=== PATIENT | male | born 1950 | race Caucasian/White ===

== ENCOUNTER 2016-09-21 01:51 | Inpatient (IN) | payer MEDICARE, OTHER ==
[~2016-09-21] VITALS: Ht 172.7 cm; Wt 81.6 kg
[2016-09-21 02:31] LABS: BASO % 0 % (0-3); EOS % 7 % (0-3); HEMATOCRIT 40.2 % (39.0-53.0); HEMOGLOBIN 13.2 g/dL (13.0-17.5); LYMPH # 2.2 x10^3/uL (1.0-4.8); LYMPH % 25 % (24-48); MEAN CORPUSCULAR HEMOGLOBIN 31 pg (25-35); MEAN CORPUSCULAR HGB CONC 33 g/dL (31-37); MEAN CORPUSCULAR VOLUME 93 fL (79-100); MONO % 6 % (0-9); NEUT % 62 % (31-73); PLATELET COUNT 144 x10^3/uL (140-400); RED BLOOD COUNT 4.31 x10^6/uL (4.30-5.70); RED CELL DISTRIBUTION WIDTH 17.1 % (11.5-14.5); WHITE BLOOD COUNT 8.9 x10^3/uL (4.0-11.0)
[2016-09-21 02:42] LABS: CALCIUM 9.6 mg/dL (8.5-10.1); CREATININE 0.7 mg/dL (0.7-1.3); GFR 112.1; POTASSIUM 4.3 mmol/L (3.5-5.1)
[2016-09-21 02:48] LABS: ALBUMIN 3.6 g/dL (3.4-5.0); ALBUMIN/GLOBULIN RATIO 1.1 (1.0-1.7); TOTAL BILIRUBIN 0.6 mg/dL (0.2-1.0); TOTAL PROTEIN 6.9 g/dL (6.4-8.2)
[2016-09-21 02:56] LABS: CKMB MASS 0.9 ng/mL (0.0-3.6)
[2016-09-21] MEDS ORDERED: IV NORMAL SALINE 1000ML BAG 1,000 ML IV SCH (03:00)
[2016-09-21] MEDS ORDERED: PIP/TAZO PER PHARMACY MC PRN (03:30)
[2016-09-21] MEDS ORDERED: levOFLOXacin PER PHARMACY. MC PRN (03:30)
[2016-09-21] MEDS ORDERED: ACETAMINOPHEN 325 MG TABLET. PO PRN (03:45)
[2016-09-21] MEDS ORDERED: ONDANSETRON PF 4 MG/2 ML VIAL. IV PRN (03:45)
--- NOTE | 2016-09-21 03:54 | PHYS DOC ---
Past Medical History Past Medical History: A-Fib, Dementia, GERD, Hypertension Alcohol Use: None Drug Use: None Adult General Chief Complaint Chief Complaint: DYSPNEA/RESPIRATOY DISTRESS HPI HPI Patient is a 66 year old male who presents to the emergency department by EMS for evaluation of increased work of breathing. Patient was brought to the emergency department by [facility] after patient was noted to have increasing tracheostomy secretions and increased work of breathing. Patient has history of A. fib, severe dementia, GERD, and hypertension. Patient has bedbound and has a tracheostomy in place. Patient provides no history. There are no reports of associated fever. Patient has had increased output of yellowish frothy secretions from the tracheostomy site. Review of Systems Review of Systems Unable to obtain from patient Current Medications Current Medications Current Medications Medications (Trade) Dose Ordered Sig/Eleanor Start Time Stop Time Status Last Admin Dose Admin Levofloxacin/ Dextrose 150 ml @ 100 mls/hr 1X ONCE 09/21/16 04:00 09/21/16 05:29 Levofloxacin/ Dextrose (Levaquin Per Pharmacy) 1 each PRN DAILY PRN 09/21/16 03:30 Piperacillin Sod/ Tazobactam Sod (Zosyn Per Pharmacy) 1 each PRN DAILY PRN 09/21/16 03:30 Piperacillin Sod/ Tazobactam Sod 3.375 gm/Sodium Chloride 50 ml @ 100 mls/hr Q6HRS 09/21/16 06:00 Sodium Chloride 1,000 ml @ 100 mls/hr Q10H 09/21/16 03:00 09/21/16 12:59 09/21/16 03:00 100 MLS/HR Vancomycin HCl (Vanco Per Pharmacy) 1 each PRN DAILY PRN 09/21/16 03:30 Vancomycin HCl 2 gm/Sodium Chloride 500 ml @ 250 mls/hr 1X ONCE 09/21/16 05:00 09/21/16 06:59 Allergies Allergies Allergies Coded Allergies Type Severity Reaction Last Updated Verified fentanyl Allergy Intermediate 09/21/16 Yes morphine Allergy Intermediate 09/21/16 Yes Physical Exam Physical Exam Constitutional: Afebrile, obtunded, withdraws from pain. [] HENT: Normocephalic, atraumatic, bilateral external ears normal, oropharynx dry , no oral exudates, nose normal. [] Eyes: PERRLA, EOMI, conjunctiva normal, no discharge. [] Neck: Tracheostomy midline with copious yellowish frothy secretions, supple, no stridor. [] Cardiovascular: Tachycardia, irregular rhythm, no murmur [] Lungs & Thorax: Mildly restricted air movement bilaterally, rales bilaterally, no wheezes [] Abdomen: Bowel sounds normal, soft, no tenderness, no masses, no pulsatile masses. [] Skin: Warm, dry, no erythema, no rash. [] Back: No tenderness, no CVA tenderness. [] Extremities: No tenderness, no cyanosis, no clubbing, ROM intact, no edema. [] Neurologic: Obtunded, contracted extremities, withdraws to pain, attempts to open eyes to voice. . [] Current Patient Data Vital Signs Vital Signs Date Time Temp Pulse Resp B/P (MAP) Pulse Ox O2 Delivery O2 Flow Rate FiO2 09/21/16 01:55 100 25 143/93 (110) 97 Tracheal Collar 4.0 Lab Values Laboratory Tests Test 09/21/16 02:15 White Blood Count 8.9 x10^3/uL (4.0-11.0) Red Blood Count 4.31 x10^6/uL (4.30-5.70) Hemoglobin 13.2 g/dL (13.0-17.5) Hematocrit 40.2 % (39.0-53.0) Mean Corpuscular Volume 93 fL (79-100) Mean Corpuscular Hemoglobin 31 pg (25-35) Mean Corpuscular Hemoglobin Concent 33 g/dL (31-37) Red Cell Distribution Width 17.1 % (11.5-14.5) H Platelet Count 144 x10^3/uL (140-400) Neutrophils (%) (Auto) 62 % (31-73) Lymphocytes (%) (Auto) 25 % (24-48) Monocytes (%) (Auto) 6 % (0-9) Eosinophils (%) (Auto) 7 % (0-3) H Basophils (%) (Auto) 0 % (0-3) Neutrophils # (Auto) 5.5 x10^3uL (1.8-7.7) Lymphocytes # (Auto) 2.2 x10^3/uL (1.0-4.8) Monocytes # (Auto) 0.5 x10^3/uL (0.0-1.1) Eosinophils # (Auto) 0.6 x10^3/uL (0.0-0.7) Basophils # (Auto) 0.0 x10^3/uL (0.0-0.2) Sodium Level 148 mmol/L (136-145) H Potassium Level 4.3 mmol/L (3.5-5.1) Chloride Level 104 mmol/L (98-107) Carbon Dioxide Level 38 mmol/L (21-32) H Anion Gap 6 (6-14) Blood Urea Nitrogen 16 mg/dL (8-26) Creatinine 0.7 mg/dL (0.7-1.3) Estimated GFR (Cockcroft-Gault) 112.1 BUN/Creatinine Ratio 23 (6-20) H Glucose Level 99 mg/dL (70-99) Lactic Acid Level 3.5 mmol/L (0.4-2.0) H Calcium Level 9.6 mg/dL (8.5-10.1) Total Bilirubin 0.6 mg/dL (0.2-1.0) Aspartate Amino Transferase (AST) 15 U/L (15-37) Alanine Aminotransferase (ALT) 13 U/L (16-63) L Alkaline Phosphatase 84 U/L (46-116) Creatine Kinase 67 U/L (39-308) Creatine Kinase MB (Mass) 0.9 ng/mL (0.0-3.6) Creatine Kinase MB Relative Index 1.3 % (0-4) Total Protein 6.9 g/dL (6.4-8.2) Albumin 3.6 g/dL (3.4-5.0) Albumin/Globulin Ratio 1.1 (1.0-1.7) Laboratory Tests 09/21/16 02:15 Laboratory Tests 09/21/16 02:15 EKG EKG Interpreted by me: Heart rate 102, atrial fibrillation, normal axis, no acute ST /T-wave abnormalities present [] Radiology/Procedures Radiology/Procedures One view AP chest x-ray interpreted by me: Right lower lobe infiltrate, no effusions, normal cardiac silhouette [] Course & Med Decision Making Course & Med Decision Making Pertinent Labs and Imaging studies reviewed. (See chart for details) Patient was suctioned by respiratory therapy in the emergency department. A tracheal aspirate was sent for culture. Patient has infiltrate on chest x-ray. Patient started on vancomycin, Zosyn, and Levaquin for treatment of healthcare associated pneumonia. Patient admitted to Dr. Miranda. Didi Disclaimer [employer] Disclaimer This electronic medical record was generated, in whole or in part, using a voice recognition dictation system. Departure Departure Impression: Primary Impression: Healthcare-associated pneumonia Additional Impressions: Respiratory distress Dementia Disposition: ADMITTED INPATIENT Admitting Physician: Rea Miranda Condition: GUARDED Referrals: UNKNOWN PCP NAME (PCP) Problem Qualifiers Additional Impressions: Dementia Dementia type: unspecified type Dementia behavioral disturbance: without behavioral disturbance Qualified Codes: F03.90 - Unspecified dementia without behavioral disturbance XAVIER EPSTEIN MD September 21, 2016 03:54
--- NOTE | 2016-09-21 04:23 | ACF ---
Admit Criteria Forms Admit Criteria Forms Admit Criteria Forms PNEUMONIA, HOSPITAL-ACQUIRED AND ATELECTASIS Clinical Indications for Inpatient Care (Place 'X' for any and all applicable criteria): Ongoing inpatient care may be indicated for hospital-acquired atelectasis or pneumonia[N] with ANY ONE of the following(2)(5)(47)(48)(49): [ ]I. Mechanical ventilation [N] [ ]II. Temperature less than 35 degrees C (95 degrees F) or greater than 39.5 degrees C (103.1 degrees F) [ ]III. Tachypnea (eg, respiratory rate greater than 30 breaths per minute) [ ]IV. Hemodynamic instability [X]V. Respiratory distress [ ]. Significant hypoxemia as indicated by ANY ONE of the following: [ ]a) Previously normal respiratory status with ANY ONE of the following: [ ]i) SaO2 less than 90% or PO2 less than 60 mm Hg (8.0 kPa )) on room air [ ]ii) Oxygen required to keep SaO2 greater than 90% [ ]b) Chronic baseline hypoxemia with significant deterioration (eg, O2 saturation decrease more than 5%) [ ]c) Required supplemental oxygen performable only in acute inpatient setting [ ]VII. Significant hypoventilation as indicated by ANY ONE of the following: [ ]a) Previously normal with PCO2 greater than 42 mm Hg (5.6 kPa) and pH less than 7.35 [ ]b) Documented PCO2 increase greater than 5 mm Hg (0.7 kPa) from disease baseline [ ]VIII.Severe secretion production requiring frequent suctioning Extended stay beyond goal length of stay for primary condition may be needed until ALL of the following are present(28)(29): [ ]a) Microbiologic cause of infection identified and appropriate antibiotic treatment in place, or satisfactory clinical response to empiric antibiotic therapy [ ]b) Hemodynamic stability [ ]c) No requirement for supplemental oxygen performable only in acute inpatient setting [ ]d) Chest tube absent or chest catheter management regimen established for next level of care [ ]e) Suctioning, pulmonary toilet, or other therapy performable at a lower level of care [ ]f) Fever absent, improved, or manageable at lower level of care [ ]g) Medical comorbidities manageable at a lower level of care The original [facility] content created by [employer] has been revised. The portions of the content which have been revised are identified through the use of italic text or in bold, and [facility] has neither reviewed nor approved the modified material. All other unmodified content is copyright [facility] Please see references footnoted in the original [facility] edition 2016 WILIAN BHATT September 21, 2016 04:23
[2016-09-21 04:50] VITALS: BP 129/80
[2016-09-21] MEDS ORDERED: VANCOMYCIN 2 GM in IV NORMAL SALINE 500ML BAG 500 ML IV ONE (05:00)
[2016-09-21] MEDS ORDERED: DIVA500T4 PEG (05:21)
[2016-09-21] MEDS ORDERED: POLY15DR20 OP (05:21)
[2016-09-21] MEDS ORDERED: IPRA3AMP NEB (05:21)
[2016-09-21] MEDS ORDERED: APIX5TAB PEG (05:21)
[2016-09-21] MEDS ORDERED: BENZ1TAB5 PEG (05:21)
[2016-09-21] MEDS ORDERED: CYAN10002 IM (05:21)
[2016-09-21] MEDS ORDERED: CITA20TA9 PEG (05:21)
[2016-09-21] MEDS ORDERED: ACET500T68 PEG (05:21)
[2016-09-21] MEDS ORDERED: BUDE0.5A NEB (05:21)
[2016-09-21] MEDS: PIPERACILLIN/TAZOBACTAM 4.5 GM in IV NORMAL SALINE 100ML 100 ML IV SCH ×3 (05:42→17:44)
[2016-09-21] MEDS: IV NORMAL SALINE 1000ML BAG 1,000 ML IV SCH ×3 (05:43→19:41)
[2016-09-21] MEDS ORDERED: PIPERACILLIN/TAZOBACTAM 3.375 GM in IV NORMAL SALINE 50ML 50 ML IV SCH (06:00)
[2016-09-21] MEDS: VANCOMYCIN PER PHARMACY MC PRN (06:09)
[2016-09-21 07:00] VITALS: BP 112/77
--- NOTE | 2016-09-21 07:35 | EKG ---
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
--- NOTE | 2016-09-21 07:58 | RAD ---
Portable AP chest. History: Respiratory distress AP view was taken of the chest. The patient has a tracheostomy tube which appears in good position. Patient's taken a poor inspiration. There is elevation of the right diaphragm. Heart is mildly enlarged. There is arthritis in both shoulders. There is mild hazy retrocardiac atelectasis or infiltrate on the left. Impression: 1. Poor inspiration. 2. Cardiomegaly. 3. Elevated right diaphragm. 4. Hazy basilar atelectasis or infiltrate.
[2016-09-21] MEDS ORDERED: POLYVINYL ALCOHOL 1.4% OPHTH SOLUTION 15ML BOTTLE. OU SCH (08:30)
[2016-09-21] MEDS ORDERED: DIVALPROEX EXTENDED RELEASE 500 MG TAB.ER.24H. PO SCH (09:00)
[2016-09-21] MEDS: APIXABAN 5 MG TABLET. PO SCH ×2 (10:20→21:00)
[2016-09-21] MEDS: CITALOPRAM 20 MG TABLET. PEG SCH (10:20)
--- NOTE | 2016-09-21 11:21 | PDOC ---
PULMONARY PROGRESS NOTES Vitals Vital Signs Date Time Temp Pulse Resp B/P (MAP) Pulse Ox O2 Delivery O2 Flow Rate FiO2 09/21/16 07:00 98.5 102 18 112/77 (89) 97 Tracheal Collar 98.5 09/21/16 05:53 4.0 Labs Laboratory Tests Test 09/21/16 02:15 White Blood Count 8.9 x10^3/uL (4.0-11.0) Red Blood Count 4.31 x10^6/uL (4.30-5.70) Hemoglobin 13.2 g/dL (13.0-17.5) Hematocrit 40.2 % (39.0-53.0) Mean Corpuscular Volume 93 fL (79-100) Mean Corpuscular Hemoglobin 31 pg (25-35) Mean Corpuscular Hemoglobin Concent 33 g/dL (31-37) Red Cell Distribution Width 17.1 % (11.5-14.5) Platelet Count 144 x10^3/uL (140-400) Neutrophils (%) (Auto) 62 % (31-73) Lymphocytes (%) (Auto) 25 % (24-48) Monocytes (%) (Auto) 6 % (0-9) Eosinophils (%) (Auto) 7 % (0-3) Basophils (%) (Auto) 0 % (0-3) Neutrophils # (Auto) 5.5 x10^3uL (1.8-7.7) Lymphocytes # (Auto) 2.2 x10^3/uL (1.0-4.8) Monocytes # (Auto) 0.5 x10^3/uL (0.0-1.1) Eosinophils # (Auto) 0.6 x10^3/uL (0.0-0.7) Basophils # (Auto) 0.0 x10^3/uL (0.0-0.2) Sodium Level 148 mmol/L (136-145) Potassium Level 4.3 mmol/L (3.5-5.1) Chloride Level 104 mmol/L (98-107) Carbon Dioxide Level 38 mmol/L (21-32) Anion Gap 6 (6-14) Blood Urea Nitrogen 16 mg/dL (8-26) Creatinine 0.7 mg/dL (0.7-1.3) Estimated GFR (Cockcroft-Gault) 112.1 BUN/Creatinine Ratio 23 (6-20) Glucose Level 99 mg/dL (70-99) Lactic Acid Level 3.5 mmol/L (0.4-2.0) Calcium Level 9.6 mg/dL (8.5-10.1) Total Bilirubin 0.6 mg/dL (0.2-1.0) Aspartate Amino Transf (AST/SGOT) 15 U/L (15-37) Alanine Aminotransferase (ALT/SGPT) 13 U/L (16-63) Alkaline Phosphatase 84 U/L (46-116) Creatine Kinase 67 U/L (39-308) Creatine Kinase MB (Mass) 0.9 ng/mL (0.0-3.6) Creatine Kinase MB Relative Index 1.3 % (0-4) Total Protein 6.9 g/dL (6.4-8.2) Albumin 3.6 g/dL (3.4-5.0) Albumin/Globulin Ratio 1.1 (1.0-1.7) Laboratory Tests Test 09/21/16 02:15 White Blood Count 8.9 x10^3/uL (4.0-11.0) Red Blood Count 4.31 x10^6/uL (4.30-5.70) Hemoglobin 13.2 g/dL (13.0-17.5) Hematocrit 40.2 % (39.0-53.0) Mean Corpuscular Volume 93 fL (79-100) Mean Corpuscular Hemoglobin 31 pg (25-35) Mean Corpuscular Hemoglobin Concent 33 g/dL (31-37) Red Cell Distribution Width 17.1 % (11.5-14.5) Platelet Count 144 x10^3/uL (140-400) Neutrophils (%) (Auto) 62 % (31-73) Lymphocytes (%) (Auto) 25 % (24-48) Monocytes (%) (Auto) 6 % (0-9) Eosinophils (%) (Auto) 7 % (0-3) Basophils (%) (Auto) 0 % (0-3) Neutrophils # (Auto) 5.5 x10^3uL (1.8-7.7) Lymphocytes # (Auto) 2.2 x10^3/uL (1.0-4.8) Monocytes # (Auto) 0.5 x10^3/uL (0.0-1.1) Eosinophils # (Auto) 0.6 x10^3/uL (0.0-0.7) Basophils # (Auto) 0.0 x10^3/uL (0.0-0.2) Sodium Level 148 mmol/L (136-145) Potassium Level 4.3 mmol/L (3.5-5.1) Chloride Level 104 mmol/L (98-107) Carbon Dioxide Level 38 mmol/L (21-32) Anion Gap 6 (6-14) Blood Urea Nitrogen 16 mg/dL (8-26) Creatinine 0.7 mg/dL (0.7-1.3) Estimated GFR (Cockcroft-Gault) 112.1 BUN/Creatinine Ratio 23 (6-20) Glucose Level 99 mg/dL (70-99) Lactic Acid Level 3.5 mmol/L (0.4-2.0) Calcium Level 9.6 mg/dL (8.5-10.1) Total Bilirubin 0.6 mg/dL (0.2-1.0) Aspartate Amino Transf (AST/SGOT) 15 U/L (15-37) Alanine Aminotransferase (ALT/SGPT) 13 U/L (16-63) Alkaline Phosphatase 84 U/L (46-116) Creatine Kinase 67 U/L (39-308) Creatine Kinase MB (Mass) 0.9 ng/mL (0.0-3.6) Creatine Kinase MB Relative Index 1.3 % (0-4) Total Protein 6.9 g/dL (6.4-8.2) Albumin 3.6 g/dL (3.4-5.0) Albumin/Globulin Ratio 1.1 (1.0-1.7) Medications Active Scripts Medications Dose Route/Sig Max Daily Dose Days Date Category Dose Instructions Duoneb 0.5-3(2.5) Mg/3 Ml (Albuterol/Ipratropium) 3 Ml Ampul.neb 3 Ml NEB QID 09/21/16 Reported Depakote Er (Divalproex Sodium) 500 Mg Tab.er.24h 1 Tab PEG BID 09/21/16 Reported Cyanocobalamin Injection (Cyanocobalamin (Vitamin B-12)) 1,000 Mcg/1 Ml Vial 1 Ml IM QMONTH 09/21/16 Reported Celexa (Citalopram Hydrobromide) 20 Mg Tablet 1 Tab PEG QODAY 09/21/16 Reported Budesonide 0.5 Mg/2 Ml Ampul.neb 1 Vial NEB BID 09/21/16 Reported Benztropine Mesylate 1 Mg Tablet 1 Mg PEG HS 09/21/16 Reported Polyvinyl Alcohol 15 Ml Drops 15 Ml OP PRN Q8HRS 09/21/16 Reported Instill 1 drop in both eyes every 8 hours as needed for dryness Eliquis (Apixaban) 5 Mg Tablet 5 Mg PEG BID 09/21/16 Reported Acetaminophen 500 Mg Tablet 650 Mg PEG PRN Q6HRS 09/21/16 Reported Impression . full note dictated see orders INÉS LANZA MD September 21, 2016 11:21
[2016-09-21] MEDS: BUDESONIDE 0.5 MG/2 ML NEBU. NEB SCH ×2 (11:22→19:55)
[2016-09-21] MEDS: IPRATRPIUM/ALBUTEROL 0.5/2.5MG 3 ML NEBU. NEB SCH ×3 (11:22→19:55)
[2016-09-21] MEDS ORDERED: predniSONE 20 MG TABLET PEG SCH (12:00)
--- NOTE | 2016-09-21 12:18 | PDOC1 ---
History and Physical Date of Admission Date of Admission DATE: 09/21/16 TIME: 12:16 Identification/Chief Complaint Chief Complaint lots of secretions, desatns? Problems: Source Source: Caregiver, Chart review History of Present Illness History of Present Illness 66 y.o male, resident of , admitted bec of lots of secretions at SNU and possibly some desatns? Pt is non verbal, trached and pEGd and mostly bed bound. There were no reports of fever but pete some yellowish frothy secretions from trach, CXR shows atelectasis and possibly hazy infiltrate, started on HAP coverage, NO family at bedside, full code per chart, On continuous TF at SNU per RN WBC normal, NA 148. crea 0.7, rest of labs ok. NO wound chart or pics documented Past Medical History CENTRAL NERVOUS SYSTEM: Seizure Psych: Other (encephalopathy) Past Surgical History Past Surgical History: Other (trach, peg) Family History Family History: Family History Unknown Social History Smoke: No ALCOHOL: none Drugs: None Current Problem List Problem List Problems Medical Problems: (1) Dementia Status: Acute (2) Healthcare-associated pneumonia Status: Acute (3) Respiratory distress Status: Acute Problems: Current Medications Current Medications Current Medications Sodium Chloride 1,000 ml @ 100 mls/hr Q10H IV Last administered on 09/21/16 03:00; Start 09/21/16 at 03:00; Stop 09/21/16 at 12:59 Vancomycin HCl (Vanco Per Pharmacy) 1 each PRN DAILY PRN MC SEE COMMENTS Last administered on 09/21/16 06:09; Start 09/21/16 at 03:30 Piperacillin Sod/ Tazobactam Sod (Zosyn Per Pharmacy) 1 each PRN DAILY PRN MC SEE COMMENTS; Start 09/21/16 at 03:30 Levofloxacin/ Dextrose (Levaquin Per Pharmacy) 1 each PRN DAILY PRN MC SEE COMMENTS; Start 09/21/16 at 03:30 Vancomycin HCl 2 gm/Sodium Chloride 500 ml @ 250 mls/hr 1X ONCE IV Last administered on 09/21/16 05:43; Start 09/21/16 at 05:00; Stop 09/21/16 at 06:59 ; Status DC Levofloxacin/ Dextrose 150 ml @ 100 mls/hr 1X ONCE IV Last administered on 03:51; Start 09/21/16 at 04:00; Stop 09/21/16 at 05:29; Status DC Piperacillin Sod/ Tazobactam Sod 3.375 gm/Sodium Chloride 50 ml @ 100 mls/hr Q6HRS IV ; Start 09/21/16 at 06:00; Status Cancel Ondansetron HCl (Zofran) 4 mg PRN Q8HRS PRN IV NAUSEA/VOMITING; Start 09/21/16 at 03:45; Stop 09/22/16 at 03:44 Sodium Chloride 1,000 ml @ 125 mls/hr Q8H IV Last administered on 09/21/16 05 :43; Start 09/21/16 at 03:41; Stop 09/22/16 at 03:40 Acetaminophen (Tylenol) 650 mg PRN Q4HRS PRN PO FEVER; Start 09/21/16 at 03:45 ; Stop 09/21/16 at 08:25; Status DC Levofloxacin/ Dextrose 150 ml @ 100 mls/hr Q24H IV ; Start 09/22/16 at 05:00 Piperacillin Sod/ Tazobactam Sod 4.5 gm/Sodium Chloride 100 ml @ 200 mls/hr Q6HRS IV Last administered on 09/21/16 05:42; Start 09/21/16 at 06:00 Vancomycin HCl 1.25 gm/Sodium Chloride 250 ml @ 167 mls/hr Q12H IV ; Start at 18:00 Vancomycin HCl 1 each 1X ONCE MC ; Start 09/22/16 at 17:30; Stop 09/22/16 at 17 :31 Acetaminophen (Tylenol) 650 mg PRN Q6HRS PRN PO temp; Start 09/21/16 at 08:30 Apixaban (Eliquis) 5 mg BID PO Last administered on 09/21/16 10:20; Start at 09:00 Benztropine Mesylate (Cogentin) 1 mg HS PEG ; Start 09/21/16 at 21:00 Budesonide (Pulmicort) 0.5 mg BID NEB Last administered on 09/21/16 11:22; Start 09/21/16 at 09:00 Citalopram Hydrobromide (CeleXA) 20 mg QODAY PEG Last administered on 5/29/ 17at 10:20; Start 09/21/16 at 09:00 Cyanocobalamin (Vitamin B-12) 1,000 mcg QMONTH IM ; Start 09/21/16 at 15:00 Divalproex Sodium (Depakote Er) 500 mg BID PO ; Start 09/21/16 at 09:00 Albuterol/ Ipratropium (Duoneb) 3 ml QID NEB Last administered on 09/21/16t 11: 22; Start 09/21/16 at 09:00 Artificial Tears (Artificial Tears) 1 drop PRN Q8HRS OU ; Start 09/21/16 at 08: 30 Info (Anti-Coagulation Monitoring By Pharmacy) 1 each PRN DAILY PRN MC SEE COMMENTS; Start 09/21/16 at 08:45 Enoxaparin Sodium (Lovenox 40mg Syringe) 40 mg DAILY SQ ; Start 09/22/16 at 09: 00; Stop 09/22/16 at 09:00; Status DC Prednisone (Prednisone) 20 mg DAILY PEG ; Start 09/21/16 at 12:00 Active Scripts Active Reported Duoneb 0.5-3(2.5) Mg/3 Ml (Albuterol/Ipratropium) 3 Ml Ampul.neb 3 Ml NEB QID Depakote Er (Divalproex Sodium) 500 Mg Tab.er.24h 1 Tab PEG BID Cyanocobalamin Injection (Cyanocobalamin (Vitamin B-12)) 1,000 Mcg/1 Ml Vial 1 Ml IM QMONTH Celexa (Citalopram Hydrobromide) 20 Mg Tablet 1 Tab PEG QODAY Budesonide 0.5 Mg/2 Ml Ampul.neb 1 Vial NEB BID Benztropine Mesylate 1 Mg Tablet 1 Mg PEG HS Polyvinyl Alcohol 15 Ml Drops 15 Ml OP PRN Q8HRS Instill 1 drop in both eyes every 8 hours as needed for dryness Eliquis (Apixaban) 5 Mg Tablet 5 Mg PEG BID Acetaminophen 500 Mg Tablet 650 Mg PEG PRN Q6HRS Allergies Allergies: Coded Allergies: fentanyl (Verified Allergy, Intermediate, 09/21/16) morphine (Verified Allergy, Intermediate, 09/21/16) ROS Review of System non verbal Physical Exam General: mild distress, Other (lots of audible secretions) Lungs: Normal air movement, Other (dec BS, coarse, no wheezing) Cardiovascular: S1, S2 Abdomen: Normal bowel sounds, Soft, No tenderness, No hepatosplenomegaly, No masses, Other (peg in place) Rectal Exam: not examined PELVIC: Nml ext genitalia Extremities: Other (clubbing appreciable) Skin: No rashes, No breakdown, No significant lesion Neuro: Other (cant assess) Psych/Mental Status: Other (cant assess) Vitals Vitals Vital Signs Date Time Temp Pulse Resp B/P (MAP) Pulse Ox O2 Delivery O2 Flow Rate FiO2 09/21/16 11:26 95 Tracheal Collar 10.0 09/21/16 11:00 99.0 116 20 99.0 09/21/16 07:00 112/77 (89) Labs Labs Laboratory Tests Test 09/21/16 02:15 White Blood Count 8.9 x10^3/uL (4.0-11.0) Red Blood Count 4.31 x10^6/uL (4.30-5.70) Hemoglobin 13.2 g/dL (13.0-17.5) Hematocrit 40.2 % (39.0-53.0) Mean Corpuscular Volume 93 fL (79-100) Mean Corpuscular Hemoglobin 31 pg (25-35) Mean Corpuscular Hemoglobin Concent 33 g/dL (31-37) Red Cell Distribution Width 17.1 % (11.5-14.5) Platelet Count 144 x10^3/uL (140-400) Neutrophils (%) (Auto) 62 % (31-73) Lymphocytes (%) (Auto) 25 % (24-48) Monocytes (%) (Auto) 6 % (0-9) Eosinophils (%) (Auto) 7 % (0-3) Basophils (%) (Auto) 0 % (0-3) Neutrophils # (Auto) 5.5 x10^3uL (1.8-7.7) Lymphocytes # (Auto) 2.2 x10^3/uL (1.0-4.8) Monocytes # (Auto) 0.5 x10^3/uL (0.0-1.1) Eosinophils # (Auto) 0.6 x10^3/uL (0.0-0.7) Basophils # (Auto) 0.0 x10^3/uL (0.0-0.2) Sodium Level 148 mmol/L (136-145) Potassium Level 4.3 mmol/L (3.5-5.1) Chloride Level 104 mmol/L (98-107) Carbon Dioxide Level 38 mmol/L (21-32) Anion Gap 6 (6-14) Blood Urea Nitrogen 16 mg/dL (8-26) Creatinine 0.7 mg/dL (0.7-1.3) Estimated GFR (Cockcroft-Gault) 112.1 BUN/Creatinine Ratio 23 (6-20) Glucose Level 99 mg/dL (70-99) Lactic Acid Level 3.5 mmol/L (0.4-2.0) Calcium Level 9.6 mg/dL (8.5-10.1) Total Bilirubin 0.6 mg/dL (0.2-1.0) Aspartate Amino Transf (AST/SGOT) 15 U/L (15-37) Alanine Aminotransferase (ALT/SGPT) 13 U/L (16-63) Alkaline Phosphatase 84 U/L (46-116) Creatine Kinase 67 U/L (39-308) Creatine Kinase MB (Mass) 0.9 ng/mL (0.0-3.6) Creatine Kinase MB Relative Index 1.3 % (0-4) Total Protein 6.9 g/dL (6.4-8.2) Albumin 3.6 g/dL (3.4-5.0) Albumin/Globulin Ratio 1.1 (1.0-1.7) Laboratory Tests Test 09/21/16 02:15 White Blood Count 8.9 x10^3/uL (4.0-11.0) Red Blood Count 4.31 x10^6/uL (4.30-5.70) Hemoglobin 13.2 g/dL (13.0-17.5) Hematocrit 40.2 % (39.0-53.0) Mean Corpuscular Volume 93 fL (79-100) Mean Corpuscular Hemoglobin 31 pg (25-35) Mean Corpuscular Hemoglobin Concent 33 g/dL (31-37) Red Cell Distribution Width 17.1 % (11.5-14.5) Platelet Count 144 x10^3/uL (140-400) Neutrophils (%) (Auto) 62 % (31-73) Lymphocytes (%) (Auto) 25 % (24-48) Monocytes (%) (Auto) 6 % (0-9) Eosinophils (%) (Auto) 7 % (0-3) Basophils (%) (Auto) 0 % (0-3) Neutrophils # (Auto) 5.5 x10^3uL (1.8-7.7) Lymphocytes # (Auto) 2.2 x10^3/uL (1.0-4.8) Monocytes # (Auto) 0.5 x10^3/uL (0.0-1.1) Eosinophils # (Auto) 0.6 x10^3/uL (0.0-0.7) Basophils # (Auto) 0.0 x10^3/uL (0.0-0.2) Sodium Level 148 mmol/L (136-145) Potassium Level 4.3 mmol/L (3.5-5.1) Chloride Level 104 mmol/L (98-107) Carbon Dioxide Level 38 mmol/L (21-32) Anion Gap 6 (6-14) Blood Urea Nitrogen 16 mg/dL (8-26) Creatinine 0.7 mg/dL (0.7-1.3) Estimated GFR (Cockcroft-Gault) 112.1 BUN/Creatinine Ratio 23 (6-20) Glucose Level 99 mg/dL (70-99) Lactic Acid Level 3.5 mmol/L (0.4-2.0) Calcium Level 9.6 mg/dL (8.5-10.1) Total Bilirubin 0.6 mg/dL (0.2-1.0) Aspartate Amino Transf (AST/SGOT) 15 U/L (15-37) Alanine Aminotransferase (ALT/SGPT) 13 U/L (16-63) Alkaline Phosphatase 84 U/L (46-116) Creatine Kinase 67 U/L (39-308) Creatine Kinase MB (Mass) 0.9 ng/mL (0.0-3.6) Creatine Kinase MB Relative Index 1.3 % (0-4) Total Protein 6.9 g/dL (6.4-8.2) Albumin 3.6 g/dL (3.4-5.0) Albumin/Globulin Ratio 1.1 (1.0-1.7) VTE Prophylaxis Ordered VTE Prophylaxis Devices: Yes VTE Pharmacological Prophylaxi: Yes Assessment/Plan Assessment/Plan 1. HAP, acute respi failure r/o aspiration pneumonia, pneumonitis, include gram pos and gram neg coverage 2. Encephalopathy, persistent - trached and PEgd 3. ANemia 4. On ELliquis (unsure reason) 5. 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 SIRS POA with elevated lactate (3.5), no sepsis yet PLAN: Admit HAP coverage pUlmo consulted Recheck lactate roel TF via peg with nutrition consult DO depakote sprinkles instead since pEG Trial of scopolamine patch to help secretions Suction secretions aggressively SCDs, cont elliquis for now Involve palliative - address code status Overall prog poor KIRK Riley RN, MD September 21, 2016 12:18
[2016-09-21] MEDS: SCOPOLAMINE 1.5MG PATCH. TD SCH (12:36)
--- NOTE | 2016-09-21 14:14 | CONS ---
DATE OF CONSULTATION: 09/21/2016 ATTENDING PHYSICIAN: Dr. Miranda. DICTATING PHYSICIAN: Dr. Lanza. REASON FOR CONSULTATION: The patient is seen in pulmonary consultation at the request of Dr. Miranda for acute on chronic respiratory failure. HISTORY OF PRESENT ILLNESS: The patient is a 66-year-old that presented to the Emergency Room for evaluation of increased work of breathing. The patient was brought to the Emergency Department by EMS after noted increasing secretions to his tracheostomy tube. The patient has a history of AFib, severe dementia, gastroesophageal reflux, hypertension, status post PEG and trache. No current history is obtained from the patient himself. There is no report of fever or chills. There are no family members. PAST MEDICAL HISTORY: Chronic respiratory failure status post trache, severe dementia, gastroesophageal reflux, hypertension, AFib. PAST SURGICAL HISTORY: Status post PEG and trache. ALLERGIES: LISTED TO MORPHINE AND FENTANYL. CURRENT MEDICATIONS: List was reviewed. Please see the MRAD. All medications list was likewise reviewed. REVIEW OF SYSTEMS: Unobtainable secondary to the patient's condition. SOCIAL HISTORY: Unknown. PHYSICAL EXAMINATION: GENERAL: The patient was awake, but follows no commands. VITAL SIGNS: Stable. O2 saturation was greater than 92%. Since admission, he has been afebrile. He has trache ____ in place. HEENT: Eyes, the sclerae were nonicteric. NECK: Jugular venous distention was not elevated. No lymphadenopathy. CHEST: Full expansion. LUNGS: Bilateral rhonchi. No wheezes. CARDIOVASCULAR: Regular rate and rhythm with S1, S2, no S3. ABDOMEN: Soft, nontender, nondistended. PEG in place. EXTREMITIES: No clubbing, cyanosis. Contractures present. LABORATORY DATA: Reviewed. White count was normal. Hemoglobin and hematocrit were noted. Electrolytes were noted. Chest x-ray was reviewed. Tracheostomy tube was in place. There was poor inspiration, elevated hemidiaphragm, some infiltrates throughout both lung quinones. IMPRESSION: 1. Acute on chronic respiratory failure. 2. Suspect gram-negative, possibly gram-positive pneumonia. 3. Status post tracheostomy. 4. Status post percutaneous endoscopic gastrostomy. 5. Severe dementia. PLAN: 1. Continue coverage for both gram-negative and gram-positive organisms. 2. Continue frequent suctioning. 3. Nebulized treatments. 4. Pulmicort nebulized. 5. IV fluids. 6. Tube feeding. 7. DVT and GI prophylaxis. I do appreciate the privilege in sharing in the patient's care. INÉS LANZA MD DR: ANTON/cindy JOB#: [id number] / [id number]
[2016-09-21] MEDS: ACETAMINOPHEN 500 MG TABLET PO PRN (14:59)
[2016-09-21 15:00] VITALS: BP 109/71
[2016-09-21] MEDS ORDERED: CYANOCOBALAMIN (VITAMIN B-12) 1,000 MCG/ML VIAL IM SCH (15:00)
[2016-09-21] MEDS: VANCOMYCIN 1.25 GM in IV NORMAL SALINE 250ML 250 ML IV SCH (17:44)
[2016-09-21] MEDS: DIVALPROEX SPRINKLES 125 MG CAPSULE. PO SCH (17:45)
[2016-09-21 19:29] VITALS: BP 110/62
[2016-09-21] MEDS: BENZTROPINE MESYLATE 1 MG TABLET. PEG SCH (21:00)
[2016-09-21 23:29] VITALS: BP 108/74
[2016-09-22 03:18] VITALS: BP 110/65
[2016-09-22 04:59] LABS: BASO % 0 % (0-3); EOS % 0 % (0-3); HEMATOCRIT 38.2 % (39.0-53.0); HEMOGLOBIN 12.5 g/dL (13.0-17.5); LYMPH # 0.6 x10^3/uL (1.0-4.8); LYMPH % 15 % (24-48); MEAN CORPUSCULAR HEMOGLOBIN 31 pg (25-35); MEAN CORPUSCULAR HGB CONC 33 g/dL (31-37); MEAN CORPUSCULAR VOLUME 94 fL (79-100); MONO % 7 % (0-9); NEUT % 77 % (31-73); PLATELET COUNT 117 x10^3/uL (140-400); RED BLOOD COUNT 4.08 x10^6/uL (4.30-5.70); RED CELL DISTRIBUTION WIDTH 17.4 % (11.5-14.5); WHITE BLOOD COUNT 3.8 x10^3/uL (4.0-11.0)
[2016-09-22 05:17] LABS: CALCIUM 8.7 mg/dL (8.5-10.1); CREATININE 0.7 mg/dL (0.7-1.3); GFR 112.1
[2016-09-22] MEDS: PIPERACILLIN/TAZOBACTAM 4.5 GM in IV NORMAL SALINE 100ML 100 ML IV SCH ×6 (05:54→23:52)
[2016-09-22] MEDS: DIVALPROEX SPRINKLES 125 MG CAPSULE. PO SCH ×5 (05:55→23:55)
[2016-09-22] MEDS: VANCOMYCIN 1.25 GM in IV NORMAL SALINE 250ML 250 ML IV SCH ×2 (06:17→17:47)
[2016-09-22 07:00] VITALS: BP 109/67
[2016-09-22] MEDS: BUDESONIDE 0.5 MG/2 ML NEBU. NEB SCH ×2 (07:00→19:35)
[2016-09-22] MEDS: IPRATRPIUM/ALBUTEROL 0.5/2.5MG 3 ML NEBU. NEB SCH ×5 (07:00→23:49)
[2016-09-22] MEDS: APIXABAN 5 MG TABLET. PO SCH ×2 (08:30→21:18)
--- NOTE | 2016-09-22 08:32 | PDOC ---
PULMONARY PROGRESS NOTES Subjective audible wheezing/ trach secretions Vitals Vital Signs Date Time Temp Pulse Resp B/P (MAP) Pulse Ox O2 Delivery O2 Flow Rate FiO2 09/22/16 07:02 95 Tracheal Collar 10.0 09/22/16 07:00 99.4 112 34 109/67 (81) 99.4 General: Alert, No acute distress Lungs: Wheezing (bilateral) Cardiovascular: S1, S2 Abdomen: Soft Neuro Exam: Alert Extremities: Other (trace) Labs Laboratory Tests Test 09/21/16 02:15 09/21/16 05:00 09/22/16 04:30 White Blood Count 8.9 x10^3/uL (4.0-11.0) 3.8 x10^3/uL (4.0-11.0) Red Blood Count 4.31 x10^6/uL (4.30-5.70) 4.08 x10^6/uL (4.30-5.70) Hemoglobin 13.2 g/dL (13.0-17.5) 12.5 g/dL (13.0-17.5) Hematocrit 40.2 % (39.0-53.0) 38.2 % (39.0-53.0) Mean Corpuscular Volume 93 fL (79-100) 94 fL (79-100) Mean Corpuscular Hemoglobin 31 pg (25-35) 31 pg (25-35) Mean Corpuscular Hemoglobin Concent 33 g/dL (31-37) 33 g/dL (31-37) Red Cell Distribution Width 17.1 % (11.5-14.5) 17.4 % (11.5-14.5) Platelet Count 144 x10^3/uL (140-400) 117 x10^3/uL (140-400) Neutrophils (%) (Auto) 62 % (31-73) 77 % (31-73) Lymphocytes (%) (Auto) 25 % (24-48) 15 % (24-48) Monocytes (%) (Auto) 6 % (0-9) 7 % (0-9) Eosinophils (%) (Auto) 7 % (0-3) 0 % (0-3) Basophils (%) (Auto) 0 % (0-3) 0 % (0-3) Neutrophils # (Auto) 5.5 x10^3uL (1.8-7.7) 2.9 x10^3uL (1.8-7.7) Lymphocytes # (Auto) 2.2 x10^3/uL (1.0-4.8) 0.6 x10^3/uL (1.0-4.8) Monocytes # (Auto) 0.5 x10^3/uL (0.0-1.1) 0.3 x10^3/uL (0.0-1.1) Eosinophils # (Auto) 0.6 x10^3/uL (0.0-0.7) 0.0 x10^3/uL (0.0-0.7) Basophils # (Auto) 0.0 x10^3/uL (0.0-0.2) 0.0 x10^3/uL (0.0-0.2) Sodium Level 148 mmol/L (136-145) 145 mmol/L (136-145) Potassium Level 4.3 mmol/L (3.5-5.1) 4.0 mmol/L (3.5-5.1) Chloride Level 104 mmol/L (98-107) 108 mmol/L (98-107) Carbon Dioxide Level 38 mmol/L (21-32) 31 mmol/L (21-32) Anion Gap 6 (6-14) 6 (6-14) Blood Urea Nitrogen 16 mg/dL (8-26) 15 mg/dL (8-26) Creatinine 0.7 mg/dL (0.7-1.3) 0.7 mg/dL (0.7-1.3) Estimated GFR (Cockcroft-Gault) 112.1 112.1 BUN/Creatinine Ratio 23 (6-20) Glucose Level 99 mg/dL (70-99) 112 mg/dL (70-99) Lactic Acid Level 3.5 mmol/L (0.4-2.0) 1.6 mmol/L (0.4-2.0) Calcium Level 9.6 mg/dL (8.5-10.1) 8.7 mg/dL (8.5-10.1) Total Bilirubin 0.6 mg/dL (0.2-1.0) Aspartate Amino Transf (AST/SGOT) 15 U/L (15-37) Alanine Aminotransferase (ALT/SGPT) 13 U/L (16-63) Alkaline Phosphatase 84 U/L (46-116) Creatine Kinase 67 U/L (39-308) Creatine Kinase MB (Mass) 0.9 ng/mL (0.0-3.6) Creatine Kinase MB Relative Index 1.3 % (0-4) Total Protein 6.9 g/dL (6.4-8.2) Albumin 3.6 g/dL (3.4-5.0) Albumin/Globulin Ratio 1.1 (1.0-1.7) Nasal Screen MRSA (PCR) Negative (Negative) Laboratory Tests Test 09/22/16 04:30 White Blood Count 3.8 x10^3/uL (4.0-11.0) Red Blood Count 4.08 x10^6/uL (4.30-5.70) Hemoglobin 12.5 g/dL (13.0-17.5) Hematocrit 38.2 % (39.0-53.0) Mean Corpuscular Volume 94 fL (79-100) Mean Corpuscular Hemoglobin 31 pg (25-35) Mean Corpuscular Hemoglobin Concent 33 g/dL (31-37) Red Cell Distribution Width 17.4 % (11.5-14.5) Platelet Count 117 x10^3/uL (140-400) Neutrophils (%) (Auto) 77 % (31-73) Lymphocytes (%) (Auto) 15 % (24-48) Monocytes (%) (Auto) 7 % (0-9) Eosinophils (%) (Auto) 0 % (0-3) Basophils (%) (Auto) 0 % (0-3) Neutrophils # (Auto) 2.9 x10^3uL (1.8-7.7) Lymphocytes # (Auto) 0.6 x10^3/uL (1.0-4.8) Monocytes # (Auto) 0.3 x10^3/uL (0.0-1.1) Eosinophils # (Auto) 0.0 x10^3/uL (0.0-0.7) Basophils # (Auto) 0.0 x10^3/uL (0.0-0.2) Sodium Level 145 mmol/L (136-145) Potassium Level 4.0 mmol/L (3.5-5.1) Chloride Level 108 mmol/L (98-107) Carbon Dioxide Level 31 mmol/L (21-32) Anion Gap 6 (6-14) Blood Urea Nitrogen 15 mg/dL (8-26) Creatinine 0.7 mg/dL (0.7-1.3) Estimated GFR (Cockcroft-Gault) 112.1 Glucose Level 112 mg/dL (70-99) Lactic Acid Level 1.6 mmol/L (0.4-2.0) Calcium Level 8.7 mg/dL (8.5-10.1) Medications Active Scripts Medications Dose Route/Sig Max Daily Dose Days Date Category Dose Instructions Duoneb 0.5-3(2.5) Mg/3 Ml (Albuterol/Ipratropium) 3 Ml Ampul.neb 3 Ml NEB QID 09/21/16 Reported Depakote Er (Divalproex Sodium) 500 Mg Tab.er.24h 1 Tab PEG BID 09/21/16 Reported Cyanocobalamin Injection (Cyanocobalamin (Vitamin B-12)) 1,000 Mcg/1 Ml Vial 1 Ml IM QMONTH 09/21/16 Reported Celexa (Citalopram Hydrobromide) 20 Mg Tablet 1 Tab PEG QODAY 09/21/16 Reported Budesonide 0.5 Mg/2 Ml Ampul.neb 1 Vial NEB BID 09/21/16 Reported Benztropine Mesylate 1 Mg Tablet 1 Mg PEG HS 09/21/16 Reported Polyvinyl Alcohol 15 Ml Drops 15 Ml OP PRN Q8HRS 09/21/16 Reported Instill 1 drop in both eyes every 8 hours as needed for dryness Eliquis (Apixaban) 5 Mg Tablet 5 Mg PEG BID 09/21/16 Reported Acetaminophen 500 Mg Tablet 650 Mg PEG PRN Q6HRS 09/21/16 Reported Impression . 1. Acute on chronic respiratory failure./ audible wheezing. related to ? CHF vs secretions/ AECOPD 2. Suspect gram-negative, possibly gram-positive pneumonia. 3. Status post tracheostomy. 4. Status post percutaneous endoscopic gastrostomy. 5. Severe dementia. Plan . 1. Continue coverage for both gram-negative and gram-positive organisms. 2. Continue frequent suctioning. 3. Nebulized treatments. increase to q 4 hr 4. Pulmicort nebulized. 5. d/c IV fluids. 6. Tube feeding. 7. DVT and GI prophylaxis. 8. CXR 9. echo 10. IV steroids d/w VICKIE SINGER MD September 22, 2016 08:32
[2016-09-22] MEDS: methylPREDNISolone SOD SUCC PF 125 MG/2 ML VIAL. IV SCH ×3 (08:58→21:43)
[2016-09-22] MEDS ORDERED: FUROSEMIDE 40 MG/4 ML VIAL. IVP ONE (09:00)
[2016-09-22] MEDS ORDERED: ENOXAPARIN 40 MG/0.4 ML SYRINGE. SQ SCH (09:00)
[2016-09-22] MEDS: ALBUTEROL SULFATE 2.5 MG/3 ML NEBU. NEB PRN (09:01)
--- NOTE | 2016-09-22 09:10 | RAD ---
Indication difficulty breathing. A single view of the chest was obtained and is compared to an exam one day earlier. The inspiratory effort is suboptimal but similar to the previous exam. There is unchanged elevation of the right hemidiaphragm and cardiomegaly. Gross congestive heart failure is not seen. There is new volume loss in the left lower lobe relative to yesterday's study probably reflecting atelectasis. Underlying pneumonia is not entirely excluded. Significant pleural fluid in either lung is not seen and there is no pneumothorax. Tracheostomy tube is noted. IMPRESSION: New volume loss in the left lower lobe compatible with atelectasis or pneumonia. No gross congestive heart failure seen
--- NOTE | 2016-09-22 09:48 | PDOC ---
PROGRESS NOTES Chief Complaint Chief Complaint 1. HAP, acute respi failure r/o aspiration pneumonia, pneumonitis, include gram pos and gram neg coverage 2. Encephalopathy, persistent - trached and PEgd 3. ANemia 4. On ELliquis (unsure reason) 5. 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 SIRS POA with elevated lactate (3.5), no sepsis yet History of Present Illness History of Present Illness Crackles/secretions better today - now I hear wheezing Scopolamine patch on Just had nebs x 2 prior to me seeing him NOn verbal BUt did actually look at me when i mentioned his name Full code per chart - dw PAt CXR: IMPRESSION: New volume loss in the left lower lobe compatible with atelectasis or pneumonia. No gross congestive heart failure seen PLAn: CPM Address code status Follow BC MOnitor for fevers COnt TF DVT prophy Vitals Vitals Vital Signs Date Time Temp Pulse Resp B/P (MAP) Pulse Ox O2 Delivery O2 Flow Rate FiO2 09/22/16 08:48 Tracheal Collar 10.0 09/22/16 07:02 95 09/22/16 07:00 99.4 112 34 109/67 (81) 99.4 Physical Exam General: mild distress, Other (lots of audible secretions) Lungs: Wheezing (bilateral) Abdomen: Normal bowel sounds, Soft, No tenderness, No hepatosplenomegaly, No masses, Other (peg in place) Extremities: Other (clubbing appreciable) Skin: No rashes, No breakdown, No significant lesion Labs LABS Laboratory Tests Test 09/22/16 04:30 White Blood Count 3.8 x10^3/uL (4.0-11.0) Red Blood Count 4.08 x10^6/uL (4.30-5.70) Hemoglobin 12.5 g/dL (13.0-17.5) Hematocrit 38.2 % (39.0-53.0) Mean Corpuscular Volume 94 fL (79-100) Mean Corpuscular Hemoglobin 31 pg (25-35) Mean Corpuscular Hemoglobin Concent 33 g/dL (31-37) Red Cell Distribution Width 17.4 % (11.5-14.5) Platelet Count 117 x10^3/uL (140-400) Neutrophils (%) (Auto) 77 % (31-73) Lymphocytes (%) (Auto) 15 % (24-48) Monocytes (%) (Auto) 7 % (0-9) Eosinophils (%) (Auto) 0 % (0-3) Basophils (%) (Auto) 0 % (0-3) Neutrophils # (Auto) 2.9 x10^3uL (1.8-7.7) Lymphocytes # (Auto) 0.6 x10^3/uL (1.0-4.8) Monocytes # (Auto) 0.3 x10^3/uL (0.0-1.1) Eosinophils # (Auto) 0.0 x10^3/uL (0.0-0.7) Basophils # (Auto) 0.0 x10^3/uL (0.0-0.2) Sodium Level 145 mmol/L (136-145) Potassium Level 4.0 mmol/L (3.5-5.1) Chloride Level 108 mmol/L (98-107) Carbon Dioxide Level 31 mmol/L (21-32) Anion Gap 6 (6-14) Blood Urea Nitrogen 15 mg/dL (8-26) Creatinine 0.7 mg/dL (0.7-1.3) Estimated GFR (Cockcroft-Gault) 112.1 Glucose Level 112 mg/dL (70-99) Lactic Acid Level 1.6 mmol/L (0.4-2.0) Calcium Level 8.7 mg/dL (8.5-10.1) Review of Systems Review of Systems non verbal Assessment and Plan Assessmemt and Plan Problems Medical Problems: (1) Dementia Status: Acute (2) Healthcare-associated pneumonia Status: Acute (3) Respiratory distress Status: Acute Problems: Comment Review of Relevant I have reviewed the following items maulik (where applicable) has been applied. Labs Laboratory Tests Test 09/21/16 02:15 09/21/16 05:00 09/22/16 04:30 White Blood Count 8.9 x10^3/uL (4.0-11.0) 3.8 x10^3/uL (4.0-11.0) Red Blood Count 4.31 x10^6/uL (4.30-5.70) 4.08 x10^6/uL (4.30-5.70) Hemoglobin 13.2 g/dL (13.0-17.5) 12.5 g/dL (13.0-17.5) Hematocrit 40.2 % (39.0-53.0) 38.2 % (39.0-53.0) Mean Corpuscular Volume 93 fL (79-100) 94 fL (79-100) Mean Corpuscular Hemoglobin 31 pg (25-35) 31 pg (25-35) Mean Corpuscular Hemoglobin Concent 33 g/dL (31-37) 33 g/dL (31-37) Red Cell Distribution Width 17.1 % (11.5-14.5) 17.4 % (11.5-14.5) Platelet Count 144 x10^3/uL (140-400) 117 x10^3/uL (140-400) Neutrophils (%) (Auto) 62 % (31-73) 77 % (31-73) Lymphocytes (%) (Auto) 25 % (24-48) 15 % (24-48) Monocytes (%) (Auto) 6 % (0-9) 7 % (0-9) Eosinophils (%) (Auto) 7 % (0-3) 0 % (0-3) Basophils (%) (Auto) 0 % (0-3) 0 % (0-3) Neutrophils # (Auto) 5.5 x10^3uL (1.8-7.7) 2.9 x10^3uL (1.8-7.7) Lymphocytes # (Auto) 2.2 x10^3/uL (1.0-4.8) 0.6 x10^3/uL (1.0-4.8) Monocytes # (Auto) 0.5 x10^3/uL (0.0-1.1) 0.3 x10^3/uL (0.0-1.1) Eosinophils # (Auto) 0.6 x10^3/uL (0.0-0.7) 0.0 x10^3/uL (0.0-0.7) Basophils # (Auto) 0.0 x10^3/uL (0.0-0.2) 0.0 x10^3/uL (0.0-0.2) Sodium Level 148 mmol/L (136-145) 145 mmol/L (136-145) Potassium Level 4.3 mmol/L (3.5-5.1) 4.0 mmol/L (3.5-5.1) Chloride Level 104 mmol/L (98-107) 108 mmol/L (98-107) Carbon Dioxide Level 38 mmol/L (21-32) 31 mmol/L (21-32) Anion Gap 6 (6-14) 6 (6-14) Blood Urea Nitrogen 16 mg/dL (8-26) 15 mg/dL (8-26) Creatinine 0.7 mg/dL (0.7-1.3) 0.7 mg/dL (0.7-1.3) Estimated GFR (Cockcroft-Gault) 112.1 112.1 BUN/Creatinine Ratio 23 (6-20) Glucose Level 99 mg/dL (70-99) 112 mg/dL (70-99) Lactic Acid Level 3.5 mmol/L (0.4-2.0) 1.6 mmol/L (0.4-2.0) Calcium Level 9.6 mg/dL (8.5-10.1) 8.7 mg/dL (8.5-10.1) Total Bilirubin 0.6 mg/dL (0.2-1.0) Aspartate Amino Transf (AST/SGOT) 15 U/L (15-37) Alanine Aminotransferase (ALT/SGPT) 13 U/L (16-63) Alkaline Phosphatase 84 U/L (46-116) Creatine Kinase 67 U/L (39-308) Creatine Kinase MB (Mass) 0.9 ng/mL (0.0-3.6) Creatine Kinase MB Relative Index 1.3 % (0-4) Total Protein 6.9 g/dL (6.4-8.2) Albumin 3.6 g/dL (3.4-5.0) Albumin/Globulin Ratio 1.1 (1.0-1.7) Nasal Screen MRSA (PCR) Negative (Negative) Laboratory Tests Test 09/22/16 04:30 White Blood Count 3.8 x10^3/uL (4.0-11.0) Red Blood Count 4.08 x10^6/uL (4.30-5.70) Hemoglobin 12.5 g/dL (13.0-17.5) Hematocrit 38.2 % (39.0-53.0) Mean Corpuscular Volume 94 fL (79-100) Mean Corpuscular Hemoglobin 31 pg (25-35) Mean Corpuscular Hemoglobin Concent 33 g/dL (31-37) Red Cell Distribution Width 17.4 % (11.5-14.5) Platelet Count 117 x10^3/uL (140-400) Neutrophils (%) (Auto) 77 % (31-73) Lymphocytes (%) (Auto) 15 % (24-48) Monocytes (%) (Auto) 7 % (0-9) Eosinophils (%) (Auto) 0 % (0-3) Basophils (%) (Auto) 0 % (0-3) Neutrophils # (Auto) 2.9 x10^3uL (1.8-7.7) Lymphocytes # (Auto) 0.6 x10^3/uL (1.0-4.8) Monocytes # (Auto) 0.3 x10^3/uL (0.0-1.1) Eosinophils # (Auto) 0.0 x10^3/uL (0.0-0.7) Basophils # (Auto) 0.0 x10^3/uL (0.0-0.2) Sodium Level 145 mmol/L (136-145) Potassium Level 4.0 mmol/L (3.5-5.1) Chloride Level 108 mmol/L (98-107) Carbon Dioxide Level 31 mmol/L (21-32) Anion Gap 6 (6-14) Blood Urea Nitrogen 15 mg/dL (8-26) Creatinine 0.7 mg/dL (0.7-1.3) Estimated GFR (Cockcroft-Gault) 112.1 Glucose Level 112 mg/dL (70-99) Lactic Acid Level 1.6 mmol/L (0.4-2.0) Calcium Level 8.7 mg/dL (8.5-10.1) Microbiology 09/21/16 Blood Culture - Preliminary, Resulted NO GROWTH AFTER 1 DAY 09/21/16 Gram Stain - Final, Complete Medications Current Medications Sodium Chloride 1,000 ml @ 100 mls/hr Q10H IV Last administered on 09/21/16 03:00; Start 09/21/16 at 03:00; Stop 09/21/16 at 12:59; Status DC Vancomycin HCl (Vanco Per Pharmacy) 1 each PRN DAILY PRN MC SEE COMMENTS Last administered on 09/21/16 06:09; Start 09/21/16 at 03:30 Piperacillin Sod/ Tazobactam Sod (Zosyn Per Pharmacy) 1 each PRN DAILY PRN MC SEE COMMENTS; Start 09/21/16 at 03:30 Levofloxacin/ Dextrose (Levaquin Per Pharmacy) 1 each PRN DAILY PRN MC SEE COMMENTS; Start 09/21/16 at 03:30 Vancomycin HCl 2 gm/Sodium Chloride 500 ml @ 250 mls/hr 1X ONCE IV Last administered on 09/21/16 05:43; Start 09/21/16 at 05:00; Stop 09/21/16 at 06:59 ; Status DC Levofloxacin/ Dextrose 150 ml @ 100 mls/hr 1X ONCE IV Last administered on 03:51; Start 09/21/16 at 04:00; Stop 09/21/16 at 05:29; Status DC Piperacillin Sod/ Tazobactam Sod 3.375 gm/Sodium Chloride 50 ml @ 100 mls/hr Q6HRS IV ; Start 09/21/16 at 06:00; Status Cancel Ondansetron HCl (Zofran) 4 mg PRN Q8HRS PRN IV NAUSEA/VOMITING; Start 09/21/16 at 03:45; Stop 09/22/16 at 03:44; Status DC Sodium Chloride 1,000 ml @ 125 mls/hr Q8H IV Last administered on 09/21/16 19 :41; Start 09/21/16 at 03:41; Stop 09/22/16 at 03:40; Status DC Acetaminophen (Tylenol) 650 mg PRN Q4HRS PRN PO FEVER; Start 09/21/16 at 03:45 ; Stop 09/21/16 at 08:25; Status DC Levofloxacin/ Dextrose 150 ml @ 100 mls/hr Q24H IV Last administered on 04:36; Start 09/22/16 at 05:00 Piperacillin Sod/ Tazobactam Sod 4.5 gm/Sodium Chloride 100 ml @ 200 mls/hr Q6HRS IV Last administered on 09/22/16 06:06; Start 09/21/16 at 06:00 Vancomycin HCl 1.25 gm/Sodium Chloride 250 ml @ 167 mls/hr Q12H IV Last administered on 09/22/16 06:17; Start 09/21/16 at 18:00 Vancomycin HCl 1 each 1X ONCE MC ; Start 09/22/16 at 17:30; Stop 09/22/16 at 17 :31 Acetaminophen (Tylenol) 650 mg PRN Q6HRS PRN PO temp Last administered on 14:59; Start 09/21/16 at 08:30 Apixaban (Eliquis) 5 mg BID PO Last administered on 09/22/16 08:30; Start at 09:00 Benztropine Mesylate (Cogentin) 1 mg HS PEG Last administered on 09/21/16 21: 00; Start 09/21/16 at 21:00 Budesonide (Pulmicort) 0.5 mg BID NEB Last administered on 09/22/16 07:00; Start 09/21/16 at 09:00 Citalopram Hydrobromide (CeleXA) 20 mg QODAY PEG Last administered on 10:20; Start 09/21/16 at 09:00 Cyanocobalamin (Vitamin B-12) 1,000 mcg QMONTH IM Last administered on 14:59; Start 09/21/16 at 15:00 Divalproex Sodium (Depakote Er) 500 mg BID PO ; Start 09/21/16 at 09:00; Stop at 12:22; Status DC Albuterol/ Ipratropium (Duoneb) 3 ml QID NEB Last administered on 09/22/16 07: 00; Start 09/21/16 at 09:00; Stop 09/22/16 at 08:36; Status DC Artificial Tears (Artificial Tears) 1 drop PRN Q8HRS OU ; Start 09/21/16 at 08: 30 Info (Anti-Coagulation Monitoring By Pharmacy) 1 each PRN DAILY PRN MC SEE COMMENTS; Start 09/21/16 at 08:45 Enoxaparin Sodium (Lovenox 40mg Syringe) 40 mg DAILY SQ ; Start 09/22/16 at 09: 00; Stop 09/22/16 at 09:00; Status DC Prednisone (Prednisone) 20 mg DAILY PEG Last administered on 09/21/16 12:36; Start 09/21/16 at 12:00; Stop 09/22/16 at 08:36; Status DC Scopolamine (Transderm-Scop) 1 patch Q3DAYS TD Last administered on 09/21/16 12:36; Start 09/21/16 at 12:30 Divalproex Sodium (Depakote Sprinkles) 250 mg [id number] PO Last administered on 09/22/16 05:55; Start 09/21/16 at 18:00 Methylprednisolone Sodium Succinate (SOLU-Medrol 125MG VIAL) 60 mg Q8HRS IV Last administered on 09/22/16 08:58; Start 09/22/16 at 09:00 Furosemide (Lasix) 40 mg 1X ONCE IVP Last administered on 09/22/16 08:58; Start 09/22/16 at 09:00; Stop 09/22/16 at 09:01; Status DC Albuterol/ Ipratropium (Duoneb) 3 ml Q4HRS NEB ; Start 09/22/16 at 12:00 Albuterol Sulfate (Ventolin Neb Soln) 2.5 mg PRN Q4HRS PRN NEB SHORTNESS OF BREATH Last administered on 09/22/16 09:01; Start 09/22/16 at 09:00 Active Scripts Active Reported Duoneb 0.5-3(2.5) Mg/3 Ml (Albuterol/Ipratropium) 3 Ml Ampul.neb 3 Ml NEB QID Depakote Er (Divalproex Sodium) 500 Mg Tab.er.24h 1 Tab PEG BID Cyanocobalamin Injection (Cyanocobalamin (Vitamin B-12)) 1,000 Mcg/1 Ml Vial 1 Ml IM QMONTH Celexa (Citalopram Hydrobromide) 20 Mg Tablet 1 Tab PEG QODAY Budesonide 0.5 Mg/2 Ml Ampul.neb 1 Vial NEB BID Benztropine Mesylate 1 Mg Tablet 1 Mg PEG HS Polyvinyl Alcohol 15 Ml Drops 15 Ml OP PRN Q8HRS Instill 1 drop in both eyes every 8 hours as needed for dryness Eliquis (Apixaban) 5 Mg Tablet 5 Mg PEG BID Acetaminophen 500 Mg Tablet 650 Mg PEG PRN Q6HRS Vitals/I & O Vital Sign - Last 24 Hours 09/21/16 09/21/16 09/21/16 09/21/16 11:00 11:26 15:00 15:57 Temp 99.0 99.7 99.0 99.7 Pulse 116 115 Resp 20 18 B/P (MAP) 109/71 (84) Pulse Ox 98 95 96 95 O2 Delivery Tracheal Collar Tracheal Collar Tracheal Collar Tracheal Collar O2 Flow Rate 10.0 10.0 09/21/16 09/21/16 09/21/16 09/21/16 19:29 19:59 20:30 23:29 Temp 99.5 98.8 99.5 98.8 Pulse 111 98 Resp 18 18 B/P (MAP) 110/62 (78) 108/74 (85) Pulse Ox 94 96 92 O2 Delivery Tracheal Collar Tracheal Collar Trach Collar Tracheal Collar O2 Flow Rate 10.0 10.0 09/22/16 09/22/16 09/22/16 09/22/16 03:18 07:00 07:02 08:48 Temp 98.9 99.4 98.9 99.4 Pulse 99 112 Resp 20 34 B/P (MAP) 110/65 (80) 109/67 (81) Pulse Ox 94 94 95 O2 Delivery Tracheal Collar Room Air Tracheal Collar Tracheal Collar O2 Flow Rate 10.0 10.0 Intake and Output 09/21/16 09/21/16 09/22/16 15:00 23:00 07:00 Intake Total 700 ml 3007 ml Balance 700 ml 3007 ml Nutrition Consultation Dietary Evaluation: Comments: REC Fibersource HN 1.2 (equiv to Jevity) @ 60 ml/hr with at least 100 cc q 4 hr flush to meet 1 cc/kcal fluid needs. Expected Outcomes/Goals: tolerate TF Malnutrition Findings: Body Fat Depletion (Non Severe: Mild Depletion Weight Status: Overweight KIRK KHOURY MD September 22, 2016 09:48
[2016-09-22] MEDS: VANCOMYCIN PER PHARMACY MC PRN ×2 (10:19→18:04)
[2016-09-22] MEDS: ANTI-COAG MONITOR BY PHARMACY. MC PRN (10:32)
[2016-09-22 11:00] VITALS: BP 135/73
--- NOTE | 2016-09-22 13:32 | PDOC2 ---
PALLIATIVE CARE Palliative Care Note Palliative Care Consult requested by Dr. Ornelas to address goals of care. Patient [facility] with [facility] distress from [facility]. [facility] in [facility] since August 24, 2016. Diagnosis; Dementia; pneumonia; Patient has tracheostomy and PEG tube. Patient with copious tracheal secretions and audible wheezing. Hx. seizures. Echo pending. Spoke with [facility] staff. States according to their records patient has Lewy Body Dementia. Has no family that visits. Spoke with daughter--Rosa Isela. [phone]. Patient has one son Lucio who lives in [place]. Rosa Isela talks to him once or twice a year. Not sure if his phone is working at this time [phone]. Reviewed medical condition as above. Rosa Isela shared patient had been at [facility] to [facility]. Rosa Isela understand her father does not have long to live. He has always told her that he wanted everything done to keep him alive and wants to follow his wishes. Discussed Risks and benefits of resuscitation. States he is afraid to ---- Rosa Isela wants to continue with his wishes of aggressive care. Patient had worked in law enforcement. [place] has not been a part of his life. Rosa Isela would like to get her father closer to home. Has been working with [facility] in [facility]. She also has worked with transport EMT Warren Vásquez [phone] about transporting him. They have been working with Medicaid Plan: Full Code Continue current aggressive care. Above reviewed with Nerissa RIVERA who will assist with discharge plan. MARY FRANCES September 22, 2016 13:32
[2016-09-22 15:00] VITALS: BP 122/83
[2016-09-22 19:07] VITALS: BP 144/82
[2016-09-22] MEDS: BENZTROPINE MESYLATE 1 MG TABLET. PEG SCH (21:18)
[2016-09-22 23:10] VITALS: BP 109/90
[2016-09-23 03:10] VITALS: BP 107/77
[2016-09-23] MEDS: IPRATRPIUM/ALBUTEROL 0.5/2.5MG 3 ML NEBU. NEB SCH ×6 (04:00→23:20)
[2016-09-23] MEDS: DIVALPROEX SPRINKLES 125 MG CAPSULE. PO SCH ×3 (05:33→18:00)
[2016-09-23] MEDS: methylPREDNISolone SOD SUCC PF 125 MG/2 ML VIAL. IV SCH ×3 (05:33→20:53)
[2016-09-23] MEDS: PIPERACILLIN/TAZOBACTAM 4.5 GM in IV NORMAL SALINE 100ML 100 ML IV SCH ×4 (06:00→23:31)
[2016-09-23] MEDS: VANCOMYCIN 1.25 GM in IV NORMAL SALINE 250ML 250 ML IV SCH ×2 (06:25→17:54)
[2016-09-23 07:15] VITALS: BP 146/65
[2016-09-23] MEDS: BUDESONIDE 0.5 MG/2 ML NEBU. NEB SCH ×2 (07:56→19:55)
--- NOTE | 2016-09-23 08:57 | PDOC ---
PULMONARY PROGRESS NOTES Subjective less wheezing/ trach secretions moderate/persistent Vitals Vital Signs Date Time Temp Pulse Resp B/P (MAP) Pulse Ox O2 Delivery O2 Flow Rate FiO2 09/23/16 07:20 93 Tracheal Collar 10.0 09/23/16 07:15 97.7 95 20 146/65 (92) 97.7 General: Alert, No acute distress Lungs: Wheezing (bilateral) Cardiovascular: S1, S2 Abdomen: Soft Neuro Exam: Alert Extremities: Other (trace) Labs Laboratory Tests Test 09/22/16 04:30 09/22/16 17:20 White Blood Count 3.8 x10^3/uL (4.0-11.0) Red Blood Count 4.08 x10^6/uL (4.30-5.70) Hemoglobin 12.5 g/dL (13.0-17.5) Hematocrit 38.2 % (39.0-53.0) Mean Corpuscular Volume 94 fL (79-100) Mean Corpuscular Hemoglobin 31 pg (25-35) Mean Corpuscular Hemoglobin Concent 33 g/dL (31-37) Red Cell Distribution Width 17.4 % (11.5-14.5) Platelet Count 117 x10^3/uL (140-400) Neutrophils (%) (Auto) 77 % (31-73) Lymphocytes (%) (Auto) 15 % (24-48) Monocytes (%) (Auto) 7 % (0-9) Eosinophils (%) (Auto) 0 % (0-3) Basophils (%) (Auto) 0 % (0-3) Neutrophils # (Auto) 2.9 x10^3uL (1.8-7.7) Lymphocytes # (Auto) 0.6 x10^3/uL (1.0-4.8) Monocytes # (Auto) 0.3 x10^3/uL (0.0-1.1) Eosinophils # (Auto) 0.0 x10^3/uL (0.0-0.7) Basophils # (Auto) 0.0 x10^3/uL (0.0-0.2) Sodium Level 145 mmol/L (136-145) Potassium Level 4.0 mmol/L (3.5-5.1) Chloride Level 108 mmol/L (98-107) Carbon Dioxide Level 31 mmol/L (21-32) Anion Gap 6 (6-14) Blood Urea Nitrogen 15 mg/dL (8-26) Creatinine 0.7 mg/dL (0.7-1.3) Estimated GFR (Cockcroft-Gault) 112.1 Glucose Level 112 mg/dL (70-99) Lactic Acid Level 1.6 mmol/L (0.4-2.0) Calcium Level 8.7 mg/dL (8.5-10.1) Vancomycin Level Trough 15.1 mcg/mL (10.0-20.0) Vancomycin Last Dose Date Vancomycin Last Dose Time Laboratory Tests Test 09/22/16 17:20 Vancomycin Level Trough 15.1 mcg/mL (10.0-20.0) Vancomycin Last Dose Date Vancomycin Last Dose Time Medications Active Scripts Medications Dose Route/Sig Max Daily Dose Days Date Category Dose Instructions Duoneb 0.5-3(2.5) Mg/3 Ml (Albuterol/Ipratropium) 3 Ml Ampul.neb 3 Ml NEB QID 09/21/16 Reported Depakote Er (Divalproex Sodium) 500 Mg Tab.er.24h 1 Tab PEG BID 09/21/16 Reported Cyanocobalamin Injection (Cyanocobalamin (Vitamin B-12)) 1,000 Mcg/1 Ml Vial 1 Ml IM QMONTH 09/21/16 Reported Celexa (Citalopram Hydrobromide) 20 Mg Tablet 1 Tab PEG QODAY 09/21/16 Reported Budesonide 0.5 Mg/2 Ml Ampul.neb 1 Vial NEB BID 09/21/16 Reported Benztropine Mesylate 1 Mg Tablet 1 Mg PEG HS 09/21/16 Reported Polyvinyl Alcohol 15 Ml Drops 15 Ml OP PRN Q8HRS 09/21/16 Reported Instill 1 drop in both eyes every 8 hours as needed for dryness Eliquis (Apixaban) 5 Mg Tablet 5 Mg PEG BID 09/21/16 Reported Acetaminophen 500 Mg Tablet 650 Mg PEG PRN Q6HRS 09/21/16 Reported Impression . 1. Acute on chronic respiratory failure./ audible wheezing. related to moderate persistent secretions/ AECOPD 2. Suspect gram-negative, possibly gram-positive pneumonia. 3. Status post tracheostomy. 4. Status post percutaneous endoscopic gastrostomy. 5. Severe dementia. 6. echo with normal EF Plan . 1. Continue coverage for both gram-negative and gram-positive organisms. 2. Continue frequent suctioning. would benefit from therapeutic Bronch. awaiting consent from family 3. Nebulized treatments. q 4 hr 4. Pulmicort nebulized. 5. off IV fluids. 6. Tube feeding. 7. DVT and GI prophylaxis. 8. CXR with increase atelectasis LLL 9. echo reviewed 10. IV steroids d/w RN/ Bronch today VICKIE CASTRO MD September 23, 2016 08:57
[2016-09-23] MEDS: CITALOPRAM 20 MG TABLET. PEG SCH (09:00)
[2016-09-23] MEDS: APIXABAN 5 MG TABLET. PO SCH ×2 (09:00→20:53)
[2016-09-23] MEDS ORDERED: MIDAZOLAM HCL/PF 5 MG/5 ML VIAL. ONE (09:37)
[2016-09-23] MEDS ORDERED: fentaNYL PF VIAL 100 MCG/2 ML VIAL ONE (09:38)
[2016-09-23] MEDS: IV RINGERS,LACTATED 1000ML 1,000 ML IV SCH ×2 (10:18→18:15)
[2016-09-23] MEDS: VANCOMYCIN PER PHARMACY MC PRN (10:32)
[2016-09-23] MEDS: ALBUTEROL SULFATE 2.5 MG/3 ML NEBU. NEB PRN (10:34)
[2016-09-23] MEDS ORDERED: MIDAZOLAM HCL/PF 5 MG/5 ML VIAL. IV ONE ×3 (10:34→10:55)
[2016-09-23] MEDS: ANTI-COAG MONITOR BY PHARMACY. MC PRN (10:36)
[2016-09-23] MEDS ORDERED: MEPERIDINE PF 25 MG/ML VIAL. ONE (10:43)
--- NOTE | 2016-09-23 11:29 | PDOC ---
PROGRESS NOTES Chief Complaint Chief Complaint 1. HAP, acute respi failure r/o aspiration pneumonia, pneumonitis, include gram pos and gram neg coverage 2. Encephalopathy, persistent - trached and PEgd 3. ANemia 4. On ELliquis (unsure reason) 5. 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 SIRS POA with elevated lactate (3.5), no sepsis yet History of Present Illness History of Present Illness OUt having bronch Same status per wait staff Dtr apparently wants full aggressive care and wants/plans to transfer to [place] ( LTAC vs hospital) for aggressive care LAbs reviewed: WBC 3, no fevers EARLIER ENTRY: Crackles/secretions better today - now I hear wheezing Scopolamine patch on Just had nebs x 2 prior to me seeing him NOn verbal BUt did actually look at me when i mentioned his name Full code per chart - dw PAt CXR: IMPRESSION: New volume loss in the left lower lobe compatible with atelectasis or pneumonia. No gross congestive heart failure seen PLAn: CPM FUll code for now Follow bronch results Follow BC MOnitor for fevers COnt TF DVT prophy Dw RN Odalis Vitals Vitals Vital Signs Date Time Temp Pulse Resp B/P (MAP) Pulse Ox O2 Delivery O2 Flow Rate FiO2 09/23/16 11:12 111 38 133/74 93 Venturi Mask 10.0 Tracheal Collar 09/23/16 10:12 99.4 99.4 Physical Exam General: mild distress, Other (lots of audible secretions) Lungs: Wheezing (bilateral) Abdomen: Normal bowel sounds, Soft, No tenderness, No hepatosplenomegaly, No masses, Other (peg in place) Extremities: Other (clubbing appreciable) Skin: No rashes, No breakdown, No significant lesion Labs LABS Laboratory Tests Test 09/22/16 17:20 Vancomycin Level Trough 15.1 mcg/mL (10.0-20.0) Vancomycin Last Dose Date Vancomycin Last Dose Time Review of Systems Review of Systems non verbal, out of room Assessment and Plan Assessmemt and Plan Problems Medical Problems: (1) Dementia Status: Acute (2) Healthcare-associated pneumonia Status: Acute (3) Respiratory distress Status: Acute Problems: Comment Review of Relevant I have reviewed the following items maulik (where applicable) has been applied. Labs Laboratory Tests Test 09/22/16 04:30 09/22/16 17:20 White Blood Count 3.8 x10^3/uL (4.0-11.0) Red Blood Count 4.08 x10^6/uL (4.30-5.70) Hemoglobin 12.5 g/dL (13.0-17.5) Hematocrit 38.2 % (39.0-53.0) Mean Corpuscular Volume 94 fL (79-100) Mean Corpuscular Hemoglobin 31 pg (25-35) Mean Corpuscular Hemoglobin Concent 33 g/dL (31-37) Red Cell Distribution Width 17.4 % (11.5-14.5) Platelet Count 117 x10^3/uL (140-400) Neutrophils (%) (Auto) 77 % (31-73) Lymphocytes (%) (Auto) 15 % (24-48) Monocytes (%) (Auto) 7 % (0-9) Eosinophils (%) (Auto) 0 % (0-3) Basophils (%) (Auto) 0 % (0-3) Neutrophils # (Auto) 2.9 x10^3uL (1.8-7.7) Lymphocytes # (Auto) 0.6 x10^3/uL (1.0-4.8) Monocytes # (Auto) 0.3 x10^3/uL (0.0-1.1) Eosinophils # (Auto) 0.0 x10^3/uL (0.0-0.7) Basophils # (Auto) 0.0 x10^3/uL (0.0-0.2) Sodium Level 145 mmol/L (136-145) Potassium Level 4.0 mmol/L (3.5-5.1) Chloride Level 108 mmol/L (98-107) Carbon Dioxide Level 31 mmol/L (21-32) Anion Gap 6 (6-14) Blood Urea Nitrogen 15 mg/dL (8-26) Creatinine 0.7 mg/dL (0.7-1.3) Estimated GFR (Cockcroft-Gault) 112.1 Glucose Level 112 mg/dL (70-99) Lactic Acid Level 1.6 mmol/L (0.4-2.0) Calcium Level 8.7 mg/dL (8.5-10.1) Vancomycin Level Trough 15.1 mcg/mL (10.0-20.0) Vancomycin Last Dose Date Vancomycin Last Dose Time Laboratory Tests Test 09/22/16 17:20 Vancomycin Level Trough 15.1 mcg/mL (10.0-20.0) Vancomycin Last Dose Date Vancomycin Last Dose Time Microbiology 09/21/16 Blood Culture - Preliminary, Resulted NO GROWTH AFTER 2 DAYS 09/21/16 Sputum Culture - Final, Complete 09/21/16 Sputum Result 1 - Final, Complete 09/21/16 Antimicrobic Susceptibility - Final, Complete Medications Current Medications Sodium Chloride 1,000 ml @ 100 mls/hr Q10H IV Last administered on 09/21/16 03:00; Start 09/21/16 at 03:00; Stop 09/21/16 at 12:59; Status DC Vancomycin HCl (Vanco Per Pharmacy) 1 each PRN DAILY PRN MC SEE COMMENTS Last administered on 09/23/16 10:32; Start 09/21/16 at 03:30 Piperacillin Sod/ Tazobactam Sod (Zosyn Per Pharmacy) 1 each PRN DAILY PRN MC SEE COMMENTS; Start 09/21/16 at 03:30 Levofloxacin/ Dextrose (Levaquin Per Pharmacy) 1 each PRN DAILY PRN MC SEE COMMENTS; Start 09/21/16 at 03:30 Vancomycin HCl 2 gm/Sodium Chloride 500 ml @ 250 mls/hr 1X ONCE IV Last administered on 09/21/16 05:43; Start 09/21/16 at 05:00; Stop 09/21/16 at 06:59 ; Status DC Levofloxacin/ Dextrose 150 ml @ 100 mls/hr 1X ONCE IV Last administered on 03:51; Start 09/21/16 at 04:00; Stop 09/21/16 at 05:29; Status DC Piperacillin Sod/ Tazobactam Sod 3.375 gm/Sodium Chloride 50 ml @ 100 mls/hr Q6HRS IV ; Start 09/21/16 at 06:00; Status Cancel Ondansetron HCl (Zofran) 4 mg PRN Q8HRS PRN IV NAUSEA/VOMITING; Start 09/21/16 at 03:45; Stop 09/22/16 at 03:44; Status DC Sodium Chloride 1,000 ml @ 125 mls/hr Q8H IV Last administered on 09/21/16 19 :41; Start 09/21/16 at 03:41; Stop 09/22/16 at 03:40; Status DC Acetaminophen (Tylenol) 650 mg PRN Q4HRS PRN PO FEVER; Start 09/21/16 at 03:45 ; Stop 09/21/16 at 08:25; Status DC Levofloxacin/ Dextrose 150 ml @ 100 mls/hr Q24H IV Last administered on 04:33; Start 09/22/16 at 05:00 Piperacillin Sod/ Tazobactam Sod 4.5 gm/Sodium Chloride 100 ml @ 200 mls/hr Q6HRS IV Last administered on 09/23/16 06:00; Start 09/21/16 at 06:00 Vancomycin HCl 1.25 gm/Sodium Chloride 250 ml @ 167 mls/hr Q12H IV Last administered on 09/23/16 06:25; Start 09/21/16 at 18:00 Vancomycin HCl 1 each 1X ONCE MC Last administered on 09/22/16 17:30; Start 09/22/16 at 17:30; Stop 09/22/16 at 17:31; Status DC Acetaminophen (Tylenol) 650 mg PRN Q6HRS PRN PO temp Last administered on 14:59; Start 09/21/16 at 08:30 Apixaban (Eliquis) 5 mg BID PO Last administered on 09/22/16 21:18; Start at 09:00 Benztropine Mesylate (Cogentin) 1 mg HS PEG Last administered on 09/22/16 21: 18; Start 09/21/16 at 21:00 Budesonide (Pulmicort) 0.5 mg BID NEB Last administered on 09/23/16 07:56; Start 09/21/16 at 09:00 Citalopram Hydrobromide (CeleXA) 20 mg QODAY PEG Last administered on 10:20; Start 09/21/16 at 09:00 Cyanocobalamin (Vitamin B-12) 1,000 mcg QMONTH IM Last administered on 14:59; Start 09/21/16 at 15:00 Divalproex Sodium (Depakote Er) 500 mg BID PO ; Start 09/21/16 at 09:00; Stop at 12:22; Status DC Albuterol/ Ipratropium (Duoneb) 3 ml QID NEB Last administered on 09/22/16 07: 00; Start 09/21/16 at 09:00; Stop 09/22/16 at 08:36; Status DC Artificial Tears (Artificial Tears) 1 drop PRN Q8HRS OU ; Start 09/21/16 at 08: 30 Info (Anti-Coagulation Monitoring By Pharmacy) 1 each PRN DAILY PRN MC SEE COMMENTS Last administered on 09/23/16 10:36; Start 09/21/16 at 08:45 Enoxaparin Sodium (Lovenox 40mg Syringe) 40 mg DAILY SQ ; Start 09/22/16 at 09: 00; Stop 09/22/16 at 09:00; Status DC Prednisone (Prednisone) 20 mg DAILY PEG Last administered on 09/21/16 12:36; Start 09/21/16 at 12:00; Stop 09/22/16 at 08:36; Status DC Scopolamine (Transderm-Scop) 1 patch Q3DAYS TD Last administered on 09/21/16 12:36; Start 09/21/16 at 12:30 Divalproex Sodium (Depakote Sprinkles) 250 mg [id number] PO Last administered on 09/23/16 05:33; Start 09/21/16 at 18:00 Methylprednisolone Sodium Succinate (SOLU-Medrol 125MG VIAL) 60 mg Q8HRS IV Last administered on 09/23/16 05:33; Start 09/22/16 at 09:00 Furosemide (Lasix) 40 mg 1X ONCE IVP Last administered on 09/22/16 08:58; Start 09/22/16 at 09:00; Stop 09/22/16 at 09:01; Status DC Albuterol/ Ipratropium (Duoneb) 3 ml Q4HRS NEB Last administered on 09/23/16 07:56; Start 09/22/16 at 12:00 Albuterol Sulfate (Ventolin Neb Soln) 2.5 mg PRN Q4HRS PRN NEB SHORTNESS OF BREATH Last administered on 09/23/16 10:34; Start 09/22/16 at 09:00 Midazolam HCl (Versed) 5 mg STK-MED ONCE .ROUTE ; Start 09/23/16 at 09:37; Stop 09/23/16 at 09:38; Status DC Fentanyl Citrate (Fentanyl 2ml Vial) 100 mcg STK-MED ONCE .ROUTE ; Start at 09:38; Stop 09/23/16 at 09:39; Status DC Ringer's Solution 1,000 ml @ 125 mls/hr Q8H IV Last administered on 09/23/16 10:18; Start 09/23/16 at 10:15; Stop 09/23/16 at 22:14 Midazolam HCl (Versed) 5 mg STK-MED ONCE IV ; Start 09/23/16 at 10:34; Stop at 10:35; Status Cancel Meperidine HCl (Demerol) 25 mg STK-MED ONCE .ROUTE ; Start 09/23/16 at 10:43; Stop 09/23/16 at 10:44; Status DC Midazolam HCl (Versed) 5 mg STK-MED ONCE IV Last administered on 09/23/16 10: 52; Start 09/23/16 at 10:52; Stop 09/23/16 at 10:59; Status DC Midazolam HCl (Versed) 5 mg STK-MED ONCE IV Last administered on 09/23/16 10: 55; Start 09/23/16 at 10:55; Stop 09/23/16 at 10:59; Status DC Active Scripts Active Reported Duoneb 0.5-3(2.5) Mg/3 Ml (Albuterol/Ipratropium) 3 Ml Ampul.neb 3 Ml NEB QID Depakote Er (Divalproex Sodium) 500 Mg Tab.er.24h 1 Tab PEG BID Cyanocobalamin Injection (Cyanocobalamin (Vitamin B-12)) 1,000 Mcg/1 Ml Vial 1 Ml IM QMONTH Celexa (Citalopram Hydrobromide) 20 Mg Tablet 1 Tab PEG QODAY Budesonide 0.5 Mg/2 Ml Ampul.neb 1 Vial NEB BID Benztropine Mesylate 1 Mg Tablet 1 Mg PEG HS Polyvinyl Alcohol 15 Ml Drops 15 Ml OP PRN Q8HRS Instill 1 drop in both eyes every 8 hours as needed for dryness Eliquis (Apixaban) 5 Mg Tablet 5 Mg PEG BID Acetaminophen 500 Mg Tablet 650 Mg PEG PRN Q6HRS Vitals/I & O Vital Sign - Last 24 Hours 09/22/16 09/22/16 09/22/16 09/22/16 15:00 15:04 19:07 19:35 Temp 97.4 98.7 97.4 98.7 Pulse 116 112 Resp 22 16 B/P (MAP) 122/83 (96) 144/82 (102) Pulse Ox 93 94 92 O2 Delivery Tracheal Collar Tracheal Collar Ventilator Tracheal Collar O2 Flow Rate 10.0 10.0 09/22/16 09/22/16 09/22/16 09/23/16 20:00 23:10 23:50 03:10 Temp 98.3 98.8 98.3 98.8 Pulse 104 101 Resp 18 18 B/P (MAP) 109/90 (96) 107/77 (87) Pulse Ox 93 97 O2 Delivery Trach Collar Ventilator Tracheal Collar Tracheal Collar O2 Flow Rate 10.0 10.0 09/23/16 09/23/16 09/23/16 09/23/16 03:15 07:15 07:20 08:15 Temp 97.7 97.7 Pulse 95 Resp 20 B/P (MAP) 146/65 (92) Pulse Ox 94 93 O2 Delivery Tracheal Collar Tracheal Collar Tracheal Collar Trach Collar O2 Flow Rate 10.0 10.0 10.0 09/23/16 09/23/16 09/23/16 09/23/16 10:08 10:12 10:51 10:55 Temp 99.4 99.4 Pulse 115 Resp 24 18 18 Pulse Ox 96 97 89 O2 Delivery Trach Collar Tracheal Collar Venturi Mask Tracheal Collar O2 Flow Rate 10.0 09/23/16 09/23/16 10:57 11:12 Pulse 111 111 Resp 18 38 B/P (MAP) 133/74 133/74 Pulse Ox 93 93 O2 Delivery Venturi Mask Venturi Mask Tracheal Collar Tracheal Collar O2 Flow Rate 10.0 Intake and Output 09/22/16 09/22/16 09/23/16 15:00 23:00 07:00 Intake Total 1420 ml 20 ml 1863 ml Output Total 0 ml Balance 1420 ml 20 ml 1863 ml Nutrition Consultation Dietary Evaluation: Comments: REC Fibersource HN 1.2 (equiv to Jevity) @ 60 ml/hr with at least 100 cc q 4 hr flush to meet 1 cc/kcal fluid needs. Expected Outcomes/Goals: tolerate TF Malnutrition Findings: Body Fat Depletion (Non Severe: Mild Depletion Weight Status: Overweight KIRK KHOURY MD September 23, 2016 11:29
[2016-09-23 11:45] VITALS: BP 138/71
--- NOTE | 2016-09-23 13:24 | OP ---
DATE OF SURGERY: ATTENDING PHYSICIAN: Dr. Armida Miranda. PROCEDURE: Bronchoscopy. REASON FOR PROCEDURE: Persistent airway secretions and worsening chest x-ray. DESCRIPTION OF PROCEDURE: Informed consent was obtained from the patient's daughter who agreed to proceed with the procedure. 1.5 mg of Versed was used for conscious sedation. Bronchoscope was introduced through the tracheostomy tube. The distal trachea was visualized. It was very erythematous and there was dynamic collapse of the trachea consistent with tracheomalacia. Further inspection of the left lung revealed severely erythematous airway with some mild secretions. No endobronchial lesions seen. Again, there was evidence of bronchomalacia. Bronchoalveolar lavage performed from the left lower lobe. Bronchoscope was then introduced into the right lung. No endobronchial lesions seen. Minimal secretion was seen in the right lower and right middle lobe. The mucosa was very inflamed. Bronchoalveolar lavage performed from the right middle lobe. IMPRESSION: 1. Severe mucosal erythema in the distal trachea and both the lungs consistent with tracheobronchitis/pneumonia. 2. Severe tracheobronchomalacia. 3. No endobronchial lesion seen. 4. Bronchoalveolar lavage performed from left lower lobe and from the right middle lobe and sent for appropriate cultures. VICKIE CASTRO MD DR: AYANA/cindy JOB#: [id number] / [id number] DWAYNE
[2016-09-23] MEDS: ACETAMINOPHEN 500 MG TABLET PO PRN ×2 (13:41→20:52)
[2016-09-23 15:01] VITALS: BP 127/77
--- NOTE | 2016-09-23 17:26 | CARD ---
APPROVED REPORT EXAM: Two-dimensional and M-mode echocardiogram with Doppler and color Doppler. Other Information Quality : GoodHR: 60bpm Rhythm : Atrial Fibrillation INDICATION Atrial Fibrillation Congestive Heart Failure 2D DIMENSIONS RVDd2.4 (2.9-3.5cm)Left Atrium(2D)2.9 (1.6-4.0cm) IVSd1.1 (0.7-1.1cm)Aortic Root(2D)4.6 (2.0-3.7cm) LVDd5.6 (3.9-5.9cm)LVOT Diameter2.6 (1.8-2.4cm) PWd1.1 (0.7-1.1cm)LVDs3.6 (2.5-4.0cm) FS (%) 35.8 %SV99.7 ml LVEF(%)64.7 (>50%) Aortic Valve AoV Peak Roel.129.2cm/sAoV VTI24.9cm AO Peak GR.6.7mmHgLVOT Peak Roel.128.2cm/s AO Mean GR.4mmHgAVA (VMAX)5.15cm2 AI P 1/2 [id number] Mitral Valve MV E Peak Gr.7mmHgMV E Mean Gr.3mmHg Pulmonary Valve PV Peak Fouocjtu88.8cm/s Tricuspid Valve TR P. [id number] Peak Gr.44mmHg LEFT VENTRICLE The left ventricle is normal size. There is borderline concentric left ventricular hypertrophy. The l eft ventricular systolic function is normal and the ejection fraction is within normal range. The Eje ction Fraction is 55-60%. There is normal LV segmental wall motion. Tissue Doppler assessment suggest s moderate left ventricular diastolic dysfunction. RIGHT VENTRICLE The right ventricle is normal size. There is normal right ventricular wall thickness. The right ventr icular systolic function is normal. ATRIA The left atrium is moderately dilated. The right atrium is mildly dilated. AORTIC VALVE The aortic valve is mildly sclerotic. The aortic valve is trileaflet. Doppler and Color Flow revealed mild aortic regurgitation. There is no significant aortic valvular stenosis. MITRAL VALVE There is no evidence of mitral valve prolapse. There is no mitral valve stenosis. Doppler and Color F low revealed mild mitral valve regurgitation. TRICUSPID VALVE Doppler and Color Flow revealed mild tricuspid regurgitation. The pulmonary artery systolic pressure is estimated at 44 mmHg. There is moderate pulmonary hypertension. PULMONIC VALVE Doppler and Color Flow revealed no pulmonic valvular regurgitation. There is no pulmonic valvular eduarda nosis. GREAT VESSELS The aortic root is mildly enlarged. The ascending aorta is normal in size. The pulmonary artery is no rmal. The IVC was obscured, unable to assess. PERICARDIAL EFFUSION There is no evidence of significant pericardial effusion. Critical Notification Critical Value: No <Conclusion> The left ventricle is normal size. The left ventricular systolic function is normal and the ejection fraction is within normal range. The Ejection Fraction is 55-60%. There is borderline concentric left ventricular hypertrophy. There is no significant aortic valvular stenosis. Doppler and Color Flow revealed mild aortic regurgitation. Doppler and Color Flow revealed mild mitral valve regurgitation. Doppler and Color Flow revealed mild tricuspid regurgitation. The pulmonary artery systolic pressure is estimated at 44 mmHg. There is moderate pulmonary hypertension.
[2016-09-23 19:15] VITALS: BP 122/83
[2016-09-23] MEDS: BENZTROPINE MESYLATE 1 MG TABLET. PEG SCH (20:53)
--- NOTE | 2016-09-23 22:19 | PDOC4 ---
PROCEDURE Procedure Bronch dictated VICKIE CASTRO MD September 23, 2016 22:19
[2016-09-23 23:06] VITALS: BP 156/95
[2016-09-24] MEDS: DIVALPROEX SPRINKLES 125 MG CAPSULE. PO SCH ×5 (01:00→23:43)
[2016-09-24] MEDS: IPRATRPIUM/ALBUTEROL 0.5/2.5MG 3 ML NEBU. NEB SCH ×6 (02:57→23:53)
[2016-09-24 03:15] VITALS: BP 137/86
[2016-09-24] MEDS ORDERED: IV NORMAL SALINE 500ML BAG 500 ML IV ONE (03:30)
[2016-09-24] MEDS: PIPERACILLIN/TAZOBACTAM 4.5 GM in IV NORMAL SALINE 100ML 100 ML IV SCH ×2 (06:36→10:42)
[2016-09-24 06:38] LABS: BASO % 0 % (0-3); EOS % 0 % (0-3); HEMATOCRIT 39.5 % (39.0-53.0); HEMOGLOBIN 12.8 g/dL (13.0-17.5); LYMPH # 0.5 x10^3/uL (1.0-4.8); LYMPH % 5 % (24-48); MEAN CORPUSCULAR HEMOGLOBIN 30 pg (25-35); MEAN CORPUSCULAR HGB CONC 32 g/dL (31-37); MEAN CORPUSCULAR VOLUME 93 fL (79-100); MONO % 5 % (0-9); NEUT % 90 % (31-73); PLATELET COUNT 148 x10^3/uL (140-400); RED BLOOD COUNT 4.23 x10^6/uL (4.30-5.70); RED CELL DISTRIBUTION WIDTH 16.7 % (11.5-14.5); WHITE BLOOD COUNT 10.7 x10^3/uL (4.0-11.0)
[2016-09-24] MEDS: methylPREDNISolone SOD SUCC PF 125 MG/2 ML VIAL. IV SCH ×3 (06:38→21:59)
[2016-09-24 06:54] LABS: CREATININE 0.9 mg/dL (0.7-1.3); GFR 83.9
[2016-09-24 07:15] VITALS: BP 142/88
[2016-09-24] MEDS: BUDESONIDE 0.5 MG/2 ML NEBU. NEB SCH ×2 (07:30→19:39)
[2016-09-24 07:47] LABS: PLT ESTIMATE ADEQUATE (ADEQUATE)
[2016-09-24 07:48] LABS: ANISOCYTOSIS SLIGHT; POLYCHROMASIA SLIGHT
[2016-09-24] MEDS: VANCOMYCIN 1.25 GM in IV NORMAL SALINE 250ML 250 ML IV SCH (08:07)
[2016-09-24] MEDS: APIXABAN 5 MG TABLET. PO SCH (08:08)
[2016-09-24] MEDS: ACETAMINOPHEN 500 MG TABLET PO PRN (08:08)
[2016-09-24] MEDS: SCOPOLAMINE 1.5MG PATCH. TD SCH (08:09)
--- NOTE | 2016-09-24 09:40 | PDOC ---
PULMONARY PROGRESS NOTES Subjective less wheezing/hemoptysis last night with suction. Vitals Vital Signs Date Time Temp Pulse Resp B/P (MAP) Pulse Ox O2 Delivery O2 Flow Rate FiO2 09/24/16 07:32 93 Tracheal Collar 10.0 09/24/16 07:15 99.1 79 20 142/88 (106) 99.1 General: Alert, No acute distress Lungs: Wheezing (bilateral) Cardiovascular: S1, S2 Abdomen: Soft Neuro Exam: Alert Extremities: Other (trace) Labs Laboratory Tests Test 09/22/16 17:20 09/24/16 06:00 Vancomycin Level Trough 15.1 mcg/mL (10.0-20.0) Vancomycin Last Dose Date Vancomycin Last Dose Time White Blood Count 10.7 x10^3/uL (4.0-11.0) Red Blood Count 4.23 x10^6/uL (4.30-5.70) Hemoglobin 12.8 g/dL (13.0-17.5) Hematocrit 39.5 % (39.0-53.0) Mean Corpuscular Volume 93 fL (79-100) Mean Corpuscular Hemoglobin 30 pg (25-35) Mean Corpuscular Hemoglobin Concent 32 g/dL (31-37) Red Cell Distribution Width 16.7 % (11.5-14.5) Platelet Count 148 x10^3/uL (140-400) Neutrophils (%) (Auto) 90 % (31-73) Lymphocytes (%) (Auto) 5 % (24-48) Monocytes (%) (Auto) 5 % (0-9) Eosinophils (%) (Auto) 0 % (0-3) Basophils (%) (Auto) 0 % (0-3) Neutrophils # (Auto) 9.6 x10^3uL (1.8-7.7) Lymphocytes # (Auto) 0.5 x10^3/uL (1.0-4.8) Monocytes # (Auto) 0.6 x10^3/uL (0.0-1.1) Eosinophils # (Auto) 0.0 x10^3/uL (0.0-0.7) Basophils # (Auto) 0.0 x10^3/uL (0.0-0.2) Segmented Neutrophils % 89 % (35-66) Band Neutrophils % 2 % (0-9) Lymphocytes % 6 % (24-48) Monocytes % 3 % (0-10) Platelet Estimate Adequate (ADEQUATE) Polychromasia Slight Anisocytosis Slight Creatinine 0.9 mg/dL (0.7-1.3) Estimated GFR (Cockcroft-Gault) 83.9 Laboratory Tests Test 09/24/16 06:00 White Blood Count 10.7 x10^3/uL (4.0-11.0) Red Blood Count 4.23 x10^6/uL (4.30-5.70) Hemoglobin 12.8 g/dL (13.0-17.5) Hematocrit 39.5 % (39.0-53.0) Mean Corpuscular Volume 93 fL (79-100) Mean Corpuscular Hemoglobin 30 pg (25-35) Mean Corpuscular Hemoglobin Concent 32 g/dL (31-37) Red Cell Distribution Width 16.7 % (11.5-14.5) Platelet Count 148 x10^3/uL (140-400) Neutrophils (%) (Auto) 90 % (31-73) Lymphocytes (%) (Auto) 5 % (24-48) Monocytes (%) (Auto) 5 % (0-9) Eosinophils (%) (Auto) 0 % (0-3) Basophils (%) (Auto) 0 % (0-3) Neutrophils # (Auto) 9.6 x10^3uL (1.8-7.7) Lymphocytes # (Auto) 0.5 x10^3/uL (1.0-4.8) Monocytes # (Auto) 0.6 x10^3/uL (0.0-1.1) Eosinophils # (Auto) 0.0 x10^3/uL (0.0-0.7) Basophils # (Auto) 0.0 x10^3/uL (0.0-0.2) Segmented Neutrophils % 89 % (35-66) Band Neutrophils % 2 % (0-9) Lymphocytes % 6 % (24-48) Monocytes % 3 % (0-10) Platelet Estimate Adequate (ADEQUATE) Polychromasia Slight Anisocytosis Slight Creatinine 0.9 mg/dL (0.7-1.3) Estimated GFR (Cockcroft-Gault) 83.9 Medications Active Scripts Medications Dose Route/Sig Max Daily Dose Days Date Category Dose Instructions Duoneb 0.5-3(2.5) Mg/3 Ml (Albuterol/Ipratropium) 3 Ml Ampul.neb 3 Ml NEB QID 09/21/16 Reported Depakote Er (Divalproex Sodium) 500 Mg Tab.er.24h 1 Tab PEG BID 09/21/16 Reported Cyanocobalamin Injection (Cyanocobalamin (Vitamin B-12)) 1,000 Mcg/1 Ml Vial 1 Ml IM QMONTH 09/21/16 Reported Celexa (Citalopram Hydrobromide) 20 Mg Tablet 1 Tab PEG QODAY 09/21/16 Reported Budesonide 0.5 Mg/2 Ml Ampul.neb 1 Vial NEB BID 09/21/16 Reported Benztropine Mesylate 1 Mg Tablet 1 Mg PEG HS 09/21/16 Reported Polyvinyl Alcohol 15 Ml Drops 15 Ml OP PRN Q8HRS 09/21/16 Reported Instill 1 drop in both eyes every 8 hours as needed for dryness Eliquis (Apixaban) 5 Mg Tablet 5 Mg PEG BID 09/21/16 Reported Acetaminophen 500 Mg Tablet 650 Mg PEG PRN Q6HRS 09/21/16 Reported Impression . 1. Acute on chronic respiratory failure due to AECOPD/ pneumonia 2. Proteus pneumonia. R to quinolones 3. Status post tracheostomy. 4. Status post percutaneous endoscopic gastrostomy. 5. Severe dementia. 6. echo with normal EF 7. s/p Bronch with severe mucosal inflammation/ tracheobronchomalacia Plan . 1. d/c levaquin. Follow complete Bronch cultures. 2. Avoid frequent suctioning. Consider d/c elliquis? etiology for AC 3. Nebulized treatments. 4. Pulmicort nebulized. 6. Tube feeding. 7. DVT and GI prophylaxis. 8. CXR f/u as needed 9. echo reviewed 10. IV steroids d/w VICKIE SINGER MD Sep 24, 2016 09:40
[2016-09-24 11:01] VITALS: BP 143/80
--- NOTE | 2016-09-24 11:26 | PDOC ---
PROGRESS NOTES Chief Complaint Chief Complaint 1. HAP, acute respi failure r/o aspiration pneumonia, pneumonitis, include gram pos and gram neg coverage s.p bronch (09/23/16) 2. Encephalopathy, persistent - trached and PEgd 3. ANemia 4. On ELliquis (unsure reason) 5. 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 SIRS POA with elevated lactate (3.5), no sepsis yet History of Present Illness History of Present Illness Awake! Best I have seen him SOme wheezing, coarse BS I am unsure why he is on eliquis, no old admits here HAving hemoptysis LAbs and VS ok though LActate down to normal from mild elevation Trying to reach out to dtr who is involved in his care - actually wants to tansfer to [facility] and in [facility] current [facility] working on it - hunter Kathleen PLAN: See what dtr says re eliquis Meantime hold eliquis given hemoptysis SCDs LAbs in AM Suction prn Supportive care Steroids? wheezy etc per pulmo Vitals Vitals Vital Signs Date Time Temp Pulse Resp B/P (MAP) Pulse Ox O2 Delivery O2 Flow Rate FiO2 09/24/16 11:01 98.5 110 18 143/80 (101) 97 Tracheal Collar 98.5 09/24/16 10:59 10.0 Physical Exam General: Alert, Cooperative, mild distress, Other (lots of audible secretions) Heart: Regular rate, Normal S1, Normal S2 Lungs: Wheezing (bilateral) Abdomen: Normal bowel sounds, Soft, No tenderness, No hepatosplenomegaly, No masses, Other (peg in place) Extremities: Other (clubbing appreciable) Skin: No rashes, No breakdown, No significant lesion Labs LABS Laboratory Tests Test 09/24/16 06:00 White Blood Count 10.7 x10^3/uL (4.0-11.0) Red Blood Count 4.23 x10^6/uL (4.30-5.70) Hemoglobin 12.8 g/dL (13.0-17.5) Hematocrit 39.5 % (39.0-53.0) Mean Corpuscular Volume 93 fL (79-100) Mean Corpuscular Hemoglobin 30 pg (25-35) Mean Corpuscular Hemoglobin Concent 32 g/dL (31-37) Red Cell Distribution Width 16.7 % (11.5-14.5) Platelet Count 148 x10^3/uL (140-400) Neutrophils (%) (Auto) 90 % (31-73) Lymphocytes (%) (Auto) 5 % (24-48) Monocytes (%) (Auto) 5 % (0-9) Eosinophils (%) (Auto) 0 % (0-3) Basophils (%) (Auto) 0 % (0-3) Neutrophils # (Auto) 9.6 x10^3uL (1.8-7.7) Lymphocytes # (Auto) 0.5 x10^3/uL (1.0-4.8) Monocytes # (Auto) 0.6 x10^3/uL (0.0-1.1) Eosinophils # (Auto) 0.0 x10^3/uL (0.0-0.7) Basophils # (Auto) 0.0 x10^3/uL (0.0-0.2) Segmented Neutrophils % 89 % (35-66) Band Neutrophils % 2 % (0-9) Lymphocytes % 6 % (24-48) Monocytes % 3 % (0-10) Platelet Estimate Adequate (ADEQUATE) Polychromasia Slight Anisocytosis Slight Creatinine 0.9 mg/dL (0.7-1.3) Estimated GFR (Cockcroft-Gault) 83.9 Review of Systems Review of Systems unable/limited, trached Assessment and Plan Assessmemt and Plan Problems Medical Problems: (1) Dementia Status: Acute (2) Healthcare-associated pneumonia Status: Acute (3) Respiratory distress Status: Acute Problems: Comment Review of Relevant I have reviewed the following items maulik (where applicable) has been applied. Labs Laboratory Tests Test 09/22/16 17:20 09/24/16 06:00 Vancomycin Level Trough 15.1 mcg/mL (10.0-20.0) Vancomycin Last Dose Date Vancomycin Last Dose Time White Blood Count 10.7 x10^3/uL (4.0-11.0) Red Blood Count 4.23 x10^6/uL (4.30-5.70) Hemoglobin 12.8 g/dL (13.0-17.5) Hematocrit 39.5 % (39.0-53.0) Mean Corpuscular Volume 93 fL (79-100) Mean Corpuscular Hemoglobin 30 pg (25-35) Mean Corpuscular Hemoglobin Concent 32 g/dL (31-37) Red Cell Distribution Width 16.7 % (11.5-14.5) Platelet Count 148 x10^3/uL (140-400) Neutrophils (%) (Auto) 90 % (31-73) Lymphocytes (%) (Auto) 5 % (24-48) Monocytes (%) (Auto) 5 % (0-9) Eosinophils (%) (Auto) 0 % (0-3) Basophils (%) (Auto) 0 % (0-3) Neutrophils # (Auto) 9.6 x10^3uL (1.8-7.7) Lymphocytes # (Auto) 0.5 x10^3/uL (1.0-4.8) Monocytes # (Auto) 0.6 x10^3/uL (0.0-1.1) Eosinophils # (Auto) 0.0 x10^3/uL (0.0-0.7) Basophils # (Auto) 0.0 x10^3/uL (0.0-0.2) Segmented Neutrophils % 89 % (35-66) Band Neutrophils % 2 % (0-9) Lymphocytes % 6 % (24-48) Monocytes % 3 % (0-10) Platelet Estimate Adequate (ADEQUATE) Polychromasia Slight Anisocytosis Slight Creatinine 0.9 mg/dL (0.7-1.3) Estimated GFR (Cockcroft-Gault) 83.9 Laboratory Tests Test 09/24/16 06:00 White Blood Count 10.7 x10^3/uL (4.0-11.0) Red Blood Count 4.23 x10^6/uL (4.30-5.70) Hemoglobin 12.8 g/dL (13.0-17.5) Hematocrit 39.5 % (39.0-53.0) Mean Corpuscular Volume 93 fL (79-100) Mean Corpuscular Hemoglobin 30 pg (25-35) Mean Corpuscular Hemoglobin Concent 32 g/dL (31-37) Red Cell Distribution Width 16.7 % (11.5-14.5) Platelet Count 148 x10^3/uL (140-400) Neutrophils (%) (Auto) 90 % (31-73) Lymphocytes (%) (Auto) 5 % (24-48) Monocytes (%) (Auto) 5 % (0-9) Eosinophils (%) (Auto) 0 % (0-3) Basophils (%) (Auto) 0 % (0-3) Neutrophils # (Auto) 9.6 x10^3uL (1.8-7.7) Lymphocytes # (Auto) 0.5 x10^3/uL (1.0-4.8) Monocytes # (Auto) 0.6 x10^3/uL (0.0-1.1) Eosinophils # (Auto) 0.0 x10^3/uL (0.0-0.7) Basophils # (Auto) 0.0 x10^3/uL (0.0-0.2) Segmented Neutrophils % 89 % (35-66) Band Neutrophils % 2 % (0-9) Lymphocytes % 6 % (24-48) Monocytes % 3 % (0-10) Platelet Estimate Adequate (ADEQUATE) Polychromasia Slight Anisocytosis Slight Creatinine 0.9 mg/dL (0.7-1.3) Estimated GFR (Cockcroft-Gault) 83.9 Microbiology 09/21/16 Blood Culture - Preliminary, Resulted NO GROWTH AFTER 3 DAYS 09/23/16 Gram Stain - Final, Complete Medications Current Medications Sodium Chloride 1,000 ml @ 100 mls/hr Q10H IV Last administered on 09/21/16 03:00; Start 09/21/16 at 03:00; Stop 09/21/16 at 12:59; Status DC Vancomycin HCl (Vanco Per Pharmacy) 1 each PRN DAILY PRN MC SEE COMMENTS Last administered on 09/23/16 10:32; Start 09/21/16 at 03:30 Piperacillin Sod/ Tazobactam Sod (Zosyn Per Pharmacy) 1 each PRN DAILY PRN MC SEE COMMENTS; Start 09/21/16 at 03:30 Levofloxacin/ Dextrose (Levaquin Per Pharmacy) 1 each PRN DAILY PRN MC SEE COMMENTS; Start 09/21/16 at 03:30 Vancomycin HCl 2 gm/Sodium Chloride 500 ml @ 250 mls/hr 1X ONCE IV Last administered on 09/21/16 05:43; Start 09/21/16 at 05:00; Stop 09/21/16 at 06:59 ; Status DC Levofloxacin/ Dextrose 150 ml @ 100 mls/hr 1X ONCE IV Last administered on 03:51; Start 09/21/16 at 04:00; Stop 09/21/16 at 05:29; Status DC Piperacillin Sod/ Tazobactam Sod 3.375 gm/Sodium Chloride 50 ml @ 100 mls/hr Q6HRS IV ; Start 09/21/16 at 06:00; Status Cancel Ondansetron HCl (Zofran) 4 mg PRN Q8HRS PRN IV NAUSEA/VOMITING; Start 09/21/16 at 03:45; Stop 09/22/16 at 03:44; Status DC Sodium Chloride 1,000 ml @ 125 mls/hr Q8H IV Last administered on 09/21/16 19 :41; Start 09/21/16 at 03:41; Stop 09/22/16 at 03:40; Status DC Acetaminophen (Tylenol) 650 mg PRN Q4HRS PRN PO FEVER; Start 09/21/16 at 03:45 ; Stop 09/21/16 at 08:25; Status DC Levofloxacin/ Dextrose 150 ml @ 100 mls/hr Q24H IV Last administered on 04:44; Start 09/22/16 at 05:00; Stop 09/24/16 at 09:30; Status DC Piperacillin Sod/ Tazobactam Sod 4.5 gm/Sodium Chloride 100 ml @ 200 mls/hr Q6HRS IV Last administered on 09/24/16 10:42; Start 09/21/16 at 06:00 Vancomycin HCl 1.25 gm/Sodium Chloride 250 ml @ 167 mls/hr Q12H IV Last administered on 09/24/16 08:07; Start 09/21/16 at 18:00 Vancomycin HCl 1 each 1X ONCE MC Last administered on 09/22/16 17:30; Start 09/22/16 at 17:30; Stop 09/22/16 at 17:31; Status DC Acetaminophen (Tylenol) 650 mg PRN Q6HRS PRN PO temp Last administered on 08:08; Start 09/21/16 at 08:30 Apixaban (Eliquis) 5 mg BID PO Last administered on 09/24/16 08:08; Start 09/21 at 09:00; Stop 09/24/16 at 11:10; Status DC Benztropine Mesylate (Cogentin) 1 mg HS PEG Last administered on 09/23/16 20: 53; Start 09/21/16 at 21:00 Budesonide (Pulmicort) 0.5 mg BID NEB Last administered on 09/24/16 07:30; Start 09/21/16 at 09:00 Citalopram Hydrobromide (CeleXA) 20 mg QODAY PEG Last administered on 10:20; Start 09/21/16 at 09:00 Cyanocobalamin (Vitamin B-12) 1,000 mcg QMONTH IM Last administered on 14:59; Start 09/21/16 at 15:00 Divalproex Sodium (Depakote Er) 500 mg BID PO ; Start 09/21/16 at 09:00; Stop at 12:22; Status DC Albuterol/ Ipratropium (Duoneb) 3 ml QID NEB Last administered on 09/22/16 07: 00; Start 09/21/16 at 09:00; Stop 09/22/16 at 08:36; Status DC Artificial Tears (Artificial Tears) 1 drop PRN Q8HRS OU ; Start 09/21/16 at 08: 30 Info (Anti-Coagulation Monitoring By Pharmacy) 1 each PRN DAILY PRN MC SEE COMMENTS Last administered on 09/23/16 10:36; Start 09/21/16 at 08:45 Enoxaparin Sodium (Lovenox 40mg Syringe) 40 mg DAILY SQ ; Start 09/22/16 at 09: 00; Stop 09/22/16 at 09:00; Status DC Prednisone (Prednisone) 20 mg DAILY PEG Last administered on 09/21/16 12:36; Start 09/21/16 at 12:00; Stop 09/22/16 at 08:36; Status DC Scopolamine (Transderm-Scop) 1 patch Q3DAYS TD Last administered on 09/24/16 08 :09; Start 09/21/16 at 12:30 Divalproex Sodium (Depakote Sprinkles) 250 mg [id number] PO Last administered on 09/24/16 06:38; Start 09/21/16 at 18:00 Methylprednisolone Sodium Succinate (SOLU-Medrol 125MG VIAL) 60 mg Q8HRS IV Last administered on 09/24/16 06:38; Start 09/22/16 at 09:00 Furosemide (Lasix) 40 mg 1X ONCE IVP Last administered on 09/22/16 08:58; Start 09/22/16 at 09:00; Stop 09/22/16 at 09:01; Status DC Albuterol/ Ipratropium (Duoneb) 3 ml Q4HRS NEB Last administered on 09/24/16 10 :57; Start 09/22/16 at 12:00 Albuterol Sulfate (Ventolin Neb Soln) 2.5 mg PRN Q4HRS PRN NEB SHORTNESS OF BREATH Last administered on 09/23/16 10:34; Start 09/22/16 at 09:00 Midazolam HCl (Versed) 5 mg STK-MED ONCE .ROUTE ; Start 09/23/16 at 09:37; Stop 09/23/16 at 09:38; Status DC Fentanyl Citrate (Fentanyl 2ml Vial) 100 mcg STK-MED ONCE .ROUTE ; Start at 09:38; Stop 09/23/16 at 09:39; Status DC Ringer's Solution 1,000 ml @ 125 mls/hr Q8H IV Last administered on 09/23/16 10:18; Start 09/23/16 at 10:15; Stop 09/23/16 at 19:17; Status DC Midazolam HCl (Versed) 5 mg STK-MED ONCE IV ; Start 09/23/16 at 10:34; Stop at 10:35; Status Cancel Meperidine HCl (Demerol) 25 mg STK-MED ONCE .ROUTE ; Start 09/23/16 at 10:43; Stop 09/23/16 at 10:44; Status DC Midazolam HCl (Versed) 5 mg STK-MED ONCE IV Last administered on 09/23/16 10: 52; Start 09/23/16 at 10:52; Stop 09/23/16 at 10:59; Status DC Midazolam HCl (Versed) 5 mg STK-MED ONCE IV Last administered on 09/23/16 10: 55; Start 09/23/16 at 10:55; Stop 09/23/16 at 10:59; Status DC Sodium Chloride 500 ml @ 500 mls/hr 1X ONCE IV Last administered on 09/24/16t 03:32; Start 09/24/16 at 03:30; Stop 09/24/16 at 04:30; Status DC Active Scripts Active Reported Duoneb 0.5-3(2.5) Mg/3 Ml (Albuterol/Ipratropium) 3 Ml Ampul.neb 3 Ml NEB QID Depakote Er (Divalproex Sodium) 500 Mg Tab.er.24h 1 Tab PEG BID Cyanocobalamin Injection (Cyanocobalamin (Vitamin B-12)) 1,000 Mcg/1 Ml Vial 1 Ml IM QMONTH Celexa (Citalopram Hydrobromide) 20 Mg Tablet 1 Tab PEG QODAY Budesonide 0.5 Mg/2 Ml Ampul.neb 1 Vial NEB BID Benztropine Mesylate 1 Mg Tablet 1 Mg PEG HS Polyvinyl Alcohol 15 Ml Drops 15 Ml OP PRN Q8HRS Instill 1 drop in both eyes every 8 hours as needed for dryness Eliquis (Apixaban) 5 Mg Tablet 5 Mg PEG BID Acetaminophen 500 Mg Tablet 650 Mg PEG PRN Q6HRS Vitals/I & O Vital Sign - Last 24 Hours 09/23/16 09/23/16 09/23/16 09/23/16 11:45 11:58 15:01 15:28 Temp 98.0 97.6 98.0 97.6 Pulse 97 96 Resp 18 18 B/P (MAP) 138/71 (93) 127/77 (94) Pulse Ox 95 96 O2 Delivery Tracheal Collar Tracheal Collar Tracheal Collar Tracheal Collar O2 Flow Rate 10.0 10.0 09/23/16 09/23/16 09/23/16 09/23/16 19:15 19:55 20:00 23:06 Temp 98.0 98.5 98.0 98.5 Pulse 77 71 Resp 20 18 B/P (MAP) 122/83 (96) 156/95 (115) Pulse Ox 93 97 94 O2 Delivery Tracheal Collar Tracheal Collar Trach Collar Tracheal Collar O2 Flow Rate 10.0 10.0 09/23/16 09/24/16 09/24/16 09/24/16 23:20 02:58 03:15 07:15 Temp 98.9 99.1 98.9 99.1 Pulse 85 79 Resp 18 20 B/P (MAP) 137/86 (103) 142/88 (106) Pulse Ox 93 93 94 96 O2 Delivery Tracheal Collar Tracheal Collar Tracheal Collar Tracheal Collar O2 Flow Rate 10.0 10.0 09/24/16 09/24/16 09/24/16 07:32 10:59 11:01 Temp 98.5 98.5 Pulse 110 Resp 18 B/P (MAP) 143/80 (101) Pulse Ox 93 97 O2 Delivery Tracheal Collar Tracheal Collar Tracheal Collar O2 Flow Rate 10.0 10.0 Intake and Output 09/23/16 09/23/16 09/24/16 14:59 22:59 06:59 Intake Total 720 ml 989 ml 1451 ml Balance 720 ml 989 ml 1451 ml Nutrition Consultation Dietary Evaluation: Comments: continue Fibersource HN 1.2 (equiv to Jevity) @ 60 ml/hr with at least 100 cc q 4 hr flush to meet 1 cc/kcal fluid needs. Expected Outcomes/Goals: tolerate TF at goal - met, goal ongoing Malnutrition Findings: Body Fat Depletion (Non Severe: Mild Depletion Weight Status: Overweight KIRK KHOURY MD Sep 24, 2016 11:26
[2016-09-24] MEDS: ANTI-COAG MONITOR BY PHARMACY. MC PRN (12:01)
[2016-09-24 12:06] LABS: INR 1.6 (0.8-1.1); PROTHROMBIN TIME PATIENT 18.3 SEC (11.7-14.0)
[2016-09-24 15:04] VITALS: BP 150/92
--- NOTE | 2016-09-24 15:34 | PATHOLOGY ---
CYTOPATHOLOGY REPORT CLINICAL HISTORY: Infiltrates SPECIMEN(S) RECEIVED: A.Bronchoalveolar lavage, RML B.Bronchoalveolar lavage, LLL FINAL DIAGNOSIS: A. Right middle lobe, bronchoalveolar lavage,ThinPrep: - No malignant cells identified. - Focally reactive bronchial epithelial cells, squamous epithelial cells, and pulmonary macrophages identified within a background of acute and chronic inflammatory cells. B. Left lower lobe bronchoalveolar lavage, ThinPrep: No malignant cells identified. Focally reactive bronchial epithelial cells, few squamous epithelial cells, and pulmonary macrophages identified within a background of acute and chronic inflammatory cells. (JPM:csd; d/t: 09/24/2016) PATHOLOGIST: Sahil Mendez M.D. REPORT ELECTRONICALLY SIGNED BY: Sahil Mendez M.D. DATE/TIME: 09/24/2016 15:33 GROSS PATHOLOGY: A. Bronchoalveolar lavage, RML: The specimen is submitted unfixed, labeled "Malick Jorgensen". Received by the Cytology Department is four mL of cloudy colorless fluid. One ThinPrep slide was prepared. (mm 09.23.2016) B. Bronchoalveolar lavage, LLL: The specimen is submitted unfixed, labeled "Malick Jorgensen". Received by the Cytology Department is five mL of cloudy colorless fluid. One ThinPrep slide was prepared. (mm 09.23.2016) EMERGENCY MEDICAL TECHNICIAN(S): ANGELIQUE Ortez(ASCP)IAC INITIAL CPT CODE(S): A; 66714 B; 76264 Professional services performed by [email or web address] [address] Technical services performed by [facility] at [address] [place] [address], [address], [place] [address]. PATIENT: MALICK JORGENSEN /AGE: 11 1950 (Age: 66) SEX: M PATIENT #: [id number] ALT CASE #: SPECIMEN COLLECTION DATE: 09/23/2016 SPECIMEN RECEIVED DATE: 09/23/[address] [facility], [address] [place] [address] PHONE: [phone] DIRECTOR: Justice Guillaume M.D. * * * END OF REPORT * * *
[2016-09-24 19:30] VITALS: BP 154/80
[2016-09-24] MEDS: AMOXICILLIN/CLAV 400MG/57MG 5 ML ORAL.SUSP. PEG SCH (22:00)
[2016-09-24] MEDS: ACETAMINOPHEN 325 MG TABLET. PO PRN (22:00)
[2016-09-24] MEDS: BENZTROPINE MESYLATE 1 MG TABLET. PEG SCH (22:00)
[2016-09-24 23:10] VITALS: BP 148/84
[2016-09-25] VITALS (7 sets, daily range): BP systolic 132–152; BP diastolic 90–107
[2016-09-25] MEDS: IPRATRPIUM/ALBUTEROL 0.5/2.5MG 3 ML NEBU. NEB SCH ×5 (03:47→20:01)
[2016-09-25 04:43] LABS: BASO % 0 % (0-3); EOS % 0 % (0-3); HEMATOCRIT 39.1 % (39.0-53.0); LYMPH % 14 % (24-48); MEAN CORPUSCULAR HEMOGLOBIN 31 pg (25-35); MEAN CORPUSCULAR HGB CONC 33 g/dL (31-37); MEAN CORPUSCULAR VOLUME 92 fL (79-100); MONO % 3 % (0-9); NEUT % 83 % (31-73); PLATELET COUNT 128 x10^3/uL (140-400); RED BLOOD COUNT 4.24 x10^6/uL (4.30-5.70); RED CELL DISTRIBUTION WIDTH 16.8 % (11.5-14.5); WHITE BLOOD COUNT 7.5 x10^3/uL (4.0-11.0)
[2016-09-25 04:56] LABS: CALCIUM 8.6 mg/dL (8.5-10.1); CREATININE 0.8 mg/dL (0.7-1.3); GFR 96.1; POTASSIUM 3.6 mmol/L (3.5-5.1)
[2016-09-25] MEDS: methylPREDNISolone SOD SUCC PF 125 MG/2 ML VIAL. IV SCH ×3 (06:28→21:35)
[2016-09-25] MEDS: DIVALPROEX SPRINKLES 125 MG CAPSULE. PO SCH ×3 (06:29→17:13)
[2016-09-25] MEDS: BUDESONIDE 0.5 MG/2 ML NEBU. NEB SCH ×2 (07:08→20:01)
[2016-09-25] MEDS: AMOXICILLIN/CLAV 400MG/57MG 5 ML ORAL.SUSP. PEG SCH (08:54)
[2016-09-25] MEDS: CITALOPRAM 20 MG TABLET. PEG SCH (08:54)
[2016-09-25] MEDS: ACETAMINOPHEN 325 MG TABLET. PO PRN (08:57)
--- NOTE | 2016-09-25 11:26 | PDOC ---
PULMONARY PROGRESS NOTES Subjective moderate secretions Vitals Vital Signs Date Time Temp Pulse Resp B/P (MAP) Pulse Ox O2 Delivery O2 Flow Rate FiO2 09/25/16 10:47 94 Tracheal Collar 10.0 09/25/16 07:00 97.9 83 22 138/98 (111) 97.9 General: No acute distress Lungs: Wheezing (coarse bs) Cardiovascular: S1, S2 Abdomen: Soft Neuro Exam: Alert Extremities: Other (trace) Labs Laboratory Tests Test 09/24/16 06:00 09/24/16 11:30 09/25/16 04:22 White Blood Count 10.7 x10^3/uL (4.0-11.0) 7.5 x10^3/uL (4.0-11.0) Red Blood Count 4.23 x10^6/uL (4.30-5.70) 4.24 x10^6/uL (4.30-5.70) Hemoglobin 12.8 g/dL (13.0-17.5) 13.0 g/dL (13.0-17.5) Hematocrit 39.5 % (39.0-53.0) 39.1 % (39.0-53.0) Mean Corpuscular Volume 93 fL (79-100) 92 fL (79-100) Mean Corpuscular Hemoglobin 30 pg (25-35) 31 pg (25-35) Mean Corpuscular Hemoglobin Concent 32 g/dL (31-37) 33 g/dL (31-37) Red Cell Distribution Width 16.7 % (11.5-14.5) 16.8 % (11.5-14.5) Platelet Count 148 x10^3/uL (140-400) 128 x10^3/uL (140-400) Neutrophils (%) (Auto) 90 % (31-73) 83 % (31-73) Lymphocytes (%) (Auto) 5 % (24-48) 14 % (24-48) Monocytes (%) (Auto) 5 % (0-9) 3 % (0-9) Eosinophils (%) (Auto) 0 % (0-3) 0 % (0-3) Basophils (%) (Auto) 0 % (0-3) 0 % (0-3) Neutrophils # (Auto) 9.6 x10^3uL (1.8-7.7) 6.2 x10^3uL (1.8-7.7) Lymphocytes # (Auto) 0.5 x10^3/uL (1.0-4.8) 1.0 x10^3/uL (1.0-4.8) Monocytes # (Auto) 0.6 x10^3/uL (0.0-1.1) 0.2 x10^3/uL (0.0-1.1) Eosinophils # (Auto) 0.0 x10^3/uL (0.0-0.7) 0.0 x10^3/uL (0.0-0.7) Basophils # (Auto) 0.0 x10^3/uL (0.0-0.2) 0.0 x10^3/uL (0.0-0.2) Segmented Neutrophils % 89 % (35-66) Band Neutrophils % 2 % (0-9) Lymphocytes % 6 % (24-48) Monocytes % 3 % (0-10) Platelet Estimate Adequate (ADEQUATE) Polychromasia Slight Anisocytosis Slight Creatinine 0.9 mg/dL (0.7-1.3) 0.8 mg/dL (0.7-1.3) Estimated GFR (Cockcroft-Gault) 83.9 96.1 Prothrombin Time 18.3 SEC (11.7-14.0) Prothromb Time International Ratio 1.6 (0.8-1.1) Sodium Level 146 mmol/L (136-145) Potassium Level 3.6 mmol/L (3.5-5.1) Chloride Level 107 mmol/L (98-107) Carbon Dioxide Level 33 mmol/L (21-32) Anion Gap 6 (6-14) Blood Urea Nitrogen 25 mg/dL (8-26) Glucose Level 174 mg/dL (70-99) Calcium Level 8.6 mg/dL (8.5-10.1) Laboratory Tests Test 09/24/16 11:30 09/25/16 04:22 Prothrombin Time 18.3 SEC (11.7-14.0) Prothromb Time International Ratio 1.6 (0.8-1.1) White Blood Count 7.5 x10^3/uL (4.0-11.0) Red Blood Count 4.24 x10^6/uL (4.30-5.70) Hemoglobin 13.0 g/dL (13.0-17.5) Hematocrit 39.1 % (39.0-53.0) Mean Corpuscular Volume 92 fL (79-100) Mean Corpuscular Hemoglobin 31 pg (25-35) Mean Corpuscular Hemoglobin Concent 33 g/dL (31-37) Red Cell Distribution Width 16.8 % (11.5-14.5) Platelet Count 128 x10^3/uL (140-400) Neutrophils (%) (Auto) 83 % (31-73) Lymphocytes (%) (Auto) 14 % (24-48) Monocytes (%) (Auto) 3 % (0-9) Eosinophils (%) (Auto) 0 % (0-3) Basophils (%) (Auto) 0 % (0-3) Neutrophils # (Auto) 6.2 x10^3uL (1.8-7.7) Lymphocytes # (Auto) 1.0 x10^3/uL (1.0-4.8) Monocytes # (Auto) 0.2 x10^3/uL (0.0-1.1) Eosinophils # (Auto) 0.0 x10^3/uL (0.0-0.7) Basophils # (Auto) 0.0 x10^3/uL (0.0-0.2) Sodium Level 146 mmol/L (136-145) Potassium Level 3.6 mmol/L (3.5-5.1) Chloride Level 107 mmol/L (98-107) Carbon Dioxide Level 33 mmol/L (21-32) Anion Gap 6 (6-14) Blood Urea Nitrogen 25 mg/dL (8-26) Creatinine 0.8 mg/dL (0.7-1.3) Estimated GFR (Cockcroft-Gault) 96.1 Glucose Level 174 mg/dL (70-99) Calcium Level 8.6 mg/dL (8.5-10.1) Medications Active Scripts Medications Dose Route/Sig Max Daily Dose Days Date Category Dose Instructions Duoneb 0.5-3(2.5) Mg/3 Ml (Albuterol/Ipratropium) 3 Ml Ampul.neb 3 Ml NEB QID 09/21/16 Reported Depakote Er (Divalproex Sodium) 500 Mg Tab.er.24h 1 Tab PEG BID 09/21/16 Reported Cyanocobalamin Injection (Cyanocobalamin (Vitamin B-12)) 1,000 Mcg/1 Ml Vial 1 Ml IM QMONTH 09/21/16 Reported Celexa (Citalopram Hydrobromide) 20 Mg Tablet 1 Tab PEG QODAY 09/21/16 Reported Budesonide 0.5 Mg/2 Ml Ampul.neb 1 Vial NEB BID 09/21/16 Reported Benztropine Mesylate 1 Mg Tablet 1 Mg PEG HS 09/21/16 Reported Polyvinyl Alcohol 15 Ml Drops 15 Ml OP PRN Q8HRS 09/21/16 Reported Instill 1 drop in both eyes every 8 hours as needed for dryness Eliquis (Apixaban) 5 Mg Tablet 5 Mg PEG BID 09/21/16 Reported Acetaminophen 500 Mg Tablet 650 Mg PEG PRN Q6HRS 09/21/16 Reported Impression . 1. Acute on chronic respiratory failure due to AECOPD/ pneumonia 2. Proteus pneumonia. R to quinolones 3. Status post tracheostomy. 4. Status post percutaneous endoscopic gastrostomy. 5. Severe dementia. 6. echo with normal EF 7. s/p Bronch with severe mucosal inflammation/ tracheobronchomalacia Plan . 1. off levaquin. Follow complete Bronch cultures. 2. prn suctioning. off d/c elliquis, ? etiology for AC, d/w Dr Tong 3. Nebulized treatments. 4. Pulmicort nebulized. 6. Tube feeding. 7. DVT and GI prophylaxis. 8. CXR f/u as needed 9. echo reviewed 10. IV steroids d/w VICKIE SINGER MD Sep 25, 2016 11:26
[2016-09-25] MEDS: ANTI-COAG MONITOR BY PHARMACY. MC PRN (14:36)
[2016-09-25] MEDS: AMINO AC 3%/ELECTROLYTE/GLYCER 1,000 ML IV SCH (17:37)
--- NOTE | 2016-09-25 17:48 | PDOC ---
PROGRESS NOTES Chief Complaint Chief Complaint 1. HAP, acute respi failure r/o aspiration pneumonia, pneumonitis, include gram pos and gram neg coverage s.p bronch (09/23/16) 2. Encephalopathy, persistent - trached and PEgd 3. ANemia 4. On ELliquis (unsure reason) 5. 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 SIRS POA with elevated lactate (3.5), no sepsis yet History of Present Illness History of Present Illness Pt seen and examined Resting with NAD DW RW, His PEG is cracked DW case mgmt Vitals Vitals Vital Signs Date Time Temp Pulse Resp B/P (MAP) Pulse Ox O2 Delivery O2 Flow Rate FiO2 09/25/16 15:09 95 Tracheal Collar 10.0 09/25/16 15:00 97.9 106 22 132/90 (104) 97.9 Physical Exam General: Alert, Cooperative, mild distress, Other (lots of audible secretions) Heart: Regular rate, Normal S1, Normal S2 Lungs: Wheezing (coarse bs) Abdomen: Normal bowel sounds, Soft, No tenderness, No hepatosplenomegaly, No masses, Other (peg in place) Extremities: Other (clubbing appreciable) Skin: No rashes, No breakdown, No significant lesion Labs LABS Laboratory Tests Test 09/25/16 04:22 White Blood Count 7.5 x10^3/uL (4.0-11.0) Red Blood Count 4.24 x10^6/uL (4.30-5.70) Hemoglobin 13.0 g/dL (13.0-17.5) Hematocrit 39.1 % (39.0-53.0) Mean Corpuscular Volume 92 fL (79-100) Mean Corpuscular Hemoglobin 31 pg (25-35) Mean Corpuscular Hemoglobin Concent 33 g/dL (31-37) Red Cell Distribution Width 16.8 % (11.5-14.5) Platelet Count 128 x10^3/uL (140-400) Neutrophils (%) (Auto) 83 % (31-73) Lymphocytes (%) (Auto) 14 % (24-48) Monocytes (%) (Auto) 3 % (0-9) Eosinophils (%) (Auto) 0 % (0-3) Basophils (%) (Auto) 0 % (0-3) Neutrophils # (Auto) 6.2 x10^3uL (1.8-7.7) Lymphocytes # (Auto) 1.0 x10^3/uL (1.0-4.8) Monocytes # (Auto) 0.2 x10^3/uL (0.0-1.1) Eosinophils # (Auto) 0.0 x10^3/uL (0.0-0.7) Basophils # (Auto) 0.0 x10^3/uL (0.0-0.2) Sodium Level 146 mmol/L (136-145) Potassium Level 3.6 mmol/L (3.5-5.1) Chloride Level 107 mmol/L (98-107) Carbon Dioxide Level 33 mmol/L (21-32) Anion Gap 6 (6-14) Blood Urea Nitrogen 25 mg/dL (8-26) Creatinine 0.8 mg/dL (0.7-1.3) Estimated GFR (Cockcroft-Gault) 96.1 Glucose Level 174 mg/dL (70-99) Calcium Level 8.6 mg/dL (8.5-10.1) Review of Systems Review of Systems nonverbal Assessment and Plan Assessmemt and Plan Problems Medical Problems: (1) Dementia Status: Acute (2) Healthcare-associated pneumonia Status: Acute (3) Respiratory distress Status: Acute 1. HAP, acute respi failure r/o aspiration pneumonia, pneumonitis, include gram pos and gram neg coverage s.p bronch (09/23/16) 2. Encephalopathy, persistent - trached and PEgd 3. ANemia 4. On ELliquis (unsure reason) 5. 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 SIRS POA with elevated lactate (3.5), no sepsis yet Plan Consult GI for a new PEG Change to PPN for now Recheck labs Trach half-way meds if possible Prog guarded Problems: Comment Review of Relevant I have reviewed the following items maulik (where applicable) has been applied. Labs Laboratory Tests Test 09/24/16 06:00 09/24/16 11:30 09/25/16 04:22 White Blood Count 10.7 x10^3/uL (4.0-11.0) 7.5 x10^3/uL (4.0-11.0) Red Blood Count 4.23 x10^6/uL (4.30-5.70) 4.24 x10^6/uL (4.30-5.70) Hemoglobin 12.8 g/dL (13.0-17.5) 13.0 g/dL (13.0-17.5) Hematocrit 39.5 % (39.0-53.0) 39.1 % (39.0-53.0) Mean Corpuscular Volume 93 fL (79-100) 92 fL (79-100) Mean Corpuscular Hemoglobin 30 pg (25-35) 31 pg (25-35) Mean Corpuscular Hemoglobin Concent 32 g/dL (31-37) 33 g/dL (31-37) Red Cell Distribution Width 16.7 % (11.5-14.5) 16.8 % (11.5-14.5) Platelet Count 148 x10^3/uL (140-400) 128 x10^3/uL (140-400) Neutrophils (%) (Auto) 90 % (31-73) 83 % (31-73) Lymphocytes (%) (Auto) 5 % (24-48) 14 % (24-48) Monocytes (%) (Auto) 5 % (0-9) 3 % (0-9) Eosinophils (%) (Auto) 0 % (0-3) 0 % (0-3) Basophils (%) (Auto) 0 % (0-3) 0 % (0-3) Neutrophils # (Auto) 9.6 x10^3uL (1.8-7.7) 6.2 x10^3uL (1.8-7.7) Lymphocytes # (Auto) 0.5 x10^3/uL (1.0-4.8) 1.0 x10^3/uL (1.0-4.8) Monocytes # (Auto) 0.6 x10^3/uL (0.0-1.1) 0.2 x10^3/uL (0.0-1.1) Eosinophils # (Auto) 0.0 x10^3/uL (0.0-0.7) 0.0 x10^3/uL (0.0-0.7) Basophils # (Auto) 0.0 x10^3/uL (0.0-0.2) 0.0 x10^3/uL (0.0-0.2) Segmented Neutrophils % 89 % (35-66) Band Neutrophils % 2 % (0-9) Lymphocytes % 6 % (24-48) Monocytes % 3 % (0-10) Platelet Estimate Adequate (ADEQUATE) Polychromasia Slight Anisocytosis Slight Creatinine 0.9 mg/dL (0.7-1.3) 0.8 mg/dL (0.7-1.3) Estimated GFR (Cockcroft-Gault) 83.9 96.1 Prothrombin Time 18.3 SEC (11.7-14.0) Prothromb Time International Ratio 1.6 (0.8-1.1) Sodium Level 146 mmol/L (136-145) Potassium Level 3.6 mmol/L (3.5-5.1) Chloride Level 107 mmol/L (98-107) Carbon Dioxide Level 33 mmol/L (21-32) Anion Gap 6 (6-14) Blood Urea Nitrogen 25 mg/dL (8-26) Glucose Level 174 mg/dL (70-99) Calcium Level 8.6 mg/dL (8.5-10.1) Laboratory Tests Test 09/25/16 04:22 White Blood Count 7.5 x10^3/uL (4.0-11.0) Red Blood Count 4.24 x10^6/uL (4.30-5.70) Hemoglobin 13.0 g/dL (13.0-17.5) Hematocrit 39.1 % (39.0-53.0) Mean Corpuscular Volume 92 fL (79-100) Mean Corpuscular Hemoglobin 31 pg (25-35) Mean Corpuscular Hemoglobin Concent 33 g/dL (31-37) Red Cell Distribution Width 16.8 % (11.5-14.5) Platelet Count 128 x10^3/uL (140-400) Neutrophils (%) (Auto) 83 % (31-73) Lymphocytes (%) (Auto) 14 % (24-48) Monocytes (%) (Auto) 3 % (0-9) Eosinophils (%) (Auto) 0 % (0-3) Basophils (%) (Auto) 0 % (0-3) Neutrophils # (Auto) 6.2 x10^3uL (1.8-7.7) Lymphocytes # (Auto) 1.0 x10^3/uL (1.0-4.8) Monocytes # (Auto) 0.2 x10^3/uL (0.0-1.1) Eosinophils # (Auto) 0.0 x10^3/uL (0.0-0.7) Basophils # (Auto) 0.0 x10^3/uL (0.0-0.2) Sodium Level 146 mmol/L (136-145) Potassium Level 3.6 mmol/L (3.5-5.1) Chloride Level 107 mmol/L (98-107) Carbon Dioxide Level 33 mmol/L (21-32) Anion Gap 6 (6-14) Blood Urea Nitrogen 25 mg/dL (8-26) Creatinine 0.8 mg/dL (0.7-1.3) Estimated GFR (Cockcroft-Gault) 96.1 Glucose Level 174 mg/dL (70-99) Calcium Level 8.6 mg/dL (8.5-10.1) Microbiology 09/21/16 Blood Culture - Preliminary, Resulted NO GROWTH AFTER 4 DAYS 09/23/16 AFB Specimen Processing Tissue - Final, Resulted 09/23/16 Acid Fast Bacilli Culture, Resulted Pending 09/23/16 Gram Stain - Final, Resulted 09/23/16 Fungal Culture, Resulted Pending 09/23/16 Fungal Culture Result 1, Resulted Pending Medications Current Medications Sodium Chloride 1,000 ml @ 100 mls/hr Q10H IV Last administered on 09/21/16 03:00; Start 09/21/16 at 03:00; Stop 09/21/16 at 12:59; Status DC Vancomycin HCl (Vanco Per Pharmacy) 1 each PRN DAILY PRN MC SEE COMMENTS Last administered on 09/23/16 10:32; Start 09/21/16 at 03:30; Stop 09/24/16 at 11:58 ; Status DC Piperacillin Sod/ Tazobactam Sod (Zosyn Per Pharmacy) 1 each PRN DAILY PRN MC SEE COMMENTS; Start 09/21/16 at 03:30; Stop 09/24/16 at 11:59; Status DC Levofloxacin/ Dextrose (Levaquin Per Pharmacy) 1 each PRN DAILY PRN MC SEE COMMENTS; Start 09/21/16 at 03:30; Stop 09/24/16 at 11:57; Status DC Vancomycin HCl 2 gm/Sodium Chloride 500 ml @ 250 mls/hr 1X ONCE IV Last administered on 09/21/16 05:43; Start 09/21/16 at 05:00; Stop 09/21/16 at 06:59 ; Status DC Levofloxacin/ Dextrose 150 ml @ 100 mls/hr 1X ONCE IV Last administered on 03:51; Start 09/21/16 at 04:00; Stop 09/21/16 at 05:29; Status DC Piperacillin Sod/ Tazobactam Sod 3.375 gm/Sodium Chloride 50 ml @ 100 mls/hr Q6HRS IV ; Start 09/21/16 at 06:00; Status Cancel Ondansetron HCl (Zofran) 4 mg PRN Q8HRS PRN IV NAUSEA/VOMITING; Start 09/21/16 at 03:45; Stop 09/22/16 at 03:44; Status DC Sodium Chloride 1,000 ml @ 125 mls/hr Q8H IV Last administered on 09/21/16 19 :41; Start 09/21/16 at 03:41; Stop 09/22/16 at 03:40; Status DC Acetaminophen (Tylenol) 650 mg PRN Q4HRS PRN PO FEVER; Start 09/21/16 at 03:45 ; Stop 09/21/16 at 08:25; Status DC Levofloxacin/ Dextrose 150 ml @ 100 mls/hr Q24H IV Last administered on 04:44; Start 09/22/16 at 05:00; Stop 09/24/16 at 09:30; Status DC Piperacillin Sod/ Tazobactam Sod 4.5 gm/Sodium Chloride 100 ml @ 200 mls/hr Q6HRS IV Last administered on 09/24/16 10:42; Start 09/21/16 at 06:00; Stop 09/24/16 at 11:57; Status DC Vancomycin HCl 1.25 gm/Sodium Chloride 250 ml @ 167 mls/hr Q12H IV Last administered on 09/24/16 08:07; Start 09/21/16 at 18:00; Stop 09/24/16 at 11:57; Status DC Vancomycin HCl 1 each 1X ONCE MC Last administered on 09/22/16 17:30; Start 09/22/16 at 17:30; Stop 09/22/16 at 17:31; Status DC Acetaminophen (Tylenol) 650 mg PRN Q6HRS PRN PO temp Last administered on 08:08; Start 09/21/16 at 08:30; Stop 09/24/16 at 12:36; Status DC Apixaban (Eliquis) 5 mg BID PO Last administered on 09/24/16 08:08; Start 09/21 at 09:00; Stop 09/24/16 at 11:10; Status DC Benztropine Mesylate (Cogentin) 1 mg HS PEG Last administered on 09/24/16 22:00 ; Start 09/21/16 at 21:00 Budesonide (Pulmicort) 0.5 mg BID NEB Last administered on 09/25/16 07:08; Start 09/21/16 at 09:00 Citalopram Hydrobromide (CeleXA) 20 mg QODAY PEG Last administered on 09/25/16 08:54; Start 09/21/16 at 09:00 Cyanocobalamin (Vitamin B-12) 1,000 mcg QMONTH IM Last administered on 14:59; Start 09/21/16 at 15:00 Divalproex Sodium (Depakote Er) 500 mg BID PO ; Start 09/21/16 at 09:00; Stop at 12:22; Status DC Albuterol/ Ipratropium (Duoneb) 3 ml QID NEB Last administered on 09/22/16 07: 00; Start 09/21/16 at 09:00; Stop 09/22/16 at 08:36; Status DC Artificial Tears (Artificial Tears) 1 drop PRN Q8HRS OU ; Start 09/21/16 at 08: 30 Info (Anti-Coagulation Monitoring By Pharmacy) 1 each PRN DAILY PRN MC SEE COMMENTS Last administered on 09/25/16 14:36; Start 09/21/16 at 08:45 Enoxaparin Sodium (Lovenox 40mg Syringe) 40 mg DAILY SQ ; Start 09/22/16 at 09: 00; Stop 09/22/16 at 09:00; Status DC Prednisone (Prednisone) 20 mg DAILY PEG Last administered on 09/21/16 12:36; Start 09/21/16 at 12:00; Stop 09/22/16 at 08:36; Status DC Scopolamine (Transderm-Scop) 1 patch Q3DAYS TD Last administered on 09/24/16 08 :09; Start 09/21/16 at 12:30 Divalproex Sodium (Depakote Sprinkles) 250 mg [id number] PO Last administered on 09/25/16 13:57; Start 09/21/16 at 18:00 Methylprednisolone Sodium Succinate (SOLU-Medrol 125MG VIAL) 60 mg Q8HRS IV Last administered on 09/25/16 13:57; Start 09/22/16 at 09:00 Furosemide (Lasix) 40 mg 1X ONCE IVP Last administered on 09/22/16 08:58; Start 09/22/16 at 09:00; Stop 09/22/16 at 09:01; Status DC Albuterol/ Ipratropium (Duoneb) 3 ml Q4HRS NEB Last administered on 09/25/16 15 :08; Start 09/22/16 at 12:00 Albuterol Sulfate (Ventolin Neb Soln) 2.5 mg PRN Q4HRS PRN NEB SHORTNESS OF BREATH Last administered on 09/23/16 10:34; Start 09/22/16 at 09:00 Midazolam HCl (Versed) 5 mg STK-MED ONCE .ROUTE ; Start 09/23/16 at 09:37; Stop 09/23/16 at 09:38; Status DC Fentanyl Citrate (Fentanyl 2ml Vial) 100 mcg STK-MED ONCE .ROUTE ; Start at 09:38; Stop 09/23/16 at 09:39; Status DC Ringer's Solution 1,000 ml @ 125 mls/hr Q8H IV Last administered on 09/23/16 10:18; Start 09/23/16 at 10:15; Stop 09/23/16 at 19:17; Status DC Midazolam HCl (Versed) 5 mg STK-MED ONCE IV ; Start 09/23/16 at 10:34; Stop at 10:35; Status Cancel Meperidine HCl (Demerol) 25 mg STK-MED ONCE .ROUTE ; Start 09/23/16 at 10:43; Stop 09/23/16 at 10:44; Status DC Midazolam HCl (Versed) 5 mg STK-MED ONCE IV Last administered on 09/23/16 10: 52; Start 09/23/16 at 10:52; Stop 09/23/16 at 10:59; Status DC Midazolam HCl (Versed) 5 mg STK-MED ONCE IV Last administered on 09/23/16 10: 55; Start 09/23/16 at 10:55; Stop 09/23/16 at 10:59; Status DC Sodium Chloride 500 ml @ 500 mls/hr 1X ONCE IV Last administered on 09/24/16 03:32; Start 09/24/16 at 03:30; Stop 09/24/16 at 04:30; Status DC Amoxicillin/ Clavulanate Potassium (Augmentin 400-57mg/5ml Susp) 10 ml Q12HR PEG Last administered on 09/25/16 08:54; Start 09/24/16 at 21:00 Levofloxacin (Levaquin) 750 mg DAILY06 PO ; Start 09/25/16 at 06:00; Stop at 06:00; Status DC Acetaminophen (Tylenol) 650 mg PRN Q6HRS PRN PO FEVER Last administered on 08:57; Start 09/24/16 at 12:45 Amino Acids/ Glycerin/ Electrolytes 1,000 ml @ 80 mls/hr [id number] IV Last administered on 09/25/16 17:37; Start 09/25/16 at 17:00 Active Scripts Active Reported Duoneb 0.5-3(2.5) Mg/3 Ml (Albuterol/Ipratropium) 3 Ml Ampul.neb 3 Ml NEB QID Depakote Er (Divalproex Sodium) 500 Mg Tab.er.24h 1 Tab PEG BID Cyanocobalamin Injection (Cyanocobalamin (Vitamin B-12)) 1,000 Mcg/1 Ml Vial 1 Ml IM QMONTH Celexa (Citalopram Hydrobromide) 20 Mg Tablet 1 Tab PEG QODAY Budesonide 0.5 Mg/2 Ml Ampul.neb 1 Vial NEB BID Benztropine Mesylate 1 Mg Tablet 1 Mg PEG HS Polyvinyl Alcohol 15 Ml Drops 15 Ml OP PRN Q8HRS Instill 1 drop in both eyes every 8 hours as needed for dryness Eliquis (Apixaban) 5 Mg Tablet 5 Mg PEG BID Acetaminophen 500 Mg Tablet 650 Mg PEG PRN Q6HRS Vitals/I & O Vital Sign - Last 24 Hours 09/24/16 09/24/16 09/24/16 09/24/16 19:30 19:40 19:41 20:00 Temp 98.4 98.4 Pulse 119 Resp 22 B/P (MAP) 154/80 (104) Pulse Ox 94 93 93 O2 Delivery Tracheal Collar Tracheal Collar Tracheal Collar Trach Collar O2 Flow Rate 10.0 10.0 10.0 09/24/16 09/24/16 09/25/16 09/25/16 23:10 23:50 03:42 03:46 Temp 98.3 98.3 98.3 98.3 Pulse 116 114 Resp 22 22 B/P (MAP) 148/84 (105) 139/95 (110) Pulse Ox 95 95 96 O2 Delivery Room Air Tracheal Collar Tracheal Collar Tracheal Collar O2 Flow Rate 10.0 10.0 09/25/16 09/25/16 09/25/16 09/25/16 07:00 07:08 08:00 10:47 Temp 97.9 97.9 Pulse 83 Resp 22 B/P (MAP) 138/98 (111) Pulse Ox 95 94 O2 Delivery Tracheal Collar Tracheal Collar Trach Collar Tracheal Collar O2 Flow Rate 10.0 4.0 10.0 09/25/16 09/25/16 09/25/16 11:00 15:00 15:09 Temp 97.7 97.9 97.7 97.9 Pulse 129 106 Resp 22 B/P (MAP) 136/98 (111) 132/90 (104) Pulse Ox 93 94 95 O2 Delivery Tracheal Collar Tracheal Collar Tracheal Collar O2 Flow Rate 10.0 Intake and Output 09/24/16 09/24/16 09/25/16 15:00 23:00 07:00 Intake Total 100 ml 815 ml 950 ml Balance 100 ml 815 ml 950 ml Nutrition Consultation Dietary Evaluation: Comments: continue Fibersource HN 1.2 (equiv to Jevity) @ 60 ml/hr with at least 100 cc q 4 hr flush to meet 1 cc/kcal fluid needs. Expected Outcomes/Goals: tolerate TF at goal - met, goal ongoing Malnutrition Findings: Body Fat Depletion (Non Severe: Mild Depletion Weight Status: Overweight CASTLE,NIAL K III DO Sep 25, 2016 17:48
[2016-09-25] MEDS ORDERED: VANCOMYCIN PER PHARMACY MC PRN (20:15)
[2016-09-25] MEDS: BENZTROPINE MESYLATE 1 MG TABLET. PEG SCH (20:30)
[2016-09-25] MEDS: VANCOMYCIN 1.25 GM in IV NORMAL SALINE 250ML 250 ML IV SCH (20:45)
[2016-09-25] MEDS: PIPERACILLIN/TAZOBACTAM 3.375 GM in IV NORMAL SALINE 50ML 50 ML IV SCH (22:29)
[2016-09-26] MEDS: ALBUTEROL SULFATE 2.5 MG/3 ML NEBU. NEB PRN (00:10)
[2016-09-26 03:00] VITALS: BP 133/97
[2016-09-26] MEDS: IPRATRPIUM/ALBUTEROL 0.5/2.5MG 3 ML NEBU. NEB SCH ×7 (03:54→23:31)
[2016-09-26] MEDS: DIVALPROEX SPRINKLES 125 MG CAPSULE. PO SCH ×6 (05:34→23:44)
[2016-09-26] MEDS: PIPERACILLIN/TAZOBACTAM 3.375 GM in IV NORMAL SALINE 50ML 50 ML IV SCH ×4 (05:34→23:42)
[2016-09-26] MEDS: methylPREDNISolone SOD SUCC PF 125 MG/2 ML VIAL. IV SCH (05:35)
[2016-09-26] MEDS: AMINO AC 3%/ELECTROLYTE/GLYCER 1,000 ML IV SCH (05:46)
[2016-09-26 07:00] VITALS: BP 145/94
[2016-09-26] MEDS: BUDESONIDE 0.5 MG/2 ML NEBU. NEB SCH ×2 (07:22→21:00)
[2016-09-26] MEDS: VANCOMYCIN 1.25 GM in IV NORMAL SALINE 250ML 250 ML IV SCH (09:03)
--- NOTE | 2016-09-26 10:04 | PDOC ---
PULMONARY PROGRESS NOTES Subjective less secretions Vitals Vital Signs Date Time Temp Pulse Resp B/P (MAP) Pulse Ox O2 Delivery O2 Flow Rate FiO2 09/26/16 07:23 94 Tracheal Collar 10.0 09/26/16 07:00 97.9 97 22 145/94 (111) 97.9 General: No acute distress Lungs: Other (improved rhonchi) Cardiovascular: S1, S2 Abdomen: Soft Neuro Exam: Alert Extremities: Other (trace) Labs Laboratory Tests Test 09/24/16 11:30 09/25/16 04:22 Prothrombin Time 18.3 SEC (11.7-14.0) Prothromb Time International Ratio 1.6 (0.8-1.1) White Blood Count 7.5 x10^3/uL (4.0-11.0) Red Blood Count 4.24 x10^6/uL (4.30-5.70) Hemoglobin 13.0 g/dL (13.0-17.5) Hematocrit 39.1 % (39.0-53.0) Mean Corpuscular Volume 92 fL (79-100) Mean Corpuscular Hemoglobin 31 pg (25-35) Mean Corpuscular Hemoglobin Concent 33 g/dL (31-37) Red Cell Distribution Width 16.8 % (11.5-14.5) Platelet Count 128 x10^3/uL (140-400) Neutrophils (%) (Auto) 83 % (31-73) Lymphocytes (%) (Auto) 14 % (24-48) Monocytes (%) (Auto) 3 % (0-9) Eosinophils (%) (Auto) 0 % (0-3) Basophils (%) (Auto) 0 % (0-3) Neutrophils # (Auto) 6.2 x10^3uL (1.8-7.7) Lymphocytes # (Auto) 1.0 x10^3/uL (1.0-4.8) Monocytes # (Auto) 0.2 x10^3/uL (0.0-1.1) Eosinophils # (Auto) 0.0 x10^3/uL (0.0-0.7) Basophils # (Auto) 0.0 x10^3/uL (0.0-0.2) Sodium Level 146 mmol/L (136-145) Potassium Level 3.6 mmol/L (3.5-5.1) Chloride Level 107 mmol/L (98-107) Carbon Dioxide Level 33 mmol/L (21-32) Anion Gap 6 (6-14) Blood Urea Nitrogen 25 mg/dL (8-26) Creatinine 0.8 mg/dL (0.7-1.3) Estimated GFR (Cockcroft-Gault) 96.1 Glucose Level 174 mg/dL (70-99) Calcium Level 8.6 mg/dL (8.5-10.1) Medications Active Scripts Medications Dose Route/Sig Max Daily Dose Days Date Category Dose Instructions Duoneb 0.5-3(2.5) Mg/3 Ml (Albuterol/Ipratropium) 3 Ml Ampul.neb 3 Ml NEB QID 09/21/16 Reported Depakote Er (Divalproex Sodium) 500 Mg Tab.er.24h 1 Tab PEG BID 09/21/16 Reported Cyanocobalamin Injection (Cyanocobalamin (Vitamin B-12)) 1,000 Mcg/1 Ml Vial 1 Ml IM QMONTH 09/21/16 Reported Celexa (Citalopram Hydrobromide) 20 Mg Tablet 1 Tab PEG QODAY 09/21/16 Reported Budesonide 0.5 Mg/2 Ml Ampul.neb 1 Vial NEB BID 09/21/16 Reported Benztropine Mesylate 1 Mg Tablet 1 Mg PEG HS 09/21/16 Reported Polyvinyl Alcohol 15 Ml Drops 15 Ml OP PRN Q8HRS 09/21/16 Reported Instill 1 drop in both eyes every 8 hours as needed for dryness Eliquis (Apixaban) 5 Mg Tablet 5 Mg PEG BID 09/21/16 Reported Acetaminophen 500 Mg Tablet 650 Mg PEG PRN Q6HRS 09/21/16 Reported Impression . 1. Acute on chronic respiratory failure due to AECOPD/ pneumonia 2. Proteus pneumonia. R to quinolones, back on IV antibiotic as PEG is split open 3. Status post tracheostomy. 4. Status post percutaneous endoscopic gastrostomy. 5. Severe dementia. 6. echo with normal EF 7. s/p Bronch with severe mucosal inflammation/ tracheobronchomalacia Plan . 1. Zosyn 2. prn suctioning. off elliquis, ? etiology for AC, Hemoptysis resolved. 3. Nebulized treatments. 4. Pulmicort nebulized. 6. Tube feeding. 7. DVT and GI prophylaxis. 8. CXR f/u as needed 9. echo reviewed 10. IV steroids, taper d/w VICKIE SINGER MD Sep 26, 2016 10:04
[2016-09-26 11:00] VITALS: BP 144/97
--- NOTE | 2016-09-26 12:21 | PDOC2 ---
GI CONSULT Reason For Consult: Dysphagia PEG tube dysfunction- leak HPI: HPI: 66 yo WM with prior respiratory arrest- with trach and PEG ahd history of dementia- all feedings and meds are via PEG- became clogged and then the tube split during attempt to flush and we were asked to see PMH: PMH: Dementia Hx of resp arrest- with trach and PEG tube Social History: Smoke: No ALCOHOL: none Drugs: None ROS: Limited- uncommunicative Vitals: Vitals: Vital Signs Date Time Temp Pulse Resp B/P (MAP) Pulse Ox O2 Delivery O2 Flow Rate FiO2 09/26/16 11:14 95 Tracheal Collar 10.0 09/26/16 11:00 97.9 105 22 144/97 (113) 97.9 Allergies: Coded Allergies: fentanyl (Verified Allergy, Intermediate, 09/23/16) morphine (Verified Allergy, Intermediate, 09/23/16) Medications: Current Medications Medications (Trade) Dose Ordered Sig/Eleanor Route PRN Reason Start Time Stop Time Status Last Admin Dose Admin Amino Acids/ Glycerin/ Electrolytes 1,000 ml @ 80 mls/hr [id number] IV 09/25/16 17:00 09/26/16 05:46 Piperacillin Sod/ Tazobactam Sod 3.375 gm/Sodium Chloride 50 ml @ 100 mls/hr Q6HRS IV 09/25/16 21:00 09/26/16 05:34 Vancomycin HCl (Vanco Per Pharmacy) 1 each PRN DAILY PRN MC SEE COMMENTS 09/25/16 20:15 09/26/16 12:06 DC 09/25/16 20:16 Vancomycin HCl 1.25 gm/Sodium Chloride 250 ml @ 167 mls/hr Q12H IV 09/25/16 21:00 09/26/16 12:06 DC 09/26/16 09:03 PE: GEN: uncomunicative HEENT: Atraumatic, PERRLA- TRACH LUNGS: few rhonchi HEART: RRR, no murmurs ABD: NABS, S/ND/NT, no masses- PEG in midline- clogged and leaking EXTREMITY: No edema SKIN: No rashes, no jaundice NEURO/PSYCH: no communicative A/P: A/P: Dysphagia- on PEG feedings and trach with hx of resp failure PEG tube dysfunction- clogged and broken at bedside tried to repair and flush existing tube- not successful Removed tube with traction Then replaced with 20 f replacement G tube- 6 cc internal balloon inflated. Some bleeding at site from traction removal trauma but stopped- Flushed new tube- tolerated well DIANNA BELTRÁN MD Sep 26, 2016 12:21
--- NOTE | 2016-09-26 14:01 | PDOC ---
PROGRESS NOTES Chief Complaint Chief Complaint 1. HAP, acute respi failure r/o aspiration pneumonia, pneumonitis, include gram pos and gram neg coverage s.p bronch (09/23/16) 2. Encephalopathy, persistent - trached and PEgd 3. ANemia 4. On ELliquis (unsure reason) 5. 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 SIRS POA with elevated lactate (3.5), no sepsis yet 7, MAlfunction PEG tube s/p fixing (09/25/16) History of Present Illness History of Present Illness PEG tube got clogged yesterday, attempted to flush by RN and got split open, GI consulted, replaced it and now TF back on Needed to restart iV antibiotics bec lost the pEG PLAN: IF no more peg issues dc roel on PEG tory Thompson RN and pulmo Vitals Vitals Vital Signs Date Time Temp Pulse Resp B/P (MAP) Pulse Ox O2 Delivery O2 Flow Rate FiO2 09/26/16 11:14 95 Tracheal Collar 10.0 09/26/16 11:00 97.9 105 22 144/97 (113) 97.9 Physical Exam General: Alert, Cooperative, mild distress, Other (lots of audible secretions) Heart: Regular rate, Normal S1, Normal S2 Lungs: Other (improved rhonchi) Abdomen: Normal bowel sounds, Soft, No tenderness, No hepatosplenomegaly, No masses, Other (peg in place) Extremities: Other (clubbing appreciable) Skin: No rashes, No breakdown, No significant lesion Review of Systems Review of Systems non verbal Assessment and Plan Assessmemt and Plan Problems Medical Problems: (1) Dementia Status: Acute (2) Healthcare-associated pneumonia Status: Acute (3) Respiratory distress Status: Acute Problems: Comment Review of Relevant I have reviewed the following items maulik (where applicable) has been applied. Labs Laboratory Tests Test 09/25/16 04:22 White Blood Count 7.5 x10^3/uL (4.0-11.0) Red Blood Count 4.24 x10^6/uL (4.30-5.70) Hemoglobin 13.0 g/dL (13.0-17.5) Hematocrit 39.1 % (39.0-53.0) Mean Corpuscular Volume 92 fL (79-100) Mean Corpuscular Hemoglobin 31 pg (25-35) Mean Corpuscular Hemoglobin Concent 33 g/dL (31-37) Red Cell Distribution Width 16.8 % (11.5-14.5) Platelet Count 128 x10^3/uL (140-400) Neutrophils (%) (Auto) 83 % (31-73) Lymphocytes (%) (Auto) 14 % (24-48) Monocytes (%) (Auto) 3 % (0-9) Eosinophils (%) (Auto) 0 % (0-3) Basophils (%) (Auto) 0 % (0-3) Neutrophils # (Auto) 6.2 x10^3uL (1.8-7.7) Lymphocytes # (Auto) 1.0 x10^3/uL (1.0-4.8) Monocytes # (Auto) 0.2 x10^3/uL (0.0-1.1) Eosinophils # (Auto) 0.0 x10^3/uL (0.0-0.7) Basophils # (Auto) 0.0 x10^3/uL (0.0-0.2) Sodium Level 146 mmol/L (136-145) Potassium Level 3.6 mmol/L (3.5-5.1) Chloride Level 107 mmol/L (98-107) Carbon Dioxide Level 33 mmol/L (21-32) Anion Gap 6 (6-14) Blood Urea Nitrogen 25 mg/dL (8-26) Creatinine 0.8 mg/dL (0.7-1.3) Estimated GFR (Cockcroft-Gault) 96.1 Glucose Level 174 mg/dL (70-99) Calcium Level 8.6 mg/dL (8.5-10.1) Microbiology 09/21/16 Blood Culture - Final, Complete NO GROWTH AFTER 5 DAYS 09/23/16 AFB Specimen Processing Tissue - Final, Resulted 09/23/16 Acid Fast Bacilli Culture, Resulted Pending 09/23/16 Gram Stain - Final, Resulted 09/23/16 Fungal Culture, Resulted Pending 09/23/16 Fungal Culture Result 1, Resulted Pending Medications Current Medications Sodium Chloride 1,000 ml @ 100 mls/hr Q10H IV Last administered on 09/21/16t 03:00; Start 09/21/16 at 03:00; Stop 09/21/16 at 12:59; Status DC Vancomycin HCl (Vanco Per Pharmacy) 1 each PRN DAILY PRN MC SEE COMMENTS Last administered on 09/23/16 10:32; Start 09/21/16 at 03:30; Stop 09/24/16 at 11:58 ; Status DC Piperacillin Sod/ Tazobactam Sod (Zosyn Per Pharmacy) 1 each PRN DAILY PRN MC SEE COMMENTS; Start 09/21/16 at 03:30; Stop 09/24/16 at 11:59; Status DC Levofloxacin/ Dextrose (Levaquin Per Pharmacy) 1 each PRN DAILY PRN MC SEE COMMENTS; Start 09/21/16 at 03:30; Stop 09/24/16 at 11:57; Status DC Vancomycin HCl 2 gm/Sodium Chloride 500 ml @ 250 mls/hr 1X ONCE IV Last administered on 09/21/16 05:43; Start 09/21/16 at 05:00; Stop 09/21/16 at 06:59 ; Status DC Levofloxacin/ Dextrose 150 ml @ 100 mls/hr 1X ONCE IV Last administered on 03:51; Start 09/21/16 at 04:00; Stop 09/21/16 at 05:29; Status DC Piperacillin Sod/ Tazobactam Sod 3.375 gm/Sodium Chloride 50 ml @ 100 mls/hr Q6HRS IV ; Start 09/21/16 at 06:00; Status Cancel Ondansetron HCl (Zofran) 4 mg PRN Q8HRS PRN IV NAUSEA/VOMITING; Start 09/21/16 at 03:45; Stop 09/22/16 at 03:44; Status DC Sodium Chloride 1,000 ml @ 125 mls/hr Q8H IV Last administered on 09/21/16 19 :41; Start 09/21/16 at 03:41; Stop 09/22/16 at 03:40; Status DC Acetaminophen (Tylenol) 650 mg PRN Q4HRS PRN PO FEVER; Start 09/21/16 at 03:45 ; Stop 09/21/16 at 08:25; Status DC Levofloxacin/ Dextrose 150 ml @ 100 mls/hr Q24H IV Last administered on 04:44; Start 09/22/16 at 05:00; Stop 09/24/16 at 09:30; Status DC Piperacillin Sod/ Tazobactam Sod 4.5 gm/Sodium Chloride 100 ml @ 200 mls/hr Q6HRS IV Last administered on 09/24/16 10:42; Start 09/21/16 at 06:00; Stop 09/24/16 at 11:57; Status DC Vancomycin HCl 1.25 gm/Sodium Chloride 250 ml @ 167 mls/hr Q12H IV Last administered on 09/24/16 08:07; Start 09/21/16 at 18:00; Stop 09/24/16 at 11:57; Status DC Vancomycin HCl 1 each 1X ONCE MC Last administered on 09/22/16 17:30; Start 09/22/16 at 17:30; Stop 09/22/16 at 17:31; Status DC Acetaminophen (Tylenol) 650 mg PRN Q6HRS PRN PO temp Last administered on 08:08; Start 09/21/16 at 08:30; Stop 09/24/16 at 12:36; Status DC Apixaban (Eliquis) 5 mg BID PO Last administered on 09/24/16 08:08; Start 09/21 at 09:00; Stop 09/24/16 at 11:10; Status DC Benztropine Mesylate (Cogentin) 1 mg HS PEG Last administered on 09/24/16 22:00 ; Start 09/21/16 at 21:00 Budesonide (Pulmicort) 0.5 mg BID NEB Last administered on 09/26/16 07:22; Start 09/21/16 at 09:00 Citalopram Hydrobromide (CeleXA) 20 mg QODAY PEG Last administered on 09/25/16 08:54; Start 09/21/16 at 09:00 Cyanocobalamin (Vitamin B-12) 1,000 mcg QMONTH IM Last administered on 14:59; Start 09/21/16 at 15:00 Divalproex Sodium (Depakote Er) 500 mg BID PO ; Start 09/21/16 at 09:00; Stop at 12:22; Status DC Albuterol/ Ipratropium (Duoneb) 3 ml QID NEB Last administered on 09/22/16 07: 00; Start 09/21/16 at 09:00; Stop 09/22/16 at 08:36; Status DC Artificial Tears (Artificial Tears) 1 drop PRN Q8HRS OU ; Start 09/21/16 at 08: 30 Info (Anti-Coagulation Monitoring By Pharmacy) 1 each PRN DAILY PRN MC SEE COMMENTS Last administered on 09/25/16 14:36; Start 09/21/16 at 08:45 Enoxaparin Sodium (Lovenox 40mg Syringe) 40 mg DAILY SQ ; Start 09/22/16 at 09: 00; Stop 09/22/16 at 09:00; Status DC Prednisone (Prednisone) 20 mg DAILY PEG Last administered on 09/21/16 12:36; Start 09/21/16 at 12:00; Stop 09/22/16 at 08:36; Status DC Scopolamine (Transderm-Scop) 1 patch Q3DAYS TD Last administered on 09/24/16 08 :09; Start 09/21/16 at 12:30 Divalproex Sodium (Depakote Sprinkles) 250 mg [id number] PO Last administered on 09/26/16 12:21; Start 09/21/16 at 18:00 Methylprednisolone Sodium Succinate (SOLU-Medrol 125MG VIAL) 60 mg Q8HRS IV Last administered on 09/26/16 05:35; Start 09/22/16 at 09:00; Stop 09/26/16 at 10 :05; Status DC Furosemide (Lasix) 40 mg 1X ONCE IVP Last administered on 09/22/16 08:58; Start 09/22/16 at 09:00; Stop 09/22/16 at 09:01; Status DC Albuterol/ Ipratropium (Duoneb) 3 ml Q4HRS NEB Last administered on 09/26/16 11 :12; Start 09/22/16 at 12:00 Albuterol Sulfate (Ventolin Neb Soln) 2.5 mg PRN Q4HRS PRN NEB SHORTNESS OF BREATH Last administered on 09/26/16 00:10; Start 09/22/16 at 09:00 Midazolam HCl (Versed) 5 mg STK-MED ONCE .ROUTE ; Start 09/23/16 at 09:37; Stop 09/23/16 at 09:38; Status DC Fentanyl Citrate (Fentanyl 2ml Vial) 100 mcg STK-MED ONCE .ROUTE ; Start at 09:38; Stop 09/23/16 at 09:39; Status DC Ringer's Solution 1,000 ml @ 125 mls/hr Q8H IV Last administered on 09/23/16 10:18; Start 09/23/16 at 10:15; Stop 09/23/16 at 19:17; Status DC Midazolam HCl (Versed) 5 mg STK-MED ONCE IV ; Start 09/23/16 at 10:34; Stop at 10:35; Status Cancel Meperidine HCl (Demerol) 25 mg STK-MED ONCE .ROUTE ; Start 09/23/16 at 10:43; Stop 09/23/16 at 10:44; Status DC Midazolam HCl (Versed) 5 mg STK-MED ONCE IV Last administered on 09/23/16 10: 52; Start 09/23/16 at 10:52; Stop 09/23/16 at 10:59; Status DC Midazolam HCl (Versed) 5 mg STK-MED ONCE IV Last administered on 09/23/16 10: 55; Start 09/23/16 at 10:55; Stop 09/23/16 at 10:59; Status DC Sodium Chloride 500 ml @ 500 mls/hr 1X ONCE IV Last administered on 09/24/16 03:32; Start 09/24/16 at 03:30; Stop 09/24/16 at 04:30; Status DC Amoxicillin/ Clavulanate Potassium (Augmentin 400-57mg/5ml Susp) 10 ml Q12HR PEG Last administered on 09/25/16 08:54; Start 09/24/16 at 21:00; Stop 09/25/16 at 20:07; Status DC Levofloxacin (Levaquin) 750 mg DAILY06 PO ; Start 09/25/16 at 06:00; Stop at 06:00; Status DC Acetaminophen (Tylenol) 650 mg PRN Q6HRS PRN PO FEVER Last administered on 08:57; Start 09/24/16 at 12:45 Amino Acids/ Glycerin/ Electrolytes 1,000 ml @ 80 mls/hr [id number] IV Last administered on 09/26/16 05:46; Start 09/25/16 at 17:00 Piperacillin Sod/ Tazobactam Sod 3.375 gm/Sodium Chloride 50 ml @ 100 mls/hr Q6HRS IV Last administered on 09/26/16 12:22; Start 09/25/16 at 21:00 Vancomycin HCl (Vanco Per Pharmacy) 1 each PRN DAILY PRN MC SEE COMMENTS Last administered on 09/25/16 20:16; Start 09/25/16 at 20:15; Stop 09/26/16 at 12:06; Status DC Vancomycin HCl 1.25 gm/Sodium Chloride 250 ml @ 167 mls/hr Q12H IV Last administered on 09/26/16 09:03; Start 09/25/16 at 21:00; Stop 09/26/16 at 12:06; Status DC Methylprednisolone Sodium Succinate (SOLU-Medrol 40MG VIAL) 30 mg Q8HRS IV ; Start 09/26/16 at 14:00 Active Scripts Active Reported Duoneb 0.5-3(2.5) Mg/3 Ml (Albuterol/Ipratropium) 3 Ml Ampul.neb 3 Ml NEB QID Depakote Er (Divalproex Sodium) 500 Mg Tab.er.24h 1 Tab PEG BID Cyanocobalamin Injection (Cyanocobalamin (Vitamin B-12)) 1,000 Mcg/1 Ml Vial 1 Ml IM QMONTH Celexa (Citalopram Hydrobromide) 20 Mg Tablet 1 Tab PEG QODAY Budesonide 0.5 Mg/2 Ml Ampul.neb 1 Vial NEB BID Benztropine Mesylate 1 Mg Tablet 1 Mg PEG HS Polyvinyl Alcohol 15 Ml Drops 15 Ml OP PRN Q8HRS Instill 1 drop in both eyes every 8 hours as needed for dryness Eliquis (Apixaban) 5 Mg Tablet 5 Mg PEG BID Acetaminophen 500 Mg Tablet 650 Mg PEG PRN Q6HRS Vitals/I & O Vital Sign - Last 24 Hours 09/25/16 09/25/16 09/25/16 09/25/16 15:00 15:09 19:00 19:58 Temp 97.9 98.1 97.9 98.1 Pulse 106 115 Resp 22 20 B/P (MAP) 132/90 (104) 151/107 (122) Pulse Ox 94 95 87 O2 Delivery Tracheal Collar Tracheal Collar Tracheal Collar Trach Collar O2 Flow Rate 10.0 10.0 09/25/16 09/25/16 09/25/16 09/26/16 20:02 20:30 23:00 00:09 Temp 97.7 97.7 Pulse 111 108 Resp 20 22 B/P (MAP) 148/90 (109) 152/96 (114) Pulse Ox 96 98 93 O2 Delivery Tracheal Collar Tracheal Collar Tracheal Collar Tracheal Collar O2 Flow Rate 10.0 10.0 10.0 09/26/16 09/26/16 09/26/16 09/26/16 03:00 03:40 07:00 07:23 Temp 97.5 97.9 97.5 97.9 Pulse 107 97 Resp 18 22 B/P (MAP) 133/97 (109) 145/94 (111) Pulse Ox 94 94 92 94 O2 Delivery Tracheal Collar Tracheal Collar Tracheal Collar Tracheal Collar O2 Flow Rate 10.0 10.0 09/26/16 09/26/16 09/26/16 07:35 11:00 11:14 Temp 97.9 97.9 Pulse 105 Resp 22 B/P (MAP) 144/97 (113) Pulse Ox 95 95 O2 Delivery Trach Collar Tracheal Collar Tracheal Collar O2 Flow Rate 10.0 10.0 Intake and Output 09/25/16 09/25/16 09/26/16 15:00 23:00 07:00 Intake Total 100 ml Balance 100 ml Nutrition Consultation Dietary Evaluation: Comments: continue Fibersource HN 1.2 (equiv to Jevity) @ 60 ml/hr with at least 100 cc q 4 hr flush to meet 1 cc/kcal fluid needs. Expected Outcomes/Goals: tolerate TF at goal - met, goal ongoing Malnutrition Findings: Body Fat Depletion (Non Severe: Mild Depletion Weight Status: Overweight KIRK KHOURY MD Sep 26, 2016 14:01
[2016-09-26] MEDS: methylPREDNISolone SOD SUCC PF 40 MG/ML VIAL. IV SCH ×2 (14:33→21:06)
[2016-09-26 15:00] VITALS: BP 133/93
[2016-09-26 19:30] VITALS: BP 131/76
[2016-09-26] MEDS: BENZTROPINE MESYLATE 1 MG TABLET. PEG SCH (21:06)
[2016-09-26 23:28] VITALS: BP 119/76
[2016-09-27 03:15] VITALS: BP 128/85
[2016-09-27] MEDS: IPRATRPIUM/ALBUTEROL 0.5/2.5MG 3 ML NEBU. NEB SCH ×6 (04:19→23:23)
[2016-09-27] MEDS: PIPERACILLIN/TAZOBACTAM 3.375 GM in IV NORMAL SALINE 50ML 50 ML IV SCH ×3 (05:15→18:49)
[2016-09-27] MEDS: DIVALPROEX SPRINKLES 125 MG CAPSULE. PO SCH ×3 (05:16→18:00)
[2016-09-27] MEDS: methylPREDNISolone SOD SUCC PF 40 MG/ML VIAL. IV SCH ×3 (05:16→21:34)
[2016-09-27 07:00] VITALS: BP 131/81
[2016-09-27] MEDS: BUDESONIDE 0.5 MG/2 ML NEBU. NEB SCH ×2 (07:25→20:13)
[2016-09-27] MEDS: CITALOPRAM 20 MG TABLET. PEG SCH (08:32)
[2016-09-27] MEDS: SCOPOLAMINE 1.5MG PATCH. TD SCH (08:33)
--- NOTE | 2016-09-27 10:58 | PDOC ---
PULMONARY PROGRESS NOTES Subjective less secretions Vitals Vital Signs Date Time Temp Pulse Resp B/P (MAP) Pulse Ox O2 Delivery O2 Flow Rate FiO2 09/27/16 07:35 Trach Collar 10.0 09/27/16 07:25 98 09/27/16 07:00 97.3 92 22 131/81 (98) 97.3 General: No acute distress, Confused Lungs: Other (improved rhonchi) Cardiovascular: S1, S2 Abdomen: Soft Neuro Exam: Alert Extremities: Other (trace) Medications Active Scripts Medications Dose Route/Sig Max Daily Dose Days Date Category Dose Instructions Duoneb 0.5-3(2.5) Mg/3 Ml (Albuterol/Ipratropium) 3 Ml Ampul.neb 3 Ml NEB QID 09/21/16 Reported Depakote Er (Divalproex Sodium) 500 Mg Tab.er.24h 1 Tab PEG BID 09/21/16 Reported Cyanocobalamin Injection (Cyanocobalamin (Vitamin B-12)) 1,000 Mcg/1 Ml Vial 1 Ml IM QMONTH 09/21/16 Reported Celexa (Citalopram Hydrobromide) 20 Mg Tablet 1 Tab PEG QODAY 09/21/16 Reported Budesonide 0.5 Mg/2 Ml Ampul.neb 1 Vial NEB BID 09/21/16 Reported Benztropine Mesylate 1 Mg Tablet 1 Mg PEG HS 09/21/16 Reported Polyvinyl Alcohol 15 Ml Drops 15 Ml OP PRN Q8HRS 09/21/16 Reported Instill 1 drop in both eyes every 8 hours as needed for dryness Eliquis (Apixaban) 5 Mg Tablet 5 Mg PEG BID 09/21/16 Reported Acetaminophen 500 Mg Tablet 650 Mg PEG PRN Q6HRS 09/21/16 Reported Impression . 1. Acute on chronic respiratory failure due to AECOPD/ pneumonia 2. Proteus/ Steno pneumonia. R to quinolones, back on IV Zosyn 3. Status post tracheostomy. 4. Status post percutaneous endoscopic gastrostomy. 5. Severe dementia. 6. echo with normal EF 7. s/p Bronch with severe mucosal inflammation/ tracheobronchomalacia Plan . 1. Zosyn, both Proteus and Steno sensitive to it. 2. prn suctioning. off elliquis. Hemoptysis resolved. 3. Nebulized treatments. 4. Pulmicort nebulized. 6. Tube feeding. 7. DVT and GI prophylaxis. 8. CXR f/u as needed 9. echo reviewed 10. IV steroids, taper d/w VICKIE SINGER MD Sep 27, 2016 10:58
[2016-09-27 11:00] VITALS: BP 133/74
--- NOTE | 2016-09-27 11:16 | PDOC ---
PROGRESS NOTES Chief Complaint Chief Complaint 1. HAP, acute respi failure r/o aspiration pneumonia, pneumonitis, include gram pos and gram neg coverage s.p bronch (09/23/16) 2. Encephalopathy, persistent - trached and PEgd 3. ANemia 4. On ELliquis (unsure reason) 5. 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 SIRS POA with elevated lactate (3.5), no sepsis yet 7, MAlfunction PEG tube s/p fixing (09/25/16) History of Present Illness History of Present Illness PEG tube got clogged Wednesday attempted to flush by RN and got split open, GI consulted, replaced it on wednesday and now TF back on an dfunctioing fine Proteus on bronch resistant to levaquin PLAN: COnt iV zosyn Keep for now per pulmo Follow cultures, CBC roel, mnonitor for fevers dw RN ON dvt prophy COnt TF Vitals Vitals Vital Signs Date Time Temp Pulse Resp B/P (MAP) Pulse Ox O2 Delivery O2 Flow Rate FiO2 09/27/16 07:35 Trach Collar 10.0 09/27/16 07:25 98 09/27/16 07:00 97.3 92 22 131/81 (98) 97.3 Physical Exam General: Alert, Cooperative, mild distress, Other (lots of audible secretions) Heart: Regular rate, Normal S1, Normal S2 Lungs: Other (improved rhonchi) Abdomen: Normal bowel sounds, Soft, No tenderness, No hepatosplenomegaly, No masses, Other (peg in place) Extremities: Other (clubbing appreciable) Skin: No rashes, No breakdown, No significant lesion Review of Systems Review of Systems nonverbal Assessment and Plan Assessmemt and Plan Problems Medical Problems: (1) Dementia Status: Acute (2) Healthcare-associated pneumonia Status: Acute (3) Respiratory distress Status: Acute Problems: Comment Review of Relevant I have reviewed the following items maulik (where applicable) has been applied. Labs Microbiology 09/21/16 Blood Culture - Final, Complete NO GROWTH AFTER 5 DAYS 09/23/16 AFB Specimen Processing Tissue - Final, Resulted 09/23/16 Acid Fast Bacilli Culture, Resulted Pending 09/23/16 Gram Stain - Final, Resulted 09/23/16 Fungal Culture, Resulted Pending 09/23/16 Fungal Culture Result 1, Resulted Pending Medications Current Medications Sodium Chloride 1,000 ml @ 100 mls/hr Q10H IV Last administered on 09/21/16 03:00; Start 09/21/16 at 03:00; Stop 09/21/16 at 12:59; Status DC Vancomycin HCl (Vanco Per Pharmacy) 1 each PRN DAILY PRN MC SEE COMMENTS Last administered on 09/23/16 10:32; Start 09/21/16 at 03:30; Stop 09/24/16 at 11:58 ; Status DC Piperacillin Sod/ Tazobactam Sod (Zosyn Per Pharmacy) 1 each PRN DAILY PRN MC SEE COMMENTS; Start 09/21/16 at 03:30; Stop 09/24/16 at 11:59; Status DC Levofloxacin/ Dextrose (Levaquin Per Pharmacy) 1 each PRN DAILY PRN MC SEE COMMENTS; Start 09/21/16 at 03:30; Stop 09/24/16 at 11:57; Status DC Vancomycin HCl 2 gm/Sodium Chloride 500 ml @ 250 mls/hr 1X ONCE IV Last administered on 09/21/16 05:43; Start 09/21/16 at 05:00; Stop 09/21/16 at 06:59 ; Status DC Levofloxacin/ Dextrose 150 ml @ 100 mls/hr 1X ONCE IV Last administered on 03:51; Start 09/21/16 at 04:00; Stop 09/21/16 at 05:29; Status DC Piperacillin Sod/ Tazobactam Sod 3.375 gm/Sodium Chloride 50 ml @ 100 mls/hr Q6HRS IV ; Start 09/21/16 at 06:00; Status Cancel Ondansetron HCl (Zofran) 4 mg PRN Q8HRS PRN IV NAUSEA/VOMITING; Start 09/21/16 at 03:45; Stop 09/22/16 at 03:44; Status DC Sodium Chloride 1,000 ml @ 125 mls/hr Q8H IV Last administered on 09/21/16 19 :41; Start 09/21/16 at 03:41; Stop 09/22/16 at 03:40; Status DC Acetaminophen (Tylenol) 650 mg PRN Q4HRS PRN PO FEVER; Start 09/21/16 at 03:45 ; Stop 09/21/16 at 08:25; Status DC Levofloxacin/ Dextrose 150 ml @ 100 mls/hr Q24H IV Last administered on 04:44; Start 09/22/16 at 05:00; Stop 09/24/16 at 09:30; Status DC Piperacillin Sod/ Tazobactam Sod 4.5 gm/Sodium Chloride 100 ml @ 200 mls/hr Q6HRS IV Last administered on 09/24/16 10:42; Start 09/21/16 at 06:00; Stop 09/24/16 at 11:57; Status DC Vancomycin HCl 1.25 gm/Sodium Chloride 250 ml @ 167 mls/hr Q12H IV Last administered on 09/24/16 08:07; Start 09/21/16 at 18:00; Stop 09/24/16 at 11:57; Status DC Vancomycin HCl 1 each 1X ONCE MC Last administered on 09/22/16 17:30; Start 09/22/16 at 17:30; Stop 09/22/16 at 17:31; Status DC Acetaminophen (Tylenol) 650 mg PRN Q6HRS PRN PO temp Last administered on 08:08; Start 09/21/16 at 08:30; Stop 09/24/16 at 12:36; Status DC Apixaban (Eliquis) 5 mg BID PO Last administered on 09/24/16 08:08; Start 09/21 at 09:00; Stop 09/24/16 at 11:10; Status DC Benztropine Mesylate (Cogentin) 1 mg HS PEG Last administered on 09/26/16 21:06 ; Start 09/21/16 at 21:00 Budesonide (Pulmicort) 0.5 mg BID NEB Last administered on 09/27/16 07:25; Start 09/21/16 at 09:00 Citalopram Hydrobromide (CeleXA) 20 mg QODAY PEG Last administered on 09/27/16 08:32; Start 09/21/16 at 09:00 Cyanocobalamin (Vitamin B-12) 1,000 mcg QMONTH IM Last administered on 14:59; Start 09/21/16 at 15:00 Divalproex Sodium (Depakote Er) 500 mg BID PO ; Start 09/21/16 at 09:00; Stop at 12:22; Status DC Albuterol/ Ipratropium (Duoneb) 3 ml QID NEB Last administered on 09/22/16 07: 00; Start 09/21/16 at 09:00; Stop 09/22/16 at 08:36; Status DC Artificial Tears (Artificial Tears) 1 drop PRN Q8HRS OU ; Start 09/21/16 at 08: 30 Info (Anti-Coagulation Monitoring By Pharmacy) 1 each PRN DAILY PRN MC SEE COMMENTS Last administered on 09/25/16 14:36; Start 09/21/16 at 08:45 Enoxaparin Sodium (Lovenox 40mg Syringe) 40 mg DAILY SQ ; Start 09/22/16 at 09: 00; Stop 09/22/16 at 09:00; Status DC Prednisone (Prednisone) 20 mg DAILY PEG Last administered on 09/21/16 12:36; Start 09/21/16 at 12:00; Stop 09/22/16 at 08:36; Status DC Scopolamine (Transderm-Scop) 1 patch Q3DAYS TD Last administered on 09/27/16 08 :33; Start 09/21/16 at 12:30 Divalproex Sodium (Depakote Sprinkles) 250 mg [id number] PO Last administered on 09/27/16 05:16; Start 09/21/16 at 18:00 Methylprednisolone Sodium Succinate (SOLU-Medrol 125MG VIAL) 60 mg Q8HRS IV Last administered on 09/26/16 05:35; Start 09/22/16 at 09:00; Stop 09/26/16 at 10 :05; Status DC Furosemide (Lasix) 40 mg 1X ONCE IVP Last administered on 09/22/16 08:58; Start 09/22/16 at 09:00; Stop 09/22/16 at 09:01; Status DC Albuterol/ Ipratropium (Duoneb) 3 ml Q4HRS NEB Last administered on 09/27/16 07 :24; Start 09/22/16 at 12:00 Albuterol Sulfate (Ventolin Neb Soln) 2.5 mg PRN Q4HRS PRN NEB SHORTNESS OF BREATH Last administered on 09/26/16 00:10; Start 09/22/16 at 09:00 Midazolam HCl (Versed) 5 mg STK-MED ONCE .ROUTE ; Start 09/23/16 at 09:37; Stop 09/23/16 at 09:38; Status DC Fentanyl Citrate (Fentanyl 2ml Vial) 100 mcg STK-MED ONCE .ROUTE ; Start at 09:38; Stop 09/23/16 at 09:39; Status DC Ringer's Solution 1,000 ml @ 125 mls/hr Q8H IV Last administered on 09/23/16 10:18; Start 09/23/16 at 10:15; Stop 09/23/16 at 19:17; Status DC Midazolam HCl (Versed) 5 mg STK-MED ONCE IV ; Start 09/23/16 at 10:34; Stop at 10:35; Status Cancel Meperidine HCl (Demerol) 25 mg STK-MED ONCE .ROUTE ; Start 09/23/16 at 10:43; Stop 09/23/16 at 10:44; Status DC Midazolam HCl (Versed) 5 mg STK-MED ONCE IV Last administered on 09/23/16 10: 52; Start 09/23/16 at 10:52; Stop 09/23/16 at 10:59; Status DC Midazolam HCl (Versed) 5 mg STK-MED ONCE IV Last administered on 09/23/16 10: 55; Start 09/23/16 at 10:55; Stop 09/23/16 at 10:59; Status DC Sodium Chloride 500 ml @ 500 mls/hr 1X ONCE IV Last administered on 09/24/16 03:32; Start 09/24/16 at 03:30; Stop 09/24/16 at 04:30; Status DC Amoxicillin/ Clavulanate Potassium (Augmentin 400-57mg/5ml Susp) 10 ml Q12HR PEG Last administered on 09/25/16 08:54; Start 09/24/16 at 21:00; Stop 09/25/16 at 20:07; Status DC Levofloxacin (Levaquin) 750 mg DAILY06 PO ; Start 09/25/16 at 06:00; Stop at 06:00; Status DC Acetaminophen (Tylenol) 650 mg PRN Q6HRS PRN PO FEVER Last administered on 08:57; Start 09/24/16 at 12:45 Amino Acids/ Glycerin/ Electrolytes 1,000 ml @ 80 mls/hr [id number] IV Last administered on 09/26/16 05:46; Start 09/25/16 at 17:00; Stop 09/26/16 at 14:13; Status DC Piperacillin Sod/ Tazobactam Sod 3.375 gm/Sodium Chloride 50 ml @ 100 mls/hr Q6HRS IV Last administered on 09/27/16 05:15; Start 09/25/16 at 21:00 Vancomycin HCl (Vanco Per Pharmacy) 1 each PRN DAILY PRN MC SEE COMMENTS Last administered on 09/25/16 20:16; Start 09/25/16 at 20:15; Stop 09/26/16 at 12:06; Status DC Vancomycin HCl 1.25 gm/Sodium Chloride 250 ml @ 167 mls/hr Q12H IV Last administered on 09/26/16 09:03; Start 09/25/16 at 21:00; Stop 09/26/16 at 12:06; Status DC Methylprednisolone Sodium Succinate (SOLU-Medrol 40MG VIAL) 30 mg Q8HRS IV Last administered on 09/27/16 05:16; Start 09/26/16 at 14:00 Active Scripts Active Reported Duoneb 0.5-3(2.5) Mg/3 Ml (Albuterol/Ipratropium) 3 Ml Ampul.neb 3 Ml NEB QID Depakote Er (Divalproex Sodium) 500 Mg Tab.er.24h 1 Tab PEG BID Cyanocobalamin Injection (Cyanocobalamin (Vitamin B-12)) 1,000 Mcg/1 Ml Vial 1 Ml IM QMONTH Celexa (Citalopram Hydrobromide) 20 Mg Tablet 1 Tab PEG QODAY Budesonide 0.5 Mg/2 Ml Ampul.neb 1 Vial NEB BID Benztropine Mesylate 1 Mg Tablet 1 Mg PEG HS Polyvinyl Alcohol 15 Ml Drops 15 Ml OP PRN Q8HRS Instill 1 drop in both eyes every 8 hours as needed for dryness Eliquis (Apixaban) 5 Mg Tablet 5 Mg PEG BID Acetaminophen 500 Mg Tablet 650 Mg PEG PRN Q6HRS Vitals/I & O Vital Sign - Last 24 Hours 09/26/16 09/26/16 09/26/16 09/26/16 15:00 15:27 19:30 20:00 Temp 97.7 98.6 97.7 98.6 Pulse 101 90 Resp 22 20 B/P (MAP) 133/93 (106) 131/76 (94) Pulse Ox 95 95 93 O2 Delivery Tracheal Collar Tracheal Collar Tracheal Collar Trach Collar O2 Flow Rate 10.0 10.0 09/26/16 09/26/16 09/26/16 09/27/16 21:00 23:28 23:32 03:15 Temp 97.7 98.4 97.7 98.4 Pulse 102 92 Resp 18 18 B/P (MAP) 119/76 (90) 128/85 (99) Pulse Ox 96 94 96 92 O2 Delivery Tracheal Collar Tracheal Collar Tracheal Collar Tracheal Collar O2 Flow Rate 10.0 10.0 09/27/16 09/27/16 09/27/16 09/27/16 04:19 07:00 07:25 07:35 Temp 97.3 97.3 Pulse 92 Resp 22 B/P (MAP) 131/81 (98) Pulse Ox 98 96 98 O2 Delivery Tracheal Collar Tracheal Collar Tracheal Collar Trach Collar O2 Flow Rate 10.0 10.0 10.0 Intake and Output 09/26/16 09/26/16 09/27/16 15:00 23:00 07:00 Intake Total 1070 ml Balance 1070 ml Nutrition Consultation Dietary Evaluation: Comments: continue Fibersource HN 1.2 (equiv to Jevity) @ 60 ml/hr with at least 100 cc q 4 hr flush to meet 1 cc/kcal fluid needs. Expected Outcomes/Goals: tolerate TF at goal - met, goal ongoing Malnutrition Findings: Body Fat Depletion (Non Severe: Mild Depletion Weight Status: Overweight KIRK KHOURY MD Sep 27, 2016 11:16
[2016-09-27] MEDS: ENOXAPARIN 40 MG/0.4 ML SYRINGE. SQ SCH (13:21)
[2016-09-27 15:00] VITALS: BP 128/91
[2016-09-27 19:30] VITALS: BP 146/105
[2016-09-27] MEDS: BENZTROPINE MESYLATE 1 MG TABLET. PEG SCH (21:32)
[2016-09-27 23:30] VITALS: BP 145/94
[2016-09-28] MEDS: PIPERACILLIN/TAZOBACTAM 3.375 GM in IV NORMAL SALINE 50ML 50 ML IV SCH ×2 (00:24→05:44)
[2016-09-28] MEDS: DIVALPROEX SPRINKLES 125 MG CAPSULE. PO SCH ×3 (00:24→12:37)
[2016-09-28] MEDS: IPRATRPIUM/ALBUTEROL 0.5/2.5MG 3 ML NEBU. NEB SCH ×4 (02:55→15:12)
[2016-09-28 03:29] VITALS: BP 135/88
[2016-09-28 05:11] LABS: BASO % 0 % (0-3); EOS % 0 % (0-3); HEMOGLOBIN 12.8 g/dL (13.0-17.5); LYMPH # 0.7 x10^3/uL (1.0-4.8); LYMPH % 11 % (24-48); MEAN CORPUSCULAR HEMOGLOBIN 31 pg (25-35); MEAN CORPUSCULAR HGB CONC 33 g/dL (31-37); MEAN CORPUSCULAR VOLUME 93 fL (79-100); MONO % 6 % (0-9); NEUT % 83 % (31-73); PLATELET COUNT 128 x10^3/uL (140-400); RED BLOOD COUNT 4.19 x10^6/uL (4.30-5.70); RED CELL DISTRIBUTION WIDTH 16.5 % (11.5-14.5)
[2016-09-28 05:26] LABS: CALCIUM 7.8 mg/dL (8.5-10.1); CREATININE 0.6 mg/dL (0.7-1.3)
[2016-09-28] MEDS: methylPREDNISolone SOD SUCC PF 40 MG/ML VIAL. IV SCH (05:45)
[2016-09-28 07:00] VITALS: BP 133/85
[2016-09-28] MEDS: BUDESONIDE 0.5 MG/2 ML NEBU. NEB SCH (07:46)
--- NOTE | 2016-09-28 10:36 | PDOC ---
PROGRESS NOTES Chief Complaint Chief Complaint 1. HAP, acute respi failure r/o aspiration pneumonia, pneumonitis, include gram pos and gram neg coverage s.p bronch (09/23/16) 2. PROTEUS and STENOTROPHOMONAS MALTOPHILA 2. Encephalopathy, persistent - trached and PEgd 3. ANemia 4. On ELliquis (unsure reason) 5. 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 SIRS POA with elevated lactate (3.5), no sepsis yet 7, MAlfunction PEG tube s/p fixing (09/25/16) History of Present Illness History of Present Illness Proteus and Stenotrophomonas maltophilia Light growth Procedure Result SPUTUM CULTURE PRL Final Final report SPUTUM CULT RES 1 Final Comment Stenotrophomonas maltophilia Light growth SPUTUM CULT RES 2 Final Comment Proteus mirabilis/penneri Light growth ANTIMICROBIAL SUSCEPTIBILITY Final Comment S = Susceptible; I = Intermediate; R = Resistant P = Positive; N = Negative MICS are expressed in micrograms per mL Antibiotic RSLT#1 RSLT#2 RSLT#3 RSLT#4 Amoxicillin/Clavulanic Acid S Ampicillin S Cefepime S Ceftazidime S Ceftriaxone S Cefuroxime S Ciprofloxacin R Ertapenem S Gentamicin S Levofloxacin S Levofloxacin R Piperacillin S Tetracycline R Tobramycin S Trimethoprim/Sulfa S Vitals Vitals Vital Signs Date Time Temp Pulse Resp B/P (MAP) Pulse Ox O2 Delivery O2 Flow Rate FiO2 09/28/16 07:48 90 Tracheal Collar 10.0 09/28/16 07:00 97.6 75 20 133/85 (101) 97.6 Physical Exam General: Alert, Cooperative, mild distress, Other (lots of audible secretions) Heart: Regular rate, Normal S1, Normal S2 Lungs: Other (improved rhonchi) Abdomen: Normal bowel sounds, Soft, No tenderness, No hepatosplenomegaly, No masses, Other (peg in place) Extremities: Other (clubbing appreciable) Skin: No rashes, No breakdown, No significant lesion Labs LABS Laboratory Tests Test 09/28/16 04:45 White Blood Count 6.0 x10^3/uL (4.0-11.0) Red Blood Count 4.19 x10^6/uL (4.30-5.70) Hemoglobin 12.8 g/dL (13.0-17.5) Hematocrit 39.0 % (39.0-53.0) Mean Corpuscular Volume 93 fL (79-100) Mean Corpuscular Hemoglobin 31 pg (25-35) Mean Corpuscular Hemoglobin Concent 33 g/dL (31-37) Red Cell Distribution Width 16.5 % (11.5-14.5) Platelet Count 128 x10^3/uL (140-400) Neutrophils (%) (Auto) 83 % (31-73) Lymphocytes (%) (Auto) 11 % (24-48) Monocytes (%) (Auto) 6 % (0-9) Eosinophils (%) (Auto) 0 % (0-3) Basophils (%) (Auto) 0 % (0-3) Neutrophils # (Auto) 5.0 x10^3uL (1.8-7.7) Lymphocytes # (Auto) 0.7 x10^3/uL (1.0-4.8) Monocytes # (Auto) 0.3 x10^3/uL (0.0-1.1) Eosinophils # (Auto) 0.0 x10^3/uL (0.0-0.7) Basophils # (Auto) 0.0 x10^3/uL (0.0-0.2) Erythrocyte Sedimentation Rate 0 (0-15) Sodium Level 144 mmol/L (136-145) Potassium Level 4.0 mmol/L (3.5-5.1) Chloride Level 108 mmol/L (98-107) Carbon Dioxide Level 32 mmol/L (21-32) Anion Gap 4 (6-14) Blood Urea Nitrogen 20 mg/dL (8-26) Creatinine 0.6 mg/dL (0.7-1.3) Estimated GFR (Cockcroft-Gault) 134.0 Glucose Level 180 mg/dL (70-99) Calcium Level 7.8 mg/dL (8.5-10.1) Review of Systems Review of Systems nonverba; Assessment and Plan Assessmemt and Plan Problems Medical Problems: (1) Dementia Status: Acute (2) Healthcare-associated pneumonia Status: Acute (3) Respiratory distress Status: Acute Problems: Comment Review of Relevant I have reviewed the following items maulik (where applicable) has been applied. Labs Laboratory Tests Test 09/28/16 04:45 White Blood Count 6.0 x10^3/uL (4.0-11.0) Red Blood Count 4.19 x10^6/uL (4.30-5.70) Hemoglobin 12.8 g/dL (13.0-17.5) Hematocrit 39.0 % (39.0-53.0) Mean Corpuscular Volume 93 fL (79-100) Mean Corpuscular Hemoglobin 31 pg (25-35) Mean Corpuscular Hemoglobin Concent 33 g/dL (31-37) Red Cell Distribution Width 16.5 % (11.5-14.5) Platelet Count 128 x10^3/uL (140-400) Neutrophils (%) (Auto) 83 % (31-73) Lymphocytes (%) (Auto) 11 % (24-48) Monocytes (%) (Auto) 6 % (0-9) Eosinophils (%) (Auto) 0 % (0-3) Basophils (%) (Auto) 0 % (0-3) Neutrophils # (Auto) 5.0 x10^3uL (1.8-7.7) Lymphocytes # (Auto) 0.7 x10^3/uL (1.0-4.8) Monocytes # (Auto) 0.3 x10^3/uL (0.0-1.1) Eosinophils # (Auto) 0.0 x10^3/uL (0.0-0.7) Basophils # (Auto) 0.0 x10^3/uL (0.0-0.2) Erythrocyte Sedimentation Rate 0 (0-15) Sodium Level 144 mmol/L (136-145) Potassium Level 4.0 mmol/L (3.5-5.1) Chloride Level 108 mmol/L (98-107) Carbon Dioxide Level 32 mmol/L (21-32) Anion Gap 4 (6-14) Blood Urea Nitrogen 20 mg/dL (8-26) Creatinine 0.6 mg/dL (0.7-1.3) Estimated GFR (Cockcroft-Gault) 134.0 Glucose Level 180 mg/dL (70-99) Calcium Level 7.8 mg/dL (8.5-10.1) Laboratory Tests Test 09/28/16 04:45 White Blood Count 6.0 x10^3/uL (4.0-11.0) Red Blood Count 4.19 x10^6/uL (4.30-5.70) Hemoglobin 12.8 g/dL (13.0-17.5) Hematocrit 39.0 % (39.0-53.0) Mean Corpuscular Volume 93 fL (79-100) Mean Corpuscular Hemoglobin 31 pg (25-35) Mean Corpuscular Hemoglobin Concent 33 g/dL (31-37) Red Cell Distribution Width 16.5 % (11.5-14.5) Platelet Count 128 x10^3/uL (140-400) Neutrophils (%) (Auto) 83 % (31-73) Lymphocytes (%) (Auto) 11 % (24-48) Monocytes (%) (Auto) 6 % (0-9) Eosinophils (%) (Auto) 0 % (0-3) Basophils (%) (Auto) 0 % (0-3) Neutrophils # (Auto) 5.0 x10^3uL (1.8-7.7) Lymphocytes # (Auto) 0.7 x10^3/uL (1.0-4.8) Monocytes # (Auto) 0.3 x10^3/uL (0.0-1.1) Eosinophils # (Auto) 0.0 x10^3/uL (0.0-0.7) Basophils # (Auto) 0.0 x10^3/uL (0.0-0.2) Erythrocyte Sedimentation Rate 0 (0-15) Sodium Level 144 mmol/L (136-145) Potassium Level 4.0 mmol/L (3.5-5.1) Chloride Level 108 mmol/L (98-107) Carbon Dioxide Level 32 mmol/L (21-32) Anion Gap 4 (6-14) Blood Urea Nitrogen 20 mg/dL (8-26) Creatinine 0.6 mg/dL (0.7-1.3) Estimated GFR (Cockcroft-Gault) 134.0 Glucose Level 180 mg/dL (70-99) Calcium Level 7.8 mg/dL (8.5-10.1) Microbiology 09/21/16 Blood Culture - Final, Complete NO GROWTH AFTER 5 DAYS 09/23/16 AFB Specimen Processing Tissue - Final, Resulted 09/23/16 Acid Fast Bacilli Culture, Resulted Pending 09/23/16 Gram Stain - Final, Resulted 09/23/16 Fungal Culture, Resulted Pending 09/23/16 Fungal Culture Result 1, Resulted Pending Medications Current Medications Sodium Chloride 1,000 ml @ 100 mls/hr Q10H IV Last administered on 09/21/16 03:00; Start 09/21/16 at 03:00; Stop 09/21/16 at 12:59; Status DC Vancomycin HCl (Vanco Per Pharmacy) 1 each PRN DAILY PRN MC SEE COMMENTS Last administered on 09/23/16 10:32; Start 09/21/16 at 03:30; Stop 09/24/16 at 11:58 ; Status DC Piperacillin Sod/ Tazobactam Sod (Zosyn Per Pharmacy) 1 each PRN DAILY PRN MC SEE COMMENTS; Start 09/21/16 at 03:30; Stop 09/24/16 at 11:59; Status DC Levofloxacin/ Dextrose (Levaquin Per Pharmacy) 1 each PRN DAILY PRN MC SEE COMMENTS; Start 09/21/16 at 03:30; Stop 09/24/16 at 11:57; Status DC Vancomycin HCl 2 gm/Sodium Chloride 500 ml @ 250 mls/hr 1X ONCE IV Last administered on 09/21/16 05:43; Start 09/21/16 at 05:00; Stop 09/21/16 at 06:59 ; Status DC Levofloxacin/ Dextrose 150 ml @ 100 mls/hr 1X ONCE IV Last administered on 03:51; Start 09/21/16 at 04:00; Stop 09/21/16 at 05:29; Status DC Piperacillin Sod/ Tazobactam Sod 3.375 gm/Sodium Chloride 50 ml @ 100 mls/hr Q6HRS IV ; Start 09/21/16 at 06:00; Status Cancel Ondansetron HCl (Zofran) 4 mg PRN Q8HRS PRN IV NAUSEA/VOMITING; Start 09/21/16 at 03:45; Stop 09/22/16 at 03:44; Status DC Sodium Chloride 1,000 ml @ 125 mls/hr Q8H IV Last administered on 09/21/16 19 :41; Start 09/21/16 at 03:41; Stop 09/22/16 at 03:40; Status DC Acetaminophen (Tylenol) 650 mg PRN Q4HRS PRN PO FEVER; Start 09/21/16 at 03:45 ; Stop 09/21/16 at 08:25; Status DC Levofloxacin/ Dextrose 150 ml @ 100 mls/hr Q24H IV Last administered on 04:44; Start 09/22/16 at 05:00; Stop 09/24/16 at 09:30; Status DC Piperacillin Sod/ Tazobactam Sod 4.5 gm/Sodium Chloride 100 ml @ 200 mls/hr Q6HRS IV Last administered on 09/24/16 10:42; Start 09/21/16 at 06:00; Stop 09/24/16 at 11:57; Status DC Vancomycin HCl 1.25 gm/Sodium Chloride 250 ml @ 167 mls/hr Q12H IV Last administered on 09/24/16 08:07; Start 09/21/16 at 18:00; Stop 09/24/16 at 11:57; Status DC Vancomycin HCl 1 each 1X ONCE MC Last administered on 09/22/16 17:30; Start 09/22/16 at 17:30; Stop 09/22/16 at 17:31; Status DC Acetaminophen (Tylenol) 650 mg PRN Q6HRS PRN PO temp Last administered on 08:08; Start 09/21/16 at 08:30; Stop 09/24/16 at 12:36; Status DC Apixaban (Eliquis) 5 mg BID PO Last administered on 09/24/16 08:08; Start 09/21 at 09:00; Stop 09/24/16 at 11:10; Status DC Benztropine Mesylate (Cogentin) 1 mg HS PEG Last administered on 09/27/16 21:32 ; Start 09/21/16 at 21:00 Budesonide (Pulmicort) 0.5 mg BID NEB Last administered on 09/28/16 07:46; Start 09/21/16 at 09:00 Citalopram Hydrobromide (CeleXA) 20 mg QODAY PEG Last administered on 09/27/16 08:32; Start 09/21/16 at 09:00 Cyanocobalamin (Vitamin B-12) 1,000 mcg QMONTH IM Last administered on 14:59; Start 09/21/16 at 15:00 Divalproex Sodium (Depakote Er) 500 mg BID PO ; Start 09/21/16 at 09:00; Stop at 12:22; Status DC Albuterol/ Ipratropium (Duoneb) 3 ml QID NEB Last administered on 09/22/16 07: 00; Start 09/21/16 at 09:00; Stop 09/22/16 at 08:36; Status DC Artificial Tears (Artificial Tears) 1 drop PRN Q8HRS OU ; Start 09/21/16 at 08: 30 Info (Anti-Coagulation Monitoring By Pharmacy) 1 each PRN DAILY PRN MC SEE COMMENTS Last administered on 09/25/16 14:36; Start 09/21/16 at 08:45; Stop 09/27 at 13:42; Status DC Enoxaparin Sodium (Lovenox 40mg Syringe) 40 mg DAILY SQ ; Start 09/22/16 at 09: 00; Stop 09/22/16 at 09:00; Status DC Prednisone (Prednisone) 20 mg DAILY PEG Last administered on 09/21/16 12:36; Start 09/21/16 at 12:00; Stop 09/22/16 at 08:36; Status DC Scopolamine (Transderm-Scop) 1 patch Q3DAYS TD Last administered on 09/27/16 08 :33; Start 09/21/16 at 12:30 Divalproex Sodium (Depakote Sprinkles) 250 mg [id number] PO Last administered on 09/28/16 05:45; Start 09/21/16 at 18:00 Methylprednisolone Sodium Succinate (SOLU-Medrol 125MG VIAL) 60 mg Q8HRS IV Last administered on 09/26/16 05:35; Start 09/22/16 at 09:00; Stop 09/26/16 at 10 :05; Status DC Furosemide (Lasix) 40 mg 1X ONCE IVP Last administered on 09/22/16 08:58; Start 09/22/16 at 09:00; Stop 09/22/16 at 09:01; Status DC Albuterol/ Ipratropium (Duoneb) 3 ml Q4HRS NEB Last administered on 09/28/16 07 :46; Start 09/22/16 at 12:00 Albuterol Sulfate (Ventolin Neb Soln) 2.5 mg PRN Q4HRS PRN NEB SHORTNESS OF BREATH Last administered on 09/26/16 00:10; Start 09/22/16 at 09:00 Midazolam HCl (Versed) 5 mg STK-MED ONCE .ROUTE ; Start 09/23/16 at 09:37; Stop 09/23/16 at 09:38; Status DC Fentanyl Citrate (Fentanyl 2ml Vial) 100 mcg STK-MED ONCE .ROUTE ; Start at 09:38; Stop 09/23/16 at 09:39; Status DC Ringer's Solution 1,000 ml @ 125 mls/hr Q8H IV Last administered on 09/23/16 10:18; Start 09/23/16 at 10:15; Stop 09/23/16 at 19:17; Status DC Midazolam HCl (Versed) 5 mg STK-MED ONCE IV ; Start 09/23/16 at 10:34; Stop at 10:35; Status Cancel Meperidine HCl (Demerol) 25 mg STK-MED ONCE .ROUTE ; Start 09/23/16 at 10:43; Stop 09/23/16 at 10:44; Status DC Midazolam HCl (Versed) 5 mg STK-MED ONCE IV Last administered on 09/23/16 10: 52; Start 09/23/16 at 10:52; Stop 09/23/16 at 10:59; Status DC Midazolam HCl (Versed) 5 mg STK-MED ONCE IV Last administered on 09/23/16 10: 55; Start 09/23/16 at 10:55; Stop 09/23/16 at 10:59; Status DC Sodium Chloride 500 ml @ 500 mls/hr 1X ONCE IV Last administered on 09/24/16 03:32; Start 09/24/16 at 03:30; Stop 09/24/16 at 04:30; Status DC Amoxicillin/ Clavulanate Potassium (Augmentin 400-57mg/5ml Susp) 10 ml Q12HR PEG Last administered on 09/25/16 08:54; Start 09/24/16 at 21:00; Stop 09/25/16 at 20:07; Status DC Levofloxacin (Levaquin) 750 mg DAILY06 PO ; Start 09/25/16 at 06:00; Stop at 06:00; Status DC Acetaminophen (Tylenol) 650 mg PRN Q6HRS PRN PO FEVER Last administered on 08:57; Start 09/24/16 at 12:45 Amino Acids/ Glycerin/ Electrolytes 1,000 ml @ 80 mls/hr [id number] IV Last administered on 09/26/16 05:46; Start 09/25/16 at 17:00; Stop 09/26/16 at 14:13; Status DC Piperacillin Sod/ Tazobactam Sod 3.375 gm/Sodium Chloride 50 ml @ 100 mls/hr Q6HRS IV Last administered on 09/28/16 05:44; Start 09/25/16 at 21:00 Vancomycin HCl (Vanco Per Pharmacy) 1 each PRN DAILY PRN MC SEE COMMENTS Last administered on 09/25/16 20:16; Start 09/25/16 at 20:15; Stop 09/26/16 at 12:06; Status DC Vancomycin HCl 1.25 gm/Sodium Chloride 250 ml @ 167 mls/hr Q12H IV Last administered on 09/26/16 09:03; Start 09/25/16 at 21:00; Stop 09/26/16 at 12:06; Status DC Methylprednisolone Sodium Succinate (SOLU-Medrol 40MG VIAL) 30 mg Q8HRS IV Last administered on 09/28/16 05:45; Start 09/26/16 at 14:00 Enoxaparin Sodium (Lovenox 40mg Syringe) 40 mg Q24H SQ Last administered on 09/27 13:21; Start 09/27/16 at 12:00 Active Scripts Active Reported Duoneb 0.5-3(2.5) Mg/3 Ml (Albuterol/Ipratropium) 3 Ml Ampul.neb 3 Ml NEB QID Depakote Er (Divalproex Sodium) 500 Mg Tab.er.24h 1 Tab PEG BID Cyanocobalamin Injection (Cyanocobalamin (Vitamin B-12)) 1,000 Mcg/1 Ml Vial 1 Ml IM QMONTH Celexa (Citalopram Hydrobromide) 20 Mg Tablet 1 Tab PEG QODAY Budesonide 0.5 Mg/2 Ml Ampul.neb 1 Vial NEB BID Benztropine Mesylate 1 Mg Tablet 1 Mg PEG HS Polyvinyl Alcohol 15 Ml Drops 15 Ml OP PRN Q8HRS Instill 1 drop in both eyes every 8 hours as needed for dryness Eliquis (Apixaban) 5 Mg Tablet 5 Mg PEG BID Acetaminophen 500 Mg Tablet 650 Mg PEG PRN Q6HRS Vitals/I & O Vital Sign - Last 24 Hours 09/27/16 09/27/16 09/27/16 09/27/16 11:00 11:51 15:00 15:17 Temp 97.6 97.6 97.6 97.6 Pulse 96 102 Resp 22 20 B/P (MAP) 133/74 (93) 128/91 (103) Pulse Ox 97 97 97 95 O2 Delivery Tracheal Collar Tracheal Collar Tracheal Collar Tracheal Collar O2 Flow Rate 10.0 10.0 09/27/16 09/27/16 09/27/16 09/27/16 19:30 20:00 20:13 23:24 Temp 98.9 98.9 Pulse 106 Resp 22 B/P (MAP) 146/105 (119) Pulse Ox 95 94 95 O2 Delivery Tracheal Collar Trach Collar Tracheal Collar Tracheal Collar O2 Flow Rate 10.0 10.0 10.0 09/27/16 09/28/16 09/28/16 09/28/16 23:30 02:55 03:29 07:00 Temp 98.6 97.8 97.6 98.6 97.8 97.6 Pulse 94 99 75 Resp 18 18 20 B/P (MAP) 145/94 (111) 135/88 (104) 133/85 (101) Pulse Ox 95 90 95 95 O2 Delivery Tracheal Collar Tracheal Collar Tracheal Collar Tracheal Collar O2 Flow Rate 10.0 09/28/16 09/28/16 07:47 07:48 Pulse Ox 90 90 O2 Delivery Tracheal Collar Tracheal Collar O2 Flow Rate 10.0 10.0 Intake and Output 09/27/16 09/27/16 09/28/16 15:00 23:00 07:00 Intake Total 100 ml 100 ml 850 ml Balance 100 ml 100 ml 850 ml Nutrition Consultation Dietary Evaluation: Comments: continue Fibersource HN 1.2 (equiv to Jevity) @ 60 ml/hr with at least 100 cc q 4 hr flush to meet 1 cc/kcal fluid needs. Expected Outcomes/Goals: tolerate TF at goal - met, goal ongoing Malnutrition Findings: Body Fat Depletion (Non Severe: Mild Depletion Weight Status: Overweight KIRK KHOURY MD Sep 28, 2016 10:36
[2016-09-28 11:00] VITALS: BP 145/92
--- NOTE | 2016-09-28 11:38 | PDOC ---
PULMONARY PROGRESS NOTES Subjective less secretions Vitals Vital Signs Date Time Temp Pulse Resp B/P (MAP) Pulse Ox O2 Delivery O2 Flow Rate FiO2 09/28/16 11:32 Tracheal Collar 10.0 09/28/16 07:48 90 09/28/16 07:00 97.6 75 20 133/85 (101) 97.6 General: No acute distress Lungs: Other (improved rhonchi) Cardiovascular: S1, S2 Abdomen: Soft Neuro Exam: Alert Extremities: Other (trace) Labs Laboratory Tests Test 09/28/16 04:45 White Blood Count 6.0 x10^3/uL (4.0-11.0) Red Blood Count 4.19 x10^6/uL (4.30-5.70) Hemoglobin 12.8 g/dL (13.0-17.5) Hematocrit 39.0 % (39.0-53.0) Mean Corpuscular Volume 93 fL (79-100) Mean Corpuscular Hemoglobin 31 pg (25-35) Mean Corpuscular Hemoglobin Concent 33 g/dL (31-37) Red Cell Distribution Width 16.5 % (11.5-14.5) Platelet Count 128 x10^3/uL (140-400) Neutrophils (%) (Auto) 83 % (31-73) Lymphocytes (%) (Auto) 11 % (24-48) Monocytes (%) (Auto) 6 % (0-9) Eosinophils (%) (Auto) 0 % (0-3) Basophils (%) (Auto) 0 % (0-3) Neutrophils # (Auto) 5.0 x10^3uL (1.8-7.7) Lymphocytes # (Auto) 0.7 x10^3/uL (1.0-4.8) Monocytes # (Auto) 0.3 x10^3/uL (0.0-1.1) Eosinophils # (Auto) 0.0 x10^3/uL (0.0-0.7) Basophils # (Auto) 0.0 x10^3/uL (0.0-0.2) Erythrocyte Sedimentation Rate 0 (0-15) Sodium Level 144 mmol/L (136-145) Potassium Level 4.0 mmol/L (3.5-5.1) Chloride Level 108 mmol/L (98-107) Carbon Dioxide Level 32 mmol/L (21-32) Anion Gap 4 (6-14) Blood Urea Nitrogen 20 mg/dL (8-26) Creatinine 0.6 mg/dL (0.7-1.3) Estimated GFR (Cockcroft-Gault) 134.0 Glucose Level 180 mg/dL (70-99) Calcium Level 7.8 mg/dL (8.5-10.1) Laboratory Tests Test 09/28/16 04:45 White Blood Count 6.0 x10^3/uL (4.0-11.0) Red Blood Count 4.19 x10^6/uL (4.30-5.70) Hemoglobin 12.8 g/dL (13.0-17.5) Hematocrit 39.0 % (39.0-53.0) Mean Corpuscular Volume 93 fL (79-100) Mean Corpuscular Hemoglobin 31 pg (25-35) Mean Corpuscular Hemoglobin Concent 33 g/dL (31-37) Red Cell Distribution Width 16.5 % (11.5-14.5) Platelet Count 128 x10^3/uL (140-400) Neutrophils (%) (Auto) 83 % (31-73) Lymphocytes (%) (Auto) 11 % (24-48) Monocytes (%) (Auto) 6 % (0-9) Eosinophils (%) (Auto) 0 % (0-3) Basophils (%) (Auto) 0 % (0-3) Neutrophils # (Auto) 5.0 x10^3uL (1.8-7.7) Lymphocytes # (Auto) 0.7 x10^3/uL (1.0-4.8) Monocytes # (Auto) 0.3 x10^3/uL (0.0-1.1) Eosinophils # (Auto) 0.0 x10^3/uL (0.0-0.7) Basophils # (Auto) 0.0 x10^3/uL (0.0-0.2) Erythrocyte Sedimentation Rate 0 (0-15) Sodium Level 144 mmol/L (136-145) Potassium Level 4.0 mmol/L (3.5-5.1) Chloride Level 108 mmol/L (98-107) Carbon Dioxide Level 32 mmol/L (21-32) Anion Gap 4 (6-14) Blood Urea Nitrogen 20 mg/dL (8-26) Creatinine 0.6 mg/dL (0.7-1.3) Estimated GFR (Cockcroft-Gault) 134.0 Glucose Level 180 mg/dL (70-99) Calcium Level 7.8 mg/dL (8.5-10.1) Medications Active Scripts Medications Dose Route/Sig Max Daily Dose Days Date Category Dose Instructions Duoneb 0.5-3(2.5) Mg/3 Ml (Albuterol/Ipratropium) 3 Ml Ampul.neb 3 Ml NEB QID 09/21/16 Reported Depakote Er (Divalproex Sodium) 500 Mg Tab.er.24h 1 Tab PEG BID 09/21/16 Reported Cyanocobalamin Injection (Cyanocobalamin (Vitamin B-12)) 1,000 Mcg/1 Ml Vial 1 Ml IM QMONTH 09/21/16 Reported Celexa (Citalopram Hydrobromide) 20 Mg Tablet 1 Tab PEG QODAY 09/21/16 Reported Budesonide 0.5 Mg/2 Ml Ampul.neb 1 Vial NEB BID 09/21/16 Reported Benztropine Mesylate 1 Mg Tablet 1 Mg PEG HS 09/21/16 Reported Polyvinyl Alcohol 15 Ml Drops 15 Ml OP PRN Q8HRS 09/21/16 Reported Instill 1 drop in both eyes every 8 hours as needed for dryness Eliquis (Apixaban) 5 Mg Tablet 5 Mg PEG BID 09/21/16 Reported Acetaminophen 500 Mg Tablet 650 Mg PEG PRN Q6HRS 09/21/16 Reported Impression . 1. Acute on chronic respiratory failure due to AECOPD/ pneumonia 2. Proteus/ Steno pneumonia. R to quinolones, back on IV Zosyn 3. Status post tracheostomy. 4. Status post percutaneous endoscopic gastrostomy. 5. Severe dementia. 6. echo with normal EF 7. s/p Bronch with severe mucosal inflammation/ tracheobronchomalacia Plan . 1. Proteus and Steno ON BAL. will dc Zosyn and change to PO Augmentin. add Bactrim for 10 days for steno 2. prn suctioning. off elliquis. Hemoptysis resolved. 3. Nebulized treatments. 4. Pulmicort nebulized. 6. Tube feeding. 7. DVT and GI prophylaxis. 8. CXR f/u as needed 9. echo reviewed 10. steroids, taper d/w RN/ can go to VICKIE SOLORZANO MD Sep 28, 2016 11:38
[2016-09-28] MEDS ORDERED: SMZ/TMP 800/160MG TABLET. PO SCH (12:00)
[2016-09-28] MEDS ORDERED: AMOXICILLIN/K CLAV 875/125MG TABLET. PO SCH (12:00)
[2016-09-28] MEDS: ENOXAPARIN 40 MG/0.4 ML SYRINGE. SQ SCH (12:40)
[2016-09-28 15:00] VITALS: BP 129/94
[2016-09-29] MEDS ORDERED: predniSONE 20 MG TABLET PO SCH (09:00)
[2016-10-01] MEDS ORDERED: predniSONE 10 MG TABLET PO SCH (09:00)
[2016-10-03] MEDS ORDERED: predniSONE 5 MG TABLET PO SCH (09:00)
== END 2016-09-28 16:30 | DRG 166 ==
LOC: ER 01:51 → 4 NORTH 03:29
PROVIDERS: ADMIT Internal Medicine; ATTEND Internal Medicine
PROC: 5A1935Z Respiratory Ventilation, Less than 24 Consecutive Hours (ICD-10-PCS; 2016-09-22)
PROC: 0B9D8ZX Drainage of Right Middle Lung Lobe, Via Natural or Artificial Opening Endoscopic, Diagnostic (ICD-10-PCS; 2016-09-23)
PROC: 0B9J8ZX Drainage of Left Lower Lung Lobe, Via Natural or Artificial Opening Endoscopic, Diagnostic (ICD-10-PCS; principal; 2016-09-23 11:00)
PROC: 0D20XUZ Change Feeding Device in Upper Intestinal Tract, External Approach (ICD-10-PCS; 2016-09-26)
DX: J44.0 Chronic obstructive pulmonary disease with (acute) lower respiratory infection (principal); J15.6 Pneumonia due to other Gram-negative bacteria; G93.40 Encephalopathy, unspecified; J96.20 Acute and chronic respiratory failure, unspecified whether with hypoxia or hypercapnia; K94.23 Gastrostomy malfunction; J44.1 Chronic obstructive pulmonary disease with (acute) exacerbation; R13.10 Dysphagia, unspecified; I48.91 Unspecified atrial fibrillation; F03.90 Unspecified dementia, unspecified severity, without behavioral disturbance, psychotic disturbance, mood disturbance, and anxiety; K21.9 Gastro-esophageal reflux disease without esophagitis; D64.9 Anemia, unspecified; Z51.5 Encounter for palliative care; J39.8 Other specified diseases of upper respiratory tract; Y95 Nosocomial condition; B96.4 Proteus (mirabilis) (morganii) as the cause of diseases classified elsewhere; I10 Essential (primary) hypertension; Z74.01 Bed confinement status; Z88.5 Allergy status to narcotic agent; Z88.8 Allergy status to other drugs, medicaments and biological substances; Z79.899 Other long term (current) drug therapy; Z79.2 Long term (current) use of antibiotics; Z79.1 Long term (current) use of non-steroidal anti-inflammatories (NSAID); Z93.0 Tracheostomy status
CPT/HCPCS: 31622; 31720; 36415; 71010; 80048; 80053; 80202; 82553; 82565; 83605; 85007; 85027; 85610; 85651; 87040; 87070; 87102; 87116; 87186; 87205; 87641; 88112; 93005; 93306; 94640; 94760; 96361; 96374; J1650; J1940; J1956; J2175; J2250; J2543; J2920; J2930; J3010; J3370; J3420; J7030; J7040; J7050; J7120; J7512; J7620; 99285-25

== ENCOUNTER 2017-04-23 13:20 | Emergency (ER) | payer MEDICARE, OTHER ==
[2017-04-23] MEDS ORDERED: CONTRAST GIVEN MC (14:45)
[2017-04-23] MEDS: IOHEXOL 300 MG/ML 100ML VIAL. PO (15:09)
== END 2017-04-23 18:05 ==
LOC: ER 13:20
DX: K94.23 Gastrostomy malfunction (principal); I48.91 Unspecified atrial fibrillation; J44.9 Chronic obstructive pulmonary disease, unspecified; K21.9 Gastro-esophageal reflux disease without esophagitis; I10 Essential (primary) hypertension; G20 Parkinson's disease; Z88.4 Allergy status to anesthetic agent; Z88.5 Allergy status to narcotic agent
CPT/HCPCS: 43760; 74000; 99285-25; Q9967

== ENCOUNTER 2017-11-30 12:59 | Inpatient (IN) | payer MEDICARE, OTHER ==
[~2017-11-30] VITALS: Ht 182.9 cm; Wt 95.0 kg
[~2017-11-30 12:59] MED LIST: ACET500T68 PEG; APIX5TAB PEG; BENZ1TAB5 PEG; BUDE0.5A NEB; CITA20TA9 PEG; CYAN10002 IM; DIVA500T4 PEG; IPRA3AMP29 NEB; POLY15DR20 OP
[2017-11-30 13:29] LABS: BASO % 0 % (0-3); EOS # 0.3 x10^3/uL (0.0-0.7); EOS % 4 % (0-3); HEMATOCRIT 49.7 % (39.0-53.0); HEMOGLOBIN 16.9 g/dL (13.0-17.5); LYMPH # 1.5 x10^3/uL (1.0-4.8); LYMPH % 20 % (24-48); MEAN CORPUSCULAR HEMOGLOBIN 34 pg (25-35); MEAN CORPUSCULAR HGB CONC 34 g/dL (31-37); MEAN CORPUSCULAR VOLUME 100 fL (79-100); MONO # 0.3 x10^3/uL (0.0-1.1); MONO % 4 % (0-9); NEUT # 5.5 x10^3uL (1.8-7.7); NEUT % 72 % (31-73); PLATELET COUNT 93 x10^3/uL (140-400); RED BLOOD COUNT 4.99 x10^6/uL (4.30-5.70); WHITE BLOOD COUNT 7.6 x10^3/uL (4.0-11.0)
[2017-11-30 13:38] LABS: CALCIUM 8.5 mg/dL (8.5-10.1); CREATININE 0.8 mg/dL (0.7-1.3); GFR 95.8; POTASSIUM 4.2 mmol/L (3.5-5.1)
[2017-11-30 13:45] LABS: ALBUMIN 2.8 g/dL (3.4-5.0); ALBUMIN/GLOBULIN RATIO 0.8 (1.0-1.7); C-REACTIVE PROTEIN 14.8 mg/L (0-3.3); TOTAL BILIRUBIN 0.7 mg/dL (0.2-1.0); TOTAL PROTEIN 6.4 g/dL (6.4-8.2)
[2017-11-30 14:03] LABS: BASE EXCESS ABG 4 mmol/L (-3-3); HCO3 ABG 28 mmol/L (21-28); PCO2 ABG 43 mmHg (35-46); PO2 ABG 138 mmHg (65-108); SAT O2 ABG 98 % (92-99)
--- NOTE | 2017-11-30 14:10 | RAD ---
CHEST AP supine ONLY Clinical Indication: SOB Comparison: AP chest September 22, 2016. Findings: Tracheostomy is in appropriate position. Moderate elevation of right hemidiaphragm. Stable cardiomegaly. There are bilateral perihilar airspace opacities, less than on prior study. There is no pneumothorax. No pleural effusion is appreciated. There is advanced degenerative arthropathy of the shoulders. IMPRESSION: 1. Bilateral perihilar airspace opacities, less than on prior study. 2. Stable cardiomegaly. Electronically signed by: Kike Silva MD (11/30/2017 2:06 PM) [id number]
[2017-11-30 14:14] LABS: FIO2 ABG 100
[2017-11-30] MEDS ORDERED: FUROSEMIDE 40 MG/4 ML VIAL. IVP ONE ×2 (14:45)
[2017-11-30] MEDS ORDERED: VANCOMYCIN 1GM IVPB FOR OMNI 250 ML IV ONE ×2 (15:00→15:45)
--- NOTE | 2017-11-30 15:09 | PDOC1 ---
History and Physical Date of Admission Date of Admission 11/30/17 Identification/Chief Complaint Chief Complaint sob, hard to change the trach Source Source: Chart review History of Present Illness History of Present Illness 67yo M, with trach and PEG, was sent by EMS from SNF for resp failure. History limited from getting from ERP AND ER nurse. As per er nurse, this is pt's baseline, with eyes tight closed, not answer questions or follow commands with h/o stroke and parkinson dz. Pt has a chronic trach and PEG, as per ER nurse, the trach is not connected to O2 usually. TOday, SNF wanted to change the trach( dont know why?), and find much secretions and could not change , with resp distress and sent him to ER. In ER, pt is connected to trach collar at 40% O2, lots of secretion sucked and sent for cx by ER nurse. Past Medical History Past Medical History stroke, parkinson dz Pulmonary: Pneumonia CENTRAL NERVOUS SYSTEM: Seizure Psych: Other Past Surgical History Past Surgical History PEG trach Past Surgical History: Other Family History Family History: Family History Unknown Social History Smoke: No ALCOHOL: none Drugs: None Current Medications Current Medications Current Medications Medications (Trade) Dose Ordered Sig/Eleanor Start Time Stop Time Status Last Admin Dose Admin Furosemide (Lasix) 40 mg 1X ONCE 11/30/17 14:45 11/30/17 14:46 DC Vancomycin HCl 250 ml @ 250 mls/hr 1X ONCE 11/30/17 15:00 11/30/17 15:59 11/30/17 14:48 250 MLS/HR Allergies Allergies Allergies Coded Allergies Type Severity Reaction Last Updated Verified fentanyl Allergy Intermediate 09/23/16 Yes morphine Allergy Intermediate 09/23/16 Yes ROS Review of System CONSTITUTIONAL: No fever or chills EYES: No recent changes SKIN: No rash or itching CARDIOVASCULAR: No chest pain, syncope, palpitations, or edema RESPIRATORY: No SOB or cough GASTROINTESTINAL: No nausea, vomiting or abdominal pain NEUROLOGICAL: No headaches or weakness ENDOCRINE: No cold or heat intolerance GENITOURINARY: No urgency or frequency of urination MUSCULOSKELETAL: No back pain or joint pain LYMPHATICS: No enlarged lymph nodes PSYCHIATRIC: No anxiety or depression Physical Exam Physical Exam GEN.: not responsive. HEENT: Head is normocephalic, atraumatic NECK: trach, connected to trach collar at 40% o2. LUNGS: bl mild rhonchis, no wheezing HEART: RRR, S1, S2 present. Peripheral pulses intact ABDOMEN: Soft, nontender. decreased bowel sounds. has PEG, mild distended. EXTREMITIES: Without any cyanosis. left leg venous stasis dermatitis. no edema. NEUROLOGIC: Normal speech, normal tone PSYCHIATRIC: Normal affect, normal mood. SKIN: No ulcerations Vitals Vitals Vital Signs Date Time Temp Pulse Resp B/P (MAP) Pulse Ox O2 Delivery O2 Flow Rate FiO2 11/30/17 14:00 104 28 137/82 (100) 98 11/30/17 14:00 Tracheal Collar 15.0 11/30/17 12:59 99.4 99.4 Labs Labs Laboratory Tests Test 11/30/17 13:10 11/30/17 13:50 White Blood Count 7.6 x10^3/uL (4.0-11.0) Red Blood Count 4.99 x10^6/uL (4.30-5.70) Hemoglobin 16.9 g/dL (13.0-17.5) Hematocrit 49.7 % (39.0-53.0) Mean Corpuscular Volume 100 fL (79-100) Mean Corpuscular Hemoglobin 34 pg (25-35) Mean Corpuscular Hemoglobin Concent 34 g/dL (31-37) Red Cell Distribution Width 15.0 % (11.5-14.5) Platelet Count 93 x10^3/uL (140-400) Neutrophils (%) (Auto) 72 % (31-73) Lymphocytes (%) (Auto) 20 % (24-48) Monocytes (%) (Auto) 4 % (0-9) Eosinophils (%) (Auto) 4 % (0-3) Basophils (%) (Auto) 0 % (0-3) Neutrophils # (Auto) 5.5 x10^3uL (1.8-7.7) Lymphocytes # (Auto) 1.5 x10^3/uL (1.0-4.8) Monocytes # (Auto) 0.3 x10^3/uL (0.0-1.1) Eosinophils # (Auto) 0.3 x10^3/uL (0.0-0.7) Basophils # (Auto) 0.0 x10^3/uL (0.0-0.2) Sodium Level 146 mmol/L (136-145) Potassium Level 4.2 mmol/L (3.5-5.1) Chloride Level 107 mmol/L (98-107) Carbon Dioxide Level 34 mmol/L (21-32) Anion Gap 5 (6-14) Blood Urea Nitrogen 24 mg/dL (8-26) Creatinine 0.8 mg/dL (0.7-1.3) Estimated GFR (Cockcroft-Gault) 95.8 BUN/Creatinine Ratio 30 (6-20) Glucose Level 176 mg/dL (70-99) Calcium Level 8.5 mg/dL (8.5-10.1) Total Bilirubin 0.7 mg/dL (0.2-1.0) Aspartate Amino Transf (AST/SGOT) 28 U/L (15-37) Alanine Aminotransferase (ALT/SGPT) 31 U/L (16-63) Alkaline Phosphatase 72 U/L (46-116) Troponin I Quantitative < 0.017 ng/mL (0.000-0.055) C-Reactive Protein, Quantitative 14.8 mg/L (0-3.3) IM-Rie-G-Type Natriuretic Peptide 2193 pg/mL (0-124) Total Protein 6.4 g/dL (6.4-8.2) Albumin 2.8 g/dL (3.4-5.0) Albumin/Globulin Ratio 0.8 (1.0-1.7) O2 Saturation 98 % (92-99) Arterial Blood pH 7.43 (7.35-7.45) Arterial Blood pCO2 at Patient Temp 43 mmHg (35-46) Arterial Blood pO2 at Patient Temp 138 mmHg (65-108) Arterial Blood HCO3 28 mmol/L (21-28) Arterial Blood Base Excess 4 mmol/L (-3-3) FiO2 100 Laboratory Tests Test 11/30/17 13:10 11/30/17 13:50 White Blood Count 7.6 x10^3/uL (4.0-11.0) Red Blood Count 4.99 x10^6/uL (4.30-5.70) Hemoglobin 16.9 g/dL (13.0-17.5) Hematocrit 49.7 % (39.0-53.0) Mean Corpuscular Volume 100 fL (79-100) Mean Corpuscular Hemoglobin 34 pg (25-35) Mean Corpuscular Hemoglobin Concent 34 g/dL (31-37) Red Cell Distribution Width 15.0 % (11.5-14.5) Platelet Count 93 x10^3/uL (140-400) Neutrophils (%) (Auto) 72 % (31-73) Lymphocytes (%) (Auto) 20 % (24-48) Monocytes (%) (Auto) 4 % (0-9) Eosinophils (%) (Auto) 4 % (0-3) Basophils (%) (Auto) 0 % (0-3) Neutrophils # (Auto) 5.5 x10^3uL (1.8-7.7) Lymphocytes # (Auto) 1.5 x10^3/uL (1.0-4.8) Monocytes # (Auto) 0.3 x10^3/uL (0.0-1.1) Eosinophils # (Auto) 0.3 x10^3/uL (0.0-0.7) Basophils # (Auto) 0.0 x10^3/uL (0.0-0.2) Sodium Level 146 mmol/L (136-145) Potassium Level 4.2 mmol/L (3.5-5.1) Chloride Level 107 mmol/L (98-107) Carbon Dioxide Level 34 mmol/L (21-32) Anion Gap 5 (6-14) Blood Urea Nitrogen 24 mg/dL (8-26) Creatinine 0.8 mg/dL (0.7-1.3) Estimated GFR (Cockcroft-Gault) 95.8 BUN/Creatinine Ratio 30 (6-20) Glucose Level 176 mg/dL (70-99) Calcium Level 8.5 mg/dL (8.5-10.1) Total Bilirubin 0.7 mg/dL (0.2-1.0) Aspartate Amino Transf (AST/SGOT) 28 U/L (15-37) Alanine Aminotransferase (ALT/SGPT) 31 U/L (16-63) Alkaline Phosphatase 72 U/L (46-116) Troponin I Quantitative < 0.017 ng/mL (0.000-0.055) C-Reactive Protein, Quantitative 14.8 mg/L (0-3.3) EA-Zvg-C-Type Natriuretic Peptide 2193 pg/mL (0-124) Total Protein 6.4 g/dL (6.4-8.2) Albumin 2.8 g/dL (3.4-5.0) Albumin/Globulin Ratio 0.8 (1.0-1.7) O2 Saturation 98 % (92-99) Arterial Blood pH 7.43 (7.35-7.45) Arterial Blood pCO2 at Patient Temp 43 mmHg (35-46) Arterial Blood pO2 at Patient Temp 138 mmHg (65-108) Arterial Blood HCO3 28 mmol/L (21-28) Arterial Blood Base Excess 4 mmol/L (-3-3) FiO2 100 VTE Prophylaxis Ordered VTE Prophylaxis Devices: Yes VTE Pharmacological Prophylaxi: Yes Assessment/Plan Assessment/Plan acute on chronic resp failure with trach and on trach collar now with 40% O2 possible HAP chronic dementia , encephalopathy h/o stroke parkinson dz Pafib dysphagia with encephalopathy with chronic PEG mild malnutrition FC h/o seizure plan: pulm consult, not sure why SNF wants to change the trach? need verify home meds add vanco, zosyn for now, sputum cx duoneb, albuterol prn trach care, trach collar as needed cont PEG feeding, transferrer consult palliative care consult, pt still FC, but baseline is as now , unresponsive dvt ppx FRANK PRADO MD Nov 30, 2017 15:09
[2017-11-30] MEDS ORDERED: ONDANSETRON PF 4 MG/2 ML VIAL. IV PRN (15:15)
[2017-11-30] MEDS ORDERED: ALBUTEROL SULFATE 2.5 MG/3 ML NEBU. NEB PRN (15:15)
[2017-11-30] MEDS ORDERED: PIP/TAZO PER PHARMACY MC PRN (15:15)
[2017-11-30] MEDS ORDERED: DOCUSATE SODIUM 100 MG CAPSULE. PO PRN (15:15)
[2017-11-30] MEDS ORDERED: hydrALAZINE 20 MG/ML VIAL. IVP PRN (15:15)
[2017-11-30] MEDS ORDERED: VANCOMYCIN 2 GM in IV NORMAL SALINE 500ML BAG 500 ML IV SCH (15:15)
--- NOTE | 2017-11-30 15:26 | PHYS DOC ---
Past Medical History Past Medical History: A-Fib, COPD, Dementia, Depression, GERD, Hypertension, Renal Disease Additional Past Medical Histor: parkinson's, resp. failure, Past Surgical History: Other Additional Past Surgical Histo: unknown, trachostomy Alcohol Use: None Drug Use: None Adult General Chief Complaint Chief Complaint: OTHER COMPLAINTS HPI HPI Patient is a 67 year old male with history of Parkinson's, dementia, COPD, chronic respiratory failure requiring with trach tube who presents with increased work of breathing, thickened malodor secretions from trach tube and inability to trach tube per respiratory therapist at nursing facility. History is extremely limited due to the nature of the patient's disease. Patient placed on trach collar with blow-by oxygen per EMS on ED arrival O2 saturation sees me in the low 90s. [] Review of Systems Review of Systems ROS limited due advanced dementia All other systems were reviewed and found to be within normal limits, except as documented in this note. Current Medications Current Medications Current Medications Medications (Trade) Dose Ordered Sig/Eleanor Start Time Stop Time Status Last Admin Dose Admin Acetaminophen (Tylenol) 650 mg PRN Q6HRS PRN 11/30/17 15:15 Albuterol Sulfate (Ventolin Neb Soln) 2.5 mg PRN Q4HRS PRN 11/30/17 15:15 Albuterol/ Ipratropium (Duoneb) 3 ml RTQID 11/30/17 16:00 Docusate Sodium (Colace) 100 mg PRN DAILY PRN 11/30/17 15:15 Enoxaparin Sodium (Lovenox 40mg Syringe) 40 mg Q24H 11/30/17 21:00 Furosemide (Lasix) 40 mg 1X ONCE 11/30/17 14:45 11/30/17 14:46 DC Hydralazine HCl (Apresoline Inj) 10 mg PRN Q4HRS PRN 11/30/17 15:15 Ondansetron HCl (Zofran) 4 mg PRN Q6HRS PRN 11/30/17 15:15 Piperacillin Sod/ Tazobactam Sod (Zosyn Per Pharmacy) 1 each PRN DAILY PRN 11/30/17 15:15 UNV Piperacillin Sod/ Tazobactam Sod 4.5 gm/Sodium Chloride 100 ml @ 200 mls/hr Q6HRS 11/30/17 18:00 Vancomycin HCl (Vanco Per Pharmacy) 1 each PRN DAILY PRN 11/30/17 15:15 UNV Vancomycin HCl 2 gm/Sodium Chloride 500 ml @ 250 mls/hr Q12H 11/30/17 15:15 11/30/17 15:15 DC Allergies Allergies Allergies Coded Allergies Type Severity Reaction Last Updated Verified fentanyl Allergy Intermediate 09/23/16 Yes morphine Allergy Intermediate 09/23/16 Yes Physical Exam Physical Exam Constitutional: Moderate resp distress, chronically ill appearing. [] HENT: Normocephalic, atraumatic, bilateral external ears normal, oropharynx moist. [] Eyes: PERRLA, EOMI, conjunctiva normal. [] Neck: Normal range of motion, no tenderness, supple, trach tube in place with thickened secretions noted. [] Cardiovascular:Heart rate regular rhythm, no murmur [] Lungs & Thorax: Coarse breath sounds bilaterally, tachypnea] Abdomen: Bowel sounds normal, soft, no tenderness. [] Skin: Warm, dry. [] Back: No tenderness. [] Extremities: No tenderness. [] Neurologic: Alert, unable to follow commands[] Current Patient Data Vital Signs Vital Signs Date Time Temp Pulse Resp B/P (MAP) Pulse Ox O2 Delivery O2 Flow Rate FiO2 11/30/17 14:00 104 28 137/82 (100) 98 11/30/17 14:00 Tracheal Collar 15.0 11/30/17 12:59 99.4 99.4 Lab Values Laboratory Tests Test 11/30/17 13:10 11/30/17 13:50 White Blood Count 7.6 x10^3/uL (4.0-11.0) Red Blood Count 4.99 x10^6/uL (4.30-5.70) Hemoglobin 16.9 g/dL (13.0-17.5) Hematocrit 49.7 % (39.0-53.0) Mean Corpuscular Volume 100 fL (79-100) Mean Corpuscular Hemoglobin 34 pg (25-35) Mean Corpuscular Hemoglobin Concent 34 g/dL (31-37) Red Cell Distribution Width 15.0 % (11.5-14.5) H Platelet Count 93 x10^3/uL (140-400) L Neutrophils (%) (Auto) 72 % (31-73) Lymphocytes (%) (Auto) 20 % (24-48) L Monocytes (%) (Auto) 4 % (0-9) Eosinophils (%) (Auto) 4 % (0-3) H Basophils (%) (Auto) 0 % (0-3) Neutrophils # (Auto) 5.5 x10^3uL (1.8-7.7) Lymphocytes # (Auto) 1.5 x10^3/uL (1.0-4.8) Monocytes # (Auto) 0.3 x10^3/uL (0.0-1.1) Eosinophils # (Auto) 0.3 x10^3/uL (0.0-0.7) Basophils # (Auto) 0.0 x10^3/uL (0.0-0.2) Sodium Level 146 mmol/L (136-145) H Potassium Level 4.2 mmol/L (3.5-5.1) Chloride Level 107 mmol/L (98-107) Carbon Dioxide Level 34 mmol/L (21-32) H Anion Gap 5 (6-14) L Blood Urea Nitrogen 24 mg/dL (8-26) Creatinine 0.8 mg/dL (0.7-1.3) Estimated GFR (Cockcroft-Gault) 95.8 BUN/Creatinine Ratio 30 (6-20) H Glucose Level 176 mg/dL (70-99) H Calcium Level 8.5 mg/dL (8.5-10.1) Total Bilirubin 0.7 mg/dL (0.2-1.0) Aspartate Amino Transferase (AST) 28 U/L (15-37) Alanine Aminotransferase (ALT) 31 U/L (16-63) Alkaline Phosphatase 72 U/L (46-116) Troponin I Quantitative < 0.017 ng/mL (0.000-0.055) C-Reactive Protein, Quantitative 14.8 mg/L (0-3.3) H AQ-Lib-U-Type Natriuretic Peptide 2193 pg/mL (0-124) H Total Protein 6.4 g/dL (6.4-8.2) Albumin 2.8 g/dL (3.4-5.0) L Albumin/Globulin Ratio 0.8 (1.0-1.7) L O2 Saturation 98 % (92-99) Arterial Blood pH 7.43 (7.35-7.45) Arterial Blood pCO2 at Patient Temp 43 mmHg (35-46) Arterial Blood pO2 at Patient Temp 138 mmHg (65-108) H Arterial Blood HCO3 28 mmol/L (21-28) Arterial Blood Base Excess 4 mmol/L (-3-3) H FiO2 100 Laboratory Tests 11/30/17 13:10 Laboratory Tests 11/30/17 13:10 EKG EKG [EKG:] Radiology/Procedures Radiology/Procedures [XR: No acute cardiopulmonary disease per radiology report] Course & Med Decision Making Course & Med Decision Making Pertinent Labs and Imaging studies reviewed. (See chart for details) Acute respiratory failure with hypoxia likely secondary to bacterial tracheitis. Patient may also congestive heart failure. Antibiotics given. Patient placed on trach collar with FiO2 100%. Dr. Miranda in the ED for admission in order] Dragon Disclaimer Dragon Disclaimer This electronic medical record was generated, in whole or in part, using a voice recognition dictation system. Departure Departure Impression: Primary Impression: Acute tracheitis Additional Impression: Acute respiratory failure Disposition: ADMITTED INPATIENT Admitting Physician: Xie. Lucia Condition: CRITICAL Referrals: XAVIER SALEEM MD (PCP) Problem Qualifiers JASON CONRAD DO Nov 30, 2017 15:26
[2017-11-30] MEDS ORDERED: VANCOMYCIN 2 GM in IV NORMAL SALINE 500ML BAG 500 ML IV ONE (15:45)
[2017-11-30] MEDS: IPRATRPIUM/ALBUTEROL 0.5/2.5MG 3 ML NEBU. NEB SCH ×2 (16:24→19:02)
[2017-11-30] MEDS: IV NORMAL SALINE 1000ML BAG 1,000 ML IV SCH (17:56)
[2017-11-30] MEDS: VANCOMYCIN PER PHARMACY MC PRN (18:25)
[2017-11-30 19:00] VITALS: BP 114/67
[2017-11-30] MEDS ORDERED: ATRO2DRO3 SL (19:39)
[2017-11-30] MEDS: PIPERACILLIN/TAZOBACTAM 4.5 GM in IV NORMAL SALINE 100ML 100 ML IV SCH (19:44)
[2017-11-30] MEDS: ACETAMINOPHEN 325 MG TABLET. PO PRN (19:52)
[2017-11-30] MEDS: ENOXAPARIN 40 MG/0.4 ML SYRINGE. SQ SCH (19:53)
[2017-11-30 22:51] VITALS: BP 115/58
[2017-12-01] MEDS: PIPERACILLIN/TAZOBACTAM 4.5 GM in IV NORMAL SALINE 100ML 100 ML IV SCH ×5 (01:03→23:54)
[2017-12-01 03:00] VITALS: BP 102/54
[2017-12-01 05:22] LABS: BASO % 0 % (0-3); EOS # 0.2 x10^3/uL (0.0-0.7); EOS % 4 % (0-3); HEMATOCRIT 47.5 % (39.0-53.0); HEMOGLOBIN 16.2 g/dL (13.0-17.5); LYMPH # 1.6 x10^3/uL (1.0-4.8); LYMPH % 28 % (24-48); MEAN CORPUSCULAR HEMOGLOBIN 34 pg (25-35); MEAN CORPUSCULAR HGB CONC 34 g/dL (31-37); MEAN CORPUSCULAR VOLUME 99 fL (79-100); MONO # 0.4 x10^3/uL (0.0-1.1); MONO % 7 % (0-9); NEUT # 3.5 x10^3uL (1.8-7.7); NEUT % 60 % (31-73); PLATELET COUNT 84 x10^3/uL (140-400); WHITE BLOOD COUNT 5.8 x10^3/uL (4.0-11.0)
[2017-12-01 05:40] LABS: CALCIUM 8.2 mg/dL (8.5-10.1); CREATININE 0.7 mg/dL (0.7-1.3); GFR 111.8; POTASSIUM 3.2 mmol/L (3.5-5.1)
[2017-12-01] MEDS: IV NORMAL SALINE 1000ML BAG 1,000 ML IV SCH ×2 (06:07→08:39)
[2017-12-01] MEDS: VANCOMYCIN 1.25 GM in IV NORMAL SALINE 250ML 250 ML IV SCH ×2 (06:41→22:28)
[2017-12-01 07:00] VITALS: BP 116/73
[2017-12-01] MEDS: IPRATRPIUM/ALBUTEROL 0.5/2.5MG 3 ML NEBU. NEB SCH ×4 (07:27→19:43)
--- NOTE | 2017-12-01 10:12 | PDOC2 ---
PALLIATIVE CARE Palliative Care Note Palliative Care Consult requested by Dr. Miranda to address code status; Medical Assessment per record; A/C Respiratory failure; trach with oxygen 40% per collar. Possible pneumonia Dementia, Hx stroke Parkinson Disease Peg; malnutrition Hx seizure Patient attempts to open eyes with verbal stimuli. Spoke with staff at [facility]. Patient is FC and they have had multiple discussion with daughter Rosa Isela. Patient has wanted everything done and daughter will continue to follow his wishes. This is consistent with my conversation on 09/22/16. Attempted to reach Rosa Isela by phone [phone]. No answer. Will continue to try to reach Rosa Isela to confirm wishes for resuscitation. MARY FRANCES Dec 01, 2017 10:12
[2017-12-01 11:00] VITALS: BP 120/80
--- NOTE | 2017-12-01 12:41 | CONS ---
DATE OF CONSULTATION: ATTENDING PHYSICIAN: Dr. Miranda. REASON FOR CONSULTATION: Pneumonia and tracheostomy care. HISTORY OF PRESENT ILLNESS: The patient is a 67-year-old male who has history of Parkinson's and chronic dementia. He has chronic tracheostomy, details of which were not available. He also has a chronic PEG. [facility] with significant secretions through his trach. He was reportedly in respiratory distress. He was connected to trach collar at 40% and secretions were suctioned out by Respiratory in the ER. I have reviewed his chest x-ray, there are mild perihilar densities which appear to be better than his previous chest x-ray. Per long term notes, they are still suctioning every hour. He was started on antibiotics, vancomycin and Zosyn. I have been asked to see him for further evaluation. Blood cultures have been performed. His T-max was 100.8. PAST MEDICAL HISTORY: Significant for history of Parkinson's, history of chronic respiratory failure, history of chronic tracheostomy, pneumonia and seizure. PAST SURGICAL HISTORY: Tracheostomy and PEG. FAMILY HISTORY: Unknown. ALLERGIES: FENTANYL and MORPHINE. CURRENT MEDICATIONS: Reviewed, as listed in the [facility]. REVIEW OF SYSTEMS: Unable to obtain from the patient due to his dementia. PHYSICAL EXAMINATION: GENERAL: He is in no obvious respiratory distress. VITAL SIGNS: His T-max is 100.8. Blood pressure is 116/73. HEENT: Sclerae nonicteric. NECK: Supple. Trach has moderate amount of secretion. LUNGS: Diminished breath sounds. CARDIOVASCULAR: Regular rate. ABDOMEN: Soft. EXTREMITIES: With no pitting edema. LABORATORY DATA: Reviewed. White cell count 5.8, hemoglobin 16.2 and platelets are 84. ABG showed a pH of 7.43, pCO2 of 43 and a pO2 of 138 on 100% FiO2. IMPRESSION: 1. Acute hypoxic respiratory failure secondary to tracheobronchitis/suspected gram-negative and gram-positive healthcare-associated pneumonia. 2. Fever secondary to pneumonia and tracheobronchitis. 3. Hypernatremia, likely related to dehydration. 5. Thrombocytopenia related to an infectious etiology. 6. Underlying Parkinson's with chronic dementia. RECOMMENDATIONS: 1. Discussed with RN. We will follow blood cultures. We will also obtain trach secretions for culture and sensitivity. 2. Continue broad-spectrum antibiotics. Follow the culture results. 3. Continue nebulizer treatment. 4. P.r.n. suction every hour. 5. Follow sodium level. 6. Hydration. 7. Discussed with RN and we will follow along with you. VICKIE CASTRO MD DR: AYANA/cindy JOB#: [id number] / [id number]
--- NOTE | 2017-12-01 13:20 | PDOC ---
PROGRESS NOTES Chief Complaint Chief Complaint Assessment/Plan Assessment/Plan acute on chronic resp failure with trach and on trach collar now with 40% O2 possible HAP chronic dementia , encephalopathy h/o stroke parkinson dz Pafib dysphagia with encephalopathy with chronic PEG mild malnutrition FC h/o seizure plan: pulm consult, SNF wants to change the trach need verify home meds vanco, zosyn for now, sputum cx duoneb, albuterol prn trach care, trach collar as needed cont PEG feeding, portrait studio photographer consult palliative care consult, dvt ppx Vitals Vitals Vital Signs Date Time Temp Pulse Resp B/P (MAP) Pulse Ox O2 Delivery O2 Flow Rate FiO2 12/01/17 12:32 96 Tracheal Collar 10.0 12/01/17 11:00 99.7 94 20 120/80 (93) 99.7 Physical Exam Physical Exam GEN.: not responsive. HEENT: Head is normocephalic, atraumatic NECK: trach, connected to trach collar at 40% o2. LUNGS: bl mild rhonchi, no wheezing HEART: RRR, S1, S2 present. Peripheral pulses intact ABDOMEN: Soft, nontender. decreased bowel sounds. has PEG, mild distended. EXTREMITIES: Without any cyanosis. left leg venous stasis dermatitis. no edema Lungs: Other Labs LABS Laboratory Tests Test 11/30/17 13:50 12/01/17 04:07 O2 Saturation 98 % (92-99) Arterial Blood pH 7.43 (7.35-7.45) Arterial Blood pCO2 at Patient Temp 43 mmHg (35-46) Arterial Blood pO2 at Patient Temp 138 mmHg (65-108) Arterial Blood HCO3 28 mmol/L (21-28) Arterial Blood Base Excess 4 mmol/L (-3-3) FiO2 100 White Blood Count 5.8 x10^3/uL (4.0-11.0) Red Blood Count 4.80 x10^6/uL (4.30-5.70) Hemoglobin 16.2 g/dL (13.0-17.5) Hematocrit 47.5 % (39.0-53.0) Mean Corpuscular Volume 99 fL (79-100) Mean Corpuscular Hemoglobin 34 pg (25-35) Mean Corpuscular Hemoglobin Concent 34 g/dL (31-37) Red Cell Distribution Width 15.0 % (11.5-14.5) Platelet Count 84 x10^3/uL (140-400) Neutrophils (%) (Auto) 60 % (31-73) Lymphocytes (%) (Auto) 28 % (24-48) Monocytes (%) (Auto) 7 % (0-9) Eosinophils (%) (Auto) 4 % (0-3) Basophils (%) (Auto) 0 % (0-3) Neutrophils # (Auto) 3.5 x10^3uL (1.8-7.7) Lymphocytes # (Auto) 1.6 x10^3/uL (1.0-4.8) Monocytes # (Auto) 0.4 x10^3/uL (0.0-1.1) Eosinophils # (Auto) 0.2 x10^3/uL (0.0-0.7) Basophils # (Auto) 0.0 x10^3/uL (0.0-0.2) Sodium Level 150 mmol/L (136-145) Potassium Level 3.2 mmol/L (3.5-5.1) Chloride Level 112 mmol/L (98-107) Carbon Dioxide Level 32 mmol/L (21-32) Anion Gap 6 (6-14) Blood Urea Nitrogen 23 mg/dL (8-26) Creatinine 0.7 mg/dL (0.7-1.3) Estimated GFR (Cockcroft-Gault) 111.8 Glucose Level 84 mg/dL (70-99) Calcium Level 8.2 mg/dL (8.5-10.1) Assessment and Plan Assessmemt and Plan Problems Medical Problems: (1) Acute respiratory failure Status: Acute (2) Acute tracheitis Status: Acute Comment Review of Relevant I have reviewed the following items maulik (where applicable) has been applied. Labs Laboratory Tests Test 11/30/17 13:10 11/30/17 13:50 12/01/17 04:07 White Blood Count 7.6 x10^3/uL (4.0-11.0) 5.8 x10^3/uL (4.0-11.0) Red Blood Count 4.99 x10^6/uL (4.30-5.70) 4.80 x10^6/uL (4.30-5.70) Hemoglobin 16.9 g/dL (13.0-17.5) 16.2 g/dL (13.0-17.5) Hematocrit 49.7 % (39.0-53.0) 47.5 % (39.0-53.0) Mean Corpuscular Volume 100 fL (79-100) 99 fL (79-100) Mean Corpuscular Hemoglobin 34 pg (25-35) 34 pg (25-35) Mean Corpuscular Hemoglobin Concent 34 g/dL (31-37) 34 g/dL (31-37) Red Cell Distribution Width 15.0 % (11.5-14.5) 15.0 % (11.5-14.5) Platelet Count 93 x10^3/uL (140-400) 84 x10^3/uL (140-400) Neutrophils (%) (Auto) 72 % (31-73) 60 % (31-73) Lymphocytes (%) (Auto) 20 % (24-48) 28 % (24-48) Monocytes (%) (Auto) 4 % (0-9) 7 % (0-9) Eosinophils (%) (Auto) 4 % (0-3) 4 % (0-3) Basophils (%) (Auto) 0 % (0-3) 0 % (0-3) Neutrophils # (Auto) 5.5 x10^3uL (1.8-7.7) 3.5 x10^3uL (1.8-7.7) Lymphocytes # (Auto) 1.5 x10^3/uL (1.0-4.8) 1.6 x10^3/uL (1.0-4.8) Monocytes # (Auto) 0.3 x10^3/uL (0.0-1.1) 0.4 x10^3/uL (0.0-1.1) Eosinophils # (Auto) 0.3 x10^3/uL (0.0-0.7) 0.2 x10^3/uL (0.0-0.7) Basophils # (Auto) 0.0 x10^3/uL (0.0-0.2) 0.0 x10^3/uL (0.0-0.2) Sodium Level 146 mmol/L (136-145) 150 mmol/L (136-145) Potassium Level 4.2 mmol/L (3.5-5.1) 3.2 mmol/L (3.5-5.1) Chloride Level 107 mmol/L (98-107) 112 mmol/L (98-107) Carbon Dioxide Level 34 mmol/L (21-32) 32 mmol/L (21-32) Anion Gap 5 (6-14) 6 (6-14) Blood Urea Nitrogen 24 mg/dL (8-26) 23 mg/dL (8-26) Creatinine 0.8 mg/dL (0.7-1.3) 0.7 mg/dL (0.7-1.3) Estimated GFR (Cockcroft-Gault) 95.8 111.8 BUN/Creatinine Ratio 30 (6-20) Glucose Level 176 mg/dL (70-99) 84 mg/dL (70-99) Calcium Level 8.5 mg/dL (8.5-10.1) 8.2 mg/dL (8.5-10.1) Total Bilirubin 0.7 mg/dL (0.2-1.0) Aspartate Amino Transf (AST/SGOT) 28 U/L (15-37) Alanine Aminotransferase (ALT/SGPT) 31 U/L (16-63) Alkaline Phosphatase 72 U/L (46-116) Troponin I Quantitative < 0.017 ng/mL (0.000-0.055) C-Reactive Protein, Quantitative 14.8 mg/L (0-3.3) EC-Stk-P-Type Natriuretic Peptide 2193 pg/mL (0-124) Total Protein 6.4 g/dL (6.4-8.2) Albumin 2.8 g/dL (3.4-5.0) Albumin/Globulin Ratio 0.8 (1.0-1.7) O2 Saturation 98 % (92-99) Arterial Blood pH 7.43 (7.35-7.45) Arterial Blood pCO2 at Patient Temp 43 mmHg (35-46) Arterial Blood pO2 at Patient Temp 138 mmHg (65-108) Arterial Blood HCO3 28 mmol/L (21-28) Arterial Blood Base Excess 4 mmol/L (-3-3) FiO2 100 Laboratory Tests Test 11/30/17 13:50 12/01/17 04:07 O2 Saturation 98 % (92-99) Arterial Blood pH 7.43 (7.35-7.45) Arterial Blood pCO2 at Patient Temp 43 mmHg (35-46) Arterial Blood pO2 at Patient Temp 138 mmHg (65-108) Arterial Blood HCO3 28 mmol/L (21-28) Arterial Blood Base Excess 4 mmol/L (-3-3) FiO2 100 White Blood Count 5.8 x10^3/uL (4.0-11.0) Red Blood Count 4.80 x10^6/uL (4.30-5.70) Hemoglobin 16.2 g/dL (13.0-17.5) Hematocrit 47.5 % (39.0-53.0) Mean Corpuscular Volume 99 fL (79-100) Mean Corpuscular Hemoglobin 34 pg (25-35) Mean Corpuscular Hemoglobin Concent 34 g/dL (31-37) Red Cell Distribution Width 15.0 % (11.5-14.5) Platelet Count 84 x10^3/uL (140-400) Neutrophils (%) (Auto) 60 % (31-73) Lymphocytes (%) (Auto) 28 % (24-48) Monocytes (%) (Auto) 7 % (0-9) Eosinophils (%) (Auto) 4 % (0-3) Basophils (%) (Auto) 0 % (0-3) Neutrophils # (Auto) 3.5 x10^3uL (1.8-7.7) Lymphocytes # (Auto) 1.6 x10^3/uL (1.0-4.8) Monocytes # (Auto) 0.4 x10^3/uL (0.0-1.1) Eosinophils # (Auto) 0.2 x10^3/uL (0.0-0.7) Basophils # (Auto) 0.0 x10^3/uL (0.0-0.2) Sodium Level 150 mmol/L (136-145) Potassium Level 3.2 mmol/L (3.5-5.1) Chloride Level 112 mmol/L (98-107) Carbon Dioxide Level 32 mmol/L (21-32) Anion Gap 6 (6-14) Blood Urea Nitrogen 23 mg/dL (8-26) Creatinine 0.7 mg/dL (0.7-1.3) Estimated GFR (Cockcroft-Gault) 111.8 Glucose Level 84 mg/dL (70-99) Calcium Level 8.2 mg/dL (8.5-10.1) Medications Current Medications Furosemide (Lasix) 40 mg 1X ONCE IVP Last administered on 11/30/17at 14:39; Start 11/30/17 at 14:45; Stop 11/30/17 at 14:46; Status DC Furosemide (Lasix) 40 mg 1X ONCE IVP ; Start 11/30/17 at 14:45; Stop 11/30/17 at 14:46; Status DC Vancomycin HCl 250 ml @ 250 mls/hr 1X ONCE IV Last administered on 11/30/17at 14:48; Start 11/30/17 at 15:00; Stop 11/30/17 at 15:59; Status DC Acetaminophen (Tylenol) 650 mg PRN Q6HRS PRN PO FEVER Last administered on at 19:52; Start 11/30/17 at 15:15 Ondansetron HCl (Zofran) 4 mg PRN Q6HRS PRN IV NAUSEA/VOMITING; Start 11/30/17 at 15:15 Hydralazine HCl (Apresoline Inj) 10 mg PRN Q4HRS PRN IVP ELEVATED BP, SEE COMMENTS Last administered on 11/30/17at 18:15; Start 11/30/17 at 15:15 Docusate Sodium (Colace) 100 mg PRN DAILY PRN PO CONSTIPATION; Start 11/30/17 at 15:15 Vancomycin HCl (Vanco Per Pharmacy) 1 each PRN DAILY PRN MC SEE COMMENTS Last administered on 11/30/17at 18:25; Start 11/30/17 at 15:15 Vancomycin HCl 2 gm/Sodium Chloride 500 ml @ 250 mls/hr Q12H IV ; Start at 15:15; Stop 11/30/17 at 15:15; Status DC Piperacillin Sod/ Tazobactam Sod 4.5 gm/Sodium Chloride 100 ml @ 200 mls/hr Q6HRS IV Last administered on 12/01/17at 12:51; Start 11/30/17 at 18:00 Piperacillin Sod/ Tazobactam Sod (Zosyn Per Pharmacy) 1 each PRN DAILY PRN MC SEE COMMENTS; Start 11/30/17 at 15:15 Albuterol Sulfate (Ventolin Neb Soln) 2.5 mg PRN Q4HRS PRN NEB SHORTNESS OF BREATH; Start 11/30/17 at 15:15 Albuterol/ Ipratropium (Duoneb) 3 ml RTQID NEB Last administered on 12/01/17at 12 :32; Start 11/30/17 at 16:00 Enoxaparin Sodium (Lovenox 40mg Syringe) 40 mg Q24H SQ Last administered on 11/30at 19:53; Start 11/30/17 at 21:00 Vancomycin HCl 2 gm/Sodium Chloride 500 ml @ 250 mls/hr 1X ONCE IV ; Start 11/30/17 at 15:45; Stop 11/30/17 at 17:44; Status Cancel Vancomycin HCl 250 ml @ 250 mls/hr 1X ONCE IV Last administered on 11/30/17at 17:56; Start 11/30/17 at 15:45; Stop 11/30/17 at 16:44; Status DC Sodium Chloride 1,000 ml @ 125 mls/hr Q8H IV Last administered on 12/01/17at 06: 07; Start 11/30/17 at 16:39; Stop 12/01/17 at 16:38 Vancomycin HCl 1.25 gm/Sodium Chloride 250 ml @ 167 mls/hr Q12H IV Last administered on 12/01/17at 06:41; Start 12/01/17 at 06:00 Vancomycin HCl (Vancomycin Trough Level) 1 each 1X ONCE MC ; Start 12/02/17 at 05:30; Stop 12/02/17 at 05:31 Active Scripts Active Reported Atropine Sulfate 2 Ml Drops 2 Ml SL PRN Q4HRS PRN Duoneb 0.5-3(2.5) Mg/3 Ml (Albuterol/Ipratropium) 3 Ml Ampul.neb 3 Ml NEB QID Depakote Er (Divalproex Sodium) 500 Mg Tab.er.24h 1 Tab PEG BID Cyanocobalamin Injection (Cyanocobalamin (Vitamin B-12)) 1,000 Mcg/1 Ml Vial 1 Ml IM QMONTH Celexa (Citalopram Hydrobromide) 20 Mg Tablet 1 Tab PEG QODAY Budesonide 0.5 Mg/2 Ml Ampul.neb 1 Vial NEB BID Benztropine Mesylate 1 Mg Tablet 1 Mg PEG HS Polyvinyl Alcohol 15 Ml Drops 15 Ml OP PRN Q8HRS Instill 1 drop in both eyes every 8 hours as needed for dryness Acetaminophen 500 Mg Tablet 650 Mg PEG PRN Q6HRS Vitals/I & O Vital Sign - Last 24 Hours 11/30/17 11/30/17 11/30/17 11/30/17 14:00 14:00 15:00 16:00 Pulse 104 100 102 Resp 28 28 28 B/P (MAP) 137/82 (100) 130/87 (101) 112/74 (87) Pulse Ox 100 98 96 95 O2 Delivery Tracheal Collar O2 Flow Rate 15.0 11/30/17 11/30/17 11/30/17 11/30/17 16:24 18:15 19:00 19:03 Temp 100.8 100.8 Pulse 88 104 Resp 18 B/P (MAP) 148/115 114/67 (83) Pulse Ox 98 95 O2 Delivery Tracheal Collar Tracheal Collar Tracheal Collar O2 Flow Rate 15.0 15.0 11/30/17 11/30/17 11/30/17 12/01/17 19:16 20:00 22:51 03:00 Temp 99.7 98.8 99.7 98.8 Pulse 84 94 Resp 18 18 B/P (MAP) 115/58 (77) 102/54 (70) Pulse Ox 95 95 O2 Delivery Trach Collar Trach Collar Room Air Room Air O2 Flow Rate 14.0 14.0 12/01/17 12/01/17 12/01/17 12/01/17 07:00 07:27 08:00 11:00 Temp 97.5 99.7 97.5 99.7 Pulse 96 94 Resp 20 20 B/P (MAP) 116/73 (87) 120/80 (93) Pulse Ox 96 98 95 O2 Delivery Tracheal Collar Tracheal Collar Trach Collar Tracheal Collar O2 Flow Rate 10.0 10.0 10.0 10.0 12/01/17 12:32 Pulse Ox 96 O2 Delivery Tracheal Collar O2 Flow Rate 10.0 Intake and Output 11/30/17 11/30/17 12/01/17 15:00 23:00 07:00 Intake Total 350 ml 1200 ml Balance 350 ml 1200 ml Nutrition Consultation Dietary Evaluation: Comments: REC continue TF otder from [place]: Jevity 1.5 bolus feeds 237 ml 5 x day with 250 ml flush after each bolus. Expected Outcomes/Goals: wt maintainance Malnutrition Findings: Body Fat Depletion (Non Severe: Mild Depletion Weight Status: Appropriate NATALY ALEXANDER MD Dec 01, 2017 13:20
[2017-12-01 15:00] VITALS: BP 108/63
[2017-12-01] MEDS: VANCOMYCIN PER PHARMACY MC PRN (15:40)
[2017-12-01] MEDS: POTASSIUM CHLORIDE 10MEQ 100 ML IV SCH ×4 (15:41→20:01)
[2017-12-01] MEDS: IV DEXTROSE 5 %-0.45 % NACL 1,000 ML IV SCH (15:41)
[2017-12-01 19:00] VITALS: BP 136/72
[2017-12-01] MEDS: ENOXAPARIN 40 MG/0.4 ML SYRINGE. SQ SCH (21:14)
[2017-12-01 23:00] VITALS: BP 106/65
[2017-12-02 03:00] VITALS: BP 115/79
[2017-12-02] MEDS: IV DEXTROSE 5 %-0.45 % NACL 1,000 ML IV SCH ×2 (03:20→14:00)
[2017-12-02] MEDS: PIPERACILLIN/TAZOBACTAM 4.5 GM in IV NORMAL SALINE 100ML 100 ML IV SCH ×4 (05:14→23:43)
[2017-12-02 05:43] LABS: BASO % 0 % (0-3); EOS # 0.5 x10^3/uL (0.0-0.7); EOS % 12 % (0-3); HEMATOCRIT 45.8 % (39.0-53.0); HEMOGLOBIN 15.5 g/dL (13.0-17.5); LYMPH # 0.9 x10^3/uL (1.0-4.8); LYMPH % 23 % (24-48); MEAN CORPUSCULAR HEMOGLOBIN 34 pg (25-35); MEAN CORPUSCULAR HGB CONC 34 g/dL (31-37); MEAN CORPUSCULAR VOLUME 99 fL (79-100); MONO # 0.4 x10^3/uL (0.0-1.1); MONO % 9 % (0-9); NEUT # 2.3 x10^3uL (1.8-7.7); NEUT % 57 % (31-73); PLATELET COUNT 80 x10^3/uL (140-400); RED BLOOD COUNT 4.61 x10^6/uL (4.30-5.70); RED CELL DISTRIBUTION WIDTH 14.8 % (11.5-14.5); WHITE BLOOD COUNT 4.1 x10^3/uL (4.0-11.0)
[2017-12-02 06:15] LABS: ALBUMIN 2.5 g/dL (3.4-5.0); ALBUMIN/GLOBULIN RATIO 0.8 (1.0-1.7); CALCIUM 8.2 mg/dL (8.5-10.1); CREATININE 0.6 mg/dL (0.7-1.3); GFR 133.6; POTASSIUM 3.7 mmol/L (3.5-5.1); TOTAL BILIRUBIN 0.7 mg/dL (0.2-1.0); TOTAL PROTEIN 5.5 g/dL (6.4-8.2)
[2017-12-02] MEDS: VANCOMYCIN PER PHARMACY MC PRN (06:31)
[2017-12-02] MEDS: VANCOMYCIN 1.25 GM in IV NORMAL SALINE 250ML 250 ML IV SCH ×2 (06:43→20:11)
[2017-12-02 07:00] VITALS: BP 135/95
[2017-12-02] MEDS: IPRATRPIUM/ALBUTEROL 0.5/2.5MG 3 ML NEBU. NEB SCH ×5 (07:45→20:45)
[2017-12-02 11:00] VITALS: BP 143/97
--- NOTE | 2017-12-02 11:19 | PDOC ---
PROGRESS NOTES Chief Complaint Chief Complaint Assessment/Plan Assessment/Plan acute on chronic resp failure with trach and on trach collar now with 40% O2 possible HAP chronic dementia , encephalopathy h/o stroke parkinson dz Pafib dysphagia with encephalopathy with chronic PEG mild malnutrition FC h/o seizure plan: cxr today pulm consult, tory parsons sputum cx duoneb, albuterol prn trach care, trach collar as needed cont PEG feeding, line assembler consult palliative care consult, dvt ppx SUCTION Q 2 HRS PRN Vitals Vitals Vital Signs Date Time Temp Pulse Resp B/P (MAP) Pulse Ox O2 Delivery O2 Flow Rate FiO2 12/02/17 08:15 Trach Collar 14.0 12/02/17 07:45 98 12/02/17 07:00 97.9 84 18 135/95 (108) 97.9 Physical Exam Physical Exam GEN.: RESPONSIVE , somnolent HEENT: Head is normocephalic, atraumatic NECK: trach, connected to trach collar at 40% o2. LUNGS: bl mild rhonchi, no wheezing HEART: RRR, S1, S2 present. Peripheral pulses intact ABDOMEN: Soft, nontender. decreased bowel sounds. has PEG, mild distended. EXTREMITIES: Without any cyanosis. left leg venous stasis dermatitis. no edema Heart: Regular rate Lungs: Other Labs LABS Laboratory Tests Test 12/02/17 01:35 12/02/17 05:30 Lactic Acid Level 0.7 mmol/L (0.4-2.0) White Blood Count 4.1 x10^3/uL (4.0-11.0) Red Blood Count 4.61 x10^6/uL (4.30-5.70) Hemoglobin 15.5 g/dL (13.0-17.5) Hematocrit 45.8 % (39.0-53.0) Mean Corpuscular Volume 99 fL (79-100) Mean Corpuscular Hemoglobin 34 pg (25-35) Mean Corpuscular Hemoglobin Concent 34 g/dL (31-37) Red Cell Distribution Width 14.8 % (11.5-14.5) Platelet Count 80 x10^3/uL (140-400) Neutrophils (%) (Auto) 57 % (31-73) Lymphocytes (%) (Auto) 23 % (24-48) Monocytes (%) (Auto) 9 % (0-9) Eosinophils (%) (Auto) 12 % (0-3) Basophils (%) (Auto) 0 % (0-3) Neutrophils # (Auto) 2.3 x10^3uL (1.8-7.7) Lymphocytes # (Auto) 0.9 x10^3/uL (1.0-4.8) Monocytes # (Auto) 0.4 x10^3/uL (0.0-1.1) Eosinophils # (Auto) 0.5 x10^3/uL (0.0-0.7) Basophils # (Auto) 0.0 x10^3/uL (0.0-0.2) Sodium Level 146 mmol/L (136-145) Potassium Level 3.7 mmol/L (3.5-5.1) Chloride Level 111 mmol/L (98-107) Carbon Dioxide Level 32 mmol/L (21-32) Anion Gap 3 (6-14) Blood Urea Nitrogen 25 mg/dL (8-26) Creatinine 0.6 mg/dL (0.7-1.3) Estimated GFR (Cockcroft-Gault) 133.6 BUN/Creatinine Ratio 42 (6-20) Glucose Level 145 mg/dL (70-99) Calcium Level 8.2 mg/dL (8.5-10.1) Total Bilirubin 0.7 mg/dL (0.2-1.0) Aspartate Amino Transf (AST/SGOT) 22 U/L (15-37) Alanine Aminotransferase (ALT/SGPT) 27 U/L (16-63) Alkaline Phosphatase 57 U/L (46-116) Total Protein 5.5 g/dL (6.4-8.2) Albumin 2.5 g/dL (3.4-5.0) Albumin/Globulin Ratio 0.8 (1.0-1.7) Vancomycin Level Trough 19.0 mcg/mL (10.0-20.0) Vancomycin Last Dose Date 12/01/17 Vancomycin Last Dose Time 1800 Assessment and Plan Assessmemt and Plan Problems Medical Problems: (1) Acute respiratory failure Status: Acute (2) Acute tracheitis Status: Acute Comment Review of Relevant I have reviewed the following items maulik (where applicable) has been applied. Labs Laboratory Tests Test 11/30/17 13:10 11/30/17 13:50 11/30/17 20:07 12/01/17 04:07 White Blood Count 7.6 x10^3/uL (4.0-11.0) 5.8 x10^3/uL (4.0-11.0) Red Blood Count 4.99 x10^6/uL (4.30-5.70) 4.80 x10^6/uL (4.30-5.70) Hemoglobin 16.9 g/dL (13.0-17.5) 16.2 g/dL (13.0-17.5) Hematocrit 49.7 % (39.0-53.0) 47.5 % (39.0-53.0) Mean Corpuscular Volume 100 fL (79-100) 99 fL (79-100) Mean Corpuscular Hemoglobin 34 pg (25-35) 34 pg (25-35) Mean Corpuscular Hemoglobin Concent 34 g/dL (31-37) 34 g/dL (31-37) Red Cell Distribution Width 15.0 % (11.5-14.5) 15.0 % (11.5-14.5) Platelet Count 93 x10^3/uL (140-400) 84 x10^3/uL (140-400) Neutrophils (%) (Auto) 72 % (31-73) 60 % (31-73) Lymphocytes (%) (Auto) 20 % (24-48) 28 % (24-48) Monocytes (%) (Auto) 4 % (0-9) 7 % (0-9) Eosinophils (%) (Auto) 4 % (0-3) 4 % (0-3) Basophils (%) (Auto) 0 % (0-3) 0 % (0-3) Neutrophils # (Auto) 5.5 x10^3uL (1.8-7.7) 3.5 x10^3uL (1.8-7.7) Lymphocytes # (Auto) 1.5 x10^3/uL (1.0-4.8) 1.6 x10^3/uL (1.0-4.8) Monocytes # (Auto) 0.3 x10^3/uL (0.0-1.1) 0.4 x10^3/uL (0.0-1.1) Eosinophils # (Auto) 0.3 x10^3/uL (0.0-0.7) 0.2 x10^3/uL (0.0-0.7) Basophils # (Auto) 0.0 x10^3/uL (0.0-0.2) 0.0 x10^3/uL (0.0-0.2) Sodium Level 146 mmol/L (136-145) 150 mmol/L (136-145) Potassium Level 4.2 mmol/L (3.5-5.1) 3.2 mmol/L (3.5-5.1) Chloride Level 107 mmol/L (98-107) 112 mmol/L (98-107) Carbon Dioxide Level 34 mmol/L (21-32) 32 mmol/L (21-32) Anion Gap 5 (6-14) 6 (6-14) Blood Urea Nitrogen 24 mg/dL (8-26) 23 mg/dL (8-26) Creatinine 0.8 mg/dL (0.7-1.3) 0.7 mg/dL (0.7-1.3) Estimated GFR (Cockcroft-Gault) 95.8 111.8 BUN/Creatinine Ratio 30 (6-20) Glucose Level 176 mg/dL (70-99) 84 mg/dL (70-99) Calcium Level 8.5 mg/dL (8.5-10.1) 8.2 mg/dL (8.5-10.1) Total Bilirubin 0.7 mg/dL (0.2-1.0) Aspartate Amino Transf (AST/SGOT) 28 U/L (15-37) Alanine Aminotransferase (ALT/SGPT) 31 U/L (16-63) Alkaline Phosphatase 72 U/L (46-116) Troponin I Quantitative < 0.017 ng/mL (0.000-0.055) C-Reactive Protein, Quantitative 14.8 mg/L (0-3.3) [id number]-Y-Type Natriuretic Peptide 2193 pg/mL (0-124) Total Protein 6.4 g/dL (6.4-8.2) Albumin 2.8 g/dL (3.4-5.0) Albumin/Globulin Ratio 0.8 (1.0-1.7) O2 Saturation 98 % (92-99) Arterial Blood pH 7.43 (7.35-7.45) Arterial Blood pCO2 at Patient Temp 43 mmHg (35-46) Arterial Blood pO2 at Patient Temp 138 mmHg (65-108) Arterial Blood HCO3 28 mmol/L (21-28) Arterial Blood Base Excess 4 mmol/L (-3-3) FiO2 100 Nasal Screen MRSA (PCR) Negative (Negative) Test 12/02/17 01:35 12/02/17 05:30 Lactic Acid Level 0.7 mmol/L (0.4-2.0) White Blood Count 4.1 x10^3/uL (4.0-11.0) Red Blood Count 4.61 x10^6/uL (4.30-5.70) Hemoglobin 15.5 g/dL (13.0-17.5) Hematocrit 45.8 % (39.0-53.0) Mean Corpuscular Volume 99 fL (79-100) Mean Corpuscular Hemoglobin 34 pg (25-35) Mean Corpuscular Hemoglobin Concent 34 g/dL (31-37) Red Cell Distribution Width 14.8 % (11.5-14.5) Platelet Count 80 x10^3/uL (140-400) Neutrophils (%) (Auto) 57 % (31-73) Lymphocytes (%) (Auto) 23 % (24-48) Monocytes (%) (Auto) 9 % (0-9) Eosinophils (%) (Auto) 12 % (0-3) Basophils (%) (Auto) 0 % (0-3) Neutrophils # (Auto) 2.3 x10^3uL (1.8-7.7) Lymphocytes # (Auto) 0.9 x10^3/uL (1.0-4.8) Monocytes # (Auto) 0.4 x10^3/uL (0.0-1.1) Eosinophils # (Auto) 0.5 x10^3/uL (0.0-0.7) Basophils # (Auto) 0.0 x10^3/uL (0.0-0.2) Sodium Level 146 mmol/L (136-145) Potassium Level 3.7 mmol/L (3.5-5.1) Chloride Level 111 mmol/L (98-107) Carbon Dioxide Level 32 mmol/L (21-32) Anion Gap 3 (6-14) Blood Urea Nitrogen 25 mg/dL (8-26) Creatinine 0.6 mg/dL (0.7-1.3) Estimated GFR (Cockcroft-Gault) 133.6 BUN/Creatinine Ratio 42 (6-20) Glucose Level 145 mg/dL (70-99) Calcium Level 8.2 mg/dL (8.5-10.1) Total Bilirubin 0.7 mg/dL (0.2-1.0) Aspartate Amino Transf (AST/SGOT) 22 U/L (15-37) Alanine Aminotransferase (ALT/SGPT) 27 U/L (16-63) Alkaline Phosphatase 57 U/L (46-116) Total Protein 5.5 g/dL (6.4-8.2) Albumin 2.5 g/dL (3.4-5.0) Albumin/Globulin Ratio 0.8 (1.0-1.7) Vancomycin Level Trough 19.0 mcg/mL (10.0-20.0) Vancomycin Last Dose Date 12/01/17 Vancomycin Last Dose Time 1800 Laboratory Tests Test 12/02/17 01:35 12/02/17 05:30 Lactic Acid Level 0.7 mmol/L (0.4-2.0) White Blood Count 4.1 x10^3/uL (4.0-11.0) Red Blood Count 4.61 x10^6/uL (4.30-5.70) Hemoglobin 15.5 g/dL (13.0-17.5) Hematocrit 45.8 % (39.0-53.0) Mean Corpuscular Volume 99 fL (79-100) Mean Corpuscular Hemoglobin 34 pg (25-35) Mean Corpuscular Hemoglobin Concent 34 g/dL (31-37) Red Cell Distribution Width 14.8 % (11.5-14.5) Platelet Count 80 x10^3/uL (140-400) Neutrophils (%) (Auto) 57 % (31-73) Lymphocytes (%) (Auto) 23 % (24-48) Monocytes (%) (Auto) 9 % (0-9) Eosinophils (%) (Auto) 12 % (0-3) Basophils (%) (Auto) 0 % (0-3) Neutrophils # (Auto) 2.3 x10^3uL (1.8-7.7) Lymphocytes # (Auto) 0.9 x10^3/uL (1.0-4.8) Monocytes # (Auto) 0.4 x10^3/uL (0.0-1.1) Eosinophils # (Auto) 0.5 x10^3/uL (0.0-0.7) Basophils # (Auto) 0.0 x10^3/uL (0.0-0.2) Sodium Level 146 mmol/L (136-145) Potassium Level 3.7 mmol/L (3.5-5.1) Chloride Level 111 mmol/L (98-107) Carbon Dioxide Level 32 mmol/L (21-32) Anion Gap 3 (6-14) Blood Urea Nitrogen 25 mg/dL (8-26) Creatinine 0.6 mg/dL (0.7-1.3) Estimated GFR (Cockcroft-Gault) 133.6 BUN/Creatinine Ratio 42 (6-20) Glucose Level 145 mg/dL (70-99) Calcium Level 8.2 mg/dL (8.5-10.1) Total Bilirubin 0.7 mg/dL (0.2-1.0) Aspartate Amino Transf (AST/SGOT) 22 U/L (15-37) Alanine Aminotransferase (ALT/SGPT) 27 U/L (16-63) Alkaline Phosphatase 57 U/L (46-116) Total Protein 5.5 g/dL (6.4-8.2) Albumin 2.5 g/dL (3.4-5.0) Albumin/Globulin Ratio 0.8 (1.0-1.7) Vancomycin Level Trough 19.0 mcg/mL (10.0-20.0) Vancomycin Last Dose Date 12/01/17 Vancomycin Last Dose Time 1800 Microbiology 11/30/17 Blood Culture - Preliminary, Resulted NO GROWTH AFTER 1 DAY Medications Current Medications Furosemide (Lasix) 40 mg 1X ONCE IVP Last administered on 11/30/17at 14:39; Start 11/30/17 at 14:45; Stop 11/30/17 at 14:46; Status DC Furosemide (Lasix) 40 mg 1X ONCE IVP ; Start 11/30/17 at 14:45; Stop 11/30/17 at 14:46; Status DC Vancomycin HCl 250 ml @ 250 mls/hr 1X ONCE IV Last administered on 11/30/17at 14:48; Start 11/30/17 at 15:00; Stop 11/30/17 at 15:59; Status DC Acetaminophen (Tylenol) 650 mg PRN Q6HRS PRN PO FEVER Last administered on at 19:52; Start 11/30/17 at 15:15 Ondansetron HCl (Zofran) 4 mg PRN Q6HRS PRN IV NAUSEA/VOMITING; Start 11/30/17 at 15:15 Hydralazine HCl (Apresoline Inj) 10 mg PRN Q4HRS PRN IVP ELEVATED BP, SEE COMMENTS Last administered on 11/30/17at 18:15; Start 11/30/17 at 15:15 Docusate Sodium (Colace) 100 mg PRN DAILY PRN PO CONSTIPATION; Start 11/30/17 at 15:15 Vancomycin HCl (Vanco Per Pharmacy) 1 each PRN DAILY PRN MC SEE COMMENTS Last administered on 12/02/17at 06:31; Start 11/30/17 at 15:15 Vancomycin HCl 2 gm/Sodium Chloride 500 ml @ 250 mls/hr Q12H IV ; Start at 15:15; Stop 11/30/17 at 15:15; Status DC Piperacillin Sod/ Tazobactam Sod 4.5 gm/Sodium Chloride 100 ml @ 200 mls/hr Q6HRS IV Last administered on 12/02/17at 05:14; Start 11/30/17 at 18:00 Piperacillin Sod/ Tazobactam Sod (Zosyn Per Pharmacy) 1 each PRN DAILY PRN MC SEE COMMENTS; Start 11/30/17 at 15:15 Albuterol Sulfate (Ventolin Neb Soln) 2.5 mg PRN Q4HRS PRN NEB SHORTNESS OF BREATH; Start 11/30/17 at 15:15 Albuterol/ Ipratropium (Duoneb) 3 ml RTQID NEB Last administered on 12/02/17at 07 :45; Start 11/30/17 at 16:00 Enoxaparin Sodium (Lovenox 40mg Syringe) 40 mg Q24H SQ Last administered on 12/01at 21:14; Start 11/30/17 at 21:00 Vancomycin HCl 2 gm/Sodium Chloride 500 ml @ 250 mls/hr 1X ONCE IV ; Start 11/30/17 at 15:45; Stop 11/30/17 at 17:44; Status Cancel Vancomycin HCl 250 ml @ 250 mls/hr 1X ONCE IV Last administered on 11/30/17at 17:56; Start 11/30/17 at 15:45; Stop 11/30/17 at 16:44; Status DC Sodium Chloride 1,000 ml @ 125 mls/hr Q8H IV Last administered on 12/01/17at 08: 39; Start 11/30/17 at 16:39; Stop 12/01/17 at 16:38; Status DC Vancomycin HCl 1.25 gm/Sodium Chloride 250 ml @ 167 mls/hr Q12H IV Last administered on 12/02/17at 06:43; Start 12/01/17 at 06:00 Vancomycin HCl (Vancomycin Trough Level) 1 each 1X ONCE MC Last administered on 12/02/17at 05:30; Start 12/02/17 at 05:30; Stop 12/02/17 at 05:31; Status DC Potassium Chloride/Water 100 ml @ 100 mls/hr Q1H IV Last administered on at 20:01; Start 12/01/17 at 15:00; Stop 12/01/17 at 18:59; Status DC Dextrose/Sodium Chloride 1,000 ml @ 75 mls/hr [id number] IV Last administered on 12/01/17at 15:41; Start 12/01/17 at 14:00 Active Scripts Active Reported Atropine Sulfate 2 Ml Drops 2 Ml SL PRN Q4HRS PRN Duoneb 0.5-3(2.5) Mg/3 Ml (Albuterol/Ipratropium) 3 Ml Ampul.neb 3 Ml NEB QID Depakote Er (Divalproex Sodium) 500 Mg Tab.er.24h 1 Tab PEG BID Cyanocobalamin Injection (Cyanocobalamin (Vitamin B-12)) 1,000 Mcg/1 Ml Vial 1 Ml IM QMONTH Celexa (Citalopram Hydrobromide) 20 Mg Tablet 1 Tab PEG QODAY Budesonide 0.5 Mg/2 Ml Ampul.neb 1 Vial NEB BID Benztropine Mesylate 1 Mg Tablet 1 Mg PEG HS Polyvinyl Alcohol 15 Ml Drops 15 Ml OP PRN Q8HRS Instill 1 drop in both eyes every 8 hours as needed for dryness Acetaminophen 500 Mg Tablet 650 Mg PEG PRN Q6HRS Vitals/I & O Vital Sign - Last 24 Hours 12/01/17 12/01/17 12/01/17 12/01/17 12:32 15:00 15:33 19:00 Temp 99.7 100.6 99.7 100.6 Pulse 100 103 Resp 24 17 B/P (MAP) 108/63 (78) 136/72 (93) Pulse Ox 96 98 97 O2 Delivery Tracheal Collar Tracheal Collar Tracheal Collar Tracheal Collar O2 Flow Rate 10.0 10.0 10.0 12/01/17 12/01/17 12/01/17 12/02/17 19:47 20:00 23:00 03:00 Temp 99.1 97.9 99.1 97.9 Pulse 86 79 Resp 15 18 B/P (MAP) 106/65 (79) 115/79 (91) Pulse Ox 98 98 98 O2 Delivery Tracheal Collar Trach Collar Tracheal Collar Tracheal Collar O2 Flow Rate 10.0 14.0 10.0 12/02/17 12/02/17 12/02/17 07:00 07:45 08:15 Temp 97.9 97.9 Pulse 84 Resp 18 B/P (MAP) 135/95 (108) Pulse Ox 98 98 O2 Delivery Tracheal Collar Tracheal Collar Trach Collar O2 Flow Rate 14.0 10.0 14.0 Intake and Output 12/01/17 12/01/17 12/02/17 15:00 23:00 07:00 Intake Total 1948 ml Balance 1948 ml Nutrition Consultation Dietary Evaluation: Comments: REC continue TF otder from [place]: Jevity 1.5 bolus feeds 237 ml 5 x day with 250 ml flush after each bolus. Expected Outcomes/Goals: wt maintainance Malnutrition Findings: Body Fat Depletion (Non Severe: Mild Depletion Weight Status: Appropriate NATALY ALEXANDER MD Dec 02, 2017 11:19
--- NOTE | 2017-12-02 11:38 | PDOC ---
PULMONARY PROGRESS NOTES Subjective NO CHANGE/ TRACH SECRETIONS Vitals Vital Signs Date Time Temp Pulse Resp B/P (MAP) Pulse Ox O2 Delivery O2 Flow Rate FiO2 12/02/17 11:00 97.9 91 20 143/97 (112) 98 Tracheal Collar 14.0 97.9 General: No acute distress Lungs: Other (few rhonchi) Cardiovascular: S1, S2 Abdomen: Soft Extremities: Other Skin: Warm Labs Laboratory Tests Test 11/30/17 13:10 11/30/17 13:50 11/30/17 20:07 12/01/17 04:07 White Blood Count 7.6 x10^3/uL (4.0-11.0) 5.8 x10^3/uL (4.0-11.0) Red Blood Count 4.99 x10^6/uL (4.30-5.70) 4.80 x10^6/uL (4.30-5.70) Hemoglobin 16.9 g/dL (13.0-17.5) 16.2 g/dL (13.0-17.5) Hematocrit 49.7 % (39.0-53.0) 47.5 % (39.0-53.0) Mean Corpuscular Volume 100 fL (79-100) 99 fL (79-100) Mean Corpuscular Hemoglobin 34 pg (25-35) 34 pg (25-35) Mean Corpuscular Hemoglobin Concent 34 g/dL (31-37) 34 g/dL (31-37) Red Cell Distribution Width 15.0 % (11.5-14.5) 15.0 % (11.5-14.5) Platelet Count 93 x10^3/uL (140-400) 84 x10^3/uL (140-400) Neutrophils (%) (Auto) 72 % (31-73) 60 % (31-73) Lymphocytes (%) (Auto) 20 % (24-48) 28 % (24-48) Monocytes (%) (Auto) 4 % (0-9) 7 % (0-9) Eosinophils (%) (Auto) 4 % (0-3) 4 % (0-3) Basophils (%) (Auto) 0 % (0-3) 0 % (0-3) Neutrophils # (Auto) 5.5 x10^3uL (1.8-7.7) 3.5 x10^3uL (1.8-7.7) Lymphocytes # (Auto) 1.5 x10^3/uL (1.0-4.8) 1.6 x10^3/uL (1.0-4.8) Monocytes # (Auto) 0.3 x10^3/uL (0.0-1.1) 0.4 x10^3/uL (0.0-1.1) Eosinophils # (Auto) 0.3 x10^3/uL (0.0-0.7) 0.2 x10^3/uL (0.0-0.7) Basophils # (Auto) 0.0 x10^3/uL (0.0-0.2) 0.0 x10^3/uL (0.0-0.2) Sodium Level 146 mmol/L (136-145) 150 mmol/L (136-145) Potassium Level 4.2 mmol/L (3.5-5.1) 3.2 mmol/L (3.5-5.1) Chloride Level 107 mmol/L (98-107) 112 mmol/L (98-107) Carbon Dioxide Level 34 mmol/L (21-32) 32 mmol/L (21-32) Anion Gap 5 (6-14) 6 (6-14) Blood Urea Nitrogen 24 mg/dL (8-26) 23 mg/dL (8-26) Creatinine 0.8 mg/dL (0.7-1.3) 0.7 mg/dL (0.7-1.3) Estimated GFR (Cockcroft-Gault) 95.8 111.8 BUN/Creatinine Ratio 30 (6-20) Glucose Level 176 mg/dL (70-99) 84 mg/dL (70-99) Calcium Level 8.5 mg/dL (8.5-10.1) 8.2 mg/dL (8.5-10.1) Total Bilirubin 0.7 mg/dL (0.2-1.0) Aspartate Amino Transf (AST/SGOT) 28 U/L (15-37) Alanine Aminotransferase (ALT/SGPT) 31 U/L (16-63) Alkaline Phosphatase 72 U/L (46-116) Troponin I Quantitative < 0.017 ng/mL (0.000-0.055) C-Reactive Protein, Quantitative 14.8 mg/L (0-3.3) [id number]-Type Natriuretic Peptide 2193 pg/mL (0-124) Total Protein 6.4 g/dL (6.4-8.2) Albumin 2.8 g/dL (3.4-5.0) Albumin/Globulin Ratio 0.8 (1.0-1.7) O2 Saturation 98 % (92-99) Arterial Blood pH 7.43 (7.35-7.45) Arterial Blood pCO2 at Patient Temp 43 mmHg (35-46) Arterial Blood pO2 at Patient Temp 138 mmHg (65-108) Arterial Blood HCO3 28 mmol/L (21-28) Arterial Blood Base Excess 4 mmol/L (-3-3) FiO2 100 Nasal Screen MRSA (PCR) Negative (Negative) Test 12/02/17 01:35 12/02/17 05:30 Lactic Acid Level 0.7 mmol/L (0.4-2.0) White Blood Count 4.1 x10^3/uL (4.0-11.0) Red Blood Count 4.61 x10^6/uL (4.30-5.70) Hemoglobin 15.5 g/dL (13.0-17.5) Hematocrit 45.8 % (39.0-53.0) Mean Corpuscular Volume 99 fL (79-100) Mean Corpuscular Hemoglobin 34 pg (25-35) Mean Corpuscular Hemoglobin Concent 34 g/dL (31-37) Red Cell Distribution Width 14.8 % (11.5-14.5) Platelet Count 80 x10^3/uL (140-400) Neutrophils (%) (Auto) 57 % (31-73) Lymphocytes (%) (Auto) 23 % (24-48) Monocytes (%) (Auto) 9 % (0-9) Eosinophils (%) (Auto) 12 % (0-3) Basophils (%) (Auto) 0 % (0-3) Neutrophils # (Auto) 2.3 x10^3uL (1.8-7.7) Lymphocytes # (Auto) 0.9 x10^3/uL (1.0-4.8) Monocytes # (Auto) 0.4 x10^3/uL (0.0-1.1) Eosinophils # (Auto) 0.5 x10^3/uL (0.0-0.7) Basophils # (Auto) 0.0 x10^3/uL (0.0-0.2) Sodium Level 146 mmol/L (136-145) Potassium Level 3.7 mmol/L (3.5-5.1) Chloride Level 111 mmol/L (98-107) Carbon Dioxide Level 32 mmol/L (21-32) Anion Gap 3 (6-14) Blood Urea Nitrogen 25 mg/dL (8-26) Creatinine 0.6 mg/dL (0.7-1.3) Estimated GFR (Cockcroft-Gault) 133.6 BUN/Creatinine Ratio 42 (6-20) Glucose Level 145 mg/dL (70-99) Calcium Level 8.2 mg/dL (8.5-10.1) Total Bilirubin 0.7 mg/dL (0.2-1.0) Aspartate Amino Transf (AST/SGOT) 22 U/L (15-37) Alanine Aminotransferase (ALT/SGPT) 27 U/L (16-63) Alkaline Phosphatase 57 U/L (46-116) Total Protein 5.5 g/dL (6.4-8.2) Albumin 2.5 g/dL (3.4-5.0) Albumin/Globulin Ratio 0.8 (1.0-1.7) Vancomycin Level Trough 19.0 mcg/mL (10.0-20.0) Vancomycin Last Dose Date 12/01/17 Vancomycin Last Dose Time 1800 Laboratory Tests Test 12/02/17 01:35 12/02/17 05:30 Lactic Acid Level 0.7 mmol/L (0.4-2.0) White Blood Count 4.1 x10^3/uL (4.0-11.0) Red Blood Count 4.61 x10^6/uL (4.30-5.70) Hemoglobin 15.5 g/dL (13.0-17.5) Hematocrit 45.8 % (39.0-53.0) Mean Corpuscular Volume 99 fL (79-100) Mean Corpuscular Hemoglobin 34 pg (25-35) Mean Corpuscular Hemoglobin Concent 34 g/dL (31-37) Red Cell Distribution Width 14.8 % (11.5-14.5) Platelet Count 80 x10^3/uL (140-400) Neutrophils (%) (Auto) 57 % (31-73) Lymphocytes (%) (Auto) 23 % (24-48) Monocytes (%) (Auto) 9 % (0-9) Eosinophils (%) (Auto) 12 % (0-3) Basophils (%) (Auto) 0 % (0-3) Neutrophils # (Auto) 2.3 x10^3uL (1.8-7.7) Lymphocytes # (Auto) 0.9 x10^3/uL (1.0-4.8) Monocytes # (Auto) 0.4 x10^3/uL (0.0-1.1) Eosinophils # (Auto) 0.5 x10^3/uL (0.0-0.7) Basophils # (Auto) 0.0 x10^3/uL (0.0-0.2) Sodium Level 146 mmol/L (136-145) Potassium Level 3.7 mmol/L (3.5-5.1) Chloride Level 111 mmol/L (98-107) Carbon Dioxide Level 32 mmol/L (21-32) Anion Gap 3 (6-14) Blood Urea Nitrogen 25 mg/dL (8-26) Creatinine 0.6 mg/dL (0.7-1.3) Estimated GFR (Cockcroft-Gault) 133.6 BUN/Creatinine Ratio 42 (6-20) Glucose Level 145 mg/dL (70-99) Calcium Level 8.2 mg/dL (8.5-10.1) Total Bilirubin 0.7 mg/dL (0.2-1.0) Aspartate Amino Transf (AST/SGOT) 22 U/L (15-37) Alanine Aminotransferase (ALT/SGPT) 27 U/L (16-63) Alkaline Phosphatase 57 U/L (46-116) Total Protein 5.5 g/dL (6.4-8.2) Albumin 2.5 g/dL (3.4-5.0) Albumin/Globulin Ratio 0.8 (1.0-1.7) Vancomycin Level Trough 19.0 mcg/mL (10.0-20.0) Vancomycin Last Dose Date 12/01/17 Vancomycin Last Dose Time 1800 Medications Active Scripts Medications Dose Route/Sig Max Daily Dose Days Date Category Dose Instructions Atropine Sulfate 2 Ml Drops 2 Ml SL PRN Q4HRS PRN 11/30/17 Reported Duoneb 0.5-3(2.5) Mg/3 Ml (Albuterol/Ipratropium) 3 Ml Ampul.neb 3 Ml NEB QID 09/21/16 Reported Depakote Er (Divalproex Sodium) 500 Mg Tab.er.24h 1 Tab PEG BID 09/21/16 Reported Cyanocobalamin Injection (Cyanocobalamin (Vitamin B-12)) 1,000 Mcg/1 Ml Vial 1 Ml IM QMONTH 09/21/16 Reported Celexa (Citalopram Hydrobromide) 20 Mg Tablet 1 Tab PEG QODAY 09/21/16 Reported Budesonide 0.5 Mg/2 Ml Ampul.neb 1 Vial NEB BID 09/21/16 Reported Benztropine Mesylate 1 Mg Tablet 1 Mg PEG HS 09/21/16 Reported Polyvinyl Alcohol 15 Ml Drops 15 Ml OP PRN Q8HRS 09/21/16 Reported Instill 1 drop in both eyes every 8 hours as needed for dryness Acetaminophen 500 Mg Tablet 650 Mg PEG PRN Q6HRS 09/21/16 Reported Impression . 1. Acute hypoxic respiratory failure secondary to tracheobronchitis/suspected gram-negative and gram-positive healthcare-associated pneumonia. 2. Fever secondary to pneumonia and tracheobronchitis. 3. Hypernatremia, likely related to dehydration. 5. Thrombocytopenia related to an infectious etiology. 6. Underlying Parkinson's with chronic dementia. Plan . 1. Discussed with RN. We will follow blood cultures. We will also obtain trach secretions for culture and sensitivity. 2. Continue broad-spectrum antibiotics. Follow the culture results. 3. Continue nebulizer treatment. 4. P.r.n. suction every hour. 5. Follow sodium level. 6. Hydration. 7. Discussed with RN and we will follow along with you. VICKIE CASTRO MD Dec 02, 2017 11:38
[2017-12-02] MEDS ORDERED: ENOXAPARIN 40 MG/0.4 ML SYRINGE. SQ SCH (11:45)
--- NOTE | 2017-12-02 14:29 | RAD ---
Portable chest, 12/02/2017: HISTORY: Pneumonia Comparison is made to a study from 11/30/2017. The tracheostomy tube remains in place. There is chronic elevation of the right hemidiaphragm. The heart is enlarged. There is tortuosity of the thoracic aorta. There are mild ongoing streaky left perihilar opacities compatible with pneumonitis and/or atelectasis. These are unchanged. There is mild right basilar atelectasis related to the elevated hemidiaphragm. No new pulmonary abnormality is seen. No definite pleural fluid is delineated. IMPRESSION: No significant change since 11/30/2017. Electronically signed by: Ady Hernandez MD (12/02/2017 2:26 PM) [facility]
--- NOTE | 2017-12-02 14:56 | PDOC2 ---
PALLIATIVE CARE Palliative Care Note Palliative Care Spoke with Rosa Isela, enrico per phone. Updated on medical condition: Respiratory Failure; pneumonia treated with antibiotics. Discussed goals. Rosa Isela wants to continue all aggressive care including Full Code. Informed [facility] tried to call. Also PC has been trying to reach her. Will continue update Plan: Full Code Full Aggressive Care MARY FRANCES Dec 02, 2017 14:56
[2017-12-02 15:00] VITALS: BP 133/85
[2017-12-02] MEDS ORDERED: ACETAMINOPHEN 500 MG TABLET PO SCH (17:30)
[2017-12-02] MEDS ORDERED: POLYVINYL ALCOHOL 1.4% OPHTH SOLUTION 15ML BOTTLE. OU PRN (17:30)
[2017-12-02 19:00] VITALS: BP 155/97
[2017-12-02] MEDS: CITALOPRAM 20 MG TABLET. PEG SCH (19:11)
[2017-12-02] MEDS ORDERED: ATROPINE 1% OPHTH SOLUTION 5ML BOTTLE. SL PRN (20:00)
[2017-12-02] MEDS: ENOXAPARIN 40 MG/0.4 ML SYRINGE. SQ SCH (20:12)
[2017-12-02] MEDS ORDERED: CYAN100072 PO (20:15)
[2017-12-02] MEDS ORDERED: DIVA125C PO (20:15)
[2017-12-02] MEDS: BUDESONIDE 0.5 MG/2 ML NEBU. NEB SCH (20:45)
[2017-12-02] MEDS: BENZTROPINE MESYLATE 1 MG TABLET. PEG SCH (21:51)
[2017-12-02] MEDS: DIVALPROEX SPRINKLES 125 MG CAPSULE. PO SCH (21:51)
[2017-12-02 22:34] VITALS: BP 128/81
[2017-12-03 02:47] VITALS: BP 118/83
[2017-12-03] MEDS: IV DEXTROSE 5 %-0.45 % NACL 1,000 ML IV SCH ×2 (04:04→17:41)
[2017-12-03] MEDS: PIPERACILLIN/TAZOBACTAM 4.5 GM in IV NORMAL SALINE 100ML 100 ML IV SCH ×4 (05:15→23:39)
[2017-12-03 05:50] LABS: BASO % 0 % (0-3); EOS # 0.4 x10^3/uL (0.0-0.7); EOS % 9 % (0-3); HEMATOCRIT 41.5 % (39.0-53.0); HEMOGLOBIN 13.9 g/dL (13.0-17.5); LYMPH # 1.4 x10^3/uL (1.0-4.8); LYMPH % 33 % (24-48); MEAN CORPUSCULAR HEMOGLOBIN 33 pg (25-35); MEAN CORPUSCULAR HGB CONC 34 g/dL (31-37); MEAN CORPUSCULAR VOLUME 99 fL (79-100); MONO # 0.3 x10^3/uL (0.0-1.1); MONO % 7 % (0-9); NEUT # 2.2 x10^3uL (1.8-7.7); NEUT % 51 % (31-73); PLATELET COUNT 80 x10^3/uL (140-400); RED BLOOD COUNT 4.18 x10^6/uL (4.30-5.70); RED CELL DISTRIBUTION WIDTH 14.8 % (11.5-14.5); WHITE BLOOD COUNT 4.4 x10^3/uL (4.0-11.0)
[2017-12-03] MEDS: VANCOMYCIN 1.25 GM in IV NORMAL SALINE 250ML 250 ML IV SCH (06:12)
[2017-12-03 06:15] LABS: CALCIUM 7.6 mg/dL (8.5-10.1); CREATININE 0.6 mg/dL (0.7-1.3); GFR 133.6; POTASSIUM 3.1 mmol/L (3.5-5.1)
[2017-12-03 07:00] VITALS: BP 124/70
[2017-12-03] MEDS: BUDESONIDE 0.5 MG/2 ML NEBU. NEB SCH ×2 (07:30→19:56)
[2017-12-03] MEDS: IPRATRPIUM/ALBUTEROL 0.5/2.5MG 3 ML NEBU. NEB SCH ×4 (07:32→19:57)
[2017-12-03] MEDS: ACETAMINOPHEN 325 MG TABLET. PO PRN (08:14)
[2017-12-03] MEDS: DIVALPROEX SPRINKLES 125 MG CAPSULE. PO SCH ×2 (08:19→21:36)
--- NOTE | 2017-12-03 10:39 | PDOC ---
PROGRESS NOTES Chief Complaint Chief Complaint acute on chronic resp failure with trach and on trach collar now with 40% O2 possible HAP chronic dementia , encephalopathy h/o stroke parkinson dz Pafib dysphagia with encephalopathy with chronic PEG mild malnutrition FC h/o seizure chronic foot drop and leg edema secondary to immobility. History of Present Illness History of Present Illness Wakes to me while inspecting his PEG tube No redness around the PEG, tube feeds running fine Lots of secretions on anterior chest, even without auscultating On HAP Coverage Plan: Trial of scopolamine patch Continue tube feeds Supportive care Family wishes full code I did not order PT OT-I think he is chronically bedbound as evidenced by chronic foot drop and leg edema Suction prn actively Vitals Vitals Vital Signs Date Time Temp Pulse Resp B/P (MAP) Pulse Ox O2 Delivery O2 Flow Rate FiO2 12/03/17 07:32 96 Tracheal Collar 10.0 12/03/17 07:00 99.0 83 20 124/70 (88) 99.0 Physical Exam Physical Exam GEN.: RESPONSIVE , somnolent HEENT: Head is normocephalic, atraumatic NECK: trach, connected to trach collar at 40% o2. LUNGS: bl mild rhonchi, no wheezing HEART: RRR, S1, S2 present. Peripheral pulses intact ABDOMEN: Soft, nontender. decreased bowel sounds. has PEG, mild distended. EXTREMITIES: Without any cyanosis. left leg venous stasis dermatitis. no edema General: mild distress Heart: Regular rate, Normal S1, Normal S2 Lungs: Crackles, Other (few rhonchi) Abdomen: Normal bowel sounds, Soft Extremities: Other (chronic leg edema, chronic bilateral foot drop, pale skin) Labs LABS Laboratory Tests Test 12/03/17 03:25 White Blood Count 4.4 x10^3/uL (4.0-11.0) Red Blood Count 4.18 x10^6/uL (4.30-5.70) Hemoglobin 13.9 g/dL (13.0-17.5) Hematocrit 41.5 % (39.0-53.0) Mean Corpuscular Volume 99 fL (79-100) Mean Corpuscular Hemoglobin 33 pg (25-35) Mean Corpuscular Hemoglobin Concent 34 g/dL (31-37) Red Cell Distribution Width 14.8 % (11.5-14.5) Platelet Count 80 x10^3/uL (140-400) Neutrophils (%) (Auto) 51 % (31-73) Lymphocytes (%) (Auto) 33 % (24-48) Monocytes (%) (Auto) 7 % (0-9) Eosinophils (%) (Auto) 9 % (0-3) Basophils (%) (Auto) 0 % (0-3) Neutrophils # (Auto) 2.2 x10^3uL (1.8-7.7) Lymphocytes # (Auto) 1.4 x10^3/uL (1.0-4.8) Monocytes # (Auto) 0.3 x10^3/uL (0.0-1.1) Eosinophils # (Auto) 0.4 x10^3/uL (0.0-0.7) Basophils # (Auto) 0.0 x10^3/uL (0.0-0.2) Sodium Level 147 mmol/L (136-145) Potassium Level 3.1 mmol/L (3.5-5.1) Chloride Level 110 mmol/L (98-107) Carbon Dioxide Level 32 mmol/L (21-32) Anion Gap 5 (6-14) Blood Urea Nitrogen 16 mg/dL (8-26) Creatinine 0.6 mg/dL (0.7-1.3) Estimated GFR (Cockcroft-Gault) 133.6 Glucose Level 85 mg/dL (70-99) Calcium Level 7.6 mg/dL (8.5-10.1) Review of Systems Review of Systems Trach, PEG, limited ROS Assessment and Plan Assessmemt and Plan Problems Medical Problems: (1) Acute respiratory failure Status: Acute (2) Acute tracheitis Status: Acute Comment Review of Relevant I have reviewed the following items maulik (where applicable) has been applied. Labs Laboratory Tests Test 12/02/17 01:35 12/02/17 05:30 12/03/17 03:25 Lactic Acid Level 0.7 mmol/L (0.4-2.0) White Blood Count 4.1 x10^3/uL (4.0-11.0) 4.4 x10^3/uL (4.0-11.0) Red Blood Count 4.61 x10^6/uL (4.30-5.70) 4.18 x10^6/uL (4.30-5.70) Hemoglobin 15.5 g/dL (13.0-17.5) 13.9 g/dL (13.0-17.5) Hematocrit 45.8 % (39.0-53.0) 41.5 % (39.0-53.0) Mean Corpuscular Volume 99 fL (79-100) 99 fL (79-100) Mean Corpuscular Hemoglobin 34 pg (25-35) 33 pg (25-35) Mean Corpuscular Hemoglobin Concent 34 g/dL (31-37) 34 g/dL (31-37) Red Cell Distribution Width 14.8 % (11.5-14.5) 14.8 % (11.5-14.5) Platelet Count 80 x10^3/uL (140-400) 80 x10^3/uL (140-400) Neutrophils (%) (Auto) 57 % (31-73) 51 % (31-73) Lymphocytes (%) (Auto) 23 % (24-48) 33 % (24-48) Monocytes (%) (Auto) 9 % (0-9) 7 % (0-9) Eosinophils (%) (Auto) 12 % (0-3) 9 % (0-3) Basophils (%) (Auto) 0 % (0-3) 0 % (0-3) Neutrophils # (Auto) 2.3 x10^3uL (1.8-7.7) 2.2 x10^3uL (1.8-7.7) Lymphocytes # (Auto) 0.9 x10^3/uL (1.0-4.8) 1.4 x10^3/uL (1.0-4.8) Monocytes # (Auto) 0.4 x10^3/uL (0.0-1.1) 0.3 x10^3/uL (0.0-1.1) Eosinophils # (Auto) 0.5 x10^3/uL (0.0-0.7) 0.4 x10^3/uL (0.0-0.7) Basophils # (Auto) 0.0 x10^3/uL (0.0-0.2) 0.0 x10^3/uL (0.0-0.2) Sodium Level 146 mmol/L (136-145) 147 mmol/L (136-145) Potassium Level 3.7 mmol/L (3.5-5.1) 3.1 mmol/L (3.5-5.1) Chloride Level 111 mmol/L (98-107) 110 mmol/L (98-107) Carbon Dioxide Level 32 mmol/L (21-32) 32 mmol/L (21-32) Anion Gap 3 (6-14) 5 (6-14) Blood Urea Nitrogen 25 mg/dL (8-26) 16 mg/dL (8-26) Creatinine 0.6 mg/dL (0.7-1.3) 0.6 mg/dL (0.7-1.3) Estimated GFR (Cockcroft-Gault) 133.6 133.6 BUN/Creatinine Ratio 42 (6-20) Glucose Level 145 mg/dL (70-99) 85 mg/dL (70-99) Calcium Level 8.2 mg/dL (8.5-10.1) 7.6 mg/dL (8.5-10.1) Total Bilirubin 0.7 mg/dL (0.2-1.0) Aspartate Amino Transf (AST/SGOT) 22 U/L (15-37) Alanine Aminotransferase (ALT/SGPT) 27 U/L (16-63) Alkaline Phosphatase 57 U/L (46-116) Total Protein 5.5 g/dL (6.4-8.2) Albumin 2.5 g/dL (3.4-5.0) Albumin/Globulin Ratio 0.8 (1.0-1.7) Vancomycin Level Trough 19.0 mcg/mL (10.0-20.0) Vancomycin Last Dose Date 12/01/17 Vancomycin Last Dose Time 1800 Laboratory Tests Test 12/03/17 03:25 White Blood Count 4.4 x10^3/uL (4.0-11.0) Red Blood Count 4.18 x10^6/uL (4.30-5.70) Hemoglobin 13.9 g/dL (13.0-17.5) Hematocrit 41.5 % (39.0-53.0) Mean Corpuscular Volume 99 fL (79-100) Mean Corpuscular Hemoglobin 33 pg (25-35) Mean Corpuscular Hemoglobin Concent 34 g/dL (31-37) Red Cell Distribution Width 14.8 % (11.5-14.5) Platelet Count 80 x10^3/uL (140-400) Neutrophils (%) (Auto) 51 % (31-73) Lymphocytes (%) (Auto) 33 % (24-48) Monocytes (%) (Auto) 7 % (0-9) Eosinophils (%) (Auto) 9 % (0-3) Basophils (%) (Auto) 0 % (0-3) Neutrophils # (Auto) 2.2 x10^3uL (1.8-7.7) Lymphocytes # (Auto) 1.4 x10^3/uL (1.0-4.8) Monocytes # (Auto) 0.3 x10^3/uL (0.0-1.1) Eosinophils # (Auto) 0.4 x10^3/uL (0.0-0.7) Basophils # (Auto) 0.0 x10^3/uL (0.0-0.2) Sodium Level 147 mmol/L (136-145) Potassium Level 3.1 mmol/L (3.5-5.1) Chloride Level 110 mmol/L (98-107) Carbon Dioxide Level 32 mmol/L (21-32) Anion Gap 5 (6-14) Blood Urea Nitrogen 16 mg/dL (8-26) Creatinine 0.6 mg/dL (0.7-1.3) Estimated GFR (Cockcroft-Gault) 133.6 Glucose Level 85 mg/dL (70-99) Calcium Level 7.6 mg/dL (8.5-10.1) Microbiology 12/02/17 Blood Culture - Preliminary, Resulted NO GROWTH AFTER 1 DAY 12/01/17 - Final, Resulted 12/01/17 - Final, Resulted 12/01/17 - Final, Resulted 12/01/17 - Final, Resulted 12/01/17 Gram Stain Evaluation - Final, Resulted 12/01/17 Sputum Culture - Preliminary, Resulted 12/01/17 Sputum Result 1 - Final, Resulted 12/01/17 Sputum Result 2 - Final, Resulted 12/01/17 - Final, Resulted Medications Current Medications Furosemide (Lasix) 40 mg 1X ONCE IVP Last administered on 11/30/17at 14:39; Start 11/30/17 at 14:45; Stop 11/30/17 at 14:46; Status DC Furosemide (Lasix) 40 mg 1X ONCE IVP ; Start 11/30/17 at 14:45; Stop 11/30/17 at 14:46; Status DC Vancomycin HCl 250 ml @ 250 mls/hr 1X ONCE IV Last administered on 11/30/17at 14:48; Start 11/30/17 at 15:00; Stop 11/30/17 at 15:59; Status DC Acetaminophen (Tylenol) 650 mg PRN Q6HRS PRN PO FEVER Last administered on 12/03at 08:14; Start 11/30/17 at 15:15 Ondansetron HCl (Zofran) 4 mg PRN Q6HRS PRN IV NAUSEA/VOMITING; Start 11/30/17 at 15:15 Hydralazine HCl (Apresoline Inj) 10 mg PRN Q4HRS PRN IVP ELEVATED BP, SEE COMMENTS Last administered on 11/30/17at 18:15; Start 11/30/17 at 15:15 Docusate Sodium (Colace) 100 mg PRN DAILY PRN PO CONSTIPATION; Start 11/30/17 at 15:15 Vancomycin HCl (Vanco Per Pharmacy) 1 each PRN DAILY PRN MC SEE COMMENTS Last administered on 12/02/17at 06:31; Start 11/30/17 at 15:15 Vancomycin HCl 2 gm/Sodium Chloride 500 ml @ 250 mls/hr Q12H IV ; Start at 15:15; Stop 11/30/17 at 15:15; Status DC Piperacillin Sod/ Tazobactam Sod 4.5 gm/Sodium Chloride 100 ml @ 200 mls/hr Q6HRS IV Last administered on 12/03/17at 05:15; Start 11/30/17 at 18:00 Piperacillin Sod/ Tazobactam Sod (Zosyn Per Pharmacy) 1 each PRN DAILY PRN MC SEE COMMENTS; Start 11/30/17 at 15:15 Albuterol Sulfate (Ventolin Neb Soln) 2.5 mg PRN Q4HRS PRN NEB SHORTNESS OF BREATH; Start 11/30/17 at 15:15 Albuterol/ Ipratropium (Duoneb) 3 ml RTQID NEB Last administered on 12/03/17at 07:32; Start 11/30/17 at 16:00 Enoxaparin Sodium (Lovenox 40mg Syringe) 40 mg Q24H SQ Last administered on 12/02at 20:12; Start 11/30/17 at 21:00 Vancomycin HCl 2 gm/Sodium Chloride 500 ml @ 250 mls/hr 1X ONCE IV ; Start 11/30/17 at 15:45; Stop 11/30/17 at 17:44; Status Cancel Vancomycin HCl 250 ml @ 250 mls/hr 1X ONCE IV Last administered on 11/30/17at 17:56; Start 11/30/17 at 15:45; Stop 11/30/17 at 16:44; Status DC Sodium Chloride 1,000 ml @ 125 mls/hr Q8H IV Last administered on 12/01/17at 08: 39; Start 11/30/17 at 16:39; Stop 12/01/17 at 16:38; Status DC Vancomycin HCl 1.25 gm/Sodium Chloride 250 ml @ 167 mls/hr Q12H IV Last administered on 12/03/17at 06:12; Start 12/01/17 at 06:00 Vancomycin HCl (Vancomycin Trough Level) 1 each 1X ONCE MC Last administered on 12/02/17at 05:30; Start 12/02/17 at 05:30; Stop 12/02/17 at 05:31; Status DC Potassium Chloride/Water 100 ml @ 100 mls/hr Q1H IV Last administered on at 20:01; Start 12/01/17 at 15:00; Stop 12/01/17 at 18:59; Status DC Dextrose/Sodium Chloride 1,000 ml @ 75 mls/hr [id number] IV Last administered on 12/03/17at 04:04; Start 12/01/17 at 14:00 Enoxaparin Sodium (Lovenox 40mg Syringe) 40 mg Q24H SQ ; Start 12/02/17 at 11:45 ; Status UNV Acetaminophen (Tylenol) 650 mg PRN Q6HRS PO ; Start 12/02/17 at 17:30; Status UNV Budesonide (Pulmicort) 0.5 mg RTBID NEB Last administered on 12/03/17at 07:30; Start 12/02/17 at 20:00 Citalopram Hydrobromide (CeleXA) 20 mg QODAY PEG Last administered on 12/02/17at 19:11; Start 12/02/17 at 18:00 Cyanocobalamin (Vitamin B-12) 1,000 mcg QMONTH PO ; Start 12/22/17 at 09:00 Divalproex Sodium (Depakote Sprinkles) 500 mg BID PO Last administered on at 08:19; Start 12/02/17 at 21:00 Albuterol/ Ipratropium (Duoneb) 3 ml RTQID NEB ; Start 12/02/17 at 20:00 Artificial Tears (Artificial Tears) 1 drop PRN Q8HRS PRN OU DRY EYE; Start 12/02 at 17:30 Atropine Sulfate (Isopto Atropine) 1 drop PRN Q4HRS PRN SL SECRESTION; Start at 20:00 Benztropine Mesylate (Cogentin) 1 mg QHS PEG Last administered on 12/02/17at 21: 51; Start 12/02/17 at 21:00 Active Scripts Active Reported Depakote Sprinkle (Divalproex Sodium) 125 Mg Cap.sprink 500 Mg PO BID B-12 (Cyanocobalamin (Vitamin B-12)) 1,000 Mcg Tablet 1,000 Mcg PO QMONTH Atropine Sulfate 2 Ml Drops 2 Ml SL PRN Q4HRS PRN Duoneb 0.5-3(2.5) Mg/3 Ml (Albuterol/Ipratropium) 3 Ml Ampul.neb 3 Ml NEB QID Celexa (Citalopram Hydrobromide) 20 Mg Tablet 1 Tab PEG QODAY Budesonide 0.5 Mg/2 Ml Ampul.neb 1 Vial NEB BID Benztropine Mesylate 1 Mg Tablet 1 Mg PEG HS Polyvinyl Alcohol 15 Ml Drops 15 Ml OP PRN Q8HRS Instill 1 drop in both eyes every 8 hours as needed for dryness Acetaminophen 500 Mg Tablet 650 Mg PEG PRN Q6HRS Vitals/I & O Vital Sign - Last 24 Hours 12/02/17 12/02/17 12/02/17 12/02/17 11:00 11:37 15:00 15:50 Temp 97.9 99.1 97.9 99.1 Pulse 91 88 Resp 20 20 B/P (MAP) 143/97 (112) 133/85 (101) Pulse Ox 98 98 97 98 O2 Delivery Tracheal Collar Tracheal Collar Tracheal Collar Tracheal Collar O2 Flow Rate 14.0 10.0 14.0 10.0 12/02/17 12/02/17 12/02/17 12/02/17 19:00 20:00 20:59 20:59 Temp 97.9 97.9 Pulse 96 Resp 18 B/P (MAP) 155/97 (116) Pulse Ox 96 95 95 O2 Delivery Tracheal Collar Trach Collar Tracheal Collar Tracheal Collar O2 Flow Rate 14.0 14.0 10.0 10.0 12/02/17 12/03/17 12/03/17 12/03/17 22:34 02:47 07:00 07:32 Temp 97.9 97.4 99.0 97.9 97.4 99.0 Pulse 86 83 83 Resp 18 18 20 B/P (MAP) 128/81 (97) 118/83 (95) 124/70 (88) Pulse Ox 96 94 97 96 O2 Delivery Tracheal Collar Tracheal Collar Tracheal Collar Tracheal Collar O2 Flow Rate 14.0 14.0 14.0 10.0 Intake and Output 12/02/17 12/02/17 12/03/17 15:00 23:00 07:00 Intake Total 1200 ml Balance 1200 ml Nutrition Consultation Dietary Evaluation: Comments: REC continue TF as ordered: Jevity 1.5 bolus feeds 237 ml 5 x day with 250 ml flush after each bolus. Expected Outcomes/Goals: wt maintainance Malnutrition Findings: Body Fat Depletion (Non Severe: Mild Depletion Weight Status: Appropriate KIRK KHOURY MD Dec 03, 2017 10:39
[2017-12-03] MEDS ORDERED: SCOPOLAMINE 1.5MG PATCH. TD ONE (10:45)
[2017-12-03 11:00] VITALS: BP 121/80
--- NOTE | 2017-12-03 12:33 | PDOC ---
PULMONARY PROGRESS NOTES Subjective NO CHANGE/ DECREASE TRACH SECRETIONS Vitals Vital Signs Date Time Temp Pulse Resp B/P (MAP) Pulse Ox O2 Delivery O2 Flow Rate FiO2 12/03/17 11:01 Tracheal Collar 10.0 12/03/17 11:00 98.2 83 18 121/80 (94) 98 98.2 General: No acute distress Lungs: Other (few rhonchi) Cardiovascular: S1, S2 Abdomen: Soft Extremities: Other Skin: Warm Labs Laboratory Tests Test 12/02/17 01:35 12/02/17 05:30 12/03/17 03:25 Lactic Acid Level 0.7 mmol/L (0.4-2.0) White Blood Count 4.1 x10^3/uL (4.0-11.0) 4.4 x10^3/uL (4.0-11.0) Red Blood Count 4.61 x10^6/uL (4.30-5.70) 4.18 x10^6/uL (4.30-5.70) Hemoglobin 15.5 g/dL (13.0-17.5) 13.9 g/dL (13.0-17.5) Hematocrit 45.8 % (39.0-53.0) 41.5 % (39.0-53.0) Mean Corpuscular Volume 99 fL (79-100) 99 fL (79-100) Mean Corpuscular Hemoglobin 34 pg (25-35) 33 pg (25-35) Mean Corpuscular Hemoglobin Concent 34 g/dL (31-37) 34 g/dL (31-37) Red Cell Distribution Width 14.8 % (11.5-14.5) 14.8 % (11.5-14.5) Platelet Count 80 x10^3/uL (140-400) 80 x10^3/uL (140-400) Neutrophils (%) (Auto) 57 % (31-73) 51 % (31-73) Lymphocytes (%) (Auto) 23 % (24-48) 33 % (24-48) Monocytes (%) (Auto) 9 % (0-9) 7 % (0-9) Eosinophils (%) (Auto) 12 % (0-3) 9 % (0-3) Basophils (%) (Auto) 0 % (0-3) 0 % (0-3) Neutrophils # (Auto) 2.3 x10^3uL (1.8-7.7) 2.2 x10^3uL (1.8-7.7) Lymphocytes # (Auto) 0.9 x10^3/uL (1.0-4.8) 1.4 x10^3/uL (1.0-4.8) Monocytes # (Auto) 0.4 x10^3/uL (0.0-1.1) 0.3 x10^3/uL (0.0-1.1) Eosinophils # (Auto) 0.5 x10^3/uL (0.0-0.7) 0.4 x10^3/uL (0.0-0.7) Basophils # (Auto) 0.0 x10^3/uL (0.0-0.2) 0.0 x10^3/uL (0.0-0.2) Sodium Level 146 mmol/L (136-145) 147 mmol/L (136-145) Potassium Level 3.7 mmol/L (3.5-5.1) 3.1 mmol/L (3.5-5.1) Chloride Level 111 mmol/L (98-107) 110 mmol/L (98-107) Carbon Dioxide Level 32 mmol/L (21-32) 32 mmol/L (21-32) Anion Gap 3 (6-14) 5 (6-14) Blood Urea Nitrogen 25 mg/dL (8-26) 16 mg/dL (8-26) Creatinine 0.6 mg/dL (0.7-1.3) 0.6 mg/dL (0.7-1.3) Estimated GFR (Cockcroft-Gault) 133.6 133.6 BUN/Creatinine Ratio 42 (6-20) Glucose Level 145 mg/dL (70-99) 85 mg/dL (70-99) Calcium Level 8.2 mg/dL (8.5-10.1) 7.6 mg/dL (8.5-10.1) Total Bilirubin 0.7 mg/dL (0.2-1.0) Aspartate Amino Transf (AST/SGOT) 22 U/L (15-37) Alanine Aminotransferase (ALT/SGPT) 27 U/L (16-63) Alkaline Phosphatase 57 U/L (46-116) Total Protein 5.5 g/dL (6.4-8.2) Albumin 2.5 g/dL (3.4-5.0) Albumin/Globulin Ratio 0.8 (1.0-1.7) Vancomycin Level Trough 19.0 mcg/mL (10.0-20.0) Vancomycin Last Dose Date 12/01/17 Vancomycin Last Dose Time 1800 Laboratory Tests Test 12/03/17 03:25 White Blood Count 4.4 x10^3/uL (4.0-11.0) Red Blood Count 4.18 x10^6/uL (4.30-5.70) Hemoglobin 13.9 g/dL (13.0-17.5) Hematocrit 41.5 % (39.0-53.0) Mean Corpuscular Volume 99 fL (79-100) Mean Corpuscular Hemoglobin 33 pg (25-35) Mean Corpuscular Hemoglobin Concent 34 g/dL (31-37) Red Cell Distribution Width 14.8 % (11.5-14.5) Platelet Count 80 x10^3/uL (140-400) Neutrophils (%) (Auto) 51 % (31-73) Lymphocytes (%) (Auto) 33 % (24-48) Monocytes (%) (Auto) 7 % (0-9) Eosinophils (%) (Auto) 9 % (0-3) Basophils (%) (Auto) 0 % (0-3) Neutrophils # (Auto) 2.2 x10^3uL (1.8-7.7) Lymphocytes # (Auto) 1.4 x10^3/uL (1.0-4.8) Monocytes # (Auto) 0.3 x10^3/uL (0.0-1.1) Eosinophils # (Auto) 0.4 x10^3/uL (0.0-0.7) Basophils # (Auto) 0.0 x10^3/uL (0.0-0.2) Sodium Level 147 mmol/L (136-145) Potassium Level 3.1 mmol/L (3.5-5.1) Chloride Level 110 mmol/L (98-107) Carbon Dioxide Level 32 mmol/L (21-32) Anion Gap 5 (6-14) Blood Urea Nitrogen 16 mg/dL (8-26) Creatinine 0.6 mg/dL (0.7-1.3) Estimated GFR (Cockcroft-Gault) 133.6 Glucose Level 85 mg/dL (70-99) Calcium Level 7.6 mg/dL (8.5-10.1) Medications Active Scripts Medications Dose Route/Sig Max Daily Dose Days Date Category Dose Instructions Atropine Sulfate 2 Ml Drops 2 Ml SL PRN Q4HRS PRN 11/30/17 Reported Duoneb 0.5-3(2.5) Mg/3 Ml (Albuterol/Ipratropium) 3 Ml Ampul.neb 3 Ml NEB QID 09/21/16 Reported Depakote Er (Divalproex Sodium) 500 Mg Tab.er.24h 1 Tab PEG BID 09/21/16 Reported Cyanocobalamin Injection (Cyanocobalamin (Vitamin B-12)) 1,000 Mcg/1 Ml Vial 1 Ml IM QMONTH 09/21/16 Reported Celexa (Citalopram Hydrobromide) 20 Mg Tablet 1 Tab PEG QODAY 09/21/16 Reported Budesonide 0.5 Mg/2 Ml Ampul.neb 1 Vial NEB BID 09/21/16 Reported Benztropine Mesylate 1 Mg Tablet 1 Mg PEG HS 09/21/16 Reported Polyvinyl Alcohol 15 Ml Drops 15 Ml OP PRN Q8HRS 09/21/16 Reported Instill 1 drop in both eyes every 8 hours as needed for dryness Acetaminophen 500 Mg Tablet 650 Mg PEG PRN Q6HRS 09/21/16 Reported Impression . 1. Acute hypoxic respiratory failure secondary to tracheobronchitis/suspected gram-negative and gram-positive healthcare-associated pneumonia. 2. Fever secondary to pneumonia and tracheobronchitis.IMPROVED 3. Hypernatremia, likely related to dehydration. 5. Thrombocytopenia related to an infectious etiology. 6. Underlying Parkinson's with chronic dementia. Plan . 1. Discussed with RN. We will follow blood cultures. Sputum with normal delfino 2. dc vanc. continue Zosyn for now 3. Continue nebulizer treatment. 4. P.r.n. suction 5. Follow sodium level. 6. Hydration. 7. Discussed with VICKIE SINGER MD Dec 03, 2017 12:33
[2017-12-03 15:00] VITALS: BP 126/79
[2017-12-03 19:50] VITALS: BP 121/73
[2017-12-03] MEDS: BENZTROPINE MESYLATE 1 MG TABLET. PEG SCH (21:36)
[2017-12-03] MEDS: ENOXAPARIN 40 MG/0.4 ML SYRINGE. SQ SCH (21:37)
[2017-12-03 22:56] VITALS: BP 111/77
[2017-12-04 03:40] VITALS: BP 130/80
[2017-12-04] MEDS: PIPERACILLIN/TAZOBACTAM 4.5 GM in IV NORMAL SALINE 100ML 100 ML IV SCH ×3 (05:29→17:58)
[2017-12-04 07:00] VITALS: BP 129/83
[2017-12-04] MEDS: IPRATRPIUM/ALBUTEROL 0.5/2.5MG 3 ML NEBU. NEB SCH ×4 (07:18→20:07)
[2017-12-04] MEDS: BUDESONIDE 0.5 MG/2 ML NEBU. NEB SCH ×2 (07:18→20:08)
--- NOTE | 2017-12-04 08:46 | PDOC ---
PULMONARY PROGRESS NOTES Subjective appears comfortable. TRACH SECRETIONS decreased. Vitals Vital Signs Date Time Temp Pulse Resp B/P (MAP) Pulse Ox O2 Delivery O2 Flow Rate FiO2 12/04/17 07:19 95 Tracheal Collar 10.0 12/04/17 07:00 97.4 78 20 129/83 (98) 97.4 General: No acute distress HEENT: Other (nc at perrl neck trach site ok) Lungs: Other (few rhonchi) Cardiovascular: S1, S2 Abdomen: Soft, Non-tender Extremities: Other Skin: Warm Labs Laboratory Tests Test 12/03/17 03:25 White Blood Count 4.4 x10^3/uL (4.0-11.0) Red Blood Count 4.18 x10^6/uL (4.30-5.70) Hemoglobin 13.9 g/dL (13.0-17.5) Hematocrit 41.5 % (39.0-53.0) Mean Corpuscular Volume 99 fL (79-100) Mean Corpuscular Hemoglobin 33 pg (25-35) Mean Corpuscular Hemoglobin Concent 34 g/dL (31-37) Red Cell Distribution Width 14.8 % (11.5-14.5) Platelet Count 80 x10^3/uL (140-400) Neutrophils (%) (Auto) 51 % (31-73) Lymphocytes (%) (Auto) 33 % (24-48) Monocytes (%) (Auto) 7 % (0-9) Eosinophils (%) (Auto) 9 % (0-3) Basophils (%) (Auto) 0 % (0-3) Neutrophils # (Auto) 2.2 x10^3uL (1.8-7.7) Lymphocytes # (Auto) 1.4 x10^3/uL (1.0-4.8) Monocytes # (Auto) 0.3 x10^3/uL (0.0-1.1) Eosinophils # (Auto) 0.4 x10^3/uL (0.0-0.7) Basophils # (Auto) 0.0 x10^3/uL (0.0-0.2) Sodium Level 147 mmol/L (136-145) Potassium Level 3.1 mmol/L (3.5-5.1) Chloride Level 110 mmol/L (98-107) Carbon Dioxide Level 32 mmol/L (21-32) Anion Gap 5 (6-14) Blood Urea Nitrogen 16 mg/dL (8-26) Creatinine 0.6 mg/dL (0.7-1.3) Estimated GFR (Cockcroft-Gault) 133.6 Glucose Level 85 mg/dL (70-99) Calcium Level 7.6 mg/dL (8.5-10.1) Medications Active Scripts Medications Dose Route/Sig Max Daily Dose Days Date Category Dose Instructions Atropine Sulfate 2 Ml Drops 2 Ml SL PRN Q4HRS PRN 11/30/17 Reported Duoneb 0.5-3(2.5) Mg/3 Ml (Albuterol/Ipratropium) 3 Ml Ampul.neb 3 Ml NEB QID 09/21/16 Reported Depakote Er (Divalproex Sodium) 500 Mg Tab.er.24h 1 Tab PEG BID 09/21/16 Reported Cyanocobalamin Injection (Cyanocobalamin (Vitamin B-12)) 1,000 Mcg/1 Ml Vial 1 Ml IM QMONTH 09/21/16 Reported Celexa (Citalopram Hydrobromide) 20 Mg Tablet 1 Tab PEG QODAY 09/21/16 Reported Budesonide 0.5 Mg/2 Ml Ampul.neb 1 Vial NEB BID 09/21/16 Reported Benztropine Mesylate 1 Mg Tablet 1 Mg PEG HS 09/21/16 Reported Polyvinyl Alcohol 15 Ml Drops 15 Ml OP PRN Q8HRS 09/21/16 Reported Instill 1 drop in both eyes every 8 hours as needed for dryness Acetaminophen 500 Mg Tablet 650 Mg PEG PRN Q6HRS 09/21/16 Reported Impression . 1. Acute hypoxic respiratory failure secondary to tracheobronchitis/suspected gram-negative and gram-positive healthcare-associated pneumonia. 2. Fever secondary to pneumonia and tracheobronchitis.IMPROVED 3. Hypernatremia, likely related to dehydration. improving 5. Thrombocytopenia related to an infectious etiology. 6. Underlying Parkinson's with chronic dementia. Plan . 1. Discussed with RN. blood cultures, neg. Sputum with normal delfino 2. continue Zosyn for now 3. Continue nebulizer treatment. 4. P.r.n. suction 5. Follow sodium level. 6. bronchodilators 7. elevate hob 8. dvt prophylaxis Discussed with SOFI MURCIA MD Dec 04, 2017 08:46
[2017-12-04] MEDS: IV DEXTROSE 5 %-0.45 % NACL 1,000 ML IV SCH ×2 (09:27→22:23)
[2017-12-04] MEDS: CITALOPRAM 20 MG TABLET. PEG SCH (09:30)
[2017-12-04] MEDS: DIVALPROEX SPRINKLES 125 MG CAPSULE. PO SCH ×2 (09:31→22:22)
[2017-12-04 11:00] VITALS: BP 133/75
--- NOTE | 2017-12-04 13:34 | PDOC ---
PROGRESS NOTES Chief Complaint Chief Complaint acute on chronic resp failure with trach and on trach collar now with 40% O2 possible HAP chronic dementia , encephalopathy h/o stroke parkinson dz Pafib dysphagia with encephalopathy with chronic PEG mild malnutrition FC h/o seizure chronic foot drop and leg edema secondary to immobility. History of Present Illness History of Present Illness Wakes to me while inspecting his PEG tube not increased secretion maybe better w/ scopolamine patch Continue tube feeds Supportive care full code noted Vitals Vitals Vital Signs Date Time Temp Pulse Resp B/P (MAP) Pulse Ox O2 Delivery O2 Flow Rate FiO2 12/04/17 11:00 97.2 92 22 133/75 (94) 96 Room Air 97.2 12/04/17 10:55 10.0 Physical Exam Physical Exam GEN.: RESPONSIVE , somnolent HEENT: Head is normocephalic, atraumatic NECK: trach, connected to trach collar at 40% o2. LUNGS: bl mild rhonchi, no wheezing HEART: RRR, S1, S2 present. Peripheral pulses intact ABDOMEN: Soft, nontender. decreased bowel sounds. has PEG, mild distended. EXTREMITIES: Without any cyanosis. left leg venous stasis dermatitis. no edema General: mild distress Heart: Regular rate, Normal S1, Normal S2 Lungs: Other (few rhonchi) Abdomen: Normal bowel sounds, Soft Extremities: Other (chronic leg edema, chronic bilateral foot drop, pale skin) Assessment and Plan Assessmemt and Plan Problems Medical Problems: (1) Acute respiratory failure Status: Acute (2) Acute tracheitis Status: Acute Comment Review of Relevant I have reviewed the following items maulik (where applicable) has been applied. Labs Laboratory Tests Test 12/03/17 03:25 White Blood Count 4.4 x10^3/uL (4.0-11.0) Red Blood Count 4.18 x10^6/uL (4.30-5.70) Hemoglobin 13.9 g/dL (13.0-17.5) Hematocrit 41.5 % (39.0-53.0) Mean Corpuscular Volume 99 fL (79-100) Mean Corpuscular Hemoglobin 33 pg (25-35) Mean Corpuscular Hemoglobin Concent 34 g/dL (31-37) Red Cell Distribution Width 14.8 % (11.5-14.5) Platelet Count 80 x10^3/uL (140-400) Neutrophils (%) (Auto) 51 % (31-73) Lymphocytes (%) (Auto) 33 % (24-48) Monocytes (%) (Auto) 7 % (0-9) Eosinophils (%) (Auto) 9 % (0-3) Basophils (%) (Auto) 0 % (0-3) Neutrophils # (Auto) 2.2 x10^3uL (1.8-7.7) Lymphocytes # (Auto) 1.4 x10^3/uL (1.0-4.8) Monocytes # (Auto) 0.3 x10^3/uL (0.0-1.1) Eosinophils # (Auto) 0.4 x10^3/uL (0.0-0.7) Basophils # (Auto) 0.0 x10^3/uL (0.0-0.2) Sodium Level 147 mmol/L (136-145) Potassium Level 3.1 mmol/L (3.5-5.1) Chloride Level 110 mmol/L (98-107) Carbon Dioxide Level 32 mmol/L (21-32) Anion Gap 5 (6-14) Blood Urea Nitrogen 16 mg/dL (8-26) Creatinine 0.6 mg/dL (0.7-1.3) Estimated GFR (Cockcroft-Gault) 133.6 Glucose Level 85 mg/dL (70-99) Calcium Level 7.6 mg/dL (8.5-10.1) Microbiology 12/02/17 Blood Culture - Preliminary, Resulted NO GROWTH AFTER 2 DAYS 12/01/17 - Final, Resulted 12/01/17 - Final, Resulted 12/01/17 - Final, Resulted 12/01/17 - Final, Resulted 12/01/17 Gram Stain Evaluation - Final, Resulted 12/01/17 Sputum Culture - Preliminary, Resulted 12/01/17 Sputum Result 1 - Final, Resulted 12/01/17 Sputum Result 2 - Final, Resulted 12/01/17 - Final, Resulted Medications Current Medications Furosemide (Lasix) 40 mg 1X ONCE IVP Last administered on 11/30/17at 14:39; Start 11/30/17 at 14:45; Stop 11/30/17 at 14:46; Status DC Furosemide (Lasix) 40 mg 1X ONCE IVP ; Start 11/30/17 at 14:45; Stop 11/30/17 at 14:46; Status DC Vancomycin HCl 250 ml @ 250 mls/hr 1X ONCE IV Last administered on 11/30/17at 14:48; Start 11/30/17 at 15:00; Stop 11/30/17 at 15:59; Status DC Acetaminophen (Tylenol) 650 mg PRN Q6HRS PRN PO FEVER Last administered on 12/03at 08:14; Start 11/30/17 at 15:15 Ondansetron HCl (Zofran) 4 mg PRN Q6HRS PRN IV NAUSEA/VOMITING; Start 11/30/17 at 15:15 Hydralazine HCl (Apresoline Inj) 10 mg PRN Q4HRS PRN IVP ELEVATED BP, SEE COMMENTS Last administered on 11/30/17at 18:15; Start 11/30/17 at 15:15 Docusate Sodium (Colace) 100 mg PRN DAILY PRN PO CONSTIPATION; Start 11/30/17 at 15:15 Vancomycin HCl (Vanco Per Pharmacy) 1 each PRN DAILY PRN MC SEE COMMENTS Last administered on 12/02/17at 06:31; Start 11/30/17 at 15:15; Stop 12/03/17 at 12:34; Status DC Vancomycin HCl 2 gm/Sodium Chloride 500 ml @ 250 mls/hr Q12H IV ; Start at 15:15; Stop 11/30/17 at 15:15; Status DC Piperacillin Sod/ Tazobactam Sod 4.5 gm/Sodium Chloride 100 ml @ 200 mls/hr Q6HRS IV Last administered on 12/04/17at 12:27; Start 11/30/17 at 18:00 Piperacillin Sod/ Tazobactam Sod (Zosyn Per Pharmacy) 1 each PRN DAILY PRN MC SEE COMMENTS; Start 11/30/17 at 15:15 Albuterol Sulfate (Ventolin Neb Soln) 2.5 mg PRN Q4HRS PRN NEB SHORTNESS OF BREATH; Start 11/30/17 at 15:15 Albuterol/ Ipratropium (Duoneb) 3 ml RTQID NEB Last administered on 12/03/17at 11:01; Start 11/30/17 at 16:00; Stop 12/03/17 at 13:48; Status DC Enoxaparin Sodium (Lovenox 40mg Syringe) 40 mg Q24H SQ Last administered on 02/10at 21:37; Start 11/30/17 at 21:00 Vancomycin HCl 2 gm/Sodium Chloride 500 ml @ 250 mls/hr 1X ONCE IV ; Start 11/30/17 at 15:45; Stop 11/30/17 at 17:44; Status Cancel Vancomycin HCl 250 ml @ 250 mls/hr 1X ONCE IV Last administered on 11/30/17at 17:56; Start 11/30/17 at 15:45; Stop 11/30/17 at 16:44; Status DC Sodium Chloride 1,000 ml @ 125 mls/hr Q8H IV Last administered on 12/01/17at 08: 39; Start 11/30/17 at 16:39; Stop 12/01/17 at 16:38; Status DC Vancomycin HCl 1.25 gm/Sodium Chloride 250 ml @ 167 mls/hr Q12H IV Last administered on 12/03/17at 06:12; Start 12/01/17 at 06:00; Stop 12/03/17 at 12:32 ; Status DC Vancomycin HCl (Vancomycin Trough Level) 1 each 1X ONCE MC Last administered on 12/02/17at 05:30; Start 12/02/17 at 05:30; Stop 12/02/17 at 05:31; Status DC Potassium Chloride/Water 100 ml @ 100 mls/hr Q1H IV Last administered on at 20:01; Start 12/01/17 at 15:00; Stop 12/01/17 at 18:59; Status DC Dextrose/Sodium Chloride 1,000 ml @ 75 mls/hr [id number] IV Last administered on 12/04/17at 09:27; Start 12/01/17 at 14:00 Enoxaparin Sodium (Lovenox 40mg Syringe) 40 mg Q24H SQ ; Start 12/02/17 at 11:45 ; Status UNV Acetaminophen (Tylenol) 650 mg PRN Q6HRS PO ; Start 12/02/17 at 17:30; Status UNV Budesonide (Pulmicort) 0.5 mg RTBID NEB Last administered on 12/04/17at 07:18; Start 12/02/17 at 20:00 Citalopram Hydrobromide (CeleXA) 20 mg QODAY PEG Last administered on at 09:30; Start 12/02/17 at 18:00 Cyanocobalamin (Vitamin B-12) 1,000 mcg QMONTH PO ; Start 12/22/17 at 09:00 Divalproex Sodium (Depakote Sprinkles) 500 mg BID PO Last administered on at 09:31; Start 12/02/17 at 21:00 Albuterol/ Ipratropium (Duoneb) 3 ml RTQID NEB Last administered on 12/04/17at 10:53; Start 12/02/17 at 20:00 Artificial Tears (Artificial Tears) 1 drop PRN Q8HRS PRN OU DRY EYE; Start 12/02 at 17:30 Atropine Sulfate (Isopto Atropine) 1 drop PRN Q4HRS PRN SL SECRETIONS; Start at 20:00 Benztropine Mesylate (Cogentin) 1 mg QHS PEG Last administered on 12/03/17at 21: 36; Start 12/02/17 at 21:00 Scopolamine (Transderm-Scop) 1 patch 1X ONCE TD Last administered on at 11:36; Start 12/03/17 at 10:45; Stop 12/03/17 at 10:46; Status DC Scopolamine (Transderm-Scop) 1 patch Q3DAYS TD ; Start 12/06/17 at 09:00 Active Scripts Active Reported Depakote Sprinkle (Divalproex Sodium) 125 Mg Cap.sprink 500 Mg PO BID B-12 (Cyanocobalamin (Vitamin B-12)) 1,000 Mcg Tablet 1,000 Mcg PO QMONTH Atropine Sulfate 2 Ml Drops 2 Ml SL PRN Q4HRS PRN Duoneb 0.5-3(2.5) Mg/3 Ml (Albuterol/Ipratropium) 3 Ml Ampul.neb 3 Ml NEB QID Celexa (Citalopram Hydrobromide) 20 Mg Tablet 1 Tab PEG QODAY Budesonide 0.5 Mg/2 Ml Ampul.neb 1 Vial NEB BID Benztropine Mesylate 1 Mg Tablet 1 Mg PEG HS Polyvinyl Alcohol 15 Ml Drops 15 Ml OP PRN Q8HRS Instill 1 drop in both eyes every 8 hours as needed for dryness Acetaminophen 500 Mg Tablet 650 Mg PEG PRN Q6HRS Vitals/I & O Vital Sign - Last 24 Hours 12/03/17 12/03/17 12/03/17 12/03/17 15:00 15:04 19:50 19:58 Temp 99.3 97.9 99.3 97.9 Pulse 93 93 Resp 20 24 B/P (MAP) 126/79 (95) 121/73 (89) Pulse Ox 95 95 93 96 O2 Delivery Tracheal Collar Tracheal Collar Tracheal Collar Tracheal Collar O2 Flow Rate 14.0 10.0 10.0 12/03/17 12/03/17 12/04/17 12/04/17 20:00 22:56 03:40 07:00 Temp 97.7 97.0 97.4 97.7 97.0 97.4 Pulse 79 85 78 Resp 22 30 20 B/P (MAP) 111/77 (88) 130/80 (97) 129/83 (98) Pulse Ox 95 98 98 O2 Delivery Trach Collar Tracheal Collar Tracheal Collar Room Air O2 Flow Rate 10.0 12/04/17 12/04/17 12/04/17 12/04/17 07:19 08:00 10:55 11:00 Temp 97.2 97.2 Pulse 92 Resp 22 B/P (MAP) 133/75 (94) Pulse Ox 95 96 O2 Delivery Tracheal Collar Trach Collar Tracheal Collar Room Air O2 Flow Rate 10.0 10.0 10.0 Intake and Output 12/03/17 12/03/17 12/04/17 15:00 23:00 07:00 Intake Total 500 ml 500 ml 490 ml Balance 500 ml 500 ml 490 ml Nutrition Consultation Dietary Evaluation: Comments: REC continue TF as ordered: Jevity 1.5 bolus feeds 237 ml 5 x day with 250 ml flush after each bolus. Expected Outcomes/Goals: wt maintainance Malnutrition Findings: Body Fat Depletion (Non Severe: Mild Depletion Weight Status: Appropriate ADRIAN CASTILLO MD Dec 04, 2017 13:34
[2017-12-04 15:00] VITALS: BP 128/79
[2017-12-04 19:59] VITALS: BP 136/78
[2017-12-04] MEDS: BENZTROPINE MESYLATE 1 MG TABLET. PEG SCH (22:21)
[2017-12-04] MEDS: ENOXAPARIN 40 MG/0.4 ML SYRINGE. SQ SCH (22:23)
[2017-12-04 23:16] VITALS: BP 147/85
[2017-12-05] MEDS: PIPERACILLIN/TAZOBACTAM 4.5 GM in IV NORMAL SALINE 100ML 100 ML IV SCH ×4 (00:23→17:02)
[2017-12-05 03:38] VITALS: BP 123/89
[2017-12-05 07:00] VITALS: BP 147/90
[2017-12-05] MEDS: DIVALPROEX SPRINKLES 125 MG CAPSULE. PO SCH ×2 (08:05→21:43)
[2017-12-05] MEDS: BUDESONIDE 0.5 MG/2 ML NEBU. NEB SCH ×2 (08:34→18:24)
[2017-12-05] MEDS: IPRATRPIUM/ALBUTEROL 0.5/2.5MG 3 ML NEBU. NEB SCH ×4 (08:34→18:21)
--- NOTE | 2017-12-05 08:41 | PDOC ---
PULMONARY PROGRESS NOTES Subjective appears comfortable. on tm, TRACH SECRETIONS decreased. Vitals Vital Signs Date Time Temp Pulse Resp B/P (MAP) Pulse Ox O2 Delivery O2 Flow Rate FiO2 12/05/17 08:36 98 Tracheal Collar 10.0 12/05/17 03:38 97.5 87 24 123/89 (100) 97.5 General: No acute distress HEENT: Other (nc at perrl neck trach site ok) Lungs: Other (few rhonchi) Cardiovascular: S1, S2 Abdomen: Soft, Non-tender Extremities: Other Skin: Warm Medications Active Scripts Medications Dose Route/Sig Max Daily Dose Days Date Category Dose Instructions Atropine Sulfate 2 Ml Drops 2 Ml SL PRN Q4HRS PRN 11/30/17 Reported Duoneb 0.5-3(2.5) Mg/3 Ml (Albuterol/Ipratropium) 3 Ml Ampul.neb 3 Ml NEB QID 09/21/16 Reported Depakote Er (Divalproex Sodium) 500 Mg Tab.er.24h 1 Tab PEG BID 09/21/16 Reported Cyanocobalamin Injection (Cyanocobalamin (Vitamin B-12)) 1,000 Mcg/1 Ml Vial 1 Ml IM QMONTH 09/21/16 Reported Celexa (Citalopram Hydrobromide) 20 Mg Tablet 1 Tab PEG QODAY 09/21/16 Reported Budesonide 0.5 Mg/2 Ml Ampul.neb 1 Vial NEB BID 09/21/16 Reported Benztropine Mesylate 1 Mg Tablet 1 Mg PEG HS 09/21/16 Reported Polyvinyl Alcohol 15 Ml Drops 15 Ml OP PRN Q8HRS 09/21/16 Reported Instill 1 drop in both eyes every 8 hours as needed for dryness Acetaminophen 500 Mg Tablet 650 Mg PEG PRN Q6HRS 09/21/16 Reported Impression . 1. Acute hypoxic respiratory failure secondary to tracheobronchitis/suspected gram-negative and gram-positive healthcare-associated pneumonia. 2. Fever secondary to pneumonia and tracheobronchitis.IMPROVED 3. Hypernatremia, likely related to dehydration. improving 5. Thrombocytopenia related to an infectious etiology. 6. Underlying Parkinson's with chronic dementia. Plan . 1. Discussed with RN, RT. blood cultures, neg. Sputum with normal delfino 2. continue Zosyn 3. Continue nebulizer treatment. 4. P.r.n. suction 5. Follow sodium level. 6. bronchodilators 7. elevate hob 8. dvt prophylaxis Discussed with RN, RT SOFI CONCEPCION MD Dec 05, 2017 08:41
[2017-12-05 11:00] VITALS: BP 168/105
--- NOTE | 2017-12-05 12:07 | PDOC ---
PROGRESS NOTES Chief Complaint Chief Complaint acute on chronic resp failure with trach and on trach collar now with 40% O2 possible HAP chronic dementia , encephalopathy h/o stroke parkinson dz P - afib dysphagia with encephalopathy with chronic PEG mild malnutrition FC h/o seizure chronic foot drop and leg edema History of Present Illness History of Present Illness not increased secretion lethargic, maybe better w/ scopolamine patch Continue tube feeds Supportive care full code noted Vitals Vitals Vital Signs Date Time Temp Pulse Resp B/P (MAP) Pulse Ox O2 Delivery O2 Flow Rate FiO2 12/05/17 08:36 98 Tracheal Collar 10.0 12/05/17 03:38 97.5 87 24 123/89 (100) 97.5 Physical Exam Physical Exam GEN.: RESPONSIVE , somnolent HEENT: Head is normocephalic, atraumatic NECK: trach, connected to trach collar at 40% o2. LUNGS: bl mild rhonchi, no wheezing HEART: RRR, S1, S2 present. Peripheral pulses intact ABDOMEN: Soft, nontender. decreased bowel sounds. has PEG, mild distended. EXTREMITIES: Without any cyanosis. left leg venous stasis dermatitis. no edema General: mild distress Heart: Regular rate, Normal S1, Normal S2 Lungs: Other (few rhonchi) Abdomen: Normal bowel sounds, Soft Extremities: Other (chronic leg edema, chronic bilateral foot drop, pale skin) Assessment and Plan Assessmemt and Plan Problems Medical Problems: (1) Acute respiratory failure Status: Acute (2) Acute tracheitis Status: Acute Comment Review of Relevant I have reviewed the following items maulik (where applicable) has been applied. Labs Microbiology 12/02/17 Blood Culture - Preliminary, Resulted NO GROWTH AFTER 3 DAYS 12/01/17 - Final, Resulted 12/01/17 - Final, Resulted 12/01/17 - Final, Resulted 12/01/17 - Final, Resulted 12/01/17 Gram Stain Evaluation - Final, Resulted 12/01/17 Sputum Culture - Preliminary, Resulted 12/01/17 Sputum Result 1 - Final, Resulted 12/01/17 Sputum Result 2 - Final, Resulted 12/01/17 - Final, Resulted Medications Current Medications Furosemide (Lasix) 40 mg 1X ONCE IVP Last administered on 11/30/17at 14:39; Start 11/30/17 at 14:45; Stop 11/30/17 at 14:46; Status DC Furosemide (Lasix) 40 mg 1X ONCE IVP ; Start 11/30/17 at 14:45; Stop 11/30/17 at 14:46; Status DC Vancomycin HCl 250 ml @ 250 mls/hr 1X ONCE IV Last administered on 11/30/17at 14:48; Start 11/30/17 at 15:00; Stop 11/30/17 at 15:59; Status DC Acetaminophen (Tylenol) 650 mg PRN Q6HRS PRN PO FEVER Last administered on 12/03at 08:14; Start 11/30/17 at 15:15 Ondansetron HCl (Zofran) 4 mg PRN Q6HRS PRN IV NAUSEA/VOMITING; Start 11/30/17 at 15:15 Hydralazine HCl (Apresoline Inj) 10 mg PRN Q4HRS PRN IVP ELEVATED BP, SEE COMMENTS Last administered on 11/30/17at 18:15; Start 11/30/17 at 15:15 Docusate Sodium (Colace) 100 mg PRN DAILY PRN PO CONSTIPATION; Start 11/30/17 at 15:15 Vancomycin HCl (Vanco Per Pharmacy) 1 each PRN DAILY PRN MC SEE COMMENTS Last administered on 12/02/17at 06:31; Start 11/30/17 at 15:15; Stop 12/03/17 at 12:34; Status DC Vancomycin HCl 2 gm/Sodium Chloride 500 ml @ 250 mls/hr Q12H IV ; Start at 15:15; Stop 11/30/17 at 15:15; Status DC Piperacillin Sod/ Tazobactam Sod 4.5 gm/Sodium Chloride 100 ml @ 200 mls/hr Q6HRS IV Last administered on 12/05/17at 05:35; Start 11/30/17 at 18:00 Piperacillin Sod/ Tazobactam Sod (Zosyn Per Pharmacy) 1 each PRN DAILY PRN MC SEE COMMENTS; Start 11/30/17 at 15:15 Albuterol Sulfate (Ventolin Neb Soln) 2.5 mg PRN Q4HRS PRN NEB SHORTNESS OF BREATH; Start 11/30/17 at 15:15 Albuterol/ Ipratropium (Duoneb) 3 ml RTQID NEB Last administered on 12/03/17at 11:01; Start 11/30/17 at 16:00; Stop 12/03/17 at 13:48; Status DC Enoxaparin Sodium (Lovenox 40mg Syringe) 40 mg Q24H SQ Last administered on 03/13at 22:23; Start 11/30/17 at 21:00 Vancomycin HCl 2 gm/Sodium Chloride 500 ml @ 250 mls/hr 1X ONCE IV ; Start 11/30/17 at 15:45; Stop 11/30/17 at 17:44; Status Cancel Vancomycin HCl 250 ml @ 250 mls/hr 1X ONCE IV Last administered on 11/30/17at 17:56; Start 11/30/17 at 15:45; Stop 11/30/17 at 16:44; Status DC Sodium Chloride 1,000 ml @ 125 mls/hr Q8H IV Last administered on 12/01/17at 08: 39; Start 11/30/17 at 16:39; Stop 12/01/17 at 16:38; Status DC Vancomycin HCl 1.25 gm/Sodium Chloride 250 ml @ 167 mls/hr Q12H IV Last administered on 12/03/17at 06:12; Start 12/01/17 at 06:00; Stop 12/03/17 at 12:32 ; Status DC Vancomycin HCl (Vancomycin Trough Level) 1 each 1X ONCE MC Last administered on 12/02/17at 05:30; Start 12/02/17 at 05:30; Stop 12/02/17 at 05:31; Status DC Potassium Chloride/Water 100 ml @ 100 mls/hr Q1H IV Last administered on at 20:01; Start 12/01/17 at 15:00; Stop 12/01/17 at 18:59; Status DC Dextrose/Sodium Chloride 1,000 ml @ 75 mls/hr [id number] IV Last administered on 12/04/17at 22:23; Start 12/01/17 at 14:00 Enoxaparin Sodium (Lovenox 40mg Syringe) 40 mg Q24H SQ ; Start 12/02/17 at 11:45 ; Status UNV Acetaminophen (Tylenol) 650 mg PRN Q6HRS PO ; Start 12/02/17 at 17:30; Status UNV Budesonide (Pulmicort) 0.5 mg RTBID NEB Last administered on 12/05/17at 08:34; Start 12/02/17 at 20:00 Citalopram Hydrobromide (CeleXA) 20 mg QODAY PEG Last administered on at 09:30; Start 12/02/17 at 18:00 Cyanocobalamin (Vitamin B-12) 1,000 mcg QMONTH PO ; Start 12/22/17 at 09:00 Divalproex Sodium (Depakote Sprinkles) 500 mg BID PO Last administered on at 08:05; Start 12/02/17 at 21:00 Albuterol/ Ipratropium (Duoneb) 3 ml RTQID NEB Last administered on 12/05/17at 08:34; Start 12/02/17 at 20:00 Artificial Tears (Artificial Tears) 1 drop PRN Q8HRS PRN OU DRY EYE; Start 12/02 at 17:30 Atropine Sulfate (Isopto Atropine) 1 drop PRN Q4HRS PRN SL SECRETIONS; Start at 20:00 Benztropine Mesylate (Cogentin) 1 mg QHS PEG Last administered on 12/04/17at 22: 21; Start 12/02/17 at 21:00 Scopolamine (Transderm-Scop) 1 patch 1X ONCE TD Last administered on at 11:36; Start 12/03/17 at 10:45; Stop 12/03/17 at 10:46; Status DC Scopolamine (Transderm-Scop) 1 patch Q3DAYS TD ; Start 12/06/17 at 09:00 Active Scripts Active Reported Depakote Sprinkle (Divalproex Sodium) 125 Mg Cap.sprink 500 Mg PO BID B-12 (Cyanocobalamin (Vitamin B-12)) 1,000 Mcg Tablet 1,000 Mcg PO QMONTH Atropine Sulfate 2 Ml Drops 2 Ml SL PRN Q4HRS PRN Duoneb 0.5-3(2.5) Mg/3 Ml (Albuterol/Ipratropium) 3 Ml Ampul.neb 3 Ml NEB QID Celexa (Citalopram Hydrobromide) 20 Mg Tablet 1 Tab PEG QODAY Budesonide 0.5 Mg/2 Ml Ampul.neb 1 Vial NEB BID Benztropine Mesylate 1 Mg Tablet 1 Mg PEG HS Polyvinyl Alcohol 15 Ml Drops 15 Ml OP PRN Q8HRS Instill 1 drop in both eyes every 8 hours as needed for dryness Acetaminophen 500 Mg Tablet 650 Mg PEG PRN Q6HRS Vitals/I & O Vital Sign - Last 24 Hours 12/04/17 12/04/17 12/04/17 12/04/17 15:00 15:29 16:01 19:59 Temp 97.0 97.9 97.0 97.9 Pulse 95 84 Resp 22 28 B/P (MAP) 128/79 (95) 136/78 (97) Pulse Ox 96 97 O2 Delivery Room Air Tracheal Collar Tracheal Collar Tracheal Collar O2 Flow Rate 10.0 12/04/17 12/04/17 12/04/17 12/04/17 20:00 20:08 20:10 23:16 Temp 98.1 98.1 Pulse 95 Resp 24 B/P (MAP) 147/85 (105) Pulse Ox 96 96 98 O2 Delivery Trach Collar Tracheal Collar Tracheal Collar Tracheal Collar O2 Flow Rate 10.0 10.0 10.0 12/05/17 12/05/17 12/05/17 03:38 08:00 08:36 Temp 97.5 97.5 Pulse 87 Resp 24 B/P (MAP) 123/89 (100) Pulse Ox 96 98 O2 Delivery Tracheal Collar Trach Collar Tracheal Collar O2 Flow Rate 10.0 10.0 Intake and Output 12/04/17 12/04/17 12/05/17 15:00 23:00 07:00 Intake Total 500 ml 680 ml 1180 ml Balance 500 ml 680 ml 1180 ml Nutrition Consultation Dietary Evaluation: Comments: REC continue TF as ordered: Jevity 1.5 bolus feeds 237 ml 5 x day with 250 ml flush after each bolus. Expected Outcomes/Goals: wt maintainance Malnutrition Findings: Body Fat Depletion (Non Severe: Mild Depletion Weight Status: Appropriate ADRIAN CASTILLO MD Dec 05, 2017 12:07
[2017-12-05] MEDS: IV DEXTROSE 5 %-0.45 % NACL 1,000 ML IV SCH (14:07)
[2017-12-05 15:00] VITALS: BP 168/105
[2017-12-05 19:00] VITALS: BP 164/105
[2017-12-05] MEDS ORDERED: VANCOMYCIN 2 GM in IV NORMAL SALINE 500ML BAG 500 ML IV ONE (21:00)
[2017-12-05] MEDS ORDERED: VANCOMYCIN PER PHARMACY MC PRN (21:00)
[2017-12-05] MEDS: BENZTROPINE MESYLATE 1 MG TABLET. PEG SCH (21:43)
[2017-12-05] MEDS: ACETAMINOPHEN 325 MG TABLET. PO PRN (21:43)
[2017-12-05] MEDS: ENOXAPARIN 40 MG/0.4 ML SYRINGE. SQ SCH (21:45)
[2017-12-05 23:00] VITALS: BP 158/101
[2017-12-06] MEDS: PIPERACILLIN/TAZOBACTAM 4.5 GM in IV NORMAL SALINE 100ML 100 ML IV SCH ×2 (01:06→06:00)
[2017-12-06] MEDS: IV DEXTROSE 5 %-0.45 % NACL 1,000 ML IV SCH (01:06)
[2017-12-06 02:57] VITALS: BP 158/92
[2017-12-06 07:00] VITALS: BP 168/87
[2017-12-06] MEDS: IPRATRPIUM/ALBUTEROL 0.5/2.5MG 3 ML NEBU. NEB SCH ×4 (07:21→19:56)
[2017-12-06] MEDS: BUDESONIDE 0.5 MG/2 ML NEBU. NEB SCH ×2 (07:22→19:56)
[2017-12-06] MEDS: CITALOPRAM 20 MG TABLET. PEG SCH (08:45)
[2017-12-06] MEDS: DIVALPROEX SPRINKLES 125 MG CAPSULE. PO SCH ×2 (08:45→20:26)
[2017-12-06] MEDS ORDERED: SCOPOLAMINE 1.5MG PATCH. TD SCH (09:00)
--- NOTE | 2017-12-06 10:15 | PDOC ---
Infectious Disease Note Vital Sign Vital Signs Vital Signs Date Time Temp Pulse Resp B/P (MAP) Pulse Ox O2 Delivery O2 Flow Rate FiO2 12/06/17 07:25 Tracheal Collar 10.0 12/06/17 07:00 99.3 87 20 168/87 (114) 94 99.3 Physical Exam PHYSICAL EXAM GEN.: RESPONSIVE , somnolent HEENT: Head is normocephalic, atraumatic NECK: trach, connected to trach collar at 40% o2. LUNGS: bl mild rhonchi, no wheezing HEART: RRR, S1, S2 present. Peripheral pulses intact ABDOMEN: Soft, nontender. decreased bowel sounds. has PEG, mild distended. EXTREMITIES: Without any cyanosis. left leg venous stasis dermatitis. no edema Labs Micro Microbiology 12/02/17 Blood Culture - Preliminary, Resulted NO GROWTH AFTER 4 DAYS 12/01/17 - Final, Complete 12/01/17 - Final, Complete 12/01/17 - Final, Complete 12/01/17 - Final, Complete 12/01/17 Gram Stain Evaluation - Final, Complete 12/01/17 Sputum Culture - Final, Complete 12/01/17 Sputum Result 1 - Final, Complete 12/01/17 Sputum Result 2 - Final, Complete 12/01/17 - Final, Complete 12/01/17 Antimicrobic Susceptibility - Final, Complete Objective Assessment HCAP Fever Respiratory failure Parkinson disease Dementia Plan Plan of Care change zosyn to meropenem d/c vanc supportive care prognosis poor ELIZA MCGRATH MD Dec 06, 2017 10:15
[2017-12-06 10:17] LABS: CREATININE 0.5 mg/dL (0.7-1.3); GFR 164.9
[2017-12-06] MEDS ORDERED: VANCOMYCIN 1.25 GM in IV NORMAL SALINE 250ML 250 ML IV SCH (10:30)
[2017-12-06 11:00] VITALS: BP 165/70
--- NOTE | 2017-12-06 11:39 | PDOC ---
PROGRESS NOTES Chief Complaint Chief Complaint acute on chronic resp failure with trach and on trach collar now with 40% O2 possible HAP chronic dementia , encephalopathy h/o stroke parkinson dz P - afib dysphagia with encephalopathy with chronic PEG mild malnutrition FC h/o seizure chronic foot drop and leg edema History of Present Illness History of Present Illness Secretions better ID got involved over the weekend because of fevers Now antibiotic shifted to meropenem Full code-palliative on case Plan: Meropenem Full code Continue suctioning aggressively Continue scopolamine patch dw RN barbie Vitals Vitals Vital Signs Date Time Temp Pulse Resp B/P (MAP) Pulse Ox O2 Delivery O2 Flow Rate FiO2 12/06/17 11:28 95 Tracheal Collar 10.0 12/06/17 07:00 99.3 87 20 168/87 (114) 99.3 Physical Exam Physical Exam GEN.: RESPONSIVE , somnolent HEENT: Head is normocephalic, atraumatic NECK: trach, connected to trach collar at 40% o2. LUNGS: bl mild rhonchi, no wheezing HEART: RRR, S1, S2 present. Peripheral pulses intact ABDOMEN: Soft, nontender. decreased bowel sounds. has PEG, mild distended. EXTREMITIES: Without any cyanosis. left leg venous stasis dermatitis. no edema General: mild distress Heart: Regular rate, Normal S1, Normal S2 Lungs: Other (few rhonchi) Abdomen: Normal bowel sounds, Soft Extremities: Other (chronic leg edema, chronic bilateral foot drop, pale skin) Labs LABS Laboratory Tests Test 12/06/17 09:00 Creatinine 0.5 mg/dL (0.7-1.3) Estimated GFR (Cockcroft-Gault) 164.9 Review of Systems Review of Systems trached hence no ROS Assessment and Plan Assessmemt and Plan Problems Medical Problems: (1) Acute respiratory failure Status: Acute (2) Acute tracheitis Status: Acute Comment Review of Relevant I have reviewed the following items maulik (where applicable) has been applied. Labs Laboratory Tests Test 12/06/17 09:00 Creatinine 0.5 mg/dL (0.7-1.3) Estimated GFR (Cockcroft-Gault) 164.9 Laboratory Tests Test 12/06/17 09:00 Creatinine 0.5 mg/dL (0.7-1.3) Estimated GFR (Cockcroft-Gault) 164.9 Microbiology 12/02/17 Blood Culture - Preliminary, Resulted NO GROWTH AFTER 4 DAYS 12/01/17 - Final, Complete 12/01/17 - Final, Complete 12/01/17 - Final, Complete 12/01/17 - Final, Complete 12/01/17 Gram Stain Evaluation - Final, Complete 12/01/17 Sputum Culture - Final, Complete 12/01/17 Sputum Result 1 - Final, Complete 12/01/17 Sputum Result 2 - Final, Complete 12/01/17 - Final, Complete 12/01/17 Antimicrobic Susceptibility - Final, Complete Medications Current Medications Furosemide (Lasix) 40 mg 1X ONCE IVP Last administered on 11/30/17at 14:39; Start 11/30/17 at 14:45; Stop 11/30/17 at 14:46; Status DC Furosemide (Lasix) 40 mg 1X ONCE IVP ; Start 11/30/17 at 14:45; Stop 11/30/17 at 14:46; Status DC Vancomycin HCl 250 ml @ 250 mls/hr 1X ONCE IV Last administered on 11/30/17at 14:48; Start 11/30/17 at 15:00; Stop 11/30/17 at 15:59; Status DC Acetaminophen (Tylenol) 650 mg PRN Q6HRS PRN PO FEVER Last administered on 12/05at 21:43; Start 11/30/17 at 15:15 Ondansetron HCl (Zofran) 4 mg PRN Q6HRS PRN IV NAUSEA/VOMITING; Start 11/30/17 at 15:15 Hydralazine HCl (Apresoline Inj) 10 mg PRN Q4HRS PRN IVP ELEVATED BP, SEE COMMENTS Last administered on 11/30/17at 18:15; Start 11/30/17 at 15:15 Docusate Sodium (Colace) 100 mg PRN DAILY PRN PO CONSTIPATION; Start 11/30/17 at 15:15 Vancomycin HCl (Vanco Per Pharmacy) 1 each PRN DAILY PRN MC SEE COMMENTS Last administered on 12/02/17at 06:31; Start 11/30/17 at 15:15; Stop 12/03/17 at 12:34; Status DC Vancomycin HCl 2 gm/Sodium Chloride 500 ml @ 250 mls/hr Q12H IV ; Start at 15:15; Stop 11/30/17 at 15:15; Status DC Piperacillin Sod/ Tazobactam Sod 4.5 gm/Sodium Chloride 100 ml @ 200 mls/hr Q6HRS IV Last administered on 12/06/17at 06:00; Start 11/30/17 at 18:00; Stop at 10:17; Status DC Piperacillin Sod/ Tazobactam Sod (Zosyn Per Pharmacy) 1 each PRN DAILY PRN MC SEE COMMENTS; Start 11/30/17 at 15:15 Albuterol Sulfate (Ventolin Neb Soln) 2.5 mg PRN Q4HRS PRN NEB SHORTNESS OF BREATH; Start 11/30/17 at 15:15 Albuterol/ Ipratropium (Duoneb) 3 ml RTQID NEB Last administered on 12/03/17at 11:01; Start 11/30/17 at 16:00; Stop 12/03/17 at 13:48; Status DC Enoxaparin Sodium (Lovenox 40mg Syringe) 40 mg Q24H SQ Last administered on 04/12at 21:45; Start 11/30/17 at 21:00 Vancomycin HCl 2 gm/Sodium Chloride 500 ml @ 250 mls/hr 1X ONCE IV ; Start 11/30/17 at 15:45; Stop 11/30/17 at 17:44; Status Cancel Vancomycin HCl 250 ml @ 250 mls/hr 1X ONCE IV Last administered on 11/30/17at 17:56; Start 11/30/17 at 15:45; Stop 11/30/17 at 16:44; Status DC Sodium Chloride 1,000 ml @ 125 mls/hr Q8H IV Last administered on 12/01/17at 08: 39; Start 11/30/17 at 16:39; Stop 12/01/17 at 16:38; Status DC Vancomycin HCl 1.25 gm/Sodium Chloride 250 ml @ 167 mls/hr Q12H IV Last administered on 12/03/17at 06:12; Start 12/01/17 at 06:00; Stop 12/03/17 at 12:32 ; Status DC Vancomycin HCl (Vancomycin Trough Level) 1 each 1X ONCE MC Last administered on 12/02/17at 05:30; Start 12/02/17 at 05:30; Stop 12/02/17 at 05:31; Status DC Potassium Chloride/Water 100 ml @ 100 mls/hr Q1H IV Last administered on 20:01; Start 12/01/17 at 15:00; Stop 12/01/17 at 18:59; Status DC Dextrose/Sodium Chloride 1,000 ml @ 75 mls/hr [id number] IV Last administered on 12/06/17at 01:06; Start 12/01/17 at 14:00 Enoxaparin Sodium (Lovenox 40mg Syringe) 40 mg Q24H SQ ; Start 12/02/17 at 11:45 ; Status UNV Acetaminophen (Tylenol) 650 mg PRN Q6HRS PO ; Start 12/02/17 at 17:30; Status UNV Budesonide (Pulmicort) 0.5 mg RTBID NEB Last administered on 12/06/17 07:22; Start 12/02/17 at 20:00 Citalopram Hydrobromide (CeleXA) 20 mg QODAY PEG Last administered on 08:45; Start 12/02/17 at 18:00 Cyanocobalamin (Vitamin B-12) 1,000 mcg QMONTH PO ; Start 12/22/17 at 09:00 Divalproex Sodium (Depakote Sprinkles) 500 mg BID PO Last administered on at 08:45; Start 12/02/17 at 21:00 Albuterol/ Ipratropium (Duoneb) 3 ml RTQID NEB Last administered on 12/06/17at 11:24; Start 12/02/17 at 20:00 Artificial Tears (Artificial Tears) 1 drop PRN Q8HRS PRN OU DRY EYE; Start 12/02 at 17:30 Atropine Sulfate (Isopto Atropine) 1 drop PRN Q4HRS PRN SL SECRETIONS; Start at 20:00 Benztropine Mesylate (Cogentin) 1 mg QHS PEG Last administered on 12/05/17at 21: 43; Start 12/02/17 at 21:00 Scopolamine (Transderm-Scop) 1 patch 1X ONCE TD Last administered on at 11:36; Start 12/03/17 at 10:45; Stop 12/03/17 at 10:46; Status DC Scopolamine (Transderm-Scop) 1 patch Q3DAYS TD Last administered on 12/06/17at 08:46; Start 12/06/17 at 09:00 Vancomycin HCl (Vanco Per Pharmacy) 1 each PRN DAILY PRN MC SEE COMMENTS Last administered on 12/05/17at 23:02; Start 12/05/17 at 21:00; Stop 12/06/17 at 10:17 ; Status DC Vancomycin HCl 2 gm/Sodium Chloride 500 ml @ 250 mls/hr 1X ONCE IV Last administered on 12/05/17at 22:31; Start 12/05/17 at 21:00; Stop 12/05/17 at 22:59 ; Status DC Vancomycin HCl 1.25 gm/Sodium Chloride 250 ml @ 167 mls/hr Q12H IV ; Start at 10:30; Stop 12/06/17 at 10:30; Status DC Vancomycin HCl (Vancomycin Trough Level) 1 each 1X ONCE MC ; Start 12/07/17 at 10:00; Stop 12/07/17 at 10:00; Status DC Meropenem 1 gm/ Sodium Chloride 100 ml @ 200 mls/hr Q8HRS IV ; Start 12/06/17 at 14:00 Active Scripts Active Reported Depakote Sprinkle (Divalproex Sodium) 125 Mg Cap.sprink 500 Mg PO BID B-12 (Cyanocobalamin (Vitamin B-12)) 1,000 Mcg Tablet 1,000 Mcg PO QMONTH Atropine Sulfate 2 Ml Drops 2 Ml SL PRN Q4HRS PRN Duoneb 0.5-3(2.5) Mg/3 Ml (Albuterol/Ipratropium) 3 Ml Ampul.neb 3 Ml NEB QID Celexa (Citalopram Hydrobromide) 20 Mg Tablet 1 Tab PEG QODAY Budesonide 0.5 Mg/2 Ml Ampul.neb 1 Vial NEB BID Benztropine Mesylate 1 Mg Tablet 1 Mg PEG HS Polyvinyl Alcohol 15 Ml Drops 15 Ml OP PRN Q8HRS Instill 1 drop in both eyes every 8 hours as needed for dryness Acetaminophen 500 Mg Tablet 650 Mg PEG PRN Q6HRS Vitals/I & O Vital Sign - Last 24 Hours 12/05/17 12/05/17 12/05/17 12/05/17 12:23 15:00 15:17 18:25 Temp 98.1 98.1 Pulse 80 Resp 26 B/P (MAP) 168/105 (126) Pulse Ox 96 O2 Delivery Tracheal Collar Tracheal Collar Tracheal Collar O2 Flow Rate 10.0 4.0 10.0 10.0 12/05/17 12/05/17 12/05/17 12/06/17 19:00 20:00 23:00 02:57 Temp 101.1 100.8 98.2 101.1 100.8 98.2 Pulse 84 92 84 Resp 18 20 18 B/P (MAP) 164/105 (124) 158/101 (120) 158/92 (114) Pulse Ox 92 95 95 O2 Delivery Tracheal Collar Trach Collar Tracheal Collar Tracheal Collar O2 Flow Rate 10.0 12/06/17 12/06/17 12/06/17 07:00 07:25 11:28 Temp 99.3 99.3 Pulse 87 Resp 20 B/P (MAP) 168/87 (114) Pulse Ox 94 95 O2 Delivery Tracheal Collar Tracheal Collar Tracheal Collar O2 Flow Rate 14.0 10.0 10.0 Intake and Output 12/05/17 12/05/17 12/06/17 15:00 23:00 07:00 Intake Total 960 ml 2400 ml 1690 ml Balance 960 ml 2400 ml 1690 ml Nutrition Consultation Dietary Evaluation: Comments: REC continue TF as ordered: Jevity 1.5 bolus feeds 237 ml 5 x day with 250 ml flush after each bolus. Expected Outcomes/Goals: wt maintainance Malnutrition Findings: Body Fat Depletion (Non Severe: Mild Depletion Weight Status: Appropriate KIRK KHOURY MD Dec 06, 2017 11:39
[2017-12-06] MEDS: MEROPENEM 1 GM in IV NORMAL SALINE 100ML 100 ML IV SCH ×2 (14:16→22:44)
[2017-12-06 15:00] VITALS: BP 147/67
--- NOTE | 2017-12-06 15:53 | PDOC ---
PULMONARY PROGRESS NOTES Subjective appears comfortable. on tm, TRACH SECRETIONS decreased. Vitals Vital Signs Date Time Temp Pulse Resp B/P (MAP) Pulse Ox O2 Delivery O2 Flow Rate FiO2 12/06/17 15:00 97.9 111 20 147/67 (93) 97 Tracheal Collar 14.0 97.9 General: No acute distress HEENT: Other (nc at perrl neck trach site ok) Lungs: Other (few rhonchi) Cardiovascular: S1, S2 Abdomen: Soft, Non-tender Extremities: Other Skin: Warm Labs Laboratory Tests Test 12/06/17 09:00 Creatinine 0.5 mg/dL (0.7-1.3) Estimated GFR (Cockcroft-Gault) 164.9 Laboratory Tests Test 12/06/17 09:00 Creatinine 0.5 mg/dL (0.7-1.3) Estimated GFR (Cockcroft-Gault) 164.9 Medications Active Scripts Medications Dose Route/Sig Max Daily Dose Days Date Category Dose Instructions Atropine Sulfate 2 Ml Drops 2 Ml SL PRN Q4HRS PRN 11/30/17 Reported Duoneb 0.5-3(2.5) Mg/3 Ml (Albuterol/Ipratropium) 3 Ml Ampul.neb 3 Ml NEB QID 09/21/16 Reported Depakote Er (Divalproex Sodium) 500 Mg Tab.er.24h 1 Tab PEG BID 09/21/16 Reported Cyanocobalamin Injection (Cyanocobalamin (Vitamin B-12)) 1,000 Mcg/1 Ml Vial 1 Ml IM QMONTH 09/21/16 Reported Celexa (Citalopram Hydrobromide) 20 Mg Tablet 1 Tab PEG QODAY 09/21/16 Reported Budesonide 0.5 Mg/2 Ml Ampul.neb 1 Vial NEB BID 09/21/16 Reported Benztropine Mesylate 1 Mg Tablet 1 Mg PEG HS 09/21/16 Reported Polyvinyl Alcohol 15 Ml Drops 15 Ml OP PRN Q8HRS 09/21/16 Reported Instill 1 drop in both eyes every 8 hours as needed for dryness Acetaminophen 500 Mg Tablet 650 Mg PEG PRN Q6HRS 09/21/16 Reported Impression . 1. Acute hypoxic respiratory failure secondary to tracheobronchitis/suspected gram-negative and gram-positive healthcare-associated pneumonia. (PSA ON CULTURES) 2. Fever secondary to pneumonia and tracheobronchitis.IMPROVED 3. Hypernatremia, likely related to dehydration. improving 5. Thrombocytopenia related to an infectious etiology. 6. Underlying Parkinson's with chronic dementia. Plan . 1. Discussed with RN,. blood cultures, neg. Sputum with PSA 2. Abx per ID 3. Continue nebulizer treatment. 4. P.r.n. suction 5. Follow sodium level. 6. bronchodilators 7. elevate hob 8. dvt prophylaxis Discussed with VICKIE SINGER MD Dec 06, 2017 15:53
--- NOTE | 2017-12-06 17:26 | CONS ---
DATE OF CONSULTATION: 12/06/2017 REQUESTING PHYSICIAN: Dr. Miranda. REASON FOR CONSULTATION: Fever and pneumonia. HISTORY OF PRESENT ILLNESS: This is a 67-year-old gentleman who is a senior living resident with [facility] who has also Parkinson's disease, tracheostomy, who was brought in because of the pneumonia and hypoxia. The patient is not able to provide any information. The patient is nonverbal and he is a [facility]. No nausea, vomiting, diarrhea noted. The patient initially was put on Zosyn and then, he had fever, hence vancomycin was started and consult has been requested. The patient's tracheostomy cultures are positive with Pseudomonas and group B strep. PAST MEDICAL HISTORY: Positive for Parkinson's disease, dementia, chronic respiratory failure with tracheostomy in place, seizure disorder and PEG tube is in place. SOCIAL HISTORY: Negative for smoking, alcohol or illicit drug use. The patient is nonverbal. [facility] is at [facility] in [facility] living. ALLERGIES: LISTED ALLERGIC TO FENTANYL AND MORPHINE. CURRENT MEDICATIONS: Reviewed. The patient is on vancomycin and Zosyn. REVIEW OF SYSTEMS: As per HPI, all other systems reviewed and are negative. PHYSICAL EXAMINATION: GENERAL: On examination, unresponsive gentleman, not in distress. VITAL SIGNS: Stable with a T-max 101.1. HEENT: NAD. NECK: Supple, no JVP, no lymphadenopathy. Tracheostomy in place. Neck is supple. LUNGS: Decreased breath sounds bilaterally. HEART: S1, S2 regular. No gallop or murmur. ABDOMEN: Soft, nontender, no organomegaly. EXTREMITIES: No edema, cyanosis. SKIN: Unremarkable. NEUROLOGIC: The patient is neurologically unresponsive. LABORATORY DATA: White count is 4.4, hemoglobin 13.9, platelets are 80,000. BUN and creatinine is normal. His vancomycin level was 19. MRSA screen is negative. Sputum is showing Pseudomonas and group B strep Pseudomonas has intermedius susceptible to cefepime and ceftazidime and Zosyn is the borderline about 32 LOVE. Chest x-ray showed patchy pulmonary infiltrate. IMPRESSION: 1. Healthcare facility associated pneumonia with Pseudomonas and group B Streptococcus. 2. Fever. 3. Chronic respiratory failure with tracheostomy. 4. Dementia. 5. Parkinson's disease. RECOMMENDATIONS: We will discontinue vancomycin, discontinue Zosyn, initiate meropenem since Zosyn LOVE is 32 and intermediate to cefepime and I do not see the need for vancomycin. Overall, prognosis is poor. Thank you very much, Dr. Miranda for giving me the opportunity to participate in this patient's care. ELIZA MCGRATH MD DR: COOPER/cindy JOB#: [id number] / [id number]
[2017-12-06 19:00] VITALS: BP 145/104
[2017-12-06] MEDS: BENZTROPINE MESYLATE 1 MG TABLET. PEG SCH (20:26)
[2017-12-06] MEDS: ENOXAPARIN 40 MG/0.4 ML SYRINGE. SQ SCH (20:27)
[2017-12-06] MEDS: ACETAMINOPHEN 325 MG TABLET. PO PRN (20:49)
[2017-12-06 23:00] VITALS: BP 129/87
[2017-12-07 03:00] VITALS: BP 143/95
[2017-12-07] MEDS: MEROPENEM 1 GM in IV NORMAL SALINE 100ML 100 ML IV SCH ×3 (06:07→21:54)
[2017-12-07 07:00] VITALS: BP 158/101
[2017-12-07] MEDS: IPRATRPIUM/ALBUTEROL 0.5/2.5MG 3 ML NEBU. NEB SCH ×4 (07:19→19:08)
[2017-12-07] MEDS: BUDESONIDE 0.5 MG/2 ML NEBU. NEB SCH ×2 (07:19→19:08)
--- NOTE | 2017-12-07 09:10 | PDOC ---
PROGRESS NOTES Chief Complaint Chief Complaint acute on chronic resp failure with trach and on trach collar now with 40% O2 PSA pneumonia chronic dementia , encephalopathy h/o stroke parkinson dz P - afib dysphagia with encephalopathy with chronic PEG mild malnutrition FC h/o seizure chronic foot drop and leg edema History of Present Illness History of Present Illness Secretions better ID got involved over the weekend because of fevers Now antibiotic shifted to meropenem Full code-palliative on case PSeudominas on trach gram stain Plan: Meropenem Full code Continue suctioning aggressively Continue scopolamine patch LAbs, 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 LUNGS: bl mild rhonchi, no wheezing HEART: RRR, S1, S2 present. Peripheral pulses intact ABDOMEN: Soft, nontender. decreased bowel sounds. has PEG, mild distended. EXTREMITIES: Without any cyanosis. left leg venous stasis dermatitis. no edema General: mild distress Heart: Regular rate, Normal S1, Normal S2 Lungs: Other (few rhonchi) Abdomen: Normal bowel sounds, Soft Extremities: Other (chronic leg edema, chronic bilateral foot drop, pale skin) Review of Systems Review of Systems Trach, hence limited ROS Assessment and Plan Assessmemt and Plan Problems Medical Problems: (1) Acute respiratory failure Status: Acute (2) Acute tracheitis Status: Acute Comment Review of Relevant I have reviewed the following items maulik (where applicable) has been applied. Labs Laboratory Tests Test 12/06/17 09:00 Creatinine 0.5 mg/dL (0.7-1.3) Estimated GFR (Cockcroft-Gault) 164.9 Microbiology 12/05/17 Blood Culture - Preliminary, Resulted NO GROWTH AFTER 1 DAY 12/01/17 - Final, Complete 12/01/17 - Final, Complete 12/01/17 - Final, Complete 12/01/17 - Final, Complete 12/01/17 Gram Stain Evaluation - Final, Complete 12/01/17 Sputum Culture - Final, Complete 12/01/17 Sputum Result 1 - Final, Complete 12/01/17 Sputum Result 2 - Final, Complete 12/01/17 - Final, Complete 12/01/17 Antimicrobic Susceptibility - Final, Complete Medications Current Medications Furosemide (Lasix) 40 mg 1X ONCE IVP Last administered on 11/30/17at 14:39; Start 11/30/17 at 14:45; Stop 11/30/17 at 14:46; Status DC Furosemide (Lasix) 40 mg 1X ONCE IVP ; Start 11/30/17 at 14:45; Stop 11/30/17 at 14:46; Status DC Vancomycin HCl 250 ml @ 250 mls/hr 1X ONCE IV Last administered on 11/30/17at 14:48; Start 11/30/17 at 15:00; Stop 11/30/17 at 15:59; Status DC Acetaminophen (Tylenol) 650 mg PRN Q6HRS PRN PO FEVER Last administered on 12/06at 20:49; Start 11/30/17 at 15:15 Ondansetron HCl (Zofran) 4 mg PRN Q6HRS PRN IV NAUSEA/VOMITING; Start 11/30/17 at 15:15 Hydralazine HCl (Apresoline Inj) 10 mg PRN Q4HRS PRN IVP ELEVATED BP, SEE COMMENTS Last administered on 11/30/17at 18:15; Start 11/30/17 at 15:15 Docusate Sodium (Colace) 100 mg PRN DAILY PRN PO CONSTIPATION; Start 11/30/17 at 15:15 Vancomycin HCl (Vanco Per Pharmacy) 1 each PRN DAILY PRN MC SEE COMMENTS Last administered on 12/02/17at 06:31; Start 11/30/17 at 15:15; Stop 12/03/17 at 12:34; Status DC Vancomycin HCl 2 gm/Sodium Chloride 500 ml @ 250 mls/hr Q12H IV ; Start at 15:15; Stop 11/30/17 at 15:15; Status DC Piperacillin Sod/ Tazobactam Sod 4.5 gm/Sodium Chloride 100 ml @ 200 mls/hr Q6HRS IV Last administered on 12/06/17at 06:00; Start 11/30/17 at 18:00; Stop at 10:17; Status DC Piperacillin Sod/ Tazobactam Sod (Zosyn Per Pharmacy) 1 each PRN DAILY PRN MC SEE COMMENTS; Start 11/30/17 at 15:15; Stop 12/06/17 at 14:12; Status DC Albuterol Sulfate (Ventolin Neb Soln) 2.5 mg PRN Q4HRS PRN NEB SHORTNESS OF BREATH; Start 11/30/17 at 15:15 Albuterol/ Ipratropium (Duoneb) 3 ml RTQID NEB Last administered on 12/03/17at 11:01; Start 11/30/17 at 16:00; Stop 12/03/17 at 13:48; Status DC Enoxaparin Sodium (Lovenox 40mg Syringe) 40 mg Q24H SQ Last administered on at 20:27; Start 11/30/17 at 21:00 Vancomycin HCl 2 gm/Sodium Chloride 500 ml @ 250 mls/hr 1X ONCE IV ; Start 11/30/17 at 15:45; Stop 11/30/17 at 17:44; Status Cancel Vancomycin HCl 250 ml @ 250 mls/hr 1X ONCE IV Last administered on 11/30/17at 17:56; Start 11/30/17 at 15:45; Stop 11/30/17 at 16:44; Status DC Sodium Chloride 1,000 ml @ 125 mls/hr Q8H IV Last administered on 12/01/17at 08: 39; Start 11/30/17 at 16:39; Stop 12/01/17 at 16:38; Status DC Vancomycin HCl 1.25 gm/Sodium Chloride 250 ml @ 167 mls/hr Q12H IV Last administered on 12/03/17at 06:12; Start 12/01/17 at 06:00; Stop 12/03/17 at 12:32 ; Status DC Vancomycin HCl (Vancomycin Trough Level) 1 each 1X ONCE MC Last administered on 12/02/17at 05:30; Start 12/02/17 at 05:30; Stop 12/02/17 at 05:31; Status DC Potassium Chloride/Water 100 ml @ 100 mls/hr Q1H IV Last administered on at 20:01; Start 12/01/17 at 15:00; Stop 12/01/17 at 18:59; Status DC Dextrose/Sodium Chloride 1,000 ml @ 75 mls/hr [id number] IV Last administered on 12/06/17 01:06; Start 12/01/17 at 14:00; Stop 12/06/17 at 11:58; Status DC Enoxaparin Sodium (Lovenox 40mg Syringe) 40 mg Q24H SQ ; Start 12/02/17 at 11:45 ; Status UNV Acetaminophen (Tylenol) 650 mg PRN Q6HRS PO ; Start 12/02/17 at 17:30; Status UNV Budesonide (Pulmicort) 0.5 mg RTBID NEB Last administered on 12/07/17 07:19; Start 12/02/17 at 20:00 Citalopram Hydrobromide (CeleXA) 20 mg QODAY PEG Last administered on at 08:45; Start 12/02/17 at 18:00 Cyanocobalamin (Vitamin B-12) 1,000 mcg QMONTH PO ; Start 12/22/17 at 09:00 Divalproex Sodium (Depakote Sprinkles) 500 mg BID PO Last administered on at 20:26; Start 12/02/17 at 21:00 Albuterol/ Ipratropium (Duoneb) 3 ml RTQID NEB Last administered on 12/07/17 07:19; Start 12/02/17 at 20:00 Artificial Tears (Artificial Tears) 1 drop PRN Q8HRS PRN OU DRY EYE; Start 12/02 at 17:30 Atropine Sulfate (Isopto Atropine) 1 drop PRN Q4HRS PRN SL SECRETIONS; Start at 20:00 Benztropine Mesylate (Cogentin) 1 mg QHS PEG Last administered on 12/06/17at 20: 26; Start 12/02/17 at 21:00 Scopolamine (Transderm-Scop) 1 patch 1X ONCE TD Last administered on at 11:36; Start 12/03/17 at 10:45; Stop 12/03/17 at 10:46; Status DC Scopolamine (Transderm-Scop) 1 patch Q3DAYS TD Last administered on 12/06/17at 08:46; Start 12/06/17 at 09:00 Vancomycin HCl (Vanco Per Pharmacy) 1 each PRN DAILY PRN MC SEE COMMENTS Last administered on 12/05/17at 23:02; Start 12/05/17 at 21:00; Stop 12/06/17 at 10:17 ; Status DC Vancomycin HCl 2 gm/Sodium Chloride 500 ml @ 250 mls/hr 1X ONCE IV Last administered on 12/05/17at 22:31; Start 12/05/17 at 21:00; Stop 12/05/17 at 22:59 ; Status DC Vancomycin HCl 1.25 gm/Sodium Chloride 250 ml @ 167 mls/hr Q12H IV ; Start at 10:30; Stop 12/06/17 at 10:30; Status DC Vancomycin HCl (Vancomycin Trough Level) 1 each 1X ONCE MC ; Start 12/07/17 at 10:00; Stop 12/07/17 at 10:01; Status Cancel Meropenem 1 gm/ Sodium Chloride 100 ml @ 200 mls/hr Q8HRS IV Last administered on 12/07/17at 06:07; Start 12/06/17 at 14:00 Active Scripts Active Reported Depakote Sprinkle (Divalproex Sodium) 125 Mg Cap.sprink 500 Mg PO BID B-12 (Cyanocobalamin (Vitamin B-12)) 1,000 Mcg Tablet 1,000 Mcg PO QMONTH Atropine Sulfate 2 Ml Drops 2 Ml SL PRN Q4HRS PRN Duoneb 0.5-3(2.5) Mg/3 Ml (Albuterol/Ipratropium) 3 Ml Ampul.neb 3 Ml NEB QID Celexa (Citalopram Hydrobromide) 20 Mg Tablet 1 Tab PEG QODAY Budesonide 0.5 Mg/2 Ml Ampul.neb 1 Vial NEB BID Benztropine Mesylate 1 Mg Tablet 1 Mg PEG HS Polyvinyl Alcohol 15 Ml Drops 15 Ml OP PRN Q8HRS Instill 1 drop in both eyes every 8 hours as needed for dryness Acetaminophen 500 Mg Tablet 650 Mg PEG PRN Q6HRS Vitals/I & O Vital Sign - Last 24 Hours 12/06/17 12/06/17 12/06/17 12/06/17 11:00 11:28 15:00 15:50 Temp 97.9 97.9 97.9 97.9 Pulse 97 111 Resp 18 20 B/P (MAP) 165/70 (101) 147/67 (93) Pulse Ox 100 95 97 95 O2 Delivery Tracheal Collar Tracheal Collar Tracheal Collar Tracheal Collar O2 Flow Rate 14.0 10.0 14.0 10.0 12/06/17 12/06/17 12/06/17 12/06/17 19:00 19:56 20:00 23:00 Temp 100.8 99.9 100.8 99.9 Pulse 102 97 Resp 18 18 B/P (MAP) 145/104 (118) 129/87 (101) Pulse Ox 98 96 O2 Delivery Tracheal Collar Tracheal Collar Trach Collar Tracheal Collar O2 Flow Rate 10.0 10.0 12/07/17 12/07/17 12/07/17 03:00 07:00 07:23 Temp 98.2 97.9 98.2 97.9 Pulse 86 84 Resp 19 20 B/P (MAP) 143/95 (111) 158/101 (120) Pulse Ox 97 98 96 O2 Delivery Tracheal Collar Tracheal Collar Tracheal Collar O2 Flow Rate 10.0 10.0 10.0 Intake and Output 12/06/17 12/06/17 12/07/17 15:00 23:00 07:00 Intake Total 1960 ml 2200 ml 250 ml Output Total 0 ml 0 ml Balance 1960 ml 2200 ml 250 ml Nutrition Consultation Dietary Evaluation: Comments: REC continue TF as ordered: Jevity 1.5 bolus feeds 237 ml 5 x day with 250 ml flush after each bolus. Expected Outcomes/Goals: wt maintainance- goal ongoing Malnutrition Findings: Body Fat Depletion (Non Severe: Mild Depletion Weight Status: Appropriate KIRK KHOURY MD Dec 07, 2017 09:10
[2017-12-07] MEDS: DIVALPROEX SPRINKLES 125 MG CAPSULE. PO SCH ×2 (09:41→20:47)
--- NOTE | 2017-12-07 09:58 | PDOC ---
Infectious Disease Note Subjective Subjective awake, non verbal ROS ROS no n/v/d/fever Vital Sign Vital Signs Vital Signs Date Time Temp Pulse Resp B/P (MAP) Pulse Ox O2 Delivery O2 Flow Rate FiO2 12/07/17 07:23 96 Tracheal Collar 10.0 12/07/17 07:00 97.9 84 20 158/101 (120) 97.9 Physical Exam PHYSICAL EXAM GENERAL: On examination, unresponsive gentleman, not in distress. VITAL SIGNS: Stable HEENT: NAD. NECK: Supple, no JVP, no lymphadenopathy. Tracheostomy in place. Neck is supple. LUNGS: Decreased breath sounds bilaterally. HEART: S1, S2 regular. No gallop or murmur. ABDOMEN: Soft, nontender, no organomegaly. EXTREMITIES: No edema, cyanosis. SKIN: Unremarkable. NEUROLOGIC: The patient is neurologically unresponsive. Objective Assessment HCAP Fever Respiratory failure Parkinson disease Dementia Plan Plan of Care meropenem supportive care prognosis poor ELIZA MCGRATH MD Dec 07, 2017 09:58
[2017-12-07 10:11] LABS: BASO % 0 % (0-3); EOS # 0.2 x10^3/uL (0.0-0.7); EOS % 4 % (0-3); HEMATOCRIT 42.2 % (39.0-53.0); HEMOGLOBIN 14.5 g/dL (13.0-17.5); LYMPH # 1.4 x10^3/uL (1.0-4.8); LYMPH % 24 % (24-48); MEAN CORPUSCULAR HEMOGLOBIN 34 pg (25-35); MEAN CORPUSCULAR HGB CONC 34 g/dL (31-37); MEAN CORPUSCULAR VOLUME 98 fL (79-100); MONO # 0.5 x10^3/uL (0.0-1.1); MONO % 8 % (0-9); NEUT # 3.5 x10^3uL (1.8-7.7); NEUT % 63 % (31-73); PLATELET COUNT 80 x10^3/uL (140-400); RED CELL DISTRIBUTION WIDTH 14.9 % (11.5-14.5); WHITE BLOOD COUNT 5.6 x10^3/uL (4.0-11.0)
[2017-12-07 10:24] LABS: CALCIUM 8.4 mg/dL (8.5-10.1); CREATININE 0.5 mg/dL (0.7-1.3); GFR 164.9; POTASSIUM 4.1 mmol/L (3.5-5.1)
--- NOTE | 2017-12-07 10:45 | PDOC ---
PULMONARY PROGRESS NOTES Subjective appears comfortable. on tm, TRACH SECRETIONS decreased. Vitals Vital Signs Date Time Temp Pulse Resp B/P (MAP) Pulse Ox O2 Delivery O2 Flow Rate FiO2 12/07/17 07:23 96 Tracheal Collar 10.0 12/07/17 07:00 97.9 84 20 158/101 (120) 97.9 General: No acute distress HEENT: Other (nc at perrl neck trach site ok) Lungs: Other (few rhonchi) Cardiovascular: S1, S2 Abdomen: Soft, Non-tender Extremities: Other Skin: Warm Labs Laboratory Tests Test 12/06/17 09:00 12/07/17 09:00 Creatinine 0.5 mg/dL (0.7-1.3) 0.5 mg/dL (0.7-1.3) Estimated GFR (Cockcroft-Gault) 164.9 164.9 White Blood Count 5.6 x10^3/uL (4.0-11.0) Red Blood Count 4.30 x10^6/uL (4.30-5.70) Hemoglobin 14.5 g/dL (13.0-17.5) Hematocrit 42.2 % (39.0-53.0) Mean Corpuscular Volume 98 fL (79-100) Mean Corpuscular Hemoglobin 34 pg (25-35) Mean Corpuscular Hemoglobin Concent 34 g/dL (31-37) Red Cell Distribution Width 14.9 % (11.5-14.5) Platelet Count 80 x10^3/uL (140-400) Neutrophils (%) (Auto) 63 % (31-73) Lymphocytes (%) (Auto) 24 % (24-48) Monocytes (%) (Auto) 8 % (0-9) Eosinophils (%) (Auto) 4 % (0-3) Basophils (%) (Auto) 0 % (0-3) Neutrophils # (Auto) 3.5 x10^3uL (1.8-7.7) Lymphocytes # (Auto) 1.4 x10^3/uL (1.0-4.8) Monocytes # (Auto) 0.5 x10^3/uL (0.0-1.1) Eosinophils # (Auto) 0.2 x10^3/uL (0.0-0.7) Basophils # (Auto) 0.0 x10^3/uL (0.0-0.2) Sodium Level 144 mmol/L (136-145) Potassium Level 4.1 mmol/L (3.5-5.1) Chloride Level 106 mmol/L (98-107) Carbon Dioxide Level 35 mmol/L (21-32) Anion Gap 3 (6-14) Blood Urea Nitrogen 8 mg/dL (8-26) Glucose Level 81 mg/dL (70-99) Calcium Level 8.4 mg/dL (8.5-10.1) Laboratory Tests Test 12/07/17 09:00 White Blood Count 5.6 x10^3/uL (4.0-11.0) Red Blood Count 4.30 x10^6/uL (4.30-5.70) Hemoglobin 14.5 g/dL (13.0-17.5) Hematocrit 42.2 % (39.0-53.0) Mean Corpuscular Volume 98 fL (79-100) Mean Corpuscular Hemoglobin 34 pg (25-35) Mean Corpuscular Hemoglobin Concent 34 g/dL (31-37) Red Cell Distribution Width 14.9 % (11.5-14.5) Platelet Count 80 x10^3/uL (140-400) Neutrophils (%) (Auto) 63 % (31-73) Lymphocytes (%) (Auto) 24 % (24-48) Monocytes (%) (Auto) 8 % (0-9) Eosinophils (%) (Auto) 4 % (0-3) Basophils (%) (Auto) 0 % (0-3) Neutrophils # (Auto) 3.5 x10^3uL (1.8-7.7) Lymphocytes # (Auto) 1.4 x10^3/uL (1.0-4.8) Monocytes # (Auto) 0.5 x10^3/uL (0.0-1.1) Eosinophils # (Auto) 0.2 x10^3/uL (0.0-0.7) Basophils # (Auto) 0.0 x10^3/uL (0.0-0.2) Sodium Level 144 mmol/L (136-145) Potassium Level 4.1 mmol/L (3.5-5.1) Chloride Level 106 mmol/L (98-107) Carbon Dioxide Level 35 mmol/L (21-32) Anion Gap 3 (6-14) Blood Urea Nitrogen 8 mg/dL (8-26) Creatinine 0.5 mg/dL (0.7-1.3) Estimated GFR (Cockcroft-Gault) 164.9 Glucose Level 81 mg/dL (70-99) Calcium Level 8.4 mg/dL (8.5-10.1) Medications Active Scripts Medications Dose Route/Sig Max Daily Dose Days Date Category Dose Instructions Atropine Sulfate 2 Ml Drops 2 Ml SL PRN Q4HRS PRN 11/30/17 Reported Duoneb 0.5-3(2.5) Mg/3 Ml (Albuterol/Ipratropium) 3 Ml Ampul.neb 3 Ml NEB QID 09/21/16 Reported Depakote Er (Divalproex Sodium) 500 Mg Tab.er.24h 1 Tab PEG BID 09/21/16 Reported Cyanocobalamin Injection (Cyanocobalamin (Vitamin B-12)) 1,000 Mcg/1 Ml Vial 1 Ml IM QMONTH 09/21/16 Reported Celexa (Citalopram Hydrobromide) 20 Mg Tablet 1 Tab PEG QODAY 09/21/16 Reported Budesonide 0.5 Mg/2 Ml Ampul.neb 1 Vial NEB BID 09/21/16 Reported Benztropine Mesylate 1 Mg Tablet 1 Mg PEG HS 09/21/16 Reported Polyvinyl Alcohol 15 Ml Drops 15 Ml OP PRN Q8HRS 09/21/16 Reported Instill 1 drop in both eyes every 8 hours as needed for dryness Acetaminophen 500 Mg Tablet 650 Mg PEG PRN Q6HRS 09/21/16 Reported Impression . 1. Acute hypoxic respiratory failure secondary to tracheobronchitis/suspected gram-negative and gram-positive healthcare-associated pneumonia. (PSA ON CULTURES) 2. Fever secondary to pneumonia and tracheobronchitis.ID FOLLOWING 3. Hypernatremia, likely related to dehydration. improving 5. Thrombocytopenia related to an infectious etiology. 6. Underlying Parkinson's with chronic dementia. Plan . 1. Discussed with RN,. blood cultures, neg. Sputum with PSA 2. Abx per ID. Monitor fever 3. Continue nebulizer treatment. 4. P.r.n. suction 5. Follow sodium level. 6. bronchodilators 7. elevate hob 8. dvt prophylaxis Discussed with VICKIE SINGER MD Dec 07, 2017 10:45
[2017-12-07 11:43] VITALS: BP 119/79
[2017-12-07 15:49] VITALS: BP 137/94
[2017-12-07 19:00] VITALS: BP 134/85
[2017-12-07] MEDS: BENZTROPINE MESYLATE 1 MG TABLET. PEG SCH (20:46)
[2017-12-07] MEDS: ENOXAPARIN 40 MG/0.4 ML SYRINGE. SQ SCH (20:47)
[2017-12-07 23:00] VITALS: BP 143/91
[2017-12-08 03:00] VITALS: BP 146/95
[2017-12-08] MEDS: MEROPENEM 1 GM in IV NORMAL SALINE 100ML 100 ML IV SCH (05:46)
[2017-12-08 07:00] VITALS: BP 123/82
[2017-12-08] MEDS: IPRATRPIUM/ALBUTEROL 0.5/2.5MG 3 ML NEBU. NEB SCH ×3 (08:07→15:31)
[2017-12-08] MEDS: BUDESONIDE 0.5 MG/2 ML NEBU. NEB SCH (08:07)
--- NOTE | 2017-12-08 10:05 | PDOC ---
Infectious Disease Note Subjective Subjective awake, non verbal ROS ROS unable to do Vital Sign Vital Signs Vital Signs Date Time Temp Pulse Resp B/P (MAP) Pulse Ox O2 Delivery O2 Flow Rate FiO2 12/08/17 08:08 94 Tracheal Collar 10.0 12/08/17 07:00 85 18 123/82 (96) 12/08/17 03:00 98.2 98.2 Physical Exam PHYSICAL EXAM GENERAL: On examination, unresponsive gentleman, not in distress. VITAL SIGNS: Stable HEENT: NAD. NECK: Supple, no JVP, no lymphadenopathy. Tracheostomy in place. Neck is supple. LUNGS: Decreased breath sounds bilaterally. HEART: S1, S2 regular. No gallop or murmur. ABDOMEN: Soft, nontender, no organomegaly. EXTREMITIES: No edema, cyanosis. SKIN: Unremarkable. NEUROLOGIC: The patient is neurologically unresponsive. Labs Micro GRAM STAIN WHITE BLOOD CELLS Final Few GRAM STAIN EPITHELIAL CELLS Final Few GRAM STAIN RESULT 1 Final Comment Few gram positive cocci GRAM STAIN RESULT 2 Final Comment Few gram negative rods. GRAM STAIN EVALUATION Final Comment This specimen is of good quality and is acceptable for routine bacterial culture. Performed at: [facility], [place], [place] [id number] Supervisor Soldering: JANET Chris MD, Phone: [phone] SPUTUM CULTURE- Final Final report SPUTUM CULT RES 1 Final Comment Pseudomonas aeruginosa 4+ * This is a corrected result. * A prior result that was reported as final has been changed. CONTINUED ON NEXT PAGE RUN DATE: 12/05/17 PAGE 2 RUN TIME: 1612 [facility] [address] [place] [address] Sahil Mendez M.D., Electronic [employer] Gathering Camera Person SPEC: [id number] PATIENT: MALICK JORGENSEN [id number] ( Continued) Procedure Result SPUTUM CULT RES 2 Final Comment Beta hemolytic Streptococcus, group B 1+ Penicillin and ampicillin are drugs of choice for treatment of beta-hemolytic streptococcal infections. Susceptibility testing of penicillins and other beta-lactam agents approved by the FDA for treatment of beta-hemolytic streptococcal infections need not be performed routinely because nonsusceptible isolates are extremely rare in any beta-hemolytic streptococcus and have not been reported for Streptococcus pyogenes (group A). (CLSI 2011) * This is a corrected result. * A prior result that was reported as final has been changed. SPUTUM CULT RES 3 Final Comment Routine respiratory delfino 3+ Performed at: - [facility] [address], [place], [place] [id number] Supervisor Soldering: JANET Chris MD, Phone: [phone] * This is a corrected result. * A prior result that was reported as final has been changed. ANTIMICROBIAL SUSCEPTIBILITY Final Comment S = Susceptible; I = Intermediate; R = Resistant P = Positive; N = Negative MICS are expressed in micrograms per mL Antibiotic RSLT#1 RSLT#2 RSLT#3 RSLT#4 Amikacin S<=2 Cefepime I =I Ceftazidime I =16 Ciprofloxacin S =0.5 Gentamicin S<=1 Imipenem S =2 Levofloxacin S =2 Meropenem S =1 Piperacillin S =32 CONTINUED ON NEXT PAGE RUN DATE: 12/05/17 PAGE 3 RUN TIME: 1612 [facility] [address] [place] [address] Sahil Mendez M.D., Electronic News Gathering Camera Person SPEC: [id number] PATIENT: MALICK JORGENSEN [id number] ( Continued) Procedure Result ANTIMICROBIAL SUSCEPTIBILITY Final (continued) Ticarcillin S =64 Tobramycin S<=1 Performed at: DA - [facility] [address], [place], [place] [id number] Supervisor Soldering: JANET Chris MD, Phone: [phone] Objective Assessment HCAP Fever Respiratory failure Parkinson disease Dementia Plan Plan of Care meropenem,, change to holden gallego to d/c supportive care prognosis poor ELIZA MCGRATH MD Dec 08, 2017 10:05
[2017-12-08] MEDS: CITALOPRAM 20 MG TABLET. PEG SCH (10:18)
[2017-12-08] MEDS: DIVALPROEX SPRINKLES 125 MG CAPSULE. PO SCH (10:18)
[2017-12-08 11:00] VITALS: BP 141/94
[2017-12-08] MEDS ORDERED: AMOX1TAB61 PO (12:00)
[2017-12-08] MEDS ORDERED: SCOP1PAT11 TP (12:00)
[2017-12-08] MEDS ORDERED: ENOX40DI3 SQ (12:00)
--- NOTE | 2017-12-08 12:04 | PDOC3 ---
Discharge Summary Visit Information Date of Admission: Nov 30, 2017 Date of Discharge: Dec 08, 2017 Admitting Diagnosis Comment: acute on chronic resp failure with trach and on trach collar now with 40% O2 PSeudomonas pneumonia chronic dementia , encephalopathy h/o stroke parkinson dz P - afib dysphagia with encephalopathy with chronic PEG mild malnutrition FC h/o seizure chronic foot drop and leg edema Final Diagnosis Problems Medical Problems: (1) Acute respiratory failure Status: Acute (2) Acute tracheitis Status: Acute Brief Hospital Course Allergies Allergies Coded Allergies Type Severity Reaction Last Updated Verified fentanyl Allergy Intermediate 09/23/16 Yes morphine Allergy Intermediate 09/23/16 Yes Vital Signs Vital Signs Date Time Temp Pulse Resp B/P (MAP) Pulse Ox O2 Delivery O2 Flow Rate FiO2 12/08/17 11:55 94 Tracheal Collar 10.0 12/08/17 07:00 85 18 123/82 (96) 12/08/17 03:00 98.2 98.2 Lab Results Laboratory Tests Test 12/07/17 09:00 White Blood Count 5.6 x10^3/uL (4.0-11.0) Red Blood Count 4.30 x10^6/uL (4.30-5.70) Hemoglobin 14.5 g/dL (13.0-17.5) Hematocrit 42.2 % (39.0-53.0) Mean Corpuscular Volume 98 fL (79-100) Mean Corpuscular Hemoglobin 34 pg (25-35) Mean Corpuscular Hemoglobin Concent 34 g/dL (31-37) Red Cell Distribution Width 14.9 % (11.5-14.5) Platelet Count 80 x10^3/uL (140-400) Neutrophils (%) (Auto) 63 % (31-73) Lymphocytes (%) (Auto) 24 % (24-48) Monocytes (%) (Auto) 8 % (0-9) Eosinophils (%) (Auto) 4 % (0-3) Basophils (%) (Auto) 0 % (0-3) Neutrophils # (Auto) 3.5 x10^3uL (1.8-7.7) Lymphocytes # (Auto) 1.4 x10^3/uL (1.0-4.8) Monocytes # (Auto) 0.5 x10^3/uL (0.0-1.1) Eosinophils # (Auto) 0.2 x10^3/uL (0.0-0.7) Basophils # (Auto) 0.0 x10^3/uL (0.0-0.2) Erythrocyte Sedimentation Rate 5 (0-15) Sodium Level 144 mmol/L (136-145) Potassium Level 4.1 mmol/L (3.5-5.1) Chloride Level 106 mmol/L (98-107) Carbon Dioxide Level 35 mmol/L (21-32) Anion Gap 3 (6-14) Blood Urea Nitrogen 8 mg/dL (8-26) Creatinine 0.5 mg/dL (0.7-1.3) Estimated GFR (Cockcroft-Gault) 164.9 Glucose Level 81 mg/dL (70-99) Calcium Level 8.4 mg/dL (8.5-10.1) Brief Hospital Course Mr. Larios is a 67 old male, bedbound, SNU resident, admitted because of very high secretions via trach. He already also has an indwelling PEG tube feeds running fine. Is unfortunately still a full code, family wishes aggressive care. He did grow Pseudomonas pneumonia comanage with pulmonary and infectious disease. Stayed here for about 7 or 8 days with us. Cleared by ID to go home on Augmentin for 7 more days. I have Rx'd 875/125 milligrams dose for twice a day for 7 days. Also scopolamine patch seemed to have helped the secretions. Off note need to suction secretions very aggressively at SNU Consults performed infectious disease, pulmonary Procedures performed none Time discharging 31 minutes, greater than 50% discharge education etc. according discharge Discussed with RN, social work and staff Discharge Information Condition at Discharge: Improved, Stable Disposition/Orders: Other (SNU) Scheduled Acetaminophen (Acetaminophen) 500 Mg Tablet, 650 MG PEG PRN Q6HRS for FEVER, ( Reported) Entered as Reported by: SILVESTRE BRUNNER on 09/21/16 0521 Last Action: Continued on 12/02/17 1729 by Claudia Lynch RPH Amoxicillin/Potassium Clav (Augmentin 875-125 Tablet) 1 Each Tablet, 1 TAB PO BID, #14 Prescribed by: KIRK KHOURY on 12/08/17 1200 Benztropine Mesylate (Benztropine Mesylate) 1 Mg Tablet, 1 MG PEG HS, (Reported) Entered as Reported by: SILVESTRE BRUNNER on 09/21/16520 Last Action: Converted on 12/02/171728 by Claudia Lynch RPH Budesonide (Budesonide) 0.5 Mg/2 Ml Ampul.neb, 1 VIAL NEB BID, #120 Ref 3 ( Reported) Entered as Reported by: SILVESTRE BRUNNER on 09/21/16520 Last Action: Continued on 12/02/171728 by Claudia Lynch RPH Citalopram Hydrobromide (Celexa) 20 Mg Tablet, 1 TAB PEG QODAY, #90 Ref 3 ( Reported) Entered as Reported by: SILVESTRE BRUNNER on 09/21/16520 Last Action: Continued on 12/02/171728 by Claudia Lynch RPH Cyanocobalamin (Vitamin B-12) (B-12) 1,000 Mcg Tablet, 1,000 MCG PO QMONTH, ( Reported) Entered as Reported by: SRAVAN THORNTON RPH on 12/02/172014 Last Action: New Order on 12/02/172014 by SRAVAN THORNTON RPH Divalproex Sodium (Depakote Sprinkle) 125 Mg Cap.sprink, 500 MG PO BID, ( Reported) Entered as Reported by: SRAVAN THORNTON RPH on 12/02/172014 Last Action: New Order on 12/02/172014 by SRAVAN THORNTON RPH Enoxaparin Sodium (Enoxaparin Sodium) 40 Mg/0.4 Ml Disp.syrin, 40 MG SQ Q24H for 30 Days Prescribed by: KIRK KHOURY on 12/08/17 1200 Ipratropium/Albuterol Sulfate (Duoneb 0.5-3(2.5) Mg/3 Ml) 3 Ml Ampul.neb, 3 ML NEB QID, (Reported) Entered as Reported by: SILVESTRE BRUNNER on 09/21/16520 Last Action: Continued on 12/02/171728 by Claudia Lynch RPH Polyvinyl Alcohol (Polyvinyl Alcohol) 15 Ml Drops, 15 ML OP PRN Q8HRS, (Reported ) Instill 1 drop in both eyes every 8 hours as needed for dryness Entered as Reported by: SILVESTRE BRUNNER on 09/21/16520 Last Action: Continued on 12/02/171728 by Claudia Lynch RPH Scopolamine (Transderm-Scop) 1 Each Patch.td72, 1 PATCH TP Q3DAYS, #4 Prescribed by: KIRK KHOURY on 12/08/17 1200 Scheduled PRN Atropine Sulfate (Atropine Sulfate) 2 Ml Drops, 2 ML SL PRN Q4HRS PRN for SECRETIONS, (Reported) Entered as Reported by: BRAIN FIGUEROA on 11/30/171938 Last Action: Converted on 12/02/171728 by Claudia Lynch RPH Discontinued Medications Cyanocobalamin (Vitamin B-12) (Cyanocobalamin Injection) 1,000 Mcg/1 Ml Vial, 1 ML IM QMONTH, #1 Ref 3 (Reported) Discontinued Reason: Prescription changed Entered as Reported by: SILVESTRE BRUNNER on 09/21/16520 Last Action: Continued on 12/02/171728 by Claudia Lynch RPH Divalproex Sodium (Depakote Er) 500 Mg Tab.er.24h, 1 TAB PEG BID, #60 Ref 2 ( Reported) Discontinued Reason: Prescription changed Entered as Reported by: SILVESTRE BRUNNER on 09/21/16520 Last Action: Continued on 12/02/171728 by AIRAM Faria CHERRIE Y MD Dec 08, 2017 12:04
--- NOTE | 2017-12-08 14:44 | PDOC ---
PULMONARY PROGRESS NOTES Subjective tracks, but does not answer questions. appears comfortable. on tm, TRACH SECRETIONS decreased. Vitals Vital Signs Date Time Temp Pulse Resp B/P (MAP) Pulse Ox O2 Delivery O2 Flow Rate FiO2 12/08/17 11:55 94 Tracheal Collar 10.0 12/08/17 11:00 99 18 141/94 (110) 12/08/17 03:00 98.2 98.2 General: No acute distress HEENT: Other (nc at perrl neck trach site ok) Lungs: Other (few rhonchi) Cardiovascular: S1, S2 Abdomen: Soft, Non-tender Extremities: Other Skin: Warm Labs Laboratory Tests Test 12/07/17 09:00 White Blood Count 5.6 x10^3/uL (4.0-11.0) Red Blood Count 4.30 x10^6/uL (4.30-5.70) Hemoglobin 14.5 g/dL (13.0-17.5) Hematocrit 42.2 % (39.0-53.0) Mean Corpuscular Volume 98 fL (79-100) Mean Corpuscular Hemoglobin 34 pg (25-35) Mean Corpuscular Hemoglobin Concent 34 g/dL (31-37) Red Cell Distribution Width 14.9 % (11.5-14.5) Platelet Count 80 x10^3/uL (140-400) Neutrophils (%) (Auto) 63 % (31-73) Lymphocytes (%) (Auto) 24 % (24-48) Monocytes (%) (Auto) 8 % (0-9) Eosinophils (%) (Auto) 4 % (0-3) Basophils (%) (Auto) 0 % (0-3) Neutrophils # (Auto) 3.5 x10^3uL (1.8-7.7) Lymphocytes # (Auto) 1.4 x10^3/uL (1.0-4.8) Monocytes # (Auto) 0.5 x10^3/uL (0.0-1.1) Eosinophils # (Auto) 0.2 x10^3/uL (0.0-0.7) Basophils # (Auto) 0.0 x10^3/uL (0.0-0.2) Erythrocyte Sedimentation Rate 5 (0-15) Sodium Level 144 mmol/L (136-145) Potassium Level 4.1 mmol/L (3.5-5.1) Chloride Level 106 mmol/L (98-107) Carbon Dioxide Level 35 mmol/L (21-32) Anion Gap 3 (6-14) Blood Urea Nitrogen 8 mg/dL (8-26) Creatinine 0.5 mg/dL (0.7-1.3) Estimated GFR (Cockcroft-Gault) 164.9 Glucose Level 81 mg/dL (70-99) Calcium Level 8.4 mg/dL (8.5-10.1) Medications Active Scripts Medications Dose Route/Sig Max Daily Dose Days Date Category Dose Instructions Atropine Sulfate 2 Ml Drops 2 Ml SL PRN Q4HRS PRN 11/30/17 Reported Duoneb 0.5-3(2.5) Mg/3 Ml (Albuterol/Ipratropium) 3 Ml Ampul.neb 3 Ml NEB QID 09/21/16 Reported Depakote Er (Divalproex Sodium) 500 Mg Tab.er.24h 1 Tab PEG BID 09/21/16 Reported Cyanocobalamin Injection (Cyanocobalamin (Vitamin B-12)) 1,000 Mcg/1 Ml Vial 1 Ml IM QMONTH 09/21/16 Reported Celexa (Citalopram Hydrobromide) 20 Mg Tablet 1 Tab PEG QODAY 09/21/16 Reported Budesonide 0.5 Mg/2 Ml Ampul.neb 1 Vial NEB BID 09/21/16 Reported Benztropine Mesylate 1 Mg Tablet 1 Mg PEG HS 09/21/16 Reported Polyvinyl Alcohol 15 Ml Drops 15 Ml OP PRN Q8HRS 09/21/16 Reported Instill 1 drop in both eyes every 8 hours as needed for dryness Acetaminophen 500 Mg Tablet 650 Mg PEG PRN Q6HRS 09/21/16 Reported Impression . 1. Acute hypoxic respiratory failure secondary to tracheobronchitis/suspected gram-negative and gram-positive healthcare-associated pneumonia. (PSA ON CULTURES), improved with therapy 2. Fever secondary to pneumonia and tracheobronchitis.ID FOLLOWING 3. Hypernatremia, likely related to dehydration. improving 5. Thrombocytopenia related to an infectious etiology. 6. Underlying Parkinson's with chronic dementia. Plan . 1. Discussed with RN,. blood cultures, neg. Sputum with PSA 2. Abx per ID. Monitor fever 3. Continue nebulizer treatment. 4. P.r.n. suction 5. Follow sodium level. 6. bronchodilators 7. elevate hob 8. dvt prophylaxis Discussed with BILL ANDERSON MD Dec 08, 2017 14:44
[2017-12-08 15:00] VITALS: BP 148/95
[2017-12-22] MEDS ORDERED: CYANOCOBALAMIN (VITAMIN B-12) 1,000 MCG TABLET. PO SCH (09:00)
== END 2017-12-08 19:30 | disposition home or self-care (01) | DRG 177 ==
LOC: ER 12:59 → 5 SOUTH 14:20
PROVIDERS: ADMIT Internal Medicine; ATTEND Internal Medicine
DX: J15.6 Pneumonia due to other Gram-negative bacteria (principal); J96.21 Acute and chronic respiratory failure with hypoxia; G93.40 Encephalopathy, unspecified; E44.1 Mild protein-calorie malnutrition; E87.0 Hyperosmolality and hypernatremia; J44.0 Chronic obstructive pulmonary disease with (acute) lower respiratory infection; D69.59 Other secondary thrombocytopenia; E86.0 Dehydration; F03.90 Unspecified dementia, unspecified severity, without behavioral disturbance, psychotic disturbance, mood disturbance, and anxiety; G20 Parkinson's disease; G40.909 Epilepsy, unspecified, not intractable, without status epilepticus; I10 Essential (primary) hypertension; F32.9 Major depressive disorder, single episode, unspecified; M21.379 Foot drop, unspecified foot; K21.9 Gastro-esophageal reflux disease without esophagitis; R13.10 Dysphagia, unspecified; I48.0 Paroxysmal atrial fibrillation; Y95 Nosocomial condition; Z79.899 Other long term (current) drug therapy; Z86.73 Personal history of transient ischemic attack (TIA), and cerebral infarction without residual deficits; Z93.0 Tracheostomy status; Z93.1 Gastrostomy status; Z74.01 Bed confinement status; Z88.8 Allergy status to other drugs, medicaments and biological substances; Z68.28 Body mass index [BMI] 28.0-28.9, adult; Z87.01 Personal history of pneumonia (recurrent); Z79.01 Long term (current) use of anticoagulants
CPT/HCPCS: 31720; 36415; 36600; 71045; 80048; 80053; 80202; 82565; 82805; 83605; 83880; 84484; 85025; 85651; 86140; 87040; 87070; 87086; 87186; 87205; 87641; 94640; 94760; 96374; J0360; J1650; J1940; J2185; J2543; J3370; J3480; J7030; J7040; J7050; J7620; J7626; 99285-25

== ENCOUNTER 2017-12-09 10:55 | Emergency (ER) | payer MEDICARE, OTHER ==
[~2017-12-09] VITALS: Ht 182.9 cm; Wt 94.8 kg
[~2017-12-09 10:55] MED LIST changes: +AMOX1TAB61 PO; +ATRO2DRO3 SL; +CYAN100072 PO; +DIVA125C PO; +ENOX40DI3 SQ; +SCOP1PAT11 TP
--- NOTE | 2017-12-09 11:52 | PHYS DOC ---
Past Medical History Past Medical History: A-Fib, COPD, Dementia, Depression, GERD, Hypertension, Renal Disease Additional Past Medical Histor: parkinson's, resp. failure, Past Surgical History: Other Additional Past Surgical Histo: unknown, trachostomy Alcohol Use: None Drug Use: None Adult General Chief Complaint Chief Complaint: SHORTNESS OF BREATH HPI HPI Patient is a 67 year old male who presents to the ER. Patient is a [facility] dependent patient with complicated past medical history. Patient with history positive for Parkinson's disease, dementia, chronic respiratory failure that is trach dependent, PEG tube dependency, nonverbal, bedbound. She was discharged from this hospital yesterday with a hospital limitation for pneumonia. Patient was seen by infectious disease with recommendations to continue a 7 day course of Augmentin at time of idshcarge. Patient at time of discharge was requiring 40% FiO2 via trach shield and very frequent suctioning. EMS called to the [facility] for hypoxia and tachypnea. On EMS evaluation patient was not on any oxygen. Patient is nonverbal and unable to provide any history. Review of Systems Review of Systems Unable to obtain secondary to patient's medical conditions and dementia. Allergies Allergies Allergies Coded Allergies Type Severity Reaction Last Updated Verified fentanyl Allergy Intermediate 09/23/16 Yes morphine Allergy Intermediate 09/23/16 Yes Physical Exam Physical Exam Constitutional: Chronically ill-appearing, no acute distress, nontoxic appearance HENT: Normocephalic, atraumatic, Eyes: PERRLA, EOMI Neck: Ache present Cardiovascular:Heart rate regular rhythm, no murmur [] Lungs & Thorax: Lateral coarse breath sounds, no tachypnea Abdomen: Bowel sounds normal, soft, no tenderness, no masses, no pulsatile masses. [] PEG Tube present Extremities: Patient with dependent edema to all 4 extremities, bilateral radial and DP pulses present bilaterally. Neurologic: Patient is nonverbal, he tracks people across the room but does not follow commands. Current Patient Data Vital Signs Vital Signs Date Time Temp Pulse Resp B/P (MAP) Pulse Ox O2 Delivery O2 Flow Rate FiO2 12/09/17 11:59 95 trach collar with venti setup 12.0 12/09/17 10:55 98.7 97 36 144/85 (104) 98.7 EKG EKG [] Radiology/Procedures Radiology/Procedures [] Course & Med Decision Making Course & Med Decision Making Pertinent Labs and Imaging studies reviewed. (See chart for details) 1200: Patient is an satting 97% on 4 L in the ER. RT was involved. She suctioned patient's trach with very little return. Patient was placed on FiO2 of 40% which is what his discharge recommendations were and had an O2 saturation of 94-95%. Patient is very stable. Hypoxia penitentiary likely related to lack of supplemental oxygen. No changes compared to discharge physical examination recommendations from yesterday. Patient will be discharged back to [facility]. [] Dragon Disclaimer Dragon Disclaimer This electronic medical record was generated, in whole or in part, using a voice recognition dictation system. Departure Departure Impression: Primary Impression: Hypoxia Disposition: 01 HOME, SELF-CARE Condition: STABLE Referrals: XAVIER SALEEM MD (PCP) Additional Instructions: Thank you for coming to [facility]. Please repeat the attached handouts. Please follow-up with your primary care physician. Return to the ER if your symptoms worsen or you have any other concerns. The patient needs to be on his oxygen at all times. Please suction the patient' s trach very frequently. LARRY GUTIERREZ DO Dec 09, 2017 11:52
[2017-12-09 12:26] VITALS: BP 152/97
== END 2017-12-09 12:35 | disposition home or self-care (01) ==
LOC: ER 10:55
DX: R09.02 Hypoxemia (principal); F03.90 Unspecified dementia, unspecified severity, without behavioral disturbance, psychotic disturbance, mood disturbance, and anxiety; K21.9 Gastro-esophageal reflux disease without esophagitis; J44.9 Chronic obstructive pulmonary disease, unspecified; I48.91 Unspecified atrial fibrillation; I10 Essential (primary) hypertension; N28.9 Disorder of kidney and ureter, unspecified; Z93.0 Tracheostomy status; Z88.4 Allergy status to anesthetic agent; Z88.5 Allergy status to narcotic agent
CPT/HCPCS: 99284

== ENCOUNTER 2018-02-18 17:25 | Inpatient (IN) | payer MEDICARE, OTHER ==
[~2018-02-18] VITALS: Ht 182.9 cm; Wt 87.1 kg
[~2018-02-18 17:25] MED LIST changes: -DIVA125C PO; +DIVA125C2 PO
[2018-02-18] MEDS ORDERED: VANCOMYCIN PER PHARMACY MC ONE (18:15)
[2018-02-18 18:27] LABS: BASO % 1 % (0-3); EOS % 0 % (0-3); HEMATOCRIT 52.5 % (39.0-53.0); HEMOGLOBIN 17.4 g/dL (13.0-17.5); LYMPH # 2.7 x10^3/uL (1.0-4.8); LYMPH % 32 % (24-48); MEAN CORPUSCULAR HEMOGLOBIN 33 pg (25-35); MEAN CORPUSCULAR HGB CONC 33 g/dL (31-37); MEAN CORPUSCULAR VOLUME 101 fL (79-100); MONO # 0.7 x10^3/uL (0.0-1.1); MONO % 8 % (0-9); NEUT # 5.1 x10^3uL (1.8-7.7); NEUT % 60 % (31-73); PLATELET COUNT 71 x10^3/uL (140-400); RED BLOOD COUNT 5.21 x10^6/uL (4.30-5.70); RED CELL DISTRIBUTION WIDTH 14.7 % (11.5-14.5); WHITE BLOOD COUNT 8.6 x10^3/uL (4.0-11.0)
[2018-02-18] MEDS ORDERED: PIPERACILLIN/TAZOBACTAM 4.5 GM in IV NORMAL SALINE 100ML 100 ML IV ONE (18:30)
[2018-02-18] MEDS ORDERED: VANCOMYCIN 2 GM in IV NORMAL SALINE 500ML BAG 500 ML IV ONE (18:30)
[2018-02-18 18:36] LABS: PROTHROMBIN TIME PATIENT 15.4 SEC (11.7-14.0)
[2018-02-18 18:44] LABS: CALCIUM 8.7 mg/dL (8.5-10.1); CREATININE 1.1 mg/dL (0.7-1.3); GFR 66.4; POTASSIUM 3.8 mmol/L (3.5-5.1)
[2018-02-18 18:55] LABS: ALBUMIN 2.8 g/dL (3.4-5.0); ALBUMIN/GLOBULIN RATIO 0.8 (1.0-1.7); TOTAL BILIRUBIN 0.6 mg/dL (0.2-1.0); TOTAL PROTEIN 6.3 g/dL (6.4-8.2)
[2018-02-18] MEDS ORDERED: IV 1/2 NORMAL SALINE 1,000 ML IV ONE (19:00)
--- NOTE | 2018-02-18 19:04 | PHYS DOC ---
Past Medical History Past Medical History: A-Fib, COPD, Dementia, Depression, GERD, Hypertension, Renal Disease Additional Past Medical Histor: parkinson's, resp. failure, chronic kidney disease Past Surgical History: Other Additional Past Surgical Histo: unknown, tracheostomy Alcohol Use: None Drug Use: None Adult General Chief Complaint Chief Complaint: ALTERED MENTAL STATUS HPI HPI Patient is a 67-year-old male who presents from residential with report of altered mental status. [facility] indicates that normally patient is responsive to verbal stimuli but today he is barely responsive to painful stimuli. Per residential staff, they were concerned that patient was going to code and had called EMS. Patient noted to be febrile upon arrival and nonverbal. Unable to obtain additional history due to mental status. Review of Systems Review of Systems Constitutional: Positive fever[] Neurologic: Positive dental status change[] Unable to fully assess review of systems due to patient's mental status. Current Medications Current Medications Current Medications Medications (Trade) Dose Ordered Sig/Eleanor Start Time Stop Time Status Last Admin Dose Admin Acetaminophen (Tylenol Supp) 650 mg 1X ONCE 02/18/18 21:30 02/18/18 21:31 DC Acetaminophen (Tylenol) 650 mg PRN Q6HRS PRN 02/18/18 22:30 Albuterol/ Ipratropium (Duoneb) 3 ml RTQID 02/19/18 08:00 Artificial Tears (Artificial Tears) 1 drop PRN Q8HRS PRN 02/18/18 22:45 Atropine Sulfate (Isopto Atropine) 2 drop PRN Q4HRS PRN 02/18/18 22:45 Benztropine Mesylate (Cogentin) 1 mg QHS 02/19/18 21:00 Budesonide (Pulmicort) 0.5 mg RTBID 02/19/18 08:00 Citalopram Hydrobromide (CeleXA) 20 mg QODAY 02/20/18 09:00 Cyanocobalamin (Vitamin B-12) 1,000 mcg QMONTH 03/20/18 09:00 Dextrose (Dextrose 50%-Water Syringe) 12.5 gm PRN Q15MIN PRN 02/18/18 22:45 Divalproex Sodium (Depakote Sprinkles) 500 mg BID 02/19/18 09:00 Enoxaparin Sodium (Lovenox 40mg Syringe) 40 mg Q24H 02/18/18 23:00 Insulin Human Lispro (HumaLOG) 0-9 UNITS Q6HRS 02/19/18 00:00 Piperacillin Sod/ Tazobactam Sod (Zosyn Per Pharmacy) 1 each PRN DAILY PRN 02/18/18 23:00 Piperacillin Sod/ Tazobactam Sod 3.375 gm/Sodium Chloride 50 ml @ 100 mls/hr Q6HRS 02/19/18 00:00 Piperacillin Sod/ Tazobactam Sod 4.5 gm/Sodium Chloride 100 ml @ 200 mls/hr 1X ONCE 02/18/18 18:30 02/18/18 19:01 DC 02/18/18 18:52 200 MLS/HR Scopolamine (Transderm-Scop) 1 patch Q3DAYS 02/21/18 09:00 Sodium Chloride 1,000 ml @ 0 mls/hr 1X ONCE 02/18/18 19:00 02/18/18 19:01 DC 02/18/18 19:00 500 MLS/HR Vancomycin HCl (Vanco Per Pharmacy) 1 each PRN DAILY PRN 02/18/18 21:30 Vancomycin HCl 2 gm/Sodium Chloride 500 ml @ 250 mls/hr 1X ONCE 02/18/18 18:30 02/18/18 20:29 DC 02/18/18 20:59 250 MLS/HR Allergies Allergies Allergies Coded Allergies Type Severity Reaction Last Updated Verified fentanyl Allergy Intermediate 09/23/16 Yes morphine Allergy Intermediate 09/23/16 Yes Physical Exam Physical Exam Constitutional: Well developed, well nourished, no acute distress, non-toxic appearance. [] HENT: Normocephalic, atraumatic, bilateral external ears normal, oropharynx moist, no oral exudates, nose normal. [] Eyes: PERRLA, EOMI, conjunctiva normal, no discharge. [] Neck: Normal range of motion, no tenderness, supple, no stridor. [] Cardiovascular:Heart rate regular rhythm, no murmur [] Lungs & Thorax: Bilateral breath sounds clear to auscultation [] Abdomen: Bowel sounds normal, soft, no tenderness, no masses, no pulsatile masses. [] Skin: Warm, dry, no erythema, no rash. [] Back: No tenderness, no CVA tenderness. [] Extremities: No tenderness, no cyanosis, no clubbing, ROM intact, no edema. [] Neurologic: Alert and oriented X 3, normal motor function, normal sensory function, no focal deficits noted. [] Psychologic: Affect normal, judgement normal, mood normal. [] Current Patient Data Vital Signs Vital Signs Date Time Temp Pulse Resp B/P (MAP) Pulse Ox O2 Delivery O2 Flow Rate FiO2 02/18/18 21:00 101.5 118 26 96 101.5 02/18/18 17:30 105/73 (84) Tracheal Collar 11.0 Lab Values Laboratory Tests Test 02/18/18 18:00 02/18/18 18:30 02/18/18 19:30 02/18/18 19:40 White Blood Count 8.6 x10^3/uL (4.0-11.0) Red Blood Count 5.21 x10^6/uL (4.30-5.70) Hemoglobin 17.4 g/dL (13.0-17.5) Hematocrit 52.5 % (39.0-53.0) Mean Corpuscular Volume 101 fL (79-100) H Mean Corpuscular Hemoglobin 33 pg (25-35) Mean Corpuscular Hemoglobin Concent 33 g/dL (31-37) Red Cell Distribution Width 14.7 % (11.5-14.5) H Platelet Count 71 x10^3/uL (140-400) L Neutrophils (%) (Auto) 60 % (31-73) Lymphocytes (%) (Auto) 32 % (24-48) Monocytes (%) (Auto) 8 % (0-9) Eosinophils (%) (Auto) 0 % (0-3) Basophils (%) (Auto) 1 % (0-3) Neutrophils # (Auto) 5.1 x10^3uL (1.8-7.7) Lymphocytes # (Auto) 2.7 x10^3/uL (1.0-4.8) Monocytes # (Auto) 0.7 x10^3/uL (0.0-1.1) Eosinophils # (Auto) 0.0 x10^3/uL (0.0-0.7) Basophils # (Auto) 0.0 x10^3/uL (0.0-0.2) Prothrombin Time 15.4 SEC (11.7-14.0) H Prothrombin Time INR 1.3 (0.8-1.1) H Sodium Level 156 mmol/L (136-145) H Potassium Level 3.8 mmol/L (3.5-5.1) Chloride Level 116 mmol/L (98-107) H Carbon Dioxide Level 33 mmol/L (21-32) H Anion Gap 7 (6-14) Blood Urea Nitrogen 62 mg/dL (8-26) H Creatinine 1.1 mg/dL (0.7-1.3) Estimated GFR (Cockcroft-Gault) 66.4 BUN/Creatinine Ratio 56 (6-20) H Glucose Level 99 mg/dL (70-99) Lactic Acid Level 1.5 mmol/L (0.4-2.0) Calcium Level 8.7 mg/dL (8.5-10.1) Total Bilirubin 0.6 mg/dL (0.2-1.0) Aspartate Amino Transferase (AST) 24 U/L (15-37) Alanine Aminotransferase (ALT) 32 U/L (16-63) Alkaline Phosphatase 45 U/L (46-116) L Total Protein 6.3 g/dL (6.4-8.2) L Albumin 2.8 g/dL (3.4-5.0) L Albumin/Globulin Ratio 0.8 (1.0-1.7) L Procalcitonin < 0.10 ng/mL (0.00-0.10) Influenza Type A Antigen Negative (NEGATIVE) Influenza Type B Antigen Negative (NEGATIVE) Ammonia 19 mcmol/L (11-34) O2 Saturation 95 % (92-99) Arterial Blood pH 7.44 (7.35-7.45) Arterial Blood pCO2 at Patient Temp 40 mmHg (35-46) Arterial Blood pO2 at Patient Temp 76 mmHg (65-108) Arterial Blood HCO3 27 mmol/L (21-28) Arterial Blood Base Excess 3 mmol/L (-3-3) Test 02/18/18 20:47 Urine Collection Type Unknown Urine Color Dara Urine Clarity Clear Urine pH 5.5 Urine Specific [place] 1.025 Urine Protein Negative mg/dL (NEG-TRACE) Urine Glucose (UA) Negative mg/dL (NEG) Urine Ketones (Stick) Negative mg/dL (NEG) Urine Blood Negative (NEG) Urine Nitrite Negative (NEG) Urine Bilirubin Negative (NEG) Urine Urobilinogen Dipstick 1.0 mg/dL (0.2 mg/dL) Urine Leukocyte Esterase Negative (NEG) Urine RBC 1-2 /HPF (0-2) Urine WBC Occ /HPF (0-4) Urine Squamous Epithelial Cells Few /LPF Urine Bacteria Few /HPF (0-FEW) Urine Hyaline Casts Few /HPF Urine Mucus Mod /LPF Laboratory Tests 02/18/18 18:00 Laboratory Tests 02/18/18 18:00 EKG EKG [] Interpretation Time: EKG demonstrates A. fib with RVR with rate of 127. Radiology/Procedures Radiology/Procedures [] Impressions: Portable chest x-ray demonstrates no acute process. Right subclavian line is in the superior vena cava. Course & Med Decision Making Course & Med Decision Making Pertinent Labs and Imaging studies reviewed. (See chart for details) Central Line Placement by me: Patient consented, sterilely draped, full prep, gown, glove, mask, time out performed. Anesthesia: 1% lidocaine locally Location: Right subclavian Device: 7 Israeli triple-lumen Technique: Seldinger technique. Secured with suture. Results: Venous return from all ports with easy saline flush. No complications. Guide wire retrieved and disposed of. Chest X-ray 1V Interpreted by me: Central line in SVC, Normal soft tissue, No evidence of pneumothorax. A total of 45 minutes of critical care time was spent on this patient exclusive of separately billable procedures. Time included direct [id number] patient contact, ordering and reviewing of both laboratory and radiological studies, discussion of patient's case with employment consultant, and finally on documentation of this patient's medical record. Dragon Disclaimer Dragon Disclaimer This electronic medical record was generated, in whole or in part, using a voice recognition dictation system. Departure Departure Impression: Primary Impression: Hypernatremia Additional Impressions: Altered mental state Fever Disposition: 09 ADMITTED INPATIENT Admitting Physician: Rosalia Tong Condition: GUARDED Referrals: XAVIER SALEEM MD (PCP) Problem Qualifiers Additional Impressions: Altered mental state Altered mental status type: unspecified Qualified Codes: R41.82 - Altered mental status, unspecified Fever Fever type: unspecified Qualified Codes: R50.9 - Fever, unspecified SMOOTH HUITRON Jr. DO Feb 18, 2018 19:04
[2018-02-18 19:11] LABS: INFLUENZA A PATIENT NEGATIVE (NEGATIVE); INFLUENZA B PATIENT NEGATIVE (NEGATIVE)
--- NOTE | 2018-02-18 20:50 | RAD ---
PQRS Compliance statement: One or more of the following individualized dose reduction techniques were utilized for this examination: 1. Automated exposure control. 2. Adjustment of the mA and/or kV according to patient size. 3. Use of iterative reconstruction technique. Indication:AMS FEVER H/O Parkinson's disease. NO PREV TECHNIQUE: CT head without IV contrast COMPARISON:None FINDINGS: No pathologic extra-axial or intra-axial fluid collection. Moderate diffuse brain volume loss with ex vacuo dilation of the ventricles. No acute intracranial bleed. CSF density focus is seen in the left basal ganglia measuring 1.5 x 1.0 cm most likely old infarct. Confluent low-attenuation is seen in the periventricular and deep white matter. No focal loss of downey-white differentiation. Orbits within normal limits. No suspicious calvarial lesion. Visualized paranasal sinuses and mastoid air cells are clear. IMPRESSION: 1. Diffuse moderate cerebral atrophy. No acute intracranial bleed. 2. Most likely a chronic left basal ganglia lacunar infarct. 2. Mild white matter changes most likely secondary to chronic microvascular ischemic disease. Electronically signed by: Doc Machado DO (02/18/2018 8:47 PM) [facility]
[2018-02-18 21:04] LABS: BILIRUBIN,URINE NEGATIVE (NEG); CLARITY,URINE CLEAR; COLOR,URINE AMBER; NITRITE,URINE NEGATIVE (NEG); PH,URINE 5.5; PROTEIN,URINE NEGATIVE (NEG-TRACE)
[2018-02-18 21:15] LABS: BACTERIA,URINE FEW /HPF (0-FEW); WBC,URINE OCC /HPF (0-4)
[2018-02-18 21:16] LABS: HYALINE CASTS, URINE FEW /HPF; SQUAMOUS EPITHELIAL CELL,UR FEW /LPF
[2018-02-18] MEDS ORDERED: ACETAMINOPHEN 650 MG SUPP.RECT. PR ONE (21:30)
[2018-02-18 22:16] LABS: BASE EXCESS ABG 3 mmol/L (-3-3); HCO3 ABG 27 mmol/L (21-28); PCO2 ABG 40 mmHg (35-46); PO2 ABG 76 mmHg (65-108); SAT O2 ABG 95 % (92-99)
[2018-02-18] MEDS ORDERED: ACETAMINOPHEN 650 MG/20.3 ML SOLUTION. PEG PRN (22:30)
[2018-02-18] MEDS ORDERED: ATROPINE 1% OPHTH SOLUTION 5ML BOTTLE. SL PRN (22:45)
[2018-02-18] MEDS ORDERED: DEXTROSE 50% 25 GM / 50ML DISP.SYRIN. IV PRN (22:45)
[2018-02-18] MEDS ORDERED: POLYVINYL ALCOHOL 1.4% OPHTH SOLUTION 15ML BOTTLE. OU PRN (22:45)
--- NOTE | 2018-02-18 22:57 | RAD ---
Indication:Short of breath TECHNIQUE:Portable AP chest X-ray COMPARISON:12/02/2017 FINDINGS: Stable position of tracheostomy tube. Right subclavian catheter is seen with its tip in the SVC. Heart is moderately enlarged in size. Poor inspiratory effort. Diffuse prominence of interstitium noted. No focal consolidation. No pneumothorax or pleural effusion. Utilized bony thorax within normal limits. IMPRESSION: Poor inspiratory effort. Diffuse interstitial prominence likely chronic interstitial changes, atypical/viral infection or mild residual pulmonary edema. Electronically signed by: Doc Machado DO (02/18/2018 10:54 PM) [facility]
[2018-02-18] MEDS ORDERED: IV DEXTROSE 5% 1,000 ML IV ONE (23:00)
[2018-02-18] MEDS ORDERED: PIP/TAZO PER PHARMACY MC PRN (23:00)
[2018-02-19] VITALS (26 sets, daily range): BP systolic 90–119; BP diastolic 52–75
[2018-02-19] MEDS: ENOXAPARIN 40 MG/0.4 ML SYRINGE. SQ SCH ×2 (01:00→22:49)
[2018-02-19] MEDS: PIPERACILLIN/TAZOBACTAM 3.375 GM in IV NORMAL SALINE 50ML 50 ML IV SCH ×4 (01:02→15:51)
[2018-02-19] MEDS: VANCOMYCIN PER PHARMACY MC PRN (01:52)
[2018-02-19] MEDS: INSULIN LISPRO 300 UNITS/3 ML INSULN.PEN. SQ SCH ×4 (05:47→15:33)
[2018-02-19 07:04] LABS: BASO # 0.1 x10^3/uL (0.0-0.2); BASO % 1 % (0-3); EOS % 0 % (0-3); HEMATOCRIT 47.5 % (39.0-53.0); HEMOGLOBIN 16.1 g/dL (13.0-17.5); LYMPH # 1.9 x10^3/uL (1.0-4.8); LYMPH % 26 % (24-48); MEAN CORPUSCULAR HEMOGLOBIN 34 pg (25-35); MEAN CORPUSCULAR HGB CONC 34 g/dL (31-37); MEAN CORPUSCULAR VOLUME 100 fL (79-100); MONO # 0.4 x10^3/uL (0.0-1.1); MONO % 6 % (0-9); NEUT # 4.9 x10^3uL (1.8-7.7); NEUT % 67 % (31-73); PLATELET COUNT 62 x10^3/uL (140-400); RED BLOOD COUNT 4.76 x10^6/uL (4.30-5.70); RED CELL DISTRIBUTION WIDTH 14.7 % (11.5-14.5); WHITE BLOOD COUNT 7.4 x10^3/uL (4.0-11.0)
[2018-02-19 07:21] LABS: CALCIUM 7.9 mg/dL (8.5-10.1); GFR 74.1; POTASSIUM 3.5 mmol/L (3.5-5.1)
[2018-02-19 07:23] LABS: PLT ESTIMATE DECREASED (ADEQUATE); POLYCHROMASIA SLIGHT
[2018-02-19] MEDS: IPRATRPIUM/ALBUTEROL 0.5/2.5MG 3 ML NEBU. NEB SCH ×4 (08:29→19:31)
[2018-02-19] MEDS: BUDESONIDE 0.5 MG/2 ML NEBU. NEB SCH ×2 (08:29→19:31)
--- NOTE | 2018-02-19 09:21 | EKG ---
[facility] [address] [place] [address] Test Date: 2018-02-18 Test Time: 18:57:22 Pat Name: MALICK JORGENSEN Department: Room: 113 1 Gender: M Client Project Coordinator: : 1950 Requested By: SMOOTH HUITRON Order Number: [id number] Reading MD: Cong Guadalupe MD Measurements Intervals [place] Rate: 127 P: HI: QRS: 39 QRSD: 78 T: 112 QT: 280 QTc: 412 Interpretive Statements ATRIAL FIBRILLATION WITH RVR NON-SPECIFIC ST/T CHANGES Electronically Signed On 02-21-2018 11:30:13 CDT by Cong Guadalupe MD
[2018-02-19] MEDS: DIVALPROEX SPRINKLES 125 MG CAPSULE. PO SCH ×2 (10:05→20:41)
--- NOTE | 2018-02-19 14:52 | HP ---
ADMIT DATE: 02/19/2018 CHIEF COMPLAINT: Mental status change. HISTORY OF PRESENT ILLNESS: The patient is a pleasant 67-year-old male who resides in a nursing care facility. He developed mental status change. They called the ambulance and brought him in. I guess the patient minimally responds, but now he is obtunded, he is barely responsive to pain stimuli. They were concerned he was going to code even. Upon arrival to the ER he is nonverbal. The ER evaluation showed hypernatremia with a sodium of 154 and azotemia with a BUN of 55. He appears to be quite dehydrated. I suspect he has an occult infection. The patient is being admitted to the ICU. I am going to give him IV antibiotics and fluids. PAST MEDICAL HISTORY: AFib, COPD, dementia, depression, GERD, hypertension, chronic renal insufficiency, Parkinson's, previous respiratory failure, chronic kidney disease, chronic tracheostomy. ALLERGIES: FENTANYL AND MORPHINE. FAMILY HISTORY: Diabetes. SOCIAL HISTORY: He lives at a facility. I think he quit smoking, no drinking or drugs. MEDICATIONS: Reviewed, please refer to the MRAD. He is on 11 meds including DuoNeb, Lovenox, Tylenol, Depakote, Celexa, atropine for his secretions, scopolamine and B12. REVIEW OF SYSTEMS: Unable to obtain. The patient is obtunded. PHYSICAL EXAMINATION: VITAL SIGNS: Temperature 98, pulse 110, respirations 25, blood pressure 114/62, O2 sat 97%. GENERAL: He is obtunded. He does not awaken at all. HEART: Tachycardic, S1, S2. LUNGS: Slight crackles on the right. No egophony. ABDOMEN: Soft, nontender. EXTREMITIES: 1+ edema. Pupils are intact. HEENT: He has a tracheostomy, appears to be clean. ENDOCRINE: No thyromegaly. LYMPHATICS: No cervical nodes. HEMATOPOIETIC: No bruising. PSYCHIATRIC: Unable to obtain. The patient is obtunded. Urinalysis is negative. LABORATORY DATA: White count 8, hemoglobin 17, platelets 71. Electrolytes: Sodium 154, potassium 3.5, chloride 114, bicarbonate 32, BUN 55, creatinine 1, glucose 103. CT of the head showed diffuse atrophy, an old lacunar infarct in the basal ganglia on the left and small vessel disease. Chest x-ray, chronic interstitial changes and atypical/viral infection or mild residual pulmonary edema. ASSESSMENT AND PLAN: Mental status change, suspect occult infection. He has azotemia and hypernatremia and his chest x-ray is abnormal. We will go ahead and consult Infectious Disease, consult Pulmonary. IV fluids, empiric IV antibiotics, frequent labs, ICU monitoring. PROGNOSIS: Guarded. FRANCISCO JAVIERL Lee CARTWRIGHT DO DR: RICA/cindy JOB#: [id number] / [id number]
--- NOTE | 2018-02-19 18:55 | PDOC ---
Infectious Disease Note Vital Sign Vital Signs Vital Signs Date Time Temp Pulse Resp B/P (MAP) Pulse Ox O2 Delivery O2 Flow Rate FiO2 02/19/18 17:47 100 18 111/58 (75) 99 Tracheal Collar 10.0 02/19/18 15:00 97.5 97.5 Labs Lab Laboratory Tests Test 02/18/18 19:30 02/18/18 19:40 02/18/18 20:47 02/18/18 22:10 Ammonia 19 mcmol/L (11-34) O2 Saturation 95 % (92-99) Arterial Blood pH 7.44 (7.35-7.45) Arterial Blood pCO2 at Patient Temp 40 mmHg (35-46) Arterial Blood pO2 at Patient Temp 76 mmHg (65-108) Arterial Blood HCO3 27 mmol/L (21-28) Arterial Blood Base Excess 3 mmol/L (-3-3) Urine Collection Type Unknown Urine Color Dara Urine Clarity Clear Urine pH 5.5 Urine Specific [place] 1.025 Urine Protein Negative mg/dL (NEG-TRACE) Urine Glucose (UA) Negative mg/dL (NEG) Urine Ketones (Stick) Negative mg/dL (NEG) Urine Blood Negative (NEG) Urine Nitrite Negative (NEG) Urine Bilirubin Negative (NEG) Urine Urobilinogen Dipstick 1.0 mg/dL (0.2 mg/dL) Urine Leukocyte Esterase Negative (NEG) Urine RBC 1-2 /HPF (0-2) Urine WBC Occ /HPF (0-4) Urine Squamous Epithelial Cells Few /LPF Urine Bacteria Few /HPF (0-FEW) Urine Hyaline Casts Few /HPF Urine Mucus Mod /LPF Lactic Acid Level 1.5 mmol/L (0.4-2.0) Test 02/19/18 00:59 02/19/18 05:30 02/19/18 05:47 02/19/18 07:00 Glucose (Fingerstick) 102 mg/dL (70-99) 120 mg/dL (70-99) White Blood Count 7.4 x10^3/uL (4.0-11.0) Red Blood Count 4.76 x10^6/uL (4.30-5.70) Hemoglobin 16.1 g/dL (13.0-17.5) Hematocrit 47.5 % (39.0-53.0) Mean Corpuscular Volume 100 fL (79-100) Mean Corpuscular Hemoglobin 34 pg (25-35) Mean Corpuscular Hemoglobin Concent 34 g/dL (31-37) Red Cell Distribution Width 14.7 % (11.5-14.5) Platelet Count 62 x10^3/uL (140-400) Neutrophils (%) (Auto) 67 % (31-73) Lymphocytes (%) (Auto) 26 % (24-48) Monocytes (%) (Auto) 6 % (0-9) Eosinophils (%) (Auto) 0 % (0-3) Basophils (%) (Auto) 1 % (0-3) Neutrophils # (Auto) 4.9 x10^3uL (1.8-7.7) Lymphocytes # (Auto) 1.9 x10^3/uL (1.0-4.8) Monocytes # (Auto) 0.4 x10^3/uL (0.0-1.1) Eosinophils # (Auto) 0.0 x10^3/uL (0.0-0.7) Basophils # (Auto) 0.1 x10^3/uL (0.0-0.2) Platelet Estimate Decreased (ADEQUATE) Large Platelets Present Polychromasia Slight Nasal Screen MRSA (PCR) Negative (Negative) Sodium Level 154 mmol/L (136-145) Potassium Level 3.5 mmol/L (3.5-5.1) Chloride Level 114 mmol/L (98-107) Carbon Dioxide Level 32 mmol/L (21-32) Anion Gap 8 (6-14) Blood Urea Nitrogen 55 mg/dL (8-26) Creatinine 1.0 mg/dL (0.7-1.3) Estimated GFR (Cockcroft-Gault) 74.1 Glucose Level 103 mg/dL (70-99) Calcium Level 7.9 mg/dL (8.5-10.1) Test 02/19/18 11:50 02/19/18 15:00 Glucose (Fingerstick) 108 mg/dL (70-99) 107 mg/dL (70-99) Micro BLOOD CULTURE Preliminary NO GROWTH AFTER 1 DAY Objective Assessment Fever. Procalcitonin <0.10 Diarrhea Hypernatremia Chronic tracheostomy Parkinson disease Dementia h/o PSA, GBS, Stenotrophomonas, Proteus Plan Plan of Care empiric vanc and Zosyn check stool for c.diff add sputum culture Monitor labs/temp/renal function closely Supportive care D/w Dr. Verde Critical care 30 min Thank you [phone] Patient seen and examined. Chart reviewed in detail.case discussed with MIXING SUPERVISOR> Agree with above plan. NOAH SAHU APRN Feb 19, 2018 18:55 GRICELDA VERDE MD Feb 19, 2018 22:45
[2018-02-19] MEDS: VANCOMYCIN 1.5 GM in IV NORMAL SALINE 500ML BAG 500 ML IV SCH (20:41)
[2018-02-19] MEDS: BENZTROPINE MESYLATE 1 MG TABLET. PEG SCH (20:44)
[2018-02-20] VITALS (17 sets, daily range): BP systolic 82–104; BP diastolic 57–75
[2018-02-20] MEDS: PIPERACILLIN/TAZOBACTAM 3.375 GM in IV NORMAL SALINE 50ML 50 ML IV SCH ×4 (00:06→17:39)
[2018-02-20] MEDS: INSULIN LISPRO 300 UNITS/3 ML INSULN.PEN. SQ SCH ×4 (05:52→17:39)
[2018-02-20 06:09] LABS: BASO % 1 % (0-3); EOS # 0.1 x10^3/uL (0.0-0.7); EOS % 2 % (0-3); HEMATOCRIT 46.5 % (39.0-53.0); HEMOGLOBIN 15.5 g/dL (13.0-17.5); LYMPH # 1.4 x10^3/uL (1.0-4.8); LYMPH % 23 % (24-48); MEAN CORPUSCULAR HEMOGLOBIN 33 pg (25-35); MEAN CORPUSCULAR HGB CONC 33 g/dL (31-37); MEAN CORPUSCULAR VOLUME 100 fL (79-100); MONO # 0.3 x10^3/uL (0.0-1.1); MONO % 5 % (0-9); NEUT # 4.3 x10^3uL (1.8-7.7); NEUT % 70 % (31-73); PLATELET COUNT 59 x10^3/uL (140-400); RED BLOOD COUNT 4.65 x10^6/uL (4.30-5.70); RED CELL DISTRIBUTION WIDTH 14.3 % (11.5-14.5); WHITE BLOOD COUNT 6.1 x10^3/uL (4.0-11.0)
[2018-02-20 06:18] LABS: CALCIUM 7.6 mg/dL (8.5-10.1); CREATININE 0.9 mg/dL (0.7-1.3); GFR 83.7; POTASSIUM 3.3 mmol/L (3.5-5.1)
[2018-02-20] MEDS: BUDESONIDE 0.5 MG/2 ML NEBU. NEB SCH ×2 (08:12→20:08)
[2018-02-20] MEDS: IPRATRPIUM/ALBUTEROL 0.5/2.5MG 3 ML NEBU. NEB SCH ×4 (08:12→20:08)
--- NOTE | 2018-02-20 08:29 | PDOC ---
Infectious Disease Note Subjective Subjective Uneventful night No fevers last 24 hours No increase O2 demands. Remains on 40% FiO2 Rectal tube remains in place ROS ROS Unobtainable as patient is noncommunicative Vital Sign Vital Signs Vital Signs Date Time Temp Pulse Resp B/P (MAP) Pulse Ox O2 Delivery O2 Flow Rate FiO2 02/20/18 08:14 99 Tracheal Collar 10.0 02/20/18 08:03 97.6 99 35 100/64 (76) 97.6 Physical Exam PHYSICAL EXAM GENERAL: Propped up in bed, resting quietly, NAD NECK: Trach shield LUNGS: Congested, nonlabored CV: S1 S2 regular ABD: Soft, no grimace or guarding to palpation. G-tube. rectal tube in place : Perales EXT: Trace edema BLE. No cyanosis SKIN: warm Right subclavian (02/09) clean Labs Lab Laboratory Tests Test 02/19/18 11:50 02/19/18 15:00 02/20/18 00:08 02/20/18 05:45 Glucose (Fingerstick) 108 mg/dL (70-99) 107 mg/dL (70-99) 87 mg/dL (70-99) White Blood Count 6.1 x10^3/uL (4.0-11.0) Red Blood Count 4.65 x10^6/uL (4.30-5.70) Hemoglobin 15.5 g/dL (13.0-17.5) Hematocrit 46.5 % (39.0-53.0) Mean Corpuscular Volume 100 fL (79-100) Mean Corpuscular Hemoglobin 33 pg (25-35) Mean Corpuscular Hemoglobin Concent 33 g/dL (31-37) Red Cell Distribution Width 14.3 % (11.5-14.5) Platelet Count 59 x10^3/uL (140-400) Neutrophils (%) (Auto) 70 % (31-73) Lymphocytes (%) (Auto) 23 % (24-48) Monocytes (%) (Auto) 5 % (0-9) Eosinophils (%) (Auto) 2 % (0-3) Basophils (%) (Auto) 1 % (0-3) Neutrophils # (Auto) 4.3 x10^3uL (1.8-7.7) Lymphocytes # (Auto) 1.4 x10^3/uL (1.0-4.8) Monocytes # (Auto) 0.3 x10^3/uL (0.0-1.1) Eosinophils # (Auto) 0.1 x10^3/uL (0.0-0.7) Basophils # (Auto) 0.0 x10^3/uL (0.0-0.2) Sodium Level 149 mmol/L (136-145) Potassium Level 3.3 mmol/L (3.5-5.1) Chloride Level 111 mmol/L (98-107) Carbon Dioxide Level 32 mmol/L (21-32) Anion Gap 6 (6-14) Blood Urea Nitrogen 39 mg/dL (8-26) Creatinine 0.9 mg/dL (0.7-1.3) Estimated GFR (Cockcroft-Gault) 83.7 Glucose Level 92 mg/dL (70-99) Calcium Level 7.6 mg/dL (8.5-10.1) Test 02/20/18 05:51 Glucose (Fingerstick) 95 mg/dL (70-99) Micro BLOOD CULTURE Preliminary NO GROWTH AFTER 1 DAY Objective Assessment Fever. Procalcitonin <0.10 Diarrhea Hypernatremia Chronic tracheostomy Parkinson disease Dementia h/o PSA, GBS, Stenotrophomonas, Proteus Plan Plan of Care Continue empiric vanc and Zosyn check stool for c.diff Sputum culture in process Monitor labs/temp/renal function closely Supportive care D/w RN Patient seen and examined. Chart reviewed in detail. Case discussed with MARKET MAKER. Agree with above Plan NOAH SAHU APRN Feb 20, 2018 08:29 GRICELDA ALVAREZ MD Feb 20, 2018 19:15
[2018-02-20] MEDS: VANCOMYCIN PER PHARMACY MC PRN (09:05)
[2018-02-20] MEDS: CITALOPRAM 20 MG TABLET. PEG SCH (09:53)
[2018-02-20] MEDS: DIVALPROEX SPRINKLES 125 MG CAPSULE. PO SCH ×2 (09:54→21:47)
[2018-02-20] MEDS: POTASSIUM CHLORIDE 20MEQ 50 ML IV SCH ×2 (11:18→14:01)
--- NOTE | 2018-02-20 12:52 | PDOC ---
PULMONARY PROGRESS NOTES Vitals Vital Signs Date Time Temp Pulse Resp B/P (MAP) Pulse Ox O2 Delivery O2 Flow Rate FiO2 02/20/18 12:06 105 18 104/75 (85) 100 Tracheal Collar 10.0 02/20/18 08:03 97.6 97.6 Cardiovascular: S1, S2 Abdomen: Soft, Non-tender Extremities: Other Labs Laboratory Tests Test 02/18/18 18:00 02/18/18 18:30 02/18/18 19:30 02/18/18 19:40 White Blood Count 8.6 x10^3/uL (4.0-11.0) Red Blood Count 5.21 x10^6/uL (4.30-5.70) Hemoglobin 17.4 g/dL (13.0-17.5) Hematocrit 52.5 % (39.0-53.0) Mean Corpuscular Volume 101 fL (79-100) Mean Corpuscular Hemoglobin 33 pg (25-35) Mean Corpuscular Hemoglobin Concent 33 g/dL (31-37) Red Cell Distribution Width 14.7 % (11.5-14.5) Platelet Count 71 x10^3/uL (140-400) Neutrophils (%) (Auto) 60 % (31-73) Lymphocytes (%) (Auto) 32 % (24-48) Monocytes (%) (Auto) 8 % (0-9) Eosinophils (%) (Auto) 0 % (0-3) Basophils (%) (Auto) 1 % (0-3) Neutrophils # (Auto) 5.1 x10^3uL (1.8-7.7) Lymphocytes # (Auto) 2.7 x10^3/uL (1.0-4.8) Monocytes # (Auto) 0.7 x10^3/uL (0.0-1.1) Eosinophils # (Auto) 0.0 x10^3/uL (0.0-0.7) Basophils # (Auto) 0.0 x10^3/uL (0.0-0.2) Prothrombin Time 15.4 SEC (11.7-14.0) Prothromb Time International Ratio 1.3 (0.8-1.1) Sodium Level 156 mmol/L (136-145) Potassium Level 3.8 mmol/L (3.5-5.1) Chloride Level 116 mmol/L (98-107) Carbon Dioxide Level 33 mmol/L (21-32) Anion Gap 7 (6-14) Blood Urea Nitrogen 62 mg/dL (8-26) Creatinine 1.1 mg/dL (0.7-1.3) Estimated GFR (Cockcroft-Gault) 66.4 BUN/Creatinine Ratio 56 (6-20) Glucose Level 99 mg/dL (70-99) Lactic Acid Level 1.5 mmol/L (0.4-2.0) Calcium Level 8.7 mg/dL (8.5-10.1) Total Bilirubin 0.6 mg/dL (0.2-1.0) Aspartate Amino Transf (AST/SGOT) 24 U/L (15-37) Alanine Aminotransferase (ALT/SGPT) 32 U/L (16-63) Alkaline Phosphatase 45 U/L (46-116) Total Protein 6.3 g/dL (6.4-8.2) Albumin 2.8 g/dL (3.4-5.0) Albumin/Globulin Ratio 0.8 (1.0-1.7) Procalcitonin < 0.10 ng/mL (0.00-0.10) Influenza Type A Antigen Negative (NEGATIVE) Influenza Type B Antigen Negative (NEGATIVE) Ammonia 19 mcmol/L (11-34) O2 Saturation 95 % (92-99) Arterial Blood pH 7.44 (7.35-7.45) Arterial Blood pCO2 at Patient Temp 40 mmHg (35-46) Arterial Blood pO2 at Patient Temp 76 mmHg (65-108) Arterial Blood HCO3 27 mmol/L (21-28) Arterial Blood Base Excess 3 mmol/L (-3-3) Test 02/18/18 20:47 02/18/18 22:10 02/19/18 00:59 02/19/18 05:30 Urine Collection Type Unknown Urine Color Dara Urine Clarity Clear Urine pH 5.5 Urine Specific [place] 1.025 Urine Protein Negative mg/dL (NEG-TRACE) Urine Glucose (UA) Negative mg/dL (NEG) Urine Ketones (Stick) Negative mg/dL (NEG) Urine Blood Negative (NEG) Urine Nitrite Negative (NEG) Urine Bilirubin Negative (NEG) Urine Urobilinogen Dipstick 1.0 mg/dL (0.2 mg/dL) Urine Leukocyte Esterase Negative (NEG) Urine RBC 1-2 /HPF (0-2) Urine WBC Occ /HPF (0-4) Urine Squamous Epithelial Cells Few /LPF Urine Bacteria Few /HPF (0-FEW) Urine Hyaline Casts Few /HPF Urine Mucus Mod /LPF Lactic Acid Level 1.5 mmol/L (0.4-2.0) Glucose (Fingerstick) 102 mg/dL (70-99) White Blood Count 7.4 x10^3/uL (4.0-11.0) Red Blood Count 4.76 x10^6/uL (4.30-5.70) Hemoglobin 16.1 g/dL (13.0-17.5) Hematocrit 47.5 % (39.0-53.0) Mean Corpuscular Volume 100 fL (79-100) Mean Corpuscular Hemoglobin 34 pg (25-35) Mean Corpuscular Hemoglobin Concent 34 g/dL (31-37) Red Cell Distribution Width 14.7 % (11.5-14.5) Platelet Count 62 x10^3/uL (140-400) Neutrophils (%) (Auto) 67 % (31-73) Lymphocytes (%) (Auto) 26 % (24-48) Monocytes (%) (Auto) 6 % (0-9) Eosinophils (%) (Auto) 0 % (0-3) Basophils (%) (Auto) 1 % (0-3) Neutrophils # (Auto) 4.9 x10^3uL (1.8-7.7) Lymphocytes # (Auto) 1.9 x10^3/uL (1.0-4.8) Monocytes # (Auto) 0.4 x10^3/uL (0.0-1.1) Eosinophils # (Auto) 0.0 x10^3/uL (0.0-0.7) Basophils # (Auto) 0.1 x10^3/uL (0.0-0.2) Platelet Estimate Decreased (ADEQUATE) Large Platelets Present Polychromasia Slight Nasal Screen MRSA (PCR) Negative (Negative) Test 02/19/18 05:47 02/19/18 07:00 02/19/18 11:50 02/19/18 15:00 Glucose (Fingerstick) 120 mg/dL (70-99) 108 mg/dL (70-99) 107 mg/dL (70-99) Sodium Level 154 mmol/L (136-145) Potassium Level 3.5 mmol/L (3.5-5.1) Chloride Level 114 mmol/L (98-107) Carbon Dioxide Level 32 mmol/L (21-32) Anion Gap 8 (6-14) Blood Urea Nitrogen 55 mg/dL (8-26) Creatinine 1.0 mg/dL (0.7-1.3) Estimated GFR (Cockcroft-Gault) 74.1 Glucose Level 103 mg/dL (70-99) Calcium Level 7.9 mg/dL (8.5-10.1) Test 02/20/18 00:08 02/20/18 05:45 02/20/18 05:51 02/20/18 12:11 Glucose (Fingerstick) 87 mg/dL (70-99) 95 mg/dL (70-99) 83 mg/dL (70-99) White Blood Count 6.1 x10^3/uL (4.0-11.0) Red Blood Count 4.65 x10^6/uL (4.30-5.70) Hemoglobin 15.5 g/dL (13.0-17.5) Hematocrit 46.5 % (39.0-53.0) Mean Corpuscular Volume 100 fL (79-100) Mean Corpuscular Hemoglobin 33 pg (25-35) Mean Corpuscular Hemoglobin Concent 33 g/dL (31-37) Red Cell Distribution Width 14.3 % (11.5-14.5) Platelet Count 59 x10^3/uL (140-400) Neutrophils (%) (Auto) 70 % (31-73) Lymphocytes (%) (Auto) 23 % (24-48) Monocytes (%) (Auto) 5 % (0-9) Eosinophils (%) (Auto) 2 % (0-3) Basophils (%) (Auto) 1 % (0-3) Neutrophils # (Auto) 4.3 x10^3uL (1.8-7.7) Lymphocytes # (Auto) 1.4 x10^3/uL (1.0-4.8) Monocytes # (Auto) 0.3 x10^3/uL (0.0-1.1) Eosinophils # (Auto) 0.1 x10^3/uL (0.0-0.7) Basophils # (Auto) 0.0 x10^3/uL (0.0-0.2) Sodium Level 149 mmol/L (136-145) Potassium Level 3.3 mmol/L (3.5-5.1) Chloride Level 111 mmol/L (98-107) Carbon Dioxide Level 32 mmol/L (21-32) Anion Gap 6 (6-14) Blood Urea Nitrogen 39 mg/dL (8-26) Creatinine 0.9 mg/dL (0.7-1.3) Estimated GFR (Cockcroft-Gault) 83.7 Glucose Level 92 mg/dL (70-99) Calcium Level 7.6 mg/dL (8.5-10.1) Laboratory Tests Test 02/19/18 15:00 02/20/18 00:08 02/20/18 05:45 02/20/18 05:51 Glucose (Fingerstick) 107 mg/dL (70-99) 87 mg/dL (70-99) 95 mg/dL (70-99) White Blood Count 6.1 x10^3/uL (4.0-11.0) Red Blood Count 4.65 x10^6/uL (4.30-5.70) Hemoglobin 15.5 g/dL (13.0-17.5) Hematocrit 46.5 % (39.0-53.0) Mean Corpuscular Volume 100 fL (79-100) Mean Corpuscular Hemoglobin 33 pg (25-35) Mean Corpuscular Hemoglobin Concent 33 g/dL (31-37) Red Cell Distribution Width 14.3 % (11.5-14.5) Platelet Count 59 x10^3/uL (140-400) Neutrophils (%) (Auto) 70 % (31-73) Lymphocytes (%) (Auto) 23 % (24-48) Monocytes (%) (Auto) 5 % (0-9) Eosinophils (%) (Auto) 2 % (0-3) Basophils (%) (Auto) 1 % (0-3) Neutrophils # (Auto) 4.3 x10^3uL (1.8-7.7) Lymphocytes # (Auto) 1.4 x10^3/uL (1.0-4.8) Monocytes # (Auto) 0.3 x10^3/uL (0.0-1.1) Eosinophils # (Auto) 0.1 x10^3/uL (0.0-0.7) Basophils # (Auto) 0.0 x10^3/uL (0.0-0.2) Sodium Level 149 mmol/L (136-145) Potassium Level 3.3 mmol/L (3.5-5.1) Chloride Level 111 mmol/L (98-107) Carbon Dioxide Level 32 mmol/L (21-32) Anion Gap 6 (6-14) Blood Urea Nitrogen 39 mg/dL (8-26) Creatinine 0.9 mg/dL (0.7-1.3) Estimated GFR (Cockcroft-Gault) 83.7 Glucose Level 92 mg/dL (70-99) Calcium Level 7.6 mg/dL (8.5-10.1) Test 02/20/18 12:11 Glucose (Fingerstick) 83 mg/dL (70-99) Medications Active Scripts Medications Dose Route/Sig Max Daily Dose Days Date Category Dose Instructions Transderm-Scop (Scopolamine) 1 Each Patch.td72 1 Patch TP Q3DAYS 12/08/17 Rx Enoxaparin Sodium 40 Mg/0.4 Ml Disp.syrin 40 Mg SQ Q24H 30 12/08/17 Rx Depakote Sprinkle (Divalproex Sodium) 125 Mg Cap.sprink 500 Mg PO BID 12/02/17 Reported B-12 (Cyanocobalamin (Vitamin B-12)) 1,000 Mcg Tablet 1,000 Mcg PO QMONTH 12/02/17 Reported Atropine Sulfate 2 Ml Drops 2 Ml SL PRN Q4HRS PRN 11/30/17 Reported Duoneb 0.5-3(2.5) Mg/3 Ml (Albuterol/Ipratropium) 3 Ml Ampul.neb 3 Ml NEB QID 09/21/16 Reported Celexa (Citalopram Hydrobromide) 20 Mg Tablet 1 Tab PEG QODAY 09/21/16 Reported Budesonide 0.5 Mg/2 Ml Ampul.neb 1 Vial NEB BID 09/21/16 Reported Benztropine Mesylate 1 Mg Tablet 1 Mg PEG HS 09/21/16 Reported Polyvinyl Alcohol 15 Ml Drops 15 Ml OP PRN Q8HRS 09/21/16 Reported Instill 1 drop in both eyes every 8 hours as needed for dryness Acetaminophen 500 Mg Tablet 650 Mg PEG PRN Q6HRS 09/21/16 Reported Impression . NOTE DICTATED AGREE WITH CURRENT RX THANKS INÉS LANZA MD Feb 20, 2018 12:52
--- NOTE | 2018-02-20 13:15 | PDOC ---
PROGRESS NOTES Chief Complaint Chief Complaint Fever, procalcitonin <0.10 Diarrhea Hypernatremia Hypokalemia Chronic tracheostomy Parkinson disease Dementia h/o PSA, GBS, Stenotrophomonas, Proteus History of Present Illness History of Present Illness Pt seen and examined in ICU Laying in bed, eyes open, chronic trach Discussed with RN Vitals Vitals Vital Signs Date Time Temp Pulse Resp B/P (MAP) Pulse Ox O2 Delivery O2 Flow Rate FiO2 02/20/18 12:06 105 18 104/75 (85) 100 Tracheal Collar 10.0 02/20/18 08:03 97.6 97.6 Physical Exam Physical Exam GENERAL: Propped up in bed, resting quietly, NAD NECK: Trach shield LUNGS: Congested, nonlabored CV: S1 S2 regular ABD: Soft, no grimace or guarding to palpation. G-tube. rectal tube in place : [place] EXT: Trace edema BLE. No cyanosis SKIN: warm Right subclavian (02/09) clean General: Alert, No acute distress Heart: Regular rate, Normal S1, Normal S2 Lungs: Other (congested, chronic trach) Abdomen: Normal bowel sounds, Soft Extremities: No clubbing, No cyanosis, Other (trace edema BLE) Skin: No rashes, No breakdown Labs LABS Laboratory Tests Test 02/19/18 15:00 02/20/18 00:08 02/20/18 05:45 02/20/18 05:51 Glucose (Fingerstick) 107 mg/dL (70-99) 87 mg/dL (70-99) 95 mg/dL (70-99) White Blood Count 6.1 x10^3/uL (4.0-11.0) Red Blood Count 4.65 x10^6/uL (4.30-5.70) Hemoglobin 15.5 g/dL (13.0-17.5) Hematocrit 46.5 % (39.0-53.0) Mean Corpuscular Volume 100 fL (79-100) Mean Corpuscular Hemoglobin 33 pg (25-35) Mean Corpuscular Hemoglobin Concent 33 g/dL (31-37) Red Cell Distribution Width 14.3 % (11.5-14.5) Platelet Count 59 x10^3/uL (140-400) Neutrophils (%) (Auto) 70 % (31-73) Lymphocytes (%) (Auto) 23 % (24-48) Monocytes (%) (Auto) 5 % (0-9) Eosinophils (%) (Auto) 2 % (0-3) Basophils (%) (Auto) 1 % (0-3) Neutrophils # (Auto) 4.3 x10^3uL (1.8-7.7) Lymphocytes # (Auto) 1.4 x10^3/uL (1.0-4.8) Monocytes # (Auto) 0.3 x10^3/uL (0.0-1.1) Eosinophils # (Auto) 0.1 x10^3/uL (0.0-0.7) Basophils # (Auto) 0.0 x10^3/uL (0.0-0.2) Sodium Level 149 mmol/L (136-145) Potassium Level 3.3 mmol/L (3.5-5.1) Chloride Level 111 mmol/L (98-107) Carbon Dioxide Level 32 mmol/L (21-32) Anion Gap 6 (6-14) Blood Urea Nitrogen 39 mg/dL (8-26) Creatinine 0.9 mg/dL (0.7-1.3) Estimated GFR (Cockcroft-Gault) 83.7 Glucose Level 92 mg/dL (70-99) Calcium Level 7.6 mg/dL (8.5-10.1) Test 02/20/18 12:11 Glucose (Fingerstick) 83 mg/dL (70-99) Review of Systems Review of Systems Chronic trach. Unable to obtain. Pt resting in bed in NAD. Assessment and Plan Assessmemt and Plan Problems Medical Problems: (1) Altered mental state Status: Acute (2) Fever Status: Acute (3) Hypernatremia Status: Acute Assessment: Fever, procalcitonin <0.10 Diarrhea Hypernatremia Hypokalemia Chronic tracheostomy Parkinson disease Dementia h/o PSA, GBS, Stenotrophomonas, Proteus Plan: ICU monitoring IV abx IVF Labs IV potassium replacement PT/OT Home meds Will resume PEG feeds GI consulted to consider changing PEG tube DVT ppx Comment Review of Relevant I have reviewed the following items maulik (where applicable) has been applied. Labs Laboratory Tests Test 02/18/18 18:00 02/18/18 18:30 02/18/18 19:30 02/18/18 19:40 White Blood Count 8.6 x10^3/uL (4.0-11.0) Red Blood Count 5.21 x10^6/uL (4.30-5.70) Hemoglobin 17.4 g/dL (13.0-17.5) Hematocrit 52.5 % (39.0-53.0) Mean Corpuscular Volume 101 fL (79-100) Mean Corpuscular Hemoglobin 33 pg (25-35) Mean Corpuscular Hemoglobin Concent 33 g/dL (31-37) Red Cell Distribution Width 14.7 % (11.5-14.5) Platelet Count 71 x10^3/uL (140-400) Neutrophils (%) (Auto) 60 % (31-73) Lymphocytes (%) (Auto) 32 % (24-48) Monocytes (%) (Auto) 8 % (0-9) Eosinophils (%) (Auto) 0 % (0-3) Basophils (%) (Auto) 1 % (0-3) Neutrophils # (Auto) 5.1 x10^3uL (1.8-7.7) Lymphocytes # (Auto) 2.7 x10^3/uL (1.0-4.8) Monocytes # (Auto) 0.7 x10^3/uL (0.0-1.1) Eosinophils # (Auto) 0.0 x10^3/uL (0.0-0.7) Basophils # (Auto) 0.0 x10^3/uL (0.0-0.2) Prothrombin Time 15.4 SEC (11.7-14.0) Prothromb Time International Ratio 1.3 (0.8-1.1) Sodium Level 156 mmol/L (136-145) Potassium Level 3.8 mmol/L (3.5-5.1) Chloride Level 116 mmol/L (98-107) Carbon Dioxide Level 33 mmol/L (21-32) Anion Gap 7 (6-14) Blood Urea Nitrogen 62 mg/dL (8-26) Creatinine 1.1 mg/dL (0.7-1.3) Estimated GFR (Cockcroft-Gault) 66.4 BUN/Creatinine Ratio 56 (6-20) Glucose Level 99 mg/dL (70-99) Lactic Acid Level 1.5 mmol/L (0.4-2.0) Calcium Level 8.7 mg/dL (8.5-10.1) Total Bilirubin 0.6 mg/dL (0.2-1.0) Aspartate Amino Transf (AST/SGOT) 24 U/L (15-37) Alanine Aminotransferase (ALT/SGPT) 32 U/L (16-63) Alkaline Phosphatase 45 U/L (46-116) Total Protein 6.3 g/dL (6.4-8.2) Albumin 2.8 g/dL (3.4-5.0) Albumin/Globulin Ratio 0.8 (1.0-1.7) Procalcitonin < 0.10 ng/mL (0.00-0.10) Influenza Type A Antigen Negative (NEGATIVE) Influenza Type B Antigen Negative (NEGATIVE) Ammonia 19 mcmol/L (11-34) O2 Saturation 95 % (92-99) Arterial Blood pH 7.44 (7.35-7.45) Arterial Blood pCO2 at Patient Temp 40 mmHg (35-46) Arterial Blood pO2 at Patient Temp 76 mmHg (65-108) Arterial Blood HCO3 27 mmol/L (21-28) Arterial Blood Base Excess 3 mmol/L (-3-3) Test 02/18/18 20:47 02/18/18 22:10 02/19/18 00:59 02/19/18 05:30 Urine Collection Type Unknown Urine Color Dara Urine Clarity Clear Urine pH 5.5 Urine Specific [place] 1.025 Urine Protein Negative mg/dL (NEG-TRACE) Urine Glucose (UA) Negative mg/dL (NEG) Urine Ketones (Stick) Negative mg/dL (NEG) Urine Blood Negative (NEG) Urine Nitrite Negative (NEG) Urine Bilirubin Negative (NEG) Urine Urobilinogen Dipstick 1.0 mg/dL (0.2 mg/dL) Urine Leukocyte Esterase Negative (NEG) Urine RBC 1-2 /HPF (0-2) Urine WBC Occ /HPF (0-4) Urine Squamous Epithelial Cells Few /LPF Urine Bacteria Few /HPF (0-FEW) Urine Hyaline Casts Few /HPF Urine Mucus Mod /LPF Lactic Acid Level 1.5 mmol/L (0.4-2.0) Glucose (Fingerstick) 102 mg/dL (70-99) White Blood Count 7.4 x10^3/uL (4.0-11.0) Red Blood Count 4.76 x10^6/uL (4.30-5.70) Hemoglobin 16.1 g/dL (13.0-17.5) Hematocrit 47.5 % (39.0-53.0) Mean Corpuscular Volume 100 fL (79-100) Mean Corpuscular Hemoglobin 34 pg (25-35) Mean Corpuscular Hemoglobin Concent 34 g/dL (31-37) Red Cell Distribution Width 14.7 % (11.5-14.5) Platelet Count 62 x10^3/uL (140-400) Neutrophils (%) (Auto) 67 % (31-73) Lymphocytes (%) (Auto) 26 % (24-48) Monocytes (%) (Auto) 6 % (0-9) Eosinophils (%) (Auto) 0 % (0-3) Basophils (%) (Auto) 1 % (0-3) Neutrophils # (Auto) 4.9 x10^3uL (1.8-7.7) Lymphocytes # (Auto) 1.9 x10^3/uL (1.0-4.8) Monocytes # (Auto) 0.4 x10^3/uL (0.0-1.1) Eosinophils # (Auto) 0.0 x10^3/uL (0.0-0.7) Basophils # (Auto) 0.1 x10^3/uL (0.0-0.2) Platelet Estimate Decreased (ADEQUATE) Large Platelets Present Polychromasia Slight Nasal Screen MRSA (PCR) Negative (Negative) Test 02/19/18 05:47 02/19/18 07:00 02/19/18 11:50 02/19/18 15:00 Glucose (Fingerstick) 120 mg/dL (70-99) 108 mg/dL (70-99) 107 mg/dL (70-99) Sodium Level 154 mmol/L (136-145) Potassium Level 3.5 mmol/L (3.5-5.1) Chloride Level 114 mmol/L (98-107) Carbon Dioxide Level 32 mmol/L (21-32) Anion Gap 8 (6-14) Blood Urea Nitrogen 55 mg/dL (8-26) Creatinine 1.0 mg/dL (0.7-1.3) Estimated GFR (Cockcroft-Gault) 74.1 Glucose Level 103 mg/dL (70-99) Calcium Level 7.9 mg/dL (8.5-10.1) Test 02/20/18 00:08 02/20/18 05:45 02/20/18 05:51 02/20/18 12:11 Glucose (Fingerstick) 87 mg/dL (70-99) 95 mg/dL (70-99) 83 mg/dL (70-99) White Blood Count 6.1 x10^3/uL (4.0-11.0) Red Blood Count 4.65 x10^6/uL (4.30-5.70) Hemoglobin 15.5 g/dL (13.0-17.5) Hematocrit 46.5 % (39.0-53.0) Mean Corpuscular Volume 100 fL (79-100) Mean Corpuscular Hemoglobin 33 pg (25-35) Mean Corpuscular Hemoglobin Concent 33 g/dL (31-37) Red Cell Distribution Width 14.3 % (11.5-14.5) Platelet Count 59 x10^3/uL (140-400) Neutrophils (%) (Auto) 70 % (31-73) Lymphocytes (%) (Auto) 23 % (24-48) Monocytes (%) (Auto) 5 % (0-9) Eosinophils (%) (Auto) 2 % (0-3) Basophils (%) (Auto) 1 % (0-3) Neutrophils # (Auto) 4.3 x10^3uL (1.8-7.7) Lymphocytes # (Auto) 1.4 x10^3/uL (1.0-4.8) Monocytes # (Auto) 0.3 x10^3/uL (0.0-1.1) Eosinophils # (Auto) 0.1 x10^3/uL (0.0-0.7) Basophils # (Auto) 0.0 x10^3/uL (0.0-0.2) Sodium Level 149 mmol/L (136-145) Potassium Level 3.3 mmol/L (3.5-5.1) Chloride Level 111 mmol/L (98-107) Carbon Dioxide Level 32 mmol/L (21-32) Anion Gap 6 (6-14) Blood Urea Nitrogen 39 mg/dL (8-26) Creatinine 0.9 mg/dL (0.7-1.3) Estimated GFR (Cockcroft-Gault) 83.7 Glucose Level 92 mg/dL (70-99) Calcium Level 7.6 mg/dL (8.5-10.1) Laboratory Tests Test 02/19/18 15:00 02/20/18 00:08 02/20/18 05:45 02/20/18 05:51 Glucose (Fingerstick) 107 mg/dL (70-99) 87 mg/dL (70-99) 95 mg/dL (70-99) White Blood Count 6.1 x10^3/uL (4.0-11.0) Red Blood Count 4.65 x10^6/uL (4.30-5.70) Hemoglobin 15.5 g/dL (13.0-17.5) Hematocrit 46.5 % (39.0-53.0) Mean Corpuscular Volume 100 fL (79-100) Mean Corpuscular Hemoglobin 33 pg (25-35) Mean Corpuscular Hemoglobin Concent 33 g/dL (31-37) Red Cell Distribution Width 14.3 % (11.5-14.5) Platelet Count 59 x10^3/uL (140-400) Neutrophils (%) (Auto) 70 % (31-73) Lymphocytes (%) (Auto) 23 % (24-48) Monocytes (%) (Auto) 5 % (0-9) Eosinophils (%) (Auto) 2 % (0-3) Basophils (%) (Auto) 1 % (0-3) Neutrophils # (Auto) 4.3 x10^3uL (1.8-7.7) Lymphocytes # (Auto) 1.4 x10^3/uL (1.0-4.8) Monocytes # (Auto) 0.3 x10^3/uL (0.0-1.1) Eosinophils # (Auto) 0.1 x10^3/uL (0.0-0.7) Basophils # (Auto) 0.0 x10^3/uL (0.0-0.2) Sodium Level 149 mmol/L (136-145) Potassium Level 3.3 mmol/L (3.5-5.1) Chloride Level 111 mmol/L (98-107) Carbon Dioxide Level 32 mmol/L (21-32) Anion Gap 6 (6-14) Blood Urea Nitrogen 39 mg/dL (8-26) Creatinine 0.9 mg/dL (0.7-1.3) Estimated GFR (Cockcroft-Gault) 83.7 Glucose Level 92 mg/dL (70-99) Calcium Level 7.6 mg/dL (8.5-10.1) Test 02/20/18 12:11 Glucose (Fingerstick) 83 mg/dL (70-99) Microbiology 02/18/18 Blood Culture - Preliminary, Resulted NO GROWTH AFTER 1 DAY Medications Current Medications Piperacillin Sod/ Tazobactam Sod 4.5 gm/Sodium Chloride 100 ml @ 200 mls/hr 1X ONCE IV Last administered on 02/18/18at 18:52; Start 02/18/18 at 18:30; Stop 02/18/18 at 19:01; Status DC Vancomycin HCl (Vanco Per Pharmacy) 1 each 1X ONCE MC ; Start 02/18/18 at 18: 15; Stop 02/18/18 at 18:30; Status DC Vancomycin HCl 2 gm/Sodium Chloride 500 ml @ 250 mls/hr 1X ONCE IV Last administered on 02/18/18at 20:59; Start 02/18/18 at 18:30; Stop 02/18/18 at 20 :29; Status DC Sodium Chloride 1,000 ml @ 0 mls/hr 1X ONCE IV Last administered on at 19:00; Start 02/18/18 at 19:00; Stop 02/18/18 at 19:01; Status DC Acetaminophen (Tylenol Supp) 650 mg 1X ONCE CO ; Start 02/18/18 at 21:30; Stop 02/18/18 at 21:31; Status DC Vancomycin HCl (Vanco Per Pharmacy) 1 each PRN DAILY PRN MC SEE COMMENTS Last administered on 02/20/18at 09:05; Start 02/18/18 at 21:30 Enoxaparin Sodium (Lovenox 40mg Syringe) 40 mg Q24H SQ Last administered on at 22:49; Start 02/18/18 at 23:00 Acetaminophen (Tylenol) 650 mg PRN Q6HRS PRN PEG MILD PAIN / TEMP; Start 02/18 at 22:30 Budesonide (Pulmicort) 0.5 mg RTBID NEB Last administered on 02/20/18at 08:12; Start 02/19/18 at 08:00 Citalopram Hydrobromide (CeleXA) 20 mg QODAY PEG Last administered on at 09:53; Start 02/20/18 at 09:00 Cyanocobalamin (Vitamin B-12) 1,000 mcg QMONTH PO ; Start 03/20/18 at 09:00 Divalproex Sodium (Depakote Sprinkles) 500 mg BID PO Last administered on 02/20at 09:54; Start 02/19/18 at 09:00 Albuterol/ Ipratropium (Duoneb) 3 ml RTQID NEB Last administered on 02/20/18at 11:55; Start 02/19/18 at 08:00 Artificial Tears (Artificial Tears) 1 drop PRN Q8HRS PRN OU DRY EYE; Start at 22:45 Atropine Sulfate (Isopto Atropine) 2 drop PRN Q4HRS PRN SL SECRETIONS; Start 02/18/18 at 22:45 Benztropine Mesylate (Cogentin) 1 mg QHS PEG Last administered on 02/19/18at 20 :44; Start 02/19/18 at 21:00 Scopolamine (Transderm-Scop) 1 patch Q3DAYS TD ; Start 02/21/18 at 09:00 Dextrose 1,000 ml @ 75 mls/hr 1X ONCE IV Last administered on 02/19/18at 01: 01; Start 02/18/18 at 23:00; Stop 02/19/18 at 12:19; Status DC Insulin Human Lispro (HumaLOG) 0-9 UNITS Q6HRS SQ ; Start 02/19/18 at 00:00 Dextrose (Dextrose 50%-Water Syringe) 12.5 gm PRN Q15MIN PRN IV SEE COMMENTS; Start 02/18/18 at 22:45 Piperacillin Sod/ Tazobactam Sod (Zosyn Per Pharmacy) 1 each PRN DAILY PRN MC SEE COMMENTS; Start 02/18/18 at 23:00 Piperacillin Sod/ Tazobactam Sod 3.375 gm/Sodium Chloride 50 ml @ 100 mls/hr Q6HRS IV Last administered on 02/20/18at 12:12; Start 02/19/18 at 00:00 Vancomycin HCl 1.5 gm/Sodium Chloride 500 ml @ 250 mls/hr Q24H IV Last administered on 02/19/18at 20:41; Start 02/19/18 at 21:00 Vancomycin HCl (Vancomycin Trough Level) 1 each 1X ONCE MC ; Start 02/20/18 at 20:30; Stop 02/20/18 at 20:31 Potassium Chloride/Water 50 ml @ 50 mls/hr Q1H IV Last administered on at 11:18; Start 02/20/18 at 11:00; Stop 02/20/18 at 12:59; Status DC Active Scripts Active Transderm-Scop (Scopolamine) 1 Each Patch.td72 1 Patch TP Q3DAYS Enoxaparin Sodium 40 Mg/0.4 Ml Disp.syrin 40 Mg SQ Q24H 30 Days Reported Depakote Sprinkle (Divalproex Sodium) 125 Mg Cap.sprink 500 Mg PO BID B-12 (Cyanocobalamin (Vitamin B-12)) 1,000 Mcg Tablet 1,000 Mcg PO QMONTH Atropine Sulfate 2 Ml Drops 2 Ml SL PRN Q4HRS PRN Duoneb 0.5-3(2.5) Mg/3 Ml (Albuterol/Ipratropium) 3 Ml Ampul.neb 3 Ml NEB QID Celexa (Citalopram Hydrobromide) 20 Mg Tablet 1 Tab PEG QODAY Budesonide 0.5 Mg/2 Ml Ampul.neb 1 Vial NEB BID Benztropine Mesylate 1 Mg Tablet 1 Mg PEG HS Polyvinyl Alcohol 15 Ml Drops 15 Ml OP PRN Q8HRS Instill 1 drop in both eyes every 8 hours as needed for dryness Acetaminophen 500 Mg Tablet 650 Mg PEG PRN Q6HRS Vitals/I & O Vital Sign - Last 24 Hours 02/19/18 02/19/18 02/19/18 02/19/18 14:00 15:00 15:16 16:00 Temp 97.5 97.5 Pulse 110 110 104 Resp 20 17 21 B/P (MAP) 106/73 (84) 116/71 (86) 114/75 (88) Pulse Ox 96 97 98 O2 Delivery Tracheal Collar Tracheal Collar Trach Collar Tracheal Collar O2 Flow Rate 10.0 10.0 10.0 10.0 02/19/18 02/19/18 02/19/18 02/19/18 16:14 17:00 17:47 19:00 Pulse 110 100 103 Resp 19 18 27 B/P (MAP) 109/73 (85) 111/58 (75) 106/71 (83) Pulse Ox 97 97 99 97 O2 Delivery Tracheal Collar Tracheal Collar Tracheal Collar Tracheal Collar O2 Flow Rate 10.0 10.0 10.0 10.0 02/19/18 02/19/18 02/19/18 02/19/18 19:32 20:00 20:00 21:00 Temp 98.1 98.1 Pulse 115 107 Resp 25 20 B/P (MAP) 100/67 (78) 97/59 (72) Pulse Ox 98 97 97 O2 Delivery Tracheal Collar Tracheal Collar Trach Collar Tracheal Collar O2 Flow Rate 10.0 10.0 10.0 10.0 02/19/18 02/19/18 02/20/18 02/20/18 22:00 23:00 00:00 00:00 Temp 97.9 97.9 Pulse 96 88 88 Resp 20 24 24 B/P (MAP) 104/66 (79) 100/67 (78) 96/65 (75) Pulse Ox 99 99 99 O2 Delivery Tracheal Collar Tracheal Collar Trach Collar Tracheal Collar O2 Flow Rate 10.0 10.0 10.0 10.0 02/20/18 02/20/18 02/20/18 02/20/18 01:00 02:00 03:00 04:00 Pulse 103 102 88 Resp 24 24 25 B/P (MAP) 91/60 (70) 90/60 (70) 94/67 (76) Pulse Ox 99 99 99 O2 Delivery Tracheal Collar Tracheal Collar Tracheal Collar Trach Collar O2 Flow Rate 10.0 10.0 10.0 10.0 02/20/18 02/20/18 02/20/18 02/20/18 04:00 05:00 06:00 07:10 Temp 97.8 97.8 Pulse 83 94 96 89 Resp 22 22 22 21 B/P (MAP) 84/58 (67) 86/63 (71) 89/58 (68) 90/62 (71) Pulse Ox 99 99 99 100 O2 Delivery Tracheal Collar Tracheal Collar Tracheal Collar Tracheal Collar O2 Flow Rate 10.0 10.0 10.0 10.0 1002/20/18 02/20/18 02/20/18 07:50 08:03 08:14 09:15 Temp 97.6 97.6 Pulse 99 108 Resp 35 14 B/P (MAP) 100/64 (76) 82/61 (68) Pulse Ox 100 99 100 O2 Delivery Trach Collar Tracheal Collar Tracheal Collar Tracheal Collar O2 Flow Rate 10.0 10.0 10.0 10.0 02/20/18 02/20/18 02/20/18 02/20/18 10:00 11:14 11:56 12:05 Pulse 110 104 Resp 16 20 B/P (MAP) 96/64 (75) 101/69 (80) Pulse Ox 99 96 99 O2 Delivery Tracheal Collar Tracheal Collar Tracheal Collar Trach Collar O2 Flow Rate 10.0 10.0 10.0 10.0 02/20/18 12:06 Pulse 105 Resp 18 B/P (MAP) 104/75 (85) Pulse Ox 100 O2 Delivery Tracheal Collar O2 Flow Rate 10.0 Intake and Output 02/19/18 02/19/18 02/20/18 15:00 23:00 07:00 Intake Total 0 ml 50 ml Output Total 670 ml 295 ml 505 ml Balance -670 ml -245 ml -505 ml CL CARTWRIGHT III DO Feb 20, 2018 13:15
--- NOTE | 2018-02-20 13:16 | CONS ---
DATE OF CONSULTATION: 02/19/2018 José Pickens NP, dictating for Gricelda Alvarez MD REFERRING PHYSICIAN: Dr. Ornelas. REASON FOR CONSULTATION: Mental status change and questionable occult infection. HISTORY OF PRESENT ILLNESS: This patient is a 67-year-old male who is noncommunicative; unable to provide history of present illness, past medical history or review of systems. According to the medical record, he is a group home resident with a PMH of Parkinson's disease, chronic tracheostomy and dementia, who is a total care, maintained on tube feedings via gastrostomy tube. Apparently, he was sent to the ER for altered mental status changes, fever and hypernatremia. A head CT showed chronic changes. His WBC count, lactic acid and procalcitonin level were normal. Urinalysis was unremarkable. Blood cultures are negative to date. He is dosed with vancomycin and Zosyn empirically. PAST MEDICAL HISTORY: 1. Respiratory infections with pseudomonas (intermediate susceptibility to cefepime, ceftazidime and piperacillin). Group B strep, Proteus and Stenotrophomonas. 2. Parkinson's disease. 3. Dementia with functional deficits, requiring total care. 4. Atrial fibrillation. 5. Hypertension. 6. Chronic obstructive pulmonary disease. 7. Chronic tracheostomy. 8. Gastroesophageal reflux. 9. Fibromyalgia. 10. Depression. 11. Seizure disorder. PAST SURGICAL HISTORY: Tracheostomy, gastrostomy tube placement. FAMILY HISTORY: Noncontributory. SOCIAL HISTORY: The patient is a group home resident. ALLERGIES: FENTANYL and MORPHINE. MEDICATIONS: Vancomycin and Zosyn. Other medications are available and have been reviewed on the MAR. REVIEW OF SYSTEMS: Unobtainable as the patient is noncommunicative. Per RN, a rectal tube was placed for diarrhea. PHYSICAL EXAMINATION: GENERAL: The patient is slightly propped up in bed with his eyes closed, in no apparent distress. VITAL SIGNS: Temperature is 97.5, blood pressure 111/58, heart rate 100, respiratory rate 18, pulse oximetry 99% on FiO2 of 40%. HEENT: Pupils equally round, reactive. Oral cavity, pharynx very dry with buildup of secretions. NECK: Tracheostomy with thick secretions. LUNGS: Mild congestion. He has audible cough. No increased work of breathing HEART: S1, S2. ABDOMEN: Nondistended. Bowel sounds active. Soft. Gastrostomy tube intact. Rectal tube in place. GENITOURINARY: Indwelling Perales. EXTREMITIES: No gross edema or cyanosis. SKIN: Warm without rash. A few skin abrasions left arm. NEUROLOGIC: He opens his eyes to cough. He is noncommunicative and does not follow commands. LINES: Right subclavian catheter (1027) without signs of any complications. LABORATORY DATA: WBC 7.4; hemoglobin 16.1; platelets 62,000. Sodium 154, potassium 3.5, creatinine 1.0, BUN 55, glucose 103, total bilirubin 0.6, AST 24, ALT 32, ammonia 19, albumin 2.8. Procalcitonin less than 0.10. Lactic acid 1.5. MRSA screen negative. Influenza screen negative. Urinalysis unremarkable for infection. Blood cultures negative to date. Head CT showed diffuse moderate cerebral atrophy. No acute intracranial bleed. Most likely a chronic left basilar ganglia lacunar infarct. Chronic microvascular ischemic disease. Chest x-ray showed diffuse interstitial prominence likely chronic interstitial changes atypical/viral infection or mild residual pulmonary edema. Poor inspiratory effort. IMPRESSION: 1. Fever. 2. Diarrhea. 3. Hypernatremia. 4. Chronic tracheostomy. 5. Parkinson's disease. 6. Dementia. 7. History of pseudomonas, group B Streptococcus, Stenotrophomonas and Proteus. PLAN: Continue empiric vancomycin and Zosyn for now. Check a stool for C. diff. Add sputum culture. Monitor laboratory values, temperature and renal function closely. Supportive care. Thank you, Dr. Ornelas, for asking us to participate in this patient's care. Should you have further questions or concerns, please call. GRICELDA ALVAREZ MD DR: JOHN/cindy JOB#: [id number] / [id number]
[2018-02-20] MEDS: VANCOMYCIN 1.5 GM in IV NORMAL SALINE 500ML BAG 500 ML IV SCH (21:39)
[2018-02-20] MEDS: BENZTROPINE MESYLATE 1 MG TABLET. PEG SCH (21:46)
[2018-02-20] MEDS: ENOXAPARIN 40 MG/0.4 ML SYRINGE. SQ SCH (21:47)
[2018-02-20 22:03] LABS: VANC TR 9.2 mcg/mL (10.0-20.0)
--- NOTE | 2018-02-20 22:36 | CONS ---
DATE OF CONSULTATION: 02/20/2018 ATTENDING PHYSICIAN: Dr. Ornelas. REASON FOR CONSULTATION: The patient is seen in pulmonary consultation at the request of Dr. Ornelas for acute on chronic respiratory failure. HISTORY OF PRESENT ILLNESS: The patient is a 67-year-old that resides at a fpc, has a trach in place, presented with an altered mental status. snf indicates normally patient was responsive to verbal stimuli. He became unresponsive. He was sent to the Emergency Department. He was evaluated. Arterial blood gas revealed pH of 7.44, PaCO2 of 40, pO2 of 76. Serology for influenza was negative. Electrolytes were noted. They were slightly deranged. BUN is elevated. Creatinine was normal. White count was normal. UA was noted to be positive for occasional wbc's. The patient has been seen by the Infectious Disease Service for fever and diarrhea. The patient is currently on empiric vancomycin and Zosyn. C. diff analysis is pending. PAST MEDICAL HISTORY: Otherwise remarkable for chronic respiratory failure, tracheostomy tube in place, parkinsonism, AFib, COPD, dementia, depression, gastroesophageal reflux, hypertension, chronic renal insufficiency. ALLERGIES: FENTANYL AND MORPHINE. FAMILY HISTORY: Diabetes. SOCIAL HISTORY: He resides at a fpc. REVIEW OF SYSTEMS: Unobtainable secondary to the patient's condition. CURRENT MEDICATIONS: List was reviewed. PHYSICAL EXAMINATION: GENERAL: The patient does not appear to be in any respiratory distress. VITAL SIGNS: T-max yesterday 101.1, the day before 102. HEENT: Eyes: The sclerae were nonicteric. NECK: Jugular venous distention could not be assessed secondary to body habitus. CHEST: Full expansion. LUNGS: Bilateral crackles. CARDIOVASCULAR: Regular rate and rhythm with S1, S2, no S3. ABDOMEN: Soft, nontender. EXTREMITIES: No clubbing or cyanosis. Minimal edema. IMAGING: Chest x-ray was reviewed. There was a diffuse interstitial lung markings compatible with pulmonary edema, possible atypical pneumonia. LABORATORY DATA: Labs were reviewed as indicated above. IMPRESSION: 1. Acute on chronic respiratory failure. 2. Metabolic toxic encephalopathy, present upon admission. 3. Fever. 4. Diarrhea. 5. Hypernatremia. 6. Chronic kidney disease. 7. History of prior Pseudomonas, Stenotrophomonas and Proteus. PLAN: 1. Continue current empiric antibiotics. 2. Trach shield. 3. Check stool for C. diff. 4. Follow up on cultures. I do appreciate the privilege in sharing in the patient's care. INÉS LANZA MD DR: ANTON/cindy JOB#: [id number] / [id number]
[2018-02-21] MEDS: VANCOMYCIN PER PHARMACY MC PRN (01:01)
[2018-02-21] MEDS: PIPERACILLIN/TAZOBACTAM 3.375 GM in IV NORMAL SALINE 50ML 50 ML IV SCH ×2 (01:03→05:49)
[2018-02-21 03:00] VITALS: BP 84/63
[2018-02-21] MEDS: INSULIN LISPRO 300 UNITS/3 ML INSULN.PEN. SQ SCH ×5 (05:54→22:59)
[2018-02-21 06:04] LABS: BASO % 1 % (0-3); EOS # 0.3 x10^3/uL (0.0-0.7); EOS % 7 % (0-3); HEMATOCRIT 42.3 % (39.0-53.0); HEMOGLOBIN 14.4 g/dL (13.0-17.5); LYMPH # 1.2 x10^3/uL (1.0-4.8); LYMPH % 28 % (24-48); MEAN CORPUSCULAR HEMOGLOBIN 34 pg (25-35); MEAN CORPUSCULAR HGB CONC 34 g/dL (31-37); MEAN CORPUSCULAR VOLUME 99 fL (79-100); MONO # 0.2 x10^3/uL (0.0-1.1); MONO % 5 % (0-9); NEUT # 2.5 x10^3uL (1.8-7.7); NEUT % 59 % (31-73); PLATELET COUNT 57 x10^3/uL (140-400); RED BLOOD COUNT 4.26 x10^6/uL (4.30-5.70); RED CELL DISTRIBUTION WIDTH 14.1 % (11.5-14.5); WHITE BLOOD COUNT 4.2 x10^3/uL (4.0-11.0)
[2018-02-21 06:11] LABS: CALCIUM 7.4 mg/dL (8.5-10.1); CREATININE 0.8 mg/dL (0.7-1.3); GFR 95.8; POTASSIUM 3.6 mmol/L (3.5-5.1)
--- NOTE | 2018-02-21 08:12 | PDOC ---
Infectious Disease Note Subjective: Subjective Uneventful night No fevers last 24 hours No increase O2 demands. Remains on 40% FiO2 Rectal tube remains in place ROS: ROS Negative except for above. Vital Signs: Vital Signs Vital Signs Date Time Temp Pulse Resp B/P (MAP) Pulse Ox O2 Delivery O2 Flow Rate FiO2 02/21/18 03:00 97.7 83 22 84/63 (70) 100 Tracheal Collar 10.0 97.7 Physical Exam: PHYSICAL EXAM GENERAL: Propped up in bed, resting quietly, NAD NECK: Trach shield LUNGS: Congested, nonlabored CV: S1 S2 regular ABD: Soft, no grimace or guarding to palpation. G-tube. rectal tube in place : Perales EXT: Trace edema BLE. No cyanosis SKIN: warm Right subclavian (02/09) clean Medications: Inpatient Meds: Current Medications Medications (Trade) Dose Ordered Sig/Eleanor Start Time Stop Time Status Last Admin Dose Admin Acetaminophen (Tylenol Supp) 650 mg 1X ONCE 02/18/18 21:30 02/18/18 21:31 DC Acetaminophen (Tylenol) 650 mg PRN Q6HRS PRN 02/18/18 22:30 Albuterol/ Ipratropium (Duoneb) 3 ml RTQID 02/19/18 08:00 02/20/18 20:08 3 ML Artificial Tears (Artificial Tears) 1 drop PRN Q8HRS PRN 02/18/18 22:45 Atropine Sulfate (Isopto Atropine) 2 drop PRN Q4HRS PRN 02/18/18 22:45 Benztropine Mesylate (Cogentin) 1 mg QHS 02/19/18 21:00 02/20/18 21:46 1 MG Budesonide (Pulmicort) 0.5 mg RTBID 02/19/18 08:00 02/20/18 20:08 0.5 MG Citalopram Hydrobromide (CeleXA) 20 mg QODAY 02/20/18 09:00 02/20/18 09:53 20 MG Cyanocobalamin (Vitamin B-12) 1,000 mcg QMONTH 03/20/18 09:00 Dextrose (Dextrose 50%-Water Syringe) 12.5 gm PRN Q15MIN PRN 02/18/18 22:45 Divalproex Sodium (Depakote Sprinkles) 500 mg BID 02/19/18 09:00 02/20/18 21:47 500 MG Enoxaparin Sodium (Lovenox 40mg Syringe) 40 mg Q24H 02/18/18 23:00 02/20/18 21:47 40 MG Insulin Human Lispro (HumaLOG) 0-9 UNITS Q6HRS 02/19/18 00:00 Piperacillin Sod/ Tazobactam Sod (Zosyn Per Pharmacy) 1 each PRN DAILY PRN 02/18/18 23:00 Piperacillin Sod/ Tazobactam Sod 3.375 gm/Sodium Chloride 50 ml @ 100 mls/hr Q6HRS 02/19/18 00:00 02/21/18 05:49 100 MLS/HR Piperacillin Sod/ Tazobactam Sod 4.5 gm/Sodium Chloride 100 ml @ 200 mls/hr 1X ONCE 02/18/18 18:30 02/18/18 19:01 DC 02/18/18 18:52 200 MLS/HR Potassium Chloride/Water 50 ml @ 50 mls/hr Q1H 02/20/18 11:00 02/20/18 12:59 DC 02/20/18 14:01 50 MLS/HR Scopolamine (Transderm-Scop) 1 patch Q3DAYS 02/21/18 09:00 Sodium Chloride 1,000 ml @ 0 mls/hr 1X ONCE 02/18/18 19:00 02/18/18 19:01 DC 02/18/18 19:00 500 MLS/HR Vancomycin HCl (Vanco Per Pharmacy) 1 each PRN DAILY PRN 02/18/18 21:30 02/21/18 01:01 1 EACH Vancomycin HCl (Vancomycin Trough Level) 1 each 1X ONCE 02/23/18 02:30 02/23/18 02:31 Vancomycin HCl 1.5 gm/Sodium Chloride 500 ml @ 250 mls/hr Q18H 02/21/18 15:00 Vancomycin HCl 2 gm/Sodium Chloride 500 ml @ 250 mls/hr 1X ONCE 02/18/18 18:30 02/18/18 20:29 DC 02/18/18 20:59 250 MLS/HR Labs: Lab Laboratory Tests Test 02/20/18 09:30 02/20/18 12:11 02/20/18 17:39 10/28/18 21:30 Clostridium difficile Toxin (PCR) Negative (Negative) Glucose (Fingerstick) 83 mg/dL (70-99) 93 mg/dL (70-99) Vancomycin Level Trough 9.2 mcg/mL (10.0-20.0) Vancomycin Last Dose Date 02/19/18 Vancomycin Last Dose Time 2100 Test 02/21/18 01:02 02/21/18 05:50 02/21/18 05:52 Glucose (Fingerstick) 92 mg/dL (70-99) 108 mg/dL (70-99) White Blood Count 4.2 x10^3/uL (4.0-11.0) Red Blood Count 4.26 x10^6/uL (4.30-5.70) Hemoglobin 14.4 g/dL (13.0-17.5) Hematocrit 42.3 % (39.0-53.0) Mean Corpuscular Volume 99 fL (79-100) Mean Corpuscular Hemoglobin 34 pg (25-35) Mean Corpuscular Hemoglobin Concent 34 g/dL (31-37) Red Cell Distribution Width 14.1 % (11.5-14.5) Platelet Count 57 x10^3/uL (140-400) Neutrophils (%) (Auto) 59 % (31-73) Lymphocytes (%) (Auto) 28 % (24-48) Monocytes (%) (Auto) 5 % (0-9) Eosinophils (%) (Auto) 7 % (0-3) Basophils (%) (Auto) 1 % (0-3) Neutrophils # (Auto) 2.5 x10^3uL (1.8-7.7) Lymphocytes # (Auto) 1.2 x10^3/uL (1.0-4.8) Monocytes # (Auto) 0.2 x10^3/uL (0.0-1.1) Eosinophils # (Auto) 0.3 x10^3/uL (0.0-0.7) Basophils # (Auto) 0.0 x10^3/uL (0.0-0.2) Sodium Level 146 mmol/L (136-145) Potassium Level 3.6 mmol/L (3.5-5.1) Chloride Level 110 mmol/L (98-107) Carbon Dioxide Level 31 mmol/L (21-32) Anion Gap 5 (6-14) Blood Urea Nitrogen 33 mg/dL (8-26) Creatinine 0.8 mg/dL (0.7-1.3) Estimated GFR (Cockcroft-Gault) 95.8 Glucose Level 121 mg/dL (70-99) Calcium Level 7.4 mg/dL (8.5-10.1) Micro Sputum GRAM STAIN WHITE BLOOD CELLS Final Many GRAM STAIN EPITHELIAL CELLS Final Few GRAM STAIN RESULT 1 Final Comment Many gram negative rods. GRAM STAIN RESULT 2 Final Comment Moderate number of gram positive rods. BC no growth Objective: Assessment: Fever. Procalcitonin <0.10 acute hypoxic resp failure on trach with chronic diffuse infiltrates flu screen neg sputum gnr, acute metabolic encephalopathy improving Diarrhea C diff neg Hypernatremia thrombocytopenia chronic Chronic tracheostomy on trach shield Parkinson disease Dementia h/o PSA, GBS, Stenotrophomonas, Proteus (PSAE LOVE for Zosyn 32 in the past ) Plan: Plan of Care DC Zosyn and IV Vanc start merrem f/u gnr in sputum f/u bc Monitor labs/temp/renal function closely Supportive care D/w FARSHAD GUERRERO MD Feb 21, 2018 08:12
[2018-02-21] MEDS: IPRATRPIUM/ALBUTEROL 0.5/2.5MG 3 ML NEBU. NEB SCH ×4 (08:32→19:02)
[2018-02-21] MEDS: BUDESONIDE 0.5 MG/2 ML NEBU. NEB SCH ×2 (08:32→19:02)
--- NOTE | 2018-02-21 09:04 | PDOC ---
PULMONARY PROGRESS NOTES Subjective PT WITH NO SIGN OF DISTRESS Vitals Vital Signs Date Time Temp Pulse Resp B/P (MAP) Pulse Ox O2 Delivery O2 Flow Rate FiO2 02/21/18 08:30 100 Tracheal Collar 8.0 02/21/18 03:00 97.7 83 22 84/63 (70) 97.7 Cardiovascular: S1, S2 Abdomen: Soft, Non-tender Extremities: No Edema Labs Laboratory Tests Test 02/19/18 11:50 02/19/18 15:00 02/20/18 00:08 02/20/18 05:45 Glucose (Fingerstick) 108 mg/dL (70-99) 107 mg/dL (70-99) 87 mg/dL (70-99) White Blood Count 6.1 x10^3/uL (4.0-11.0) Red Blood Count 4.65 x10^6/uL (4.30-5.70) Hemoglobin 15.5 g/dL (13.0-17.5) Hematocrit 46.5 % (39.0-53.0) Mean Corpuscular Volume 100 fL (79-100) Mean Corpuscular Hemoglobin 33 pg (25-35) Mean Corpuscular Hemoglobin Concent 33 g/dL (31-37) Red Cell Distribution Width 14.3 % (11.5-14.5) Platelet Count 59 x10^3/uL (140-400) Neutrophils (%) (Auto) 70 % (31-73) Lymphocytes (%) (Auto) 23 % (24-48) Monocytes (%) (Auto) 5 % (0-9) Eosinophils (%) (Auto) 2 % (0-3) Basophils (%) (Auto) 1 % (0-3) Neutrophils # (Auto) 4.3 x10^3uL (1.8-7.7) Lymphocytes # (Auto) 1.4 x10^3/uL (1.0-4.8) Monocytes # (Auto) 0.3 x10^3/uL (0.0-1.1) Eosinophils # (Auto) 0.1 x10^3/uL (0.0-0.7) Basophils # (Auto) 0.0 x10^3/uL (0.0-0.2) Sodium Level 149 mmol/L (136-145) Potassium Level 3.3 mmol/L (3.5-5.1) Chloride Level 111 mmol/L (98-107) Carbon Dioxide Level 32 mmol/L (21-32) Anion Gap 6 (6-14) Blood Urea Nitrogen 39 mg/dL (8-26) Creatinine 0.9 mg/dL (0.7-1.3) Estimated GFR (Cockcroft-Gault) 83.7 Glucose Level 92 mg/dL (70-99) Calcium Level 7.6 mg/dL (8.5-10.1) Test 02/20/18 05:51 02/20/18 09:30 02/20/18 12:11 02/20/18 17:39 Glucose (Fingerstick) 95 mg/dL (70-99) 83 mg/dL (70-99) 93 mg/dL (70-99) Clostridium difficile Toxin (PCR) Negative (Negative) Test 02/20/18 21:30 02/21/18 01:02 02/21/18 05:50 02/21/18 05:52 Vancomycin Level Trough 9.2 mcg/mL (10.0-20.0) Vancomycin Last Dose Date 02/19/18 Vancomycin Last Dose Time 2100 Glucose (Fingerstick) 92 mg/dL (70-99) 108 mg/dL (70-99) White Blood Count 4.2 x10^3/uL (4.0-11.0) Red Blood Count 4.26 x10^6/uL (4.30-5.70) Hemoglobin 14.4 g/dL (13.0-17.5) Hematocrit 42.3 % (39.0-53.0) Mean Corpuscular Volume 99 fL (79-100) Mean Corpuscular Hemoglobin 34 pg (25-35) Mean Corpuscular Hemoglobin Concent 34 g/dL (31-37) Red Cell Distribution Width 14.1 % (11.5-14.5) Platelet Count 57 x10^3/uL (140-400) Neutrophils (%) (Auto) 59 % (31-73) Lymphocytes (%) (Auto) 28 % (24-48) Monocytes (%) (Auto) 5 % (0-9) Eosinophils (%) (Auto) 7 % (0-3) Basophils (%) (Auto) 1 % (0-3) Neutrophils # (Auto) 2.5 x10^3uL (1.8-7.7) Lymphocytes # (Auto) 1.2 x10^3/uL (1.0-4.8) Monocytes # (Auto) 0.2 x10^3/uL (0.0-1.1) Eosinophils # (Auto) 0.3 x10^3/uL (0.0-0.7) Basophils # (Auto) 0.0 x10^3/uL (0.0-0.2) Sodium Level 146 mmol/L (136-145) Potassium Level 3.6 mmol/L (3.5-5.1) Chloride Level 110 mmol/L (98-107) Carbon Dioxide Level 31 mmol/L (21-32) Anion Gap 5 (6-14) Blood Urea Nitrogen 33 mg/dL (8-26) Creatinine 0.8 mg/dL (0.7-1.3) Estimated GFR (Cockcroft-Gault) 95.8 Glucose Level 121 mg/dL (70-99) Calcium Level 7.4 mg/dL (8.5-10.1) Laboratory Tests Test 02/20/18 09:30 02/20/18 12:11 02/20/18 17:39 02/20/18 21:30 Clostridium difficile Toxin (PCR) Negative (Negative) Glucose (Fingerstick) 83 mg/dL (70-99) 93 mg/dL (70-99) Vancomycin Level Trough 9.2 mcg/mL (10.0-20.0) Vancomycin Last Dose Date 02/19/18 Vancomycin Last Dose Time 2100 Test 02/21/18 01:02 02/21/18 05:50 02/21/18 05:52 Glucose (Fingerstick) 92 mg/dL (70-99) 108 mg/dL (70-99) White Blood Count 4.2 x10^3/uL (4.0-11.0) Red Blood Count 4.26 x10^6/uL (4.30-5.70) Hemoglobin 14.4 g/dL (13.0-17.5) Hematocrit 42.3 % (39.0-53.0) Mean Corpuscular Volume 99 fL (79-100) Mean Corpuscular Hemoglobin 34 pg (25-35) Mean Corpuscular Hemoglobin Concent 34 g/dL (31-37) Red Cell Distribution Width 14.1 % (11.5-14.5) Platelet Count 57 x10^3/uL (140-400) Neutrophils (%) (Auto) 59 % (31-73) Lymphocytes (%) (Auto) 28 % (24-48) Monocytes (%) (Auto) 5 % (0-9) Eosinophils (%) (Auto) 7 % (0-3) Basophils (%) (Auto) 1 % (0-3) Neutrophils # (Auto) 2.5 x10^3uL (1.8-7.7) Lymphocytes # (Auto) 1.2 x10^3/uL (1.0-4.8) Monocytes # (Auto) 0.2 x10^3/uL (0.0-1.1) Eosinophils # (Auto) 0.3 x10^3/uL (0.0-0.7) Basophils # (Auto) 0.0 x10^3/uL (0.0-0.2) Sodium Level 146 mmol/L (136-145) Potassium Level 3.6 mmol/L (3.5-5.1) Chloride Level 110 mmol/L (98-107) Carbon Dioxide Level 31 mmol/L (21-32) Anion Gap 5 (6-14) Blood Urea Nitrogen 33 mg/dL (8-26) Creatinine 0.8 mg/dL (0.7-1.3) Estimated GFR (Cockcroft-Gault) 95.8 Glucose Level 121 mg/dL (70-99) Calcium Level 7.4 mg/dL (8.5-10.1) Medications Active Scripts Medications Dose Route/Sig Max Daily Dose Days Date Category Dose Instructions Transderm-Scop (Scopolamine) 1 Each Patch.td72 1 Patch TP Q3DAYS 12/08/17 Rx Enoxaparin Sodium 40 Mg/0.4 Ml Disp.syrin 40 Mg SQ Q24H 30 12/08/17 Rx Depakote Sprinkle (Divalproex Sodium) 125 Mg Cap.sprink 500 Mg PO BID 12/02/17 Reported B-12 (Cyanocobalamin (Vitamin B-12)) 1,000 Mcg Tablet 1,000 Mcg PO QMONTH 12/02/17 Reported Atropine Sulfate 2 Ml Drops 2 Ml SL PRN Q4HRS PRN 8/7/18 Reported Duoneb 0.5-3(2.5) Mg/3 Ml (Albuterol/Ipratropium) 3 Ml Ampul.neb 3 Ml NEB QID 09/21/16 Reported Celexa (Citalopram Hydrobromide) 20 Mg Tablet 1 Tab PEG QODAY 09/21/16 Reported Budesonide 0.5 Mg/2 Ml Ampul.neb 1 Vial NEB BID 09/21/16 Reported Benztropine Mesylate 1 Mg Tablet 1 Mg PEG HS 09/21/16 Reported Polyvinyl Alcohol 15 Ml Drops 15 Ml OP PRN Q8HRS 09/21/16 Reported Instill 1 drop in both eyes every 8 hours as needed for dryness Acetaminophen 500 Mg Tablet 650 Mg PEG PRN Q6HRS 09/21/16 Reported Impression . IMPRESSION: 1. Acute on chronic respiratory failure. 2. Metabolic toxic encephalopathy, present upon admission. 3. Fever. 4. Diarrhea. 5. Hypernatremia. 6. Chronic kidney disease. 7. History of prior Pseudomonas, Stenotrophomonas and Proteus. Plan . ANTIBX PER ID CONTINUE SUPPORT PALLLIATIVE CARE NOTE APPRECITED PENITENTIARY PROGNOSIS IS POOR TRACH INÉS CLARK MD Feb 21, 2018 09:04
--- NOTE | 2018-02-21 09:41 | PDOC2 ---
GI CONSULT Reason For Consult: Consider changing PEG HPI: HPI: 67 y/o male admitted from [facility] on 02/18 w/ AMS, also some discussion re: fever and diarrhea. Has trach and PEG in place - GI asked to see to consider PEG tube replacement. Unclear if PEG tube functioning - per primary note yesterday , plans to resume PEG feeds - looks like these were ordered, but currently are not running. Currently in ICU awaiting transfer to regular floor. History from chart and old records. Unclear when/where PEG initially placed but can document replacement at bedside by Dr. Moreira in 09/2016 (for clogged/broken tube - used 20 Fr replacement tube). PMH: PMH: per chart/outside records: CVA, resp failure, dysphagia, HTN, ?A Fib, resp infections (pseudomonas, Group B strp, Proteus, Stenotrophomonas), Parkinson's, dementia, seizure, depression, thrombocytopenia, ?colon cancer, SBO tracheostomy, PEG tube, ?colectomy, tonsillectomy, ankle surgery, knee replacement, herniorrhaphy, IRWIN FH: Family History: No pertinent hx Social History: Smoke: No ALCOHOL: none Drugs: None ROS: Unable to obtain. Vitals: Vitals: Vital Signs Date Time Temp Pulse Resp B/P (MAP) Pulse Ox O2 Delivery O2 Flow Rate FiO2 02/21/18 08:30 100 Tracheal Collar 8.0 02/21/18 03:00 97.7 83 22 84/63 (70) 97.7 Labs: Labs: Laboratory Tests Test 02/20/18 12:11 02/20/18 17:39 02/20/18 21:30 02/21/18 01:02 Glucose (Fingerstick) 83 mg/dL (70-99) 93 mg/dL (70-99) 92 mg/dL (70-99) Vancomycin Level Trough 9.2 mcg/mL (10.0-20.0) Vancomycin Last Dose Date 02/19/18 Vancomycin Last Dose Time 2100 Test 02/21/18 05:50 02/21/18 05:52 White Blood Count 4.2 x10^3/uL (4.0-11.0) Red Blood Count 4.26 x10^6/uL (4.30-5.70) Hemoglobin 14.4 g/dL (13.0-17.5) Hematocrit 42.3 % (39.0-53.0) Mean Corpuscular Volume 99 fL (79-100) Mean Corpuscular Hemoglobin 34 pg (25-35) Mean Corpuscular Hemoglobin Concent 34 g/dL (31-37) Red Cell Distribution Width 14.1 % (11.5-14.5) Platelet Count 57 x10^3/uL (140-400) Neutrophils (%) (Auto) 59 % (31-73) Lymphocytes (%) (Auto) 28 % (24-48) Monocytes (%) (Auto) 5 % (0-9) Eosinophils (%) (Auto) 7 % (0-3) Basophils (%) (Auto) 1 % (0-3) Neutrophils # (Auto) 2.5 x10^3uL (1.8-7.7) Lymphocytes # (Auto) 1.2 x10^3/uL (1.0-4.8) Monocytes # (Auto) 0.2 x10^3/uL (0.0-1.1) Eosinophils # (Auto) 0.3 x10^3/uL (0.0-0.7) Basophils # (Auto) 0.0 x10^3/uL (0.0-0.2) Sodium Level 146 mmol/L (136-145) Potassium Level 3.6 mmol/L (3.5-5.1) Chloride Level 110 mmol/L (98-107) Carbon Dioxide Level 31 mmol/L (21-32) Anion Gap 5 (6-14) Blood Urea Nitrogen 33 mg/dL (8-26) Creatinine 0.8 mg/dL (0.7-1.3) Estimated GFR (Cockcroft-Gault) 95.8 Glucose Level 121 mg/dL (70-99) Calcium Level 7.4 mg/dL (8.5-10.1) Glucose (Fingerstick) 108 mg/dL (70-99) GRAM STAIN WHITE BLOOD CELLS Final Many GRAM STAIN EPITHELIAL CELLS Final Few GRAM STAIN RESULT 1 Final Comment Many gram negative rods. GRAM STAIN RESULT 2 Final Comment Moderate number of gram positive rods. GRAM STAIN EVALUATION Final Comment This specimen is of good quality and is acceptable for routine bacterial culture. Performed at: [facility] - [facility] [address], [place], [place] [id number] Marketing Communications Manager: JANET Chris MD, Phone: [phone] SPUTUM CULTURE-LC PENDING BLOOD CULTURE Preliminary NO GROWTH AFTER 2 DAYS Allergies: Coded Allergies: fentanyl (Verified Allergy, Intermediate, 09/23/16) morphine (Verified Allergy, Intermediate, 09/23/16) Medications: Current Medications Medications (Trade) Dose Ordered Sig/Eleanor Route PRN Reason Start Time Stop Time Status Last Admin Dose Admin Vancomycin HCl (Vancomycin Trough Level) 1 each 1X ONCE MC 02/20/18 20:30 02/20/18 20:31 DC 02/20/18 21:25 Potassium Chloride/Water 50 ml @ 50 mls/hr Q1H IV 02/20/18 11:00 02/20/18 12:59 DC 02/20/18 14:01 Imaging: Imaging: CXR IMPRESSION: Poor inspiratory effort. Diffuse interstitial prominence likely chronic interstitial changes, atypical/viral infection or mild residual pulmonary edema. Head CT IMPRESSION: 1. Diffuse moderate cerebral atrophy. No acute intracranial bleed. 2. Most likely a chronic left basal ganglia lacunar infarct. 2. Mild white matter changes most likely secondary to chronic microvascular ischemic disease. PE: GEN: NAD HEENT: tracheostomy/collar LUNGS: diminished HEART: RRR ABD: BS+, soft, non-tender, PEG in place - tube probably on the older side EXTREMITY: contractures SKIN: skin tear left elbow, abrasion right knee NEURO/PSYCH: awake, looking around, non-verbal A/P: A/P: Encephalopathy, resp failure Chronic resp failure and dysphagia w/ tracheostomy and PEG in place Fever - resolved Diarrhea - ?improved, C Diff neg Hypernatremia - better ?h/o colon cancer H/o SBO, s/p IRWIN (2013) -- PEG in place - functioning? Tube feeds ordered yesterday - okay w/ GI to try flushing tube/using for feeds. Dr. Ornelas called - says tube functioning, wondering if needs to be replaced prior to possible DC (?tomorrow) Dr. Sue to see later today. DILSHAD JOEL Feb 21, 2018 09:40
[2018-02-21 11:09] VITALS: BP 105/73
[2018-02-21] MEDS: SCOPOLAMINE 1.5MG PATCH. TD SCH (11:17)
[2018-02-21] MEDS: DIVALPROEX SPRINKLES 125 MG CAPSULE. PO SCH ×2 (11:18→22:28)
--- NOTE | 2018-02-21 12:25 | PDOC ---
PROGRESS NOTES Chief Complaint Chief Complaint Fever, procalcitonin <0.10 Diarrhea Hypernatremia Hypokalemia Chronic tracheostomy Parkinson disease Dementia h/o PSA, GBS, Stenotrophomonas, Proteus History of Present Illness History of Present Illness Pt seen and examined. Pt was being fed through PEG tube Laying in bed, eyes open, chronic trach Discussed with RN Vitals Vitals Vital Signs Date Time Temp Pulse Resp B/P (MAP) Pulse Ox O2 Delivery O2 Flow Rate FiO2 02/21/18 11:09 97.4 92 24 105/73 (84) 98 Tracheal Collar 10.0 97.4 Physical Exam Physical Exam GENERAL: Propped up in bed, resting quietly, NAD NECK: Trach shield LUNGS: Congested, nonlabored CV: S1 S2 regular ABD: Soft, no grimace or guarding to palpation. G-tube. rectal tube in place : Perales EXT: Trace edema BLE. No cyanosis SKIN: warm Right subclavian (02/09) clean General: Alert, No acute distress Heart: Regular rate, Normal S1, Normal S2 Lungs: Other (congested, chronic trach) Abdomen: Normal bowel sounds, Soft Extremities: No clubbing, No cyanosis, Other (trace edema BLE) Skin: No rashes, No breakdown Labs LABS Laboratory Tests Test 02/20/18 17:39 02/20/18 21:30 02/21/18 01:02 02/21/18 05:50 Glucose (Fingerstick) 93 mg/dL (70-99) 92 mg/dL (70-99) Vancomycin Level Trough 9.2 mcg/mL (10.0-20.0) Vancomycin Last Dose Date 02/19/18 Vancomycin Last Dose Time 2100 White Blood Count 4.2 x10^3/uL (4.0-11.0) Red Blood Count 4.26 x10^6/uL (4.30-5.70) Hemoglobin 14.4 g/dL (13.0-17.5) Hematocrit 42.3 % (39.0-53.0) Mean Corpuscular Volume 99 fL (79-100) Mean Corpuscular Hemoglobin 34 pg (25-35) Mean Corpuscular Hemoglobin Concent 34 g/dL (31-37) Red Cell Distribution Width 14.1 % (11.5-14.5) Platelet Count 57 x10^3/uL (140-400) Neutrophils (%) (Auto) 59 % (31-73) Lymphocytes (%) (Auto) 28 % (24-48) Monocytes (%) (Auto) 5 % (0-9) Eosinophils (%) (Auto) 7 % (0-3) Basophils (%) (Auto) 1 % (0-3) Neutrophils # (Auto) 2.5 x10^3uL (1.8-7.7) Lymphocytes # (Auto) 1.2 x10^3/uL (1.0-4.8) Monocytes # (Auto) 0.2 x10^3/uL (0.0-1.1) Eosinophils # (Auto) 0.3 x10^3/uL (0.0-0.7) Basophils # (Auto) 0.0 x10^3/uL (0.0-0.2) Sodium Level 146 mmol/L (136-145) Potassium Level 3.6 mmol/L (3.5-5.1) Chloride Level 110 mmol/L (98-107) Carbon Dioxide Level 31 mmol/L (21-32) Anion Gap 5 (6-14) Blood Urea Nitrogen 33 mg/dL (8-26) Creatinine 0.8 mg/dL (0.7-1.3) Estimated GFR (Cockcroft-Gault) 95.8 Glucose Level 121 mg/dL (70-99) Calcium Level 7.4 mg/dL (8.5-10.1) Test 02/21/18 05:52 02/21/18 12:01 Glucose (Fingerstick) 108 mg/dL (70-99) 66 mg/dL (70-99) Review of Systems Review of Systems Pt is unable to respond, but appears in NAD. Has chronic trach. Assessment and Plan Assessmemt and Plan Problems Medical Problems: (1) Altered mental state Status: Acute (2) Fever Status: Acute (3) Hypernatremia Status: Acute Assessment: Fever, procalcitonin <0.10 Diarrhea Hypernatremia Hypokalemia Chronic tracheostomy Parkinson disease Dementia h/o PSA, GBS, Stenotrophomonas, Proteus Plan: Cardiac monitoring Probable new PEG tube if GI agrees IV abx Cont bolus feedings 5x/day with 300 free water Labs PT/OT Home meds DVT ppx Comment Review of Relevant I have reviewed the following items maulik (where applicable) has been applied. Labs Laboratory Tests Test 02/19/18 15:00 02/20/18 00:08 02/20/18 05:45 02/20/18 05:51 Glucose (Fingerstick) 107 mg/dL (70-99) 87 mg/dL (70-99) 95 mg/dL (70-99) White Blood Count 6.1 x10^3/uL (4.0-11.0) Red Blood Count 4.65 x10^6/uL (4.30-5.70) Hemoglobin 15.5 g/dL (13.0-17.5) Hematocrit 46.5 % (39.0-53.0) Mean Corpuscular Volume 100 fL (79-100) Mean Corpuscular Hemoglobin 33 pg (25-35) Mean Corpuscular Hemoglobin Concent 33 g/dL (31-37) Red Cell Distribution Width 14.3 % (11.5-14.5) Platelet Count 59 x10^3/uL (140-400) Neutrophils (%) (Auto) 70 % (31-73) Lymphocytes (%) (Auto) 23 % (24-48) Monocytes (%) (Auto) 5 % (0-9) Eosinophils (%) (Auto) 2 % (0-3) Basophils (%) (Auto) 1 % (0-3) Neutrophils # (Auto) 4.3 x10^3uL (1.8-7.7) Lymphocytes # (Auto) 1.4 x10^3/uL (1.0-4.8) Monocytes # (Auto) 0.3 x10^3/uL (0.0-1.1) Eosinophils # (Auto) 0.1 x10^3/uL (0.0-0.7) Basophils # (Auto) 0.0 x10^3/uL (0.0-0.2) Sodium Level 149 mmol/L (136-145) Potassium Level 3.3 mmol/L (3.5-5.1) Chloride Level 111 mmol/L (98-107) Carbon Dioxide Level 32 mmol/L (21-32) Anion Gap 6 (6-14) Blood Urea Nitrogen 39 mg/dL (8-26) Creatinine 0.9 mg/dL (0.7-1.3) Estimated GFR (Cockcroft-Gault) 83.7 Glucose Level 92 mg/dL (70-99) Calcium Level 7.6 mg/dL (8.5-10.1) Test 02/20/18 09:30 02/20/18 12:11 02/20/18 17:39 02/20/18 21:30 Clostridium difficile Toxin (PCR) Negative (Negative) Glucose (Fingerstick) 83 mg/dL (70-99) 93 mg/dL (70-99) Vancomycin Level Trough 9.2 mcg/mL (10.0-20.0) Vancomycin Last Dose Date 02/19/18 Vancomycin Last Dose Time 2100 Test 02/21/18 01:02 02/21/18 05:50 02/21/18 05:52 02/21/18 12:01 Glucose (Fingerstick) 92 mg/dL (70-99) 108 mg/dL (70-99) 66 mg/dL (70-99) White Blood Count 4.2 x10^3/uL (4.0-11.0) Red Blood Count 4.26 x10^6/uL (4.30-5.70) Hemoglobin 14.4 g/dL (13.0-17.5) Hematocrit 42.3 % (39.0-53.0) Mean Corpuscular Volume 99 fL (79-100) Mean Corpuscular Hemoglobin 34 pg (25-35) Mean Corpuscular Hemoglobin Concent 34 g/dL (31-37) Red Cell Distribution Width 14.1 % (11.5-14.5) Platelet Count 57 x10^3/uL (140-400) Neutrophils (%) (Auto) 59 % (31-73) Lymphocytes (%) (Auto) 28 % (24-48) Monocytes (%) (Auto) 5 % (0-9) Eosinophils (%) (Auto) 7 % (0-3) Basophils (%) (Auto) 1 % (0-3) Neutrophils # (Auto) 2.5 x10^3uL (1.8-7.7) Lymphocytes # (Auto) 1.2 x10^3/uL (1.0-4.8) Monocytes # (Auto) 0.2 x10^3/uL (0.0-1.1) Eosinophils # (Auto) 0.3 x10^3/uL (0.0-0.7) Basophils # (Auto) 0.0 x10^3/uL (0.0-0.2) Sodium Level 146 mmol/L (136-145) Potassium Level 3.6 mmol/L (3.5-5.1) Chloride Level 110 mmol/L (98-107) Carbon Dioxide Level 31 mmol/L (21-32) Anion Gap 5 (6-14) Blood Urea Nitrogen 33 mg/dL (8-26) Creatinine 0.8 mg/dL (0.7-1.3) Estimated GFR (Cockcroft-Gault) 95.8 Glucose Level 121 mg/dL (70-99) Calcium Level 7.4 mg/dL (8.5-10.1) Laboratory Tests Test 02/20/18 17:39 02/20/18 21:30 02/21/18 01:02 02/21/18 05:50 Glucose (Fingerstick) 93 mg/dL (70-99) 92 mg/dL (70-99) Vancomycin Level Trough 9.2 mcg/mL (10.0-20.0) Vancomycin Last Dose Date 02/19/18 Vancomycin Last Dose Time 2100 White Blood Count 4.2 x10^3/uL (4.0-11.0) Red Blood Count 4.26 x10^6/uL (4.30-5.70) Hemoglobin 14.4 g/dL (13.0-17.5) Hematocrit 42.3 % (39.0-53.0) Mean Corpuscular Volume 99 fL (79-100) Mean Corpuscular Hemoglobin 34 pg (25-35) Mean Corpuscular Hemoglobin Concent 34 g/dL (31-37) Red Cell Distribution Width 14.1 % (11.5-14.5) Platelet Count 57 x10^3/uL (140-400) Neutrophils (%) (Auto) 59 % (31-73) Lymphocytes (%) (Auto) 28 % (24-48) Monocytes (%) (Auto) 5 % (0-9) Eosinophils (%) (Auto) 7 % (0-3) Basophils (%) (Auto) 1 % (0-3) Neutrophils # (Auto) 2.5 x10^3uL (1.8-7.7) Lymphocytes # (Auto) 1.2 x10^3/uL (1.0-4.8) Monocytes # (Auto) 0.2 x10^3/uL (0.0-1.1) Eosinophils # (Auto) 0.3 x10^3/uL (0.0-0.7) Basophils # (Auto) 0.0 x10^3/uL (0.0-0.2) Sodium Level 146 mmol/L (136-145) Potassium Level 3.6 mmol/L (3.5-5.1) Chloride Level 110 mmol/L (98-107) Carbon Dioxide Level 31 mmol/L (21-32) Anion Gap 5 (6-14) Blood Urea Nitrogen 33 mg/dL (8-26) Creatinine 0.8 mg/dL (0.7-1.3) Estimated GFR (Cockcroft-Gault) 95.8 Glucose Level 121 mg/dL (70-99) Calcium Level 7.4 mg/dL (8.5-10.1) Test 02/21/18 05:52 02/21/18 12:01 Glucose (Fingerstick) 108 mg/dL (70-99) 66 mg/dL (70-99) Microbiology 02/18/18 Blood Culture - Preliminary, Resulted NO GROWTH AFTER 2 DAYS 02/20/18 - Final, Resulted 02/20/18 - Final, Resulted 02/20/18 - Final, Resulted 02/20/18 - Final, Resulted 02/20/18 Gram Stain Evaluation - Final, Resulted 02/20/18 Sputum Culture, Resulted Pending Medications Current Medications Piperacillin Sod/ Tazobactam Sod 4.5 gm/Sodium Chloride 100 ml @ 200 mls/hr 1X ONCE IV Last administered on 02/18/18at 18:52; Start 02/18/18 at 18:30; Stop 02/18/18 at 19:01; Status DC Vancomycin HCl (Vanco Per Pharmacy) 1 each 1X ONCE MC ; Start 02/18/18 at 18: 15; Stop 02/18/18 at 18:30; Status DC Vancomycin HCl 2 gm/Sodium Chloride 500 ml @ 250 mls/hr 1X ONCE IV Last administered on 02/18/18at 20:59; Start 02/18/18 at 18:30; Stop 02/18/18 at 20 :29; Status DC Sodium Chloride 1,000 ml @ 0 mls/hr 1X ONCE IV Last administered on at 19:00; Start 02/18/18 at 19:00; Stop 02/18/18 at 19:01; Status DC Acetaminophen (Tylenol Supp) 650 mg 1X ONCE DE ; Start 02/18/18 at 21:30; Stop 02/18/18 at 21:31; Status DC Vancomycin HCl (Vanco Per Pharmacy) 1 each PRN DAILY PRN MC SEE COMMENTS Last administered on 02/21/18at 01:01; Start 02/18/18 at 21:30; Stop 02/21/18 at 08 :13; Status DC Enoxaparin Sodium (Lovenox 40mg Syringe) 40 mg Q24H SQ Last administered on at 21:47; Start 02/18/18 at 23:00 Acetaminophen (Tylenol) 650 mg PRN Q6HRS PRN PEG MILD PAIN / TEMP; Start 02/18 at 22:30 Budesonide (Pulmicort) 0.5 mg RTBID NEB Last administered on 02/21/18at 08:32; Start 02/19/18 at 08:00 Citalopram Hydrobromide (CeleXA) 20 mg QODAY PEG Last administered on at 09:53; Start 02/20/18 at 09:00 Cyanocobalamin (Vitamin B-12) 1,000 mcg QMONTH PO ; Start 03/20/18 at 09:00 Divalproex Sodium (Depakote Sprinkles) 500 mg BID PO Last administered on 02/21at 11:18; Start 02/19/18 at 09:00 Albuterol/ Ipratropium (Duoneb) 3 ml RTQID NEB Last administered on 02/21/18at 08:32; Start 02/19/18 at 08:00 Artificial Tears (Artificial Tears) 1 drop PRN Q8HRS PRN OU DRY EYE; Start at 22:45 Atropine Sulfate (Isopto Atropine) 2 drop PRN Q4HRS PRN SL SECRETIONS; Start 02/18/18 at 22:45 Benztropine Mesylate (Cogentin) 1 mg QHS PEG Last administered on 02/20/18at 21 :46; Start 02/19/18 at 21:00 Scopolamine (Transderm-Scop) 1 patch Q3DAYS TD Last administered on 02/21/18at 11:17; Start 02/21/18 at 09:00 Dextrose 1,000 ml @ 75 mls/hr 1X ONCE IV Last administered on 02/19/18at 01: 01; Start 02/18/18 at 23:00; Stop 02/19/18 at 12:19; Status DC Insulin Human Lispro (HumaLOG) 0-9 UNITS Q6HRS SQ ; Start 02/19/18 at 00:00 Dextrose (Dextrose 50%-Water Syringe) 12.5 gm PRN Q15MIN PRN IV SEE COMMENTS; Start 02/18/18 at 22:45 Piperacillin Sod/ Tazobactam Sod (Zosyn Per Pharmacy) 1 each PRN DAILY PRN MC SEE COMMENTS; Start 02/18/18 at 23:00; Stop 02/21/18 at 09:41; Status DC Piperacillin Sod/ Tazobactam Sod 3.375 gm/Sodium Chloride 50 ml @ 100 mls/hr Q6HRS IV Last administered on 02/21/18at 05:49; Start 02/19/18 at 00:00; Stop 02/21/18 at 08:12; Status DC Vancomycin HCl 1.5 gm/Sodium Chloride 500 ml @ 250 mls/hr Q24H IV Last administered on 02/20/18at 21:39; Start 02/19/18 at 21:00; Stop 02/21/18 at 00 :55; Status DC Vancomycin HCl (Vancomycin Trough Level) 1 each 1X ONCE MC Last administered on 02/20/18at 21:25; Start 02/20/18 at 20:30; Stop 02/20/18 at 20:31; Status DC Potassium Chloride/Water 50 ml @ 50 mls/hr Q1H IV Last administered on at 14:01; Start 02/20/18 at 11:00; Stop 02/20/18 at 12:59; Status DC Vancomycin HCl 1.5 gm/Sodium Chloride 500 ml @ 250 mls/hr Q18H IV ; Start at 15:00; Stop 02/21/18 at 15:00; Status DC Vancomycin HCl (Vancomycin Trough Level) 1 each 1X ONCE MC ; Start 02/23/18 at 02:30; Stop 02/23/18 at 02:31; Status Cancel Cefepime HCl 1 gm/ Dextrose 50 ml @ 100 mls/hr Q8HRS IV ; Start 02/21/18 at 14 :00; Status UNV Cefepime HCl (Maxipime) 1 gm Q8HRS IVP ; Start 02/21/18 at 14:00 Active Scripts Active Transderm-Scop (Scopolamine) 1 Each Patch.td72 1 Patch TP Q3DAYS Enoxaparin Sodium 40 Mg/0.4 Ml Disp.syrin 40 Mg SQ Q24H 30 Days Reported Depakote Sprinkle (Divalproex Sodium) 125 Mg Cap.sprink 500 Mg PO BID B-12 (Cyanocobalamin (Vitamin B-12)) 1,000 Mcg Tablet 1,000 Mcg PO QMONTH Atropine Sulfate 2 Ml Drops 2 Ml SL PRN Q4HRS PRN Duoneb 0.5-3(2.5) Mg/3 Ml (Albuterol/Ipratropium) 3 Ml Ampul.neb 3 Ml NEB QID Celexa (Citalopram Hydrobromide) 20 Mg Tablet 1 Tab PEG QODAY Budesonide 0.5 Mg/2 Ml Ampul.neb 1 Vial NEB BID Benztropine Mesylate 1 Mg Tablet 1 Mg PEG HS Polyvinyl Alcohol 15 Ml Drops 15 Ml OP PRN Q8HRS Instill 1 drop in both eyes every 8 hours as needed for dryness Acetaminophen 500 Mg Tablet 650 Mg PEG PRN Q6HRS Vitals/I & O Vital Sign - Last 24 Hours 02/20/18 02/20/18 02/20/18 02/20/18 13:16 14:55 15:41 19:00 Temp 97.8 97.8 Pulse 114 106 95 Resp 29 22 26 B/P (MAP) 99/74 (82) 102/67 (79) 91/57 (68) Pulse Ox 100 100 99 100 O2 Delivery Tracheal Collar Tracheal Collar Tracheal Collar Tracheal Collar O2 Flow Rate 10.0 10.0 8.0 10.0 02/20/18 02/20/18 02/20/18 02/20/18 20:00 20:09 20:10 23:00 Temp 97.7 97.7 Pulse 86 Resp 15 B/P (MAP) 85/57 (66) Pulse Ox 100 100 100 O2 Delivery Trach Collar Tracheal Collar Tracheal Collar Tracheal Collar O2 Flow Rate 10.0 8.0 8.0 10.0 02/21/18 02/21/18 02/21/18 02/21/18 03:00 08:30 11:06 11:09 Temp 97.7 97.4 97.7 97.4 Pulse 83 92 Resp 22 24 B/P (MAP) 84/63 (70) 105/73 (84) Pulse Ox 100 100 98 O2 Delivery Tracheal Collar Tracheal Collar Trach Collar Tracheal Collar O2 Flow Rate 10.0 8.0 10.0 10.0 Intake and Output 02/20/18 02/20/18 02/21/18 15:00 23:00 07:00 Intake Total 50 ml 50 ml Output Total 275 ml 175 ml 380 ml Balance -225 ml -175 ml -330 ml CL CARTWRIGHT III DO Feb 21, 2018 12:24
--- NOTE | 2018-02-21 12:34 | PDOC2 ---
PALLIATIVE CARE Palliative Care Note Palliative Care Consult requested by Dr. Tong to address goals of care. Medical assessment per medical record. Fever, dementia, hypernatremia, hypokalemia, Parkinson, dementia, chronic tracheostomy; PEG tube. Patient know to palliative care. Spoke with daughter Rosa Isela. She wants to continue Full Aggressive care and Full Code. She will be coming from [place] tomorrow and may consider making other decisions after she see's her father. Phone numbers she can be reached; [phone] (boyfriends number) [phone] MARY FRANCES Feb 21, 2018 12:34
[2018-02-21] MEDS ORDERED: CEFEPIME HCL 1 GM in IV DEXTROSE 5% 50 ML IV SCH (14:00)
[2018-02-21] MEDS ORDERED: VANCOMYCIN 1.5 GM in IV NORMAL SALINE 500ML BAG 500 ML IV SCH (15:00)
[2018-02-21] MEDS: CEFEPIME HCL IV Push 1 GM VIAL. IVP SCH ×2 (15:55→22:22)
[2018-02-21 15:57] VITALS: BP 110/72
[2018-02-21 19:40] VITALS: BP 131/88
[2018-02-21] MEDS: BENZTROPINE MESYLATE 1 MG TABLET. PEG SCH (22:25)
[2018-02-21] MEDS: ENOXAPARIN 40 MG/0.4 ML SYRINGE. SQ SCH (22:28)
[2018-02-21 23:03] VITALS: BP 118/62
[2018-02-22 03:51] VITALS: BP 125/67
[2018-02-22] MEDS: INSULIN LISPRO 300 UNITS/3 ML INSULN.PEN. SQ SCH ×3 (06:00→19:00)
[2018-02-22] MEDS: IPRATRPIUM/ALBUTEROL 0.5/2.5MG 3 ML NEBU. NEB SCH ×5 (06:10→19:17)
[2018-02-22] MEDS: BUDESONIDE 0.5 MG/2 ML NEBU. NEB SCH ×2 (06:10→19:04)
[2018-02-22 06:20] LABS: CALCIUM 8.5 mg/dL (8.5-10.1); CREATININE 0.7 mg/dL (0.7-1.3); GFR 111.8; POTASSIUM 3.7 mmol/L (3.5-5.1)
[2018-02-22 06:24] LABS: BASO % 0 % (0-3); EOS # 0.4 x10^3/uL (0.0-0.7); EOS % 10 % (0-3); HEMATOCRIT 48.3 % (39.0-53.0); HEMOGLOBIN 16.2 g/dL (13.0-17.5); LYMPH # 1.3 x10^3/uL (1.0-4.8); LYMPH % 31 % (24-48); MEAN CORPUSCULAR HEMOGLOBIN 34 pg (25-35); MEAN CORPUSCULAR HGB CONC 34 g/dL (31-37); MEAN CORPUSCULAR VOLUME 100 fL (79-100); MONO # 0.2 x10^3/uL (0.0-1.1); MONO % 6 % (0-9); NEUT # 2.2 x10^3uL (1.8-7.7); NEUT % 54 % (31-73); PLATELET COUNT 65 x10^3/uL (140-400); RED BLOOD COUNT 4.81 x10^6/uL (4.30-5.70); RED CELL DISTRIBUTION WIDTH 14.4 % (11.5-14.5); WHITE BLOOD COUNT 4.1 x10^3/uL (4.0-11.0)
[2018-02-22] MEDS: CEFEPIME HCL IV Push 1 GM VIAL. IVP SCH ×3 (06:34→22:02)
[2018-02-22 07:25] VITALS: BP 130/83
[2018-02-22] MEDS: CITALOPRAM 20 MG TABLET. PEG SCH (09:03)
[2018-02-22] MEDS: DIVALPROEX SPRINKLES 125 MG CAPSULE. PO SCH ×2 (09:03→22:01)
--- NOTE | 2018-02-22 09:06 | PDOC ---
Infectious Disease Note Subjective: Subjective Pt noncommunicative Per RN no new issues at night Uneventful night No fevers last 24 hours No increase O2 demands. Remains on trach shield ROS: ROS d/w RN Vital Signs: Vital Signs Vital Signs Date Time Temp Pulse Resp B/P (MAP) Pulse Ox O2 Delivery O2 Flow Rate FiO2 02/22/18 07:25 98.5 76 24 130/83 (99) 97 Tracheal Collar 10.0 98.5 Physical Exam: PHYSICAL EXAM GENERAL: Propped up in bed, resting quietly, NAD NECK: Trach shield LUNGS: Congested, nonlabored CV: S1 S2 regular ABD: Soft, no grimace or guarding to palpation. G-tube. : Perales EXT: Trace edema BLE. No cyanosis SKIN: warm Right subclavian (02/09) clean Medications: Inpatient Meds: Current Medications Medications (Trade) Dose Ordered Sig/Eleanor Start Time Stop Time Status Last Admin Dose Admin Acetaminophen (Tylenol Supp) 650 mg 1X ONCE 02/18/18 21:30 02/18/18 21:31 DC Acetaminophen (Tylenol) 650 mg PRN Q6HRS PRN 02/18/18 22:30 Albuterol/ Ipratropium (Duoneb) 3 ml RTQID 02/19/18 08:00 02/22/18 06:10 3 ML Artificial Tears (Artificial Tears) 1 drop PRN Q8HRS PRN 02/18/18 22:45 Atropine Sulfate (Isopto Atropine) 2 drop PRN Q4HRS PRN 02/18/18 22:45 Benztropine Mesylate (Cogentin) 1 mg QHS 02/19/18 21:00 02/21/18 22:25 1 MG Budesonide (Pulmicort) 0.5 mg RTBID 02/19/18 08:00 02/22/18 06:10 0.5 MG Cefepime HCl (Maxipime) 1 gm Q8HRS 02/21/18 14:00 02/22/18 06:34 1 GM Cefepime HCl 1 gm/ Dextrose 50 ml @ 100 mls/hr Q8HRS 02/21/18 14:00 UNV Citalopram Hydrobromide (CeleXA) 20 mg QODAY 02/20/18 09:00 02/20/18 09:53 20 MG Cyanocobalamin (Vitamin B-12) 1,000 mcg QMONTH 03/20/18 09:00 Dextrose (Dextrose 50%-Water Syringe) 12.5 gm PRN Q15MIN PRN 02/18/18 22:45 Divalproex Sodium (Depakote Sprinkles) 500 mg BID 02/19/18 09:00 02/21/18 22:28 500 MG Enoxaparin Sodium (Lovenox 40mg Syringe) 40 mg Q24H 02/18/18 23:00 02/21/18 22:28 40 MG Insulin Human Lispro (HumaLOG) 0-9 UNITS Q6HRS 02/19/18 00:00 Piperacillin Sod/ Tazobactam Sod (Zosyn Per Pharmacy) 1 each PRN DAILY PRN 02/18/18 23:00 02/21/18 09:41 DC Piperacillin Sod/ Tazobactam Sod 3.375 gm/Sodium Chloride 50 ml @ 100 mls/hr Q6HRS 02/19/18 00:00 02/21/18 08:12 DC 02/21/18 05:49 100 MLS/HR Piperacillin Sod/ Tazobactam Sod 4.5 gm/Sodium Chloride 100 ml @ 200 mls/hr 1X ONCE 02/18/18 18:30 02/18/18 19:01 DC 02/18/18 18:52 200 MLS/HR Potassium Chloride/Water 50 ml @ 50 mls/hr Q1H 02/20/18 11:00 02/20/18 12:59 DC 02/20/18 14:01 50 MLS/HR Scopolamine (Transderm-Scop) 1 patch Q3DAYS 02/21/18 09:00 02/21/18 11:17 1 PATCH Sodium Chloride 1,000 ml @ 0 mls/hr 1X ONCE 02/18/18 19:00 02/18/18 19:01 DC 02/18/18 19:00 500 MLS/HR Vancomycin HCl (Vanco Per Pharmacy) 1 each PRN DAILY PRN 02/18/18 21:30 02/21/18 08:13 DC 02/21/18 01:01 1 EACH Vancomycin HCl (Vancomycin Trough Level) 1 each 1X ONCE 02/23/18 02:30 02/23/18 02:31 Cancel Vancomycin HCl 1.5 gm/Sodium Chloride 500 ml @ 250 mls/hr Q18H 02/21/18 15:00 02/21/18 15:00 DC Vancomycin HCl 2 gm/Sodium Chloride 500 ml @ 250 mls/hr 1X ONCE 02/18/18 18:30 02/18/18 20:29 DC 02/18/18 20:59 250 MLS/HR Labs: Lab Laboratory Tests Test 02/21/18 12:01 02/21/18 13:50 02/21/18 16:56 02/21/18 22:35 Glucose (Fingerstick) 66 mg/dL (70-99) 80 mg/dL (70-99) 94 mg/dL (70-99) 90 mg/dL (70-99) Test 02/22/18 04:20 02/22/18 05:37 White Blood Count 4.1 x10^3/uL (4.0-11.0) Red Blood Count 4.81 x10^6/uL (4.30-5.70) Hemoglobin 16.2 g/dL (13.0-17.5) Hematocrit 48.3 % (39.0-53.0) Mean Corpuscular Volume 100 fL (79-100) Mean Corpuscular Hemoglobin 34 pg (25-35) Mean Corpuscular Hemoglobin Concent 34 g/dL (31-37) Red Cell Distribution Width 14.4 % (11.5-14.5) Platelet Count 65 x10^3/uL (140-400) Neutrophils (%) (Auto) 54 % (31-73) Lymphocytes (%) (Auto) 31 % (24-48) Monocytes (%) (Auto) 6 % (0-9) Eosinophils (%) (Auto) 10 % (0-3) Basophils (%) (Auto) 0 % (0-3) Neutrophils # (Auto) 2.2 x10^3uL (1.8-7.7) Lymphocytes # (Auto) 1.3 x10^3/uL (1.0-4.8) Monocytes # (Auto) 0.2 x10^3/uL (0.0-1.1) Eosinophils # (Auto) 0.4 x10^3/uL (0.0-0.7) Basophils # (Auto) 0.0 x10^3/uL (0.0-0.2) Sodium Level 148 mmol/L (136-145) Potassium Level 3.7 mmol/L (3.5-5.1) Chloride Level 110 mmol/L (98-107) Carbon Dioxide Level 31 mmol/L (21-32) Anion Gap 7 (6-14) Blood Urea Nitrogen 25 mg/dL (8-26) Creatinine 0.7 mg/dL (0.7-1.3) Estimated GFR (Cockcroft-Gault) 111.8 Glucose Level 79 mg/dL (70-99) Calcium Level 8.5 mg/dL (8.5-10.1) Glucose (Fingerstick) 91 mg/dL (70-99) Micro Sahil Mendez M.D., [employer] PATIENT: MALICK JORGENSEN ACCT: [id number] LOC: 1 [facility] U : [id number] AGE/SX: 67/M ROOM: 113 REG : 02/18/[address]: KIRK KHOURY MD : 1950 BED: 1 DIS : STATUS: ADM IN TLOC: SPEC #: [id number] PIA: 02/20/18 STATUS: RES REQ #: [id number] RECD: 02/20/[address]: NOAH SAHU APRN SOURCE: SPUTUM ENTR: 02/20/[address] [facility] [address]: ELIZA MCGRATH MD SPDESC: XAVIER SALEEM MD,INÉS KHOURY,KIRK Pandya MD ORDERED: SPUTUM CULTURE Procedure Result GRAM STAIN WHITE BLOOD CELLS Final Many GRAM STAIN EPITHELIAL CELLS Final Few GRAM STAIN RESULT 1 Final Comment Many gram negative rods. GRAM STAIN RESULT 2 Final Comment Moderate number of gram positive rods. GRAM STAIN EVALUATION Final Comment This specimen is of good quality and is acceptable for routine bacterial culture. Performed at: [facility], [place], [place] [id number] Air Vice Marshal: JANET Chris MD, Phone: [phone] SPUTUM CULTURE-LC PENDING Objective: Assessment: Fever. Procalcitonin <0.10 acute hypoxic resp failure on trach with chronic diffuse infiltrates flu screen neg sputum gnr, acute metabolic encephalopathy improving Diarrhea C diff neg Hypernatremia thrombocytopenia chronic Chronic tracheostomy on trach shield Parkinson disease Dementia h/o PSA, GBS, Stenotrophomonas, Proteus (PSAE LOVE for Zosyn 32 in the past ) Plan: Plan of Care cont cefepime off zosyn and iv vanc f/u gnr in sputum f/u bc Monitor labs/temp/renal function closely Supportive care D/w FARSHAD GUERRERO MD Feb 22, 2018 09:06
--- NOTE | 2018-02-22 10:43 | PDOC ---
PROGRESS NOTES Chief Complaint Chief Complaint Fever, procalcitonin <0.10 IMPRESSION Diarrhea Hypernatremia Hypokalemia Chronic tracheostomy Parkinson disease Dementia h/o PSA, GBS, Stenotrophomonas, Proteus flu screen neg sputum gnr, acute metabolic encephalopathy Diarrhea C diff neg Hypernatremia thrombocytopenia chronic Chronic tracheostomy on trach shield Parkinson disease Dementia CONT SUPPORTIVE MEASURES Palliative consult Full Aggressive care and Full Code. FAMILY ARRIVING SOON History of Present Illness History of Present Illness Pt seen and examined. Pt was being fed through PEG tube Laying in bed, eyes open, chronic trach Discussed with RN Vitals Vitals Vital Signs Date Time Temp Pulse Resp B/P (MAP) Pulse Ox O2 Delivery O2 Flow Rate FiO2 02/22/18 07:25 98.5 76 24 130/83 (99) 97 Tracheal Collar 10.0 98.5 Physical Exam Physical Exam GENERAL: Propped up in bed, resting quietly, NAD NECK: Trach shield LUNGS: Congested, nonlabored CV: S1 S2 regular ABD: Soft, no grimace or guarding to palpation. G-tube. : P[place]es EXT: Trace edema BLE. No cyanosis SKIN: warm Right subclavian (02/09) clean General: Alert, No acute distress Heart: Regular rate, Normal S1, Normal S2 Abdomen: Normal bowel sounds, Soft Extremities: No clubbing, No cyanosis, Other (trace edema BLE) Skin: No rashes, No breakdown Labs LABS GRAM STAIN WHITE BLOOD CELLS Final Many GRAM STAIN EPITHELIAL CELLS Final Few GRAM STAIN RESULT 1 Final Comment Many gram negative rods. GRAM STAIN RESULT 2 Final Comment Moderate number of gram positive rods. GRAM STAIN EVALUATION Final Comment This specimen is of good quality and is acceptable for routine bacterial culture. Performed at: [address], [place], [place] [id number] Quality Technician: JANET Chris MD, Phone: [phone] SPUTUM CULTURE- Preliminary Preliminary report SPUTUM CULT RES 1 Final Gram negative rods 4+ Laboratory Tests Test 02/21/18 12:01 02/21/18 13:50 02/21/18 16:56 02/21/18 22:35 Glucose (Fingerstick) 66 mg/dL (70-99) 80 mg/dL (70-99) 94 mg/dL (70-99) 90 mg/dL (70-99) Test 02/22/18 04:20 02/22/18 05:37 White Blood Count 4.1 x10^3/uL (4.0-11.0) Red Blood Count 4.81 x10^6/uL (4.30-5.70) Hemoglobin 16.2 g/dL (13.0-17.5) Hematocrit 48.3 % (39.0-53.0) Mean Corpuscular Volume 100 fL (79-100) Mean Corpuscular Hemoglobin 34 pg (25-35) Mean Corpuscular Hemoglobin Concent 34 g/dL (31-37) Red Cell Distribution Width 14.4 % (11.5-14.5) Platelet Count 65 x10^3/uL (140-400) Neutrophils (%) (Auto) 54 % (31-73) Lymphocytes (%) (Auto) 31 % (24-48) Monocytes (%) (Auto) 6 % (0-9) Eosinophils (%) (Auto) 10 % (0-3) Basophils (%) (Auto) 0 % (0-3) Neutrophils # (Auto) 2.2 x10^3uL (1.8-7.7) Lymphocytes # (Auto) 1.3 x10^3/uL (1.0-4.8) Monocytes # (Auto) 0.2 x10^3/uL (0.0-1.1) Eosinophils # (Auto) 0.4 x10^3/uL (0.0-0.7) Basophils # (Auto) 0.0 x10^3/uL (0.0-0.2) Sodium Level 148 mmol/L (136-145) Potassium Level 3.7 mmol/L (3.5-5.1) Chloride Level 110 mmol/L (98-107) Carbon Dioxide Level 31 mmol/L (21-32) Anion Gap 7 (6-14) Blood Urea Nitrogen 25 mg/dL (8-26) Creatinine 0.7 mg/dL (0.7-1.3) Estimated GFR (Cockcroft-Gault) 111.8 Glucose Level 79 mg/dL (70-99) Calcium Level 8.5 mg/dL (8.5-10.1) Glucose (Fingerstick) 91 mg/dL (70-99) Assessment and Plan Assessmemt and Plan Problems Medical Problems: (1) Altered mental state Status: Acute (2) Fever Status: Acute (3) Hypernatremia Status: Acute Comment Review of Relevant I have reviewed the following items maulik (where applicable) has been applied. Labs Laboratory Tests Test 02/20/18 12:11 02/20/18 17:39 02/20/18 21:30 02/21/18 01:02 Glucose (Fingerstick) 83 mg/dL (70-99) 93 mg/dL (70-99) 92 mg/dL (70-99) Vancomycin Level Trough 9.2 mcg/mL (10.0-20.0) Vancomycin Last Dose Date 02/19/18 Vancomycin Last Dose Time 2100 Test 02/21/18 05:50 02/21/18 05:52 02/21/18 12:01 02/21/18 13:50 White Blood Count 4.2 x10^3/uL (4.0-11.0) Red Blood Count 4.26 x10^6/uL (4.30-5.70) Hemoglobin 14.4 g/dL (13.0-17.5) Hematocrit 42.3 % (39.0-53.0) Mean Corpuscular Volume 99 fL (79-100) Mean Corpuscular Hemoglobin 34 pg (25-35) Mean Corpuscular Hemoglobin Concent 34 g/dL (31-37) Red Cell Distribution Width 14.1 % (11.5-14.5) Platelet Count 57 x10^3/uL (140-400) Neutrophils (%) (Auto) 59 % (31-73) Lymphocytes (%) (Auto) 28 % (24-48) Monocytes (%) (Auto) 5 % (0-9) Eosinophils (%) (Auto) 7 % (0-3) Basophils (%) (Auto) 1 % (0-3) Neutrophils # (Auto) 2.5 x10^3uL (1.8-7.7) Lymphocytes # (Auto) 1.2 x10^3/uL (1.0-4.8) Monocytes # (Auto) 0.2 x10^3/uL (0.0-1.1) Eosinophils # (Auto) 0.3 x10^3/uL (0.0-0.7) Basophils # (Auto) 0.0 x10^3/uL (0.0-0.2) Sodium Level 146 mmol/L (136-145) Potassium Level 3.6 mmol/L (3.5-5.1) Chloride Level 110 mmol/L (98-107) Carbon Dioxide Level 31 mmol/L (21-32) Anion Gap 5 (6-14) Blood Urea Nitrogen 33 mg/dL (8-26) Creatinine 0.8 mg/dL (0.7-1.3) Estimated GFR (Cockcroft-Gault) 95.8 Glucose Level 121 mg/dL (70-99) Calcium Level 7.4 mg/dL (8.5-10.1) Glucose (Fingerstick) 108 mg/dL (70-99) 66 mg/dL (70-99) 80 mg/dL (70-99) Test 02/21/18 16:56 02/21/18 22:35 02/22/18 04:20 02/22/18 05:37 Glucose (Fingerstick) 94 mg/dL (70-99) 90 mg/dL (70-99) 91 mg/dL (70-99) White Blood Count 4.1 x10^3/uL (4.0-11.0) Red Blood Count 4.81 x10^6/uL (4.30-5.70) Hemoglobin 16.2 g/dL (13.0-17.5) Hematocrit 48.3 % (39.0-53.0) Mean Corpuscular Volume 100 fL (79-100) Mean Corpuscular Hemoglobin 34 pg (25-35) Mean Corpuscular Hemoglobin Concent 34 g/dL (31-37) Red Cell Distribution Width 14.4 % (11.5-14.5) Platelet Count 65 x10^3/uL (140-400) Neutrophils (%) (Auto) 54 % (31-73) Lymphocytes (%) (Auto) 31 % (24-48) Monocytes (%) (Auto) 6 % (0-9) Eosinophils (%) (Auto) 10 % (0-3) Basophils (%) (Auto) 0 % (0-3) Neutrophils # (Auto) 2.2 x10^3uL (1.8-7.7) Lymphocytes # (Auto) 1.3 x10^3/uL (1.0-4.8) Monocytes # (Auto) 0.2 x10^3/uL (0.0-1.1) Eosinophils # (Auto) 0.4 x10^3/uL (0.0-0.7) Basophils # (Auto) 0.0 x10^3/uL (0.0-0.2) Sodium Level 148 mmol/L (136-145) Potassium Level 3.7 mmol/L (3.5-5.1) Chloride Level 110 mmol/L (98-107) Carbon Dioxide Level 31 mmol/L (21-32) Anion Gap 7 (6-14) Blood Urea Nitrogen 25 mg/dL (8-26) Creatinine 0.7 mg/dL (0.7-1.3) Estimated GFR (Cockcroft-Gault) 111.8 Glucose Level 79 mg/dL (70-99) Calcium Level 8.5 mg/dL (8.5-10.1) Laboratory Tests Test 02/21/18 12:01 02/21/18 13:50 02/21/18 16:56 02/21/18 22:35 Glucose (Fingerstick) 66 mg/dL (70-99) 80 mg/dL (70-99) 94 mg/dL (70-99) 90 mg/dL (70-99) Test 02/22/18 04:20 02/22/18 05:37 White Blood Count 4.1 x10^3/uL (4.0-11.0) Red Blood Count 4.81 x10^6/uL (4.30-5.70) Hemoglobin 16.2 g/dL (13.0-17.5) Hematocrit 48.3 % (39.0-53.0) Mean Corpuscular Volume 100 fL (79-100) Mean Corpuscular Hemoglobin 34 pg (25-35) Mean Corpuscular Hemoglobin Concent 34 g/dL (31-37) Red Cell Distribution Width 14.4 % (11.5-14.5) Platelet Count 65 x10^3/uL (140-400) Neutrophils (%) (Auto) 54 % (31-73) Lymphocytes (%) (Auto) 31 % (24-48) Monocytes (%) (Auto) 6 % (0-9) Eosinophils (%) (Auto) 10 % (0-3) Basophils (%) (Auto) 0 % (0-3) Neutrophils # (Auto) 2.2 x10^3uL (1.8-7.7) Lymphocytes # (Auto) 1.3 x10^3/uL (1.0-4.8) Monocytes # (Auto) 0.2 x10^3/uL (0.0-1.1) Eosinophils # (Auto) 0.4 x10^3/uL (0.0-0.7) Basophils # (Auto) 0.0 x10^3/uL (0.0-0.2) Sodium Level 148 mmol/L (136-145) Potassium Level 3.7 mmol/L (3.5-5.1) Chloride Level 110 mmol/L (98-107) Carbon Dioxide Level 31 mmol/L (21-32) Anion Gap 7 (6-14) Blood Urea Nitrogen 25 mg/dL (8-26) Creatinine 0.7 mg/dL (0.7-1.3) Estimated GFR (Cockcroft-Gault) 111.8 Glucose Level 79 mg/dL (70-99) Calcium Level 8.5 mg/dL (8.5-10.1) Glucose (Fingerstick) 91 mg/dL (70-99) Microbiology 02/18/18 Blood Culture - Preliminary, Resulted NO GROWTH AFTER 3 DAYS 02/20/18 - Final, Resulted 02/20/18 - Final, Resulted 02/20/18 - Final, Resulted 02/20/18 - Final, Resulted 02/20/18 Gram Stain Evaluation - Final, Resulted 02/20/18 Sputum Culture, Resulted Pending Medications Current Medications Piperacillin Sod/ Tazobactam Sod 4.5 gm/Sodium Chloride 100 ml @ 200 mls/hr 1X ONCE IV Last administered on 02/18/18at 18:52; Start 02/18/18 at 18:30; Stop 02/18/18 at 19:01; Status DC Vancomycin HCl (Vanco Per Pharmacy) 1 each 1X ONCE MC ; Start 02/18/18 at 18: 15; Stop 02/18/18 at 18:30; Status DC Vancomycin HCl 2 gm/Sodium Chloride 500 ml @ 250 mls/hr 1X ONCE IV Last administered on 02/18/18at 20:59; Start 02/18/18 at 18:30; Stop 02/18/18 at 20 :29; Status DC Sodium Chloride 1,000 ml @ 0 mls/hr 1X ONCE IV Last administered on at 19:00; Start 02/18/18 at 19:00; Stop 02/18/18 at 19:01; Status DC Acetaminophen (Tylenol Supp) 650 mg 1X ONCE DC ; Start 02/18/18 at 21:30; Stop 02/18/18 at 21:31; Status DC Vancomycin HCl (Vanco Per Pharmacy) 1 each PRN DAILY PRN MC SEE COMMENTS Last administered on 02/21/18at 01:01; Start 02/18/18 at 21:30; Stop 02/21/18 at 08 :13; Status DC Enoxaparin Sodium (Lovenox 40mg Syringe) 40 mg Q24H SQ Last administered on at 22:28; Start 02/18/18 at 23:00 Acetaminophen (Tylenol) 650 mg PRN Q6HRS PRN PEG MILD PAIN / TEMP; Start 02/18 at 22:30 Budesonide (Pulmicort) 0.5 mg RTBID NEB Last administered on 02/22/18at 06:10; Start 02/19/18 at 08:00 Citalopram Hydrobromide (CeleXA) 20 mg QODAY PEG Last administered on at 09:03; Start 02/20/18 at 09:00 Cyanocobalamin (Vitamin B-12) 1,000 mcg QMONTH PO ; Start 03/20/18 at 09:00 Divalproex Sodium (Depakote Sprinkles) 500 mg BID PO Last administered on 02/22at 09:03; Start 02/19/18 at 09:00 Albuterol/ Ipratropium (Duoneb) 3 ml RTQID NEB Last administered on 02/22/18at 06:10; Start 02/19/18 at 08:00 Artificial Tears (Artificial Tears) 1 drop PRN Q8HRS PRN OU DRY EYE; Start at 22:45 Atropine Sulfate (Isopto Atropine) 2 drop PRN Q4HRS PRN SL SECRETIONS; Start 02/18/18 at 22:45 Benztropine Mesylate (Cogentin) 1 mg QHS PEG Last administered on 02/21/18at 22 :25; Start 02/19/18 at 21:00 Scopolamine (Transderm-Scop) 1 patch Q3DAYS TD Last administered on 02/21/18at 11:17; Start 02/21/18 at 09:00 Dextrose 1,000 ml @ 75 mls/hr 1X ONCE IV Last administered on 02/19/18at 01: 01; Start 02/18/18 at 23:00; Stop 02/19/18 at 12:19; Status DC Insulin Human Lispro (HumaLOG) 0-9 UNITS Q6HRS SQ ; Start 02/19/18 at 00:00 Dextrose (Dextrose 50%-Water Syringe) 12.5 gm PRN Q15MIN PRN IV SEE COMMENTS; Start 02/18/18 at 22:45 Piperacillin Sod/ Tazobactam Sod (Zosyn Per Pharmacy) 1 each PRN DAILY PRN MC SEE COMMENTS; Start 02/18/18 at 23:00; Stop 02/21/18 at 09:41; Status DC Piperacillin Sod/ Tazobactam Sod 3.375 gm/Sodium Chloride 50 ml @ 100 mls/hr Q6HRS IV Last administered on 02/21/18at 05:49; Start 02/19/18 at 00:00; Stop 02/21/18 at 08:12; Status DC Vancomycin HCl 1.5 gm/Sodium Chloride 500 ml @ 250 mls/hr Q24H IV Last administered on 02/20/18at 21:39; Start 02/19/18 at 21:00; Stop 02/21/18 at 00 :55; Status DC Vancomycin HCl (Vancomycin Trough Level) 1 each 1X ONCE MC Last administered on 02/20/18at 21:25; Start 02/20/18 at 20:30; Stop 02/20/18 at 20:31; Status DC Potassium Chloride/Water 50 ml @ 50 mls/hr Q1H IV Last administered on at 14:01; Start 02/20/18 at 11:00; Stop 02/20/18 at 12:59; Status DC Vancomycin HCl 1.5 gm/Sodium Chloride 500 ml @ 250 mls/hr Q18H IV ; Start at 15:00; Stop 02/21/18 at 15:00; Status DC Vancomycin HCl (Vancomycin Trough Level) 1 each 1X ONCE MC ; Start 02/23/18 at 02:30; Stop 02/23/18 at 02:31; Status Cancel Cefepime HCl 1 gm/ Dextrose 50 ml @ 100 mls/hr Q8HRS IV ; Start 02/21/18 at 14 :00; Status UNV Cefepime HCl (Maxipime) 1 gm Q8HRS IVP Last administered on 02/22/18at 06:34; Start 02/21/18 at 14:00 Active Scripts Active Transderm-Scop (Scopolamine) 1 Each Patch.td72 1 Patch TP Q3DAYS Enoxaparin Sodium 40 Mg/0.4 Ml Disp.syrin 40 Mg SQ Q24H 30 Days Reported Depakote Sprinkle (Divalproex Sodium) 125 Mg Cap.sprink 500 Mg PO BID B-12 (Cyanocobalamin (Vitamin B-12)) 1,000 Mcg Tablet 1,000 Mcg PO QMONTH Atropine Sulfate 2 Ml Drops 2 Ml SL PRN Q4HRS PRN Duoneb 0.5-3(2.5) Mg/3 Ml (Albuterol/Ipratropium) 3 Ml Ampul.neb 3 Ml NEB QID Celexa (Citalopram Hydrobromide) 20 Mg Tablet 1 Tab PEG QODAY Budesonide 0.5 Mg/2 Ml Ampul.neb 1 Vial NEB BID Benztropine Mesylate 1 Mg Tablet 1 Mg PEG HS Polyvinyl Alcohol 15 Ml Drops 15 Ml OP PRN Q8HRS Instill 1 drop in both eyes every 8 hours as needed for dryness Acetaminophen 500 Mg Tablet 650 Mg PEG PRN Q6HRS Vitals/I & O Vital Sign - Last 24 Hours 02/21/18 02/21/18 02/21/18 02/21/18 11:06 11:09 12:52 15:57 Temp 97.4 98.7 97.4 98.7 Pulse 92 93 Resp 24 22 B/P (MAP) 105/73 (84) 110/72 (85) Pulse Ox 98 93 94 O2 Delivery Trach Collar Tracheal Collar Tracheal Collar Tracheal Collar O2 Flow Rate 10.0 10.0 8.0 10.0 02/21/18 02/21/18 02/21/18 02/21/18 16:40 19:02 19:40 20:00 Temp 97.7 97.7 Pulse 96 Resp 20 B/P (MAP) 131/88 (102) Pulse Ox 95 97 97 O2 Delivery Tracheal Collar Tracheal Collar Tracheal Collar Trach Collar O2 Flow Rate 8.0 8.0 10.0 10.0 02/21/18 02/22/18 02/22/18 02/22/18 23:03 03:51 06:10 07:25 Temp 97.7 98.0 98.5 97.7 98.0 98.5 Pulse 82 80 76 Resp 20 24 24 B/P (MAP) 118/62 (80) 125/67 (86) 130/83 (99) Pulse Ox 94 96 97 97 O2 Delivery Tracheal Collar Tracheal Collar Tracheal Collar Tracheal Collar O2 Flow Rate 10.0 10.0 8.0 10.0 Intake and Output 02/21/18 02/21/18 02/22/18 15:00 23:00 07:00 Intake Total 1074 ml 0 ml Output Total 0 ml 1050 ml Balance 0 ml 1074 ml -1050 ml Nutrition Consultation Dietary Evaluation: Comments: Continue w/TF per following: Jevity 1.5 bolus 5x/day w/237 ml per bolus and 300 ml water after each feeding Expected Outcomes/Goals: TF infusion to provide >75% est needs Malnutrition Findings: Body Fat Depletion (Non Severe: Mild Depletion Weight Status: Appropriate NATALY ALEXANDER MD Feb 22, 2018 10:43
[2018-02-22 11:02] VITALS: BP 120/69
--- NOTE | 2018-02-22 11:35 | PDOC ---
Objective: Objective: Per RN - PEG functioning, family hasn't been here yet. 3 stools charted. Vital Signs: Vital Signs Date Time Temp Pulse Resp B/P (MAP) Pulse Ox O2 Delivery O2 Flow Rate FiO2 02/22/18 11:02 97.1 77 22 120/69 (86) 98 Tracheal Collar 10.0 97.1 Labs: Laboratory Tests Test 02/21/18 12:01 02/21/18 13:50 02/21/18 16:56 02/21/18 22:35 Glucose (Fingerstick) 66 mg/dL 80 mg/dL 94 mg/dL 90 mg/dL Test 02/22/18 04:20 02/22/18 05:37 White Blood Count 4.1 x10^3/uL Red Blood Count 4.81 x10^6/uL Hemoglobin 16.2 g/dL Hematocrit 48.3 % Mean Corpuscular Volume 100 fL Mean Corpuscular Hemoglobin 34 pg Mean Corpuscular Hemoglobin Concent 34 g/dL Red Cell Distribution Width 14.4 % Platelet Count 65 x10^3/uL Neutrophils (%) (Auto) 54 % Lymphocytes (%) (Auto) 31 % Monocytes (%) (Auto) 6 % Eosinophils (%) (Auto) 10 % Basophils (%) (Auto) 0 % Neutrophils # (Auto) 2.2 x10^3uL Lymphocytes # (Auto) 1.3 x10^3/uL Monocytes # (Auto) 0.2 x10^3/uL Eosinophils # (Auto) 0.4 x10^3/uL Basophils # (Auto) 0.0 x10^3/uL Sodium Level 148 mmol/L Potassium Level 3.7 mmol/L Chloride Level 110 mmol/L Carbon Dioxide Level 31 mmol/L Anion Gap 7 Blood Urea Nitrogen 25 mg/dL Creatinine 0.7 mg/dL Estimated GFR (Cockcroft-Gault) 111.8 Glucose Level 79 mg/dL Calcium Level 8.5 mg/dL Glucose (Fingerstick) 91 mg/dL GRAM STAIN WHITE BLOOD CELLS Final Many GRAM STAIN EPITHELIAL CELLS Final Few GRAM STAIN RESULT 1 Final Comment Many gram negative rods. GRAM STAIN RESULT 2 Final Comment Moderate number of gram positive rods. GRAM STAIN EVALUATION Final Comment This specimen is of good quality and is acceptable for routine bacterial culture. Performed at: DA - [facility] [address], [place], [place] [id number] Proof Machine Operator Supervisor: JANET Chris MD, Phone: [phone] SPUTUM CULTURE-LC Preliminary Preliminary report SPUTUM CULT RES 1 Final Gram negative rods 4+ BLOOD CULTURE Preliminary NO GROWTH AFTER 3 DAYS PE: GEN: NAD HEENT: tracheostomy LUNGS: CTAB HEART: RRR ABD: soft, non-tender, PEG in place NEURO/PSYCH: was asleep, opens eyes during exam A/P: Chronic resp failure and dysphagia w/ tracheostomy and PEG in place -- PEG functioning, continue same per GI and await family visit. DILSHAD JOEL Feb 22, 2018 11:35
--- NOTE | 2018-02-22 14:04 | PDOC ---
PULMONARY PROGRESS NOTES Subjective PT WITH NO SIGN OF DISTRESS Vitals Vital Signs Date Time Temp Pulse Resp B/P (MAP) Pulse Ox O2 Delivery O2 Flow Rate FiO2 02/22/18 11:35 97 Tracheal Collar 8.0 02/22/18 11:02 97.1 77 22 120/69 (86) 97.1 General: Lethargic Cardiovascular: S1, S2 Abdomen: Soft, Non-tender Extremities: Other (1+edema) Labs Laboratory Tests Test 02/20/18 17:39 02/20/18 21:30 02/21/18 01:02 02/21/18 05:50 Glucose (Fingerstick) 93 mg/dL (70-99) 92 mg/dL (70-99) Vancomycin Level Trough 9.2 mcg/mL (10.0-20.0) Vancomycin Last Dose Date 02/19/18 Vancomycin Last Dose Time 2100 White Blood Count 4.2 x10^3/uL (4.0-11.0) Red Blood Count 4.26 x10^6/uL (4.30-5.70) Hemoglobin 14.4 g/dL (13.0-17.5) Hematocrit 42.3 % (39.0-53.0) Mean Corpuscular Volume 99 fL (79-100) Mean Corpuscular Hemoglobin 34 pg (25-35) Mean Corpuscular Hemoglobin Concent 34 g/dL (31-37) Red Cell Distribution Width 14.1 % (11.5-14.5) Platelet Count 57 x10^3/uL (140-400) Neutrophils (%) (Auto) 59 % (31-73) Lymphocytes (%) (Auto) 28 % (24-48) Monocytes (%) (Auto) 5 % (0-9) Eosinophils (%) (Auto) 7 % (0-3) Basophils (%) (Auto) 1 % (0-3) Neutrophils # (Auto) 2.5 x10^3uL (1.8-7.7) Lymphocytes # (Auto) 1.2 x10^3/uL (1.0-4.8) Monocytes # (Auto) 0.2 x10^3/uL (0.0-1.1) Eosinophils # (Auto) 0.3 x10^3/uL (0.0-0.7) Basophils # (Auto) 0.0 x10^3/uL (0.0-0.2) Sodium Level 146 mmol/L (136-145) Potassium Level 3.6 mmol/L (3.5-5.1) Chloride Level 110 mmol/L (98-107) Carbon Dioxide Level 31 mmol/L (21-32) Anion Gap 5 (6-14) Blood Urea Nitrogen 33 mg/dL (8-26) Creatinine 0.8 mg/dL (0.7-1.3) Estimated GFR (Cockcroft-Gault) 95.8 Glucose Level 121 mg/dL (70-99) Calcium Level 7.4 mg/dL (8.5-10.1) Test 02/21/18 05:52 02/21/18 12:01 02/21/18 13:50 02/21/18 16:56 Glucose (Fingerstick) 108 mg/dL (70-99) 66 mg/dL (70-99) 80 mg/dL (70-99) 94 mg/dL (70-99) Test 02/21/18 22:35 02/22/18 04:20 02/22/18 05:37 02/22/18 11:14 Glucose (Fingerstick) 90 mg/dL (70-99) 91 mg/dL (70-99) 109 mg/dL (70-99) White Blood Count 4.1 x10^3/uL (4.0-11.0) Red Blood Count 4.81 x10^6/uL (4.30-5.70) Hemoglobin 16.2 g/dL (13.0-17.5) Hematocrit 48.3 % (39.0-53.0) Mean Corpuscular Volume 100 fL (79-100) Mean Corpuscular Hemoglobin 34 pg (25-35) Mean Corpuscular Hemoglobin Concent 34 g/dL (31-37) Red Cell Distribution Width 14.4 % (11.5-14.5) Platelet Count 65 x10^3/uL (140-400) Neutrophils (%) (Auto) 54 % (31-73) Lymphocytes (%) (Auto) 31 % (24-48) Monocytes (%) (Auto) 6 % (0-9) Eosinophils (%) (Auto) 10 % (0-3) Basophils (%) (Auto) 0 % (0-3) Neutrophils # (Auto) 2.2 x10^3uL (1.8-7.7) Lymphocytes # (Auto) 1.3 x10^3/uL (1.0-4.8) Monocytes # (Auto) 0.2 x10^3/uL (0.0-1.1) Eosinophils # (Auto) 0.4 x10^3/uL (0.0-0.7) Basophils # (Auto) 0.0 x10^3/uL (0.0-0.2) Sodium Level 148 mmol/L (136-145) Potassium Level 3.7 mmol/L (3.5-5.1) Chloride Level 110 mmol/L (98-107) Carbon Dioxide Level 31 mmol/L (21-32) Anion Gap 7 (6-14) Blood Urea Nitrogen 25 mg/dL (8-26) Creatinine 0.7 mg/dL (0.7-1.3) Estimated GFR (Cockcroft-Gault) 111.8 Glucose Level 79 mg/dL (70-99) Calcium Level 8.5 mg/dL (8.5-10.1) Laboratory Tests Test 02/21/18 16:56 02/21/18 22:35 02/22/18 04:20 02/22/18 05:37 Glucose (Fingerstick) 94 mg/dL (70-99) 90 mg/dL (70-99) 91 mg/dL (70-99) White Blood Count 4.1 x10^3/uL (4.0-11.0) Red Blood Count 4.81 x10^6/uL (4.30-5.70) Hemoglobin 16.2 g/dL (13.0-17.5) Hematocrit 48.3 % (39.0-53.0) Mean Corpuscular Volume 100 fL (79-100) Mean Corpuscular Hemoglobin 34 pg (25-35) Mean Corpuscular Hemoglobin Concent 34 g/dL (31-37) Red Cell Distribution Width 14.4 % (11.5-14.5) Platelet Count 65 x10^3/uL (140-400) Neutrophils (%) (Auto) 54 % (31-73) Lymphocytes (%) (Auto) 31 % (24-48) Monocytes (%) (Auto) 6 % (0-9) Eosinophils (%) (Auto) 10 % (0-3) Basophils (%) (Auto) 0 % (0-3) Neutrophils # (Auto) 2.2 x10^3uL (1.8-7.7) Lymphocytes # (Auto) 1.3 x10^3/uL (1.0-4.8) Monocytes # (Auto) 0.2 x10^3/uL (0.0-1.1) Eosinophils # (Auto) 0.4 x10^3/uL (0.0-0.7) Basophils # (Auto) 0.0 x10^3/uL (0.0-0.2) Sodium Level 148 mmol/L (136-145) Potassium Level 3.7 mmol/L (3.5-5.1) Chloride Level 110 mmol/L (98-107) Carbon Dioxide Level 31 mmol/L (21-32) Anion Gap 7 (6-14) Blood Urea Nitrogen 25 mg/dL (8-26) Creatinine 0.7 mg/dL (0.7-1.3) Estimated GFR (Cockcroft-Gault) 111.8 Glucose Level 79 mg/dL (70-99) Calcium Level 8.5 mg/dL (8.5-10.1) Test 02/22/18 11:14 Glucose (Fingerstick) 109 mg/dL (70-99) Medications Active Scripts Medications Dose Route/Sig Max Daily Dose Days Date Category Dose Instructions Transderm-Scop (Scopolamine) 1 Each Patch.td72 1 Patch TP Q3DAYS 12/08/17 Rx Enoxaparin Sodium 40 Mg/0.4 Ml Disp.syrin 40 Mg SQ Q24H 30 12/08/17 Rx Depakote Sprinkle (Divalproex Sodium) 125 Mg Cap.sprink 500 Mg PO BID 12/02/17 Reported B-12 (Cyanocobalamin (Vitamin B-12)) 1,000 Mcg Tablet 1,000 Mcg PO QMONTH 12/02/17 Reported Atropine Sulfate 2 Ml Drops 2 Ml SL PRN Q4HRS PRN 11/30/17 Reported Duoneb 0.5-3(2.5) Mg/3 Ml (Albuterol/Ipratropium) 3 Ml Ampul.neb 3 Ml NEB QID 09/21/16 Reported Celexa (Citalopram Hydrobromide) 20 Mg Tablet 1 Tab PEG QODAY 09/21/16 Reported Budesonide 0.5 Mg/2 Ml Ampul.neb 1 Vial NEB BID 09/21/16 Reported Benztropine Mesylate 1 Mg Tablet 1 Mg PEG HS 09/21/16 Reported Polyvinyl Alcohol 15 Ml Drops 15 Ml OP PRN Q8HRS 09/21/16 Reported Instill 1 drop in both eyes every 8 hours as needed for dryness Acetaminophen 500 Mg Tablet 650 Mg PEG PRN Q6HRS 09/21/16 Reported Impression . 1. Acute on chronic respiratory failure. 2. Metabolic toxic encephalopathy, present upon admission. 3. Fever. 4. Diarrhea. 5. Hypernatremia. 6. Chronic kidney disease. 7. History of prior Pseudomonas, Stenotrophomonas and Proteus. 8. CHRONIC RF/ chronic trach Plan . ANTIBX PER ID CONTINUE SUPPORT PALLLIATIVE CARE NOTE APPRECITED INSTALL AND REPAIR TECHNICIAN PROGNOSIS IS POOR TRACH VICKIE PAREDES MD Feb 22, 2018 14:04
[2018-02-22 15:36] VITALS: BP 140/85
[2018-02-22] MEDS: IV DEXTROSE 5% 1,000 ML IV SCH (16:30)
[2018-02-22 19:45] VITALS: BP 148/94
[2018-02-22] MEDS: BENZTROPINE MESYLATE 1 MG TABLET. PEG SCH (22:01)
[2018-02-22] MEDS: ENOXAPARIN 40 MG/0.4 ML SYRINGE. SQ SCH (22:02)
[2018-02-22 23:31] VITALS: BP 121/67
[2018-02-23 03:43] VITALS: BP 120/70
[2018-02-23 04:20] LABS: BASO % 0 % (0-3); EOS # 0.3 x10^3/uL (0.0-0.7); EOS % 9 % (0-3); HEMATOCRIT 40.9 % (39.0-53.0); HEMOGLOBIN 13.9 g/dL (13.0-17.5); LYMPH # 1.2 x10^3/uL (1.0-4.8); LYMPH % 33 % (24-48); MEAN CORPUSCULAR HEMOGLOBIN 34 pg (25-35); MEAN CORPUSCULAR HGB CONC 34 g/dL (31-37); MEAN CORPUSCULAR VOLUME 100 fL (79-100); MONO # 0.2 x10^3/uL (0.0-1.1); MONO % 6 % (0-9); NEUT % 52 % (31-73); PLATELET COUNT 72 x10^3/uL (140-400); RED BLOOD COUNT 4.09 x10^6/uL (4.30-5.70); RED CELL DISTRIBUTION WIDTH 14.4 % (11.5-14.5); WHITE BLOOD COUNT 3.8 x10^3/uL (4.0-11.0)
[2018-02-23 05:08] LABS: PLT ESTIMATE DECREASED (ADEQUATE)
[2018-02-23 05:28] LABS: CALCIUM 7.9 mg/dL (8.5-10.1); CREATININE 0.6 mg/dL (0.7-1.3); GFR 133.6; POTASSIUM 3.9 mmol/L (3.5-5.1)
[2018-02-23] MEDS: INSULIN LISPRO 300 UNITS/3 ML INSULN.PEN. SQ SCH ×4 (06:00→18:00)
[2018-02-23] MEDS: CEFEPIME HCL IV Push 1 GM VIAL. IVP SCH ×3 (06:15→21:54)
[2018-02-23] MEDS: IV DEXTROSE 5% 1,000 ML IV SCH ×2 (06:15→20:45)
[2018-02-23 07:00] VITALS: BP 131/89
[2018-02-23] MEDS: IPRATRPIUM/ALBUTEROL 0.5/2.5MG 3 ML NEBU. NEB SCH ×3 (08:01→15:56)
[2018-02-23] MEDS: BUDESONIDE 0.5 MG/2 ML NEBU. NEB SCH ×2 (08:01→19:17)
[2018-02-23] MEDS: DIVALPROEX SPRINKLES 125 MG CAPSULE. PO SCH ×2 (09:12→21:53)
--- NOTE | 2018-02-23 09:47 | PDOC ---
PULMONARY PROGRESS NOTES Subjective PT WITH NO SIGN OF DISTRESS Vitals Vital Signs Date Time Temp Pulse Resp B/P (MAP) Pulse Ox O2 Delivery O2 Flow Rate FiO2 02/23/18 08:02 96 Tracheal Collar 8.0 02/23/18 07:00 96.8 71 28 131/89 (103) 96.8 General: Lethargic Cardiovascular: S1, S2 Abdomen: Soft, Non-tender Extremities: Other (1+edema) Labs Laboratory Tests Test 02/21/18 12:01 02/21/18 13:50 02/21/18 16:56 02/21/18 22:35 Glucose (Fingerstick) 66 mg/dL (70-99) 80 mg/dL (70-99) 94 mg/dL (70-99) 90 mg/dL (70-99) Test 02/22/18 04:20 02/22/18 05:37 02/22/18 11:14 02/22/18 18:39 White Blood Count 4.1 x10^3/uL (4.0-11.0) Red Blood Count 4.81 x10^6/uL (4.30-5.70) Hemoglobin 16.2 g/dL (13.0-17.5) Hematocrit 48.3 % (39.0-53.0) Mean Corpuscular Volume 100 fL (79-100) Mean Corpuscular Hemoglobin 34 pg (25-35) Mean Corpuscular Hemoglobin Concent 34 g/dL (31-37) Red Cell Distribution Width 14.4 % (11.5-14.5) Platelet Count 65 x10^3/uL (140-400) Neutrophils (%) (Auto) 54 % (31-73) Lymphocytes (%) (Auto) 31 % (24-48) Monocytes (%) (Auto) 6 % (0-9) Eosinophils (%) (Auto) 10 % (0-3) Basophils (%) (Auto) 0 % (0-3) Neutrophils # (Auto) 2.2 x10^3uL (1.8-7.7) Lymphocytes # (Auto) 1.3 x10^3/uL (1.0-4.8) Monocytes # (Auto) 0.2 x10^3/uL (0.0-1.1) Eosinophils # (Auto) 0.4 x10^3/uL (0.0-0.7) Basophils # (Auto) 0.0 x10^3/uL (0.0-0.2) Sodium Level 148 mmol/L (136-145) Potassium Level 3.7 mmol/L (3.5-5.1) Chloride Level 110 mmol/L (98-107) Carbon Dioxide Level 31 mmol/L (21-32) Anion Gap 7 (6-14) Blood Urea Nitrogen 25 mg/dL (8-26) Creatinine 0.7 mg/dL (0.7-1.3) Estimated GFR (Cockcroft-Gault) 111.8 Glucose Level 79 mg/dL (70-99) Calcium Level 8.5 mg/dL (8.5-10.1) Glucose (Fingerstick) 91 mg/dL (70-99) 109 mg/dL (70-99) 98 mg/dL (70-99) Test 02/23/18 01:15 02/23/18 04:15 02/23/18 06:14 Glucose (Fingerstick) 126 mg/dL (70-99) 104 mg/dL (70-99) White Blood Count 3.8 x10^3/uL (4.0-11.0) Red Blood Count 4.09 x10^6/uL (4.30-5.70) Hemoglobin 13.9 g/dL (13.0-17.5) Hematocrit 40.9 % (39.0-53.0) Mean Corpuscular Volume 100 fL (79-100) Mean Corpuscular Hemoglobin 34 pg (25-35) Mean Corpuscular Hemoglobin Concent 34 g/dL (31-37) Red Cell Distribution Width 14.4 % (11.5-14.5) Platelet Count 72 x10^3/uL (140-400) Neutrophils (%) (Auto) 52 % (31-73) Lymphocytes (%) (Auto) 33 % (24-48) Monocytes (%) (Auto) 6 % (0-9) Eosinophils (%) (Auto) 9 % (0-3) Basophils (%) (Auto) 0 % (0-3) Neutrophils # (Auto) 2.0 x10^3uL (1.8-7.7) Lymphocytes # (Auto) 1.2 x10^3/uL (1.0-4.8) Monocytes # (Auto) 0.2 x10^3/uL (0.0-1.1) Eosinophils # (Auto) 0.3 x10^3/uL (0.0-0.7) Basophils # (Auto) 0.0 x10^3/uL (0.0-0.2) Platelet Estimate Decreased (ADEQUATE) Giant Platelets Occ Sodium Level 147 mmol/L (136-145) Potassium Level 3.9 mmol/L (3.5-5.1) Chloride Level 110 mmol/L (98-107) Carbon Dioxide Level 35 mmol/L (21-32) Anion Gap 2 (6-14) Blood Urea Nitrogen 18 mg/dL (8-26) Creatinine 0.6 mg/dL (0.7-1.3) Estimated GFR (Cockcroft-Gault) 133.6 Glucose Level 135 mg/dL (70-99) Calcium Level 7.9 mg/dL (8.5-10.1) Laboratory Tests Test 02/22/18 11:14 02/22/18 18:39 02/23/18 01:15 02/23/18 04:15 Glucose (Fingerstick) 109 mg/dL (70-99) 98 mg/dL (70-99) 126 mg/dL (70-99) White Blood Count 3.8 x10^3/uL (4.0-11.0) Red Blood Count 4.09 x10^6/uL (4.30-5.70) Hemoglobin 13.9 g/dL (13.0-17.5) Hematocrit 40.9 % (39.0-53.0) Mean Corpuscular Volume 100 fL (79-100) Mean Corpuscular Hemoglobin 34 pg (25-35) Mean Corpuscular Hemoglobin Concent 34 g/dL (31-37) Red Cell Distribution Width 14.4 % (11.5-14.5) Platelet Count 72 x10^3/uL (140-400) Neutrophils (%) (Auto) 52 % (31-73) Lymphocytes (%) (Auto) 33 % (24-48) Monocytes (%) (Auto) 6 % (0-9) Eosinophils (%) (Auto) 9 % (0-3) Basophils (%) (Auto) 0 % (0-3) Neutrophils # (Auto) 2.0 x10^3uL (1.8-7.7) Lymphocytes # (Auto) 1.2 x10^3/uL (1.0-4.8) Monocytes # (Auto) 0.2 x10^3/uL (0.0-1.1) Eosinophils # (Auto) 0.3 x10^3/uL (0.0-0.7) Basophils # (Auto) 0.0 x10^3/uL (0.0-0.2) Platelet Estimate Decreased (ADEQUATE) Giant Platelets Occ Sodium Level 147 mmol/L (136-145) Potassium Level 3.9 mmol/L (3.5-5.1) Chloride Level 110 mmol/L (98-107) Carbon Dioxide Level 35 mmol/L (21-32) Anion Gap 2 (6-14) Blood Urea Nitrogen 18 mg/dL (8-26) Creatinine 0.6 mg/dL (0.7-1.3) Estimated GFR (Cockcroft-Gault) 133.6 Glucose Level 135 mg/dL (70-99) Calcium Level 7.9 mg/dL (8.5-10.1) Test 02/23/18 06:14 Glucose (Fingerstick) 104 mg/dL (70-99) Medications Active Scripts Medications Dose Route/Sig Max Daily Dose Days Date Category Dose Instructions Transderm-Scop (Scopolamine) 1 Each Patch.td72 1 Patch TP Q3DAYS 12/08/17 Rx Enoxaparin Sodium 40 Mg/0.4 Ml Disp.syrin 40 Mg SQ Q24H 30 12/08/17 Rx Depakote Sprinkle (Divalproex Sodium) 125 Mg Cap.sprink 500 Mg PO BID 12/02/17 Reported B-12 (Cyanocobalamin (Vitamin B-12)) 1,000 Mcg Tablet 1,000 Mcg PO QMONTH 12/02/17 Reported Atropine Sulfate 2 Ml Drops 2 Ml SL PRN Q4HRS PRN 11/30/17 Reported Duoneb 0.5-3(2.5) Mg/3 Ml (Albuterol/Ipratropium) 3 Ml Ampul.neb 3 Ml NEB QID 09/21/16 Reported Celexa (Citalopram Hydrobromide) 20 Mg Tablet 1 Tab PEG QODAY 09/21/16 Reported Budesonide 0.5 Mg/2 Ml Ampul.neb 1 Vial NEB BID 09/21/16 Reported Benztropine Mesylate 1 Mg Tablet 1 Mg PEG HS 09/21/16 Reported Polyvinyl Alcohol 15 Ml Drops 15 Ml OP PRN Q8HRS 09/21/16 Reported Instill 1 drop in both eyes every 8 hours as needed for dryness Acetaminophen 500 Mg Tablet 650 Mg PEG PRN Q6HRS 09/21/16 Reported Impression . 1. Acute on chronic respiratory failure. 2. Metabolic toxic encephalopathy, present upon admission. 3. Fever. 4. Diarrhea. 5. Hypernatremia. 6. Chronic kidney disease. 7. History of prior Pseudomonas, Stenotrophomonas and Proteus. 8. CHRONIC RF/ chronic trach Plan . ANTIBX PER ID CONTINUE SUPPORT PALLLIATIVE CARE NOTE APPRECITED/ MEETING TODAY CLASS A REGIONAL DRIVERS PROGNOSIS IS POOR TRACH SHIELD [facility] VICKIE CASTRO MD Feb 23, 2018 09:47
--- NOTE | 2018-02-23 09:54 | PDOC ---
Infectious Disease Note Subjective: Subjective Pt noncommunicative Per RN no new issues at night Uneventful night No fevers last 24 hours No increase O2 demands. Remains on trach shield ROS: ROS Negative except for above. Vital Signs: Vital Signs Vital Signs Date Time Temp Pulse Resp B/P (MAP) Pulse Ox O2 Delivery O2 Flow Rate FiO2 02/23/18 08:02 96 Tracheal Collar 8.0 02/23/18 07:00 96.8 71 28 131/89 (103) 96.8 Physical Exam: PHYSICAL EXAM GENERAL: Propped up in bed, resting quietly, NAD NECK: Trach shield LUNGS: Congested, nonlabored CV: S1 S2 regular ABD: Soft, no grimace or guarding to palpation. G-tube. : P[place]es EXT: Trace edema BLE. No cyanosis SKIN: warm Right subclavian (02/09) clean Medications: Inpatient Meds: Current Medications Medications (Trade) Dose Ordered Sig/Eleanor Start Time Stop Time Status Last Admin Dose Admin Acetaminophen (Tylenol Supp) 650 mg 1X ONCE 02/18/18 21:30 02/18/18 21:31 DC Acetaminophen (Tylenol) 650 mg PRN Q6HRS PRN 02/18/18 22:30 Albuterol/ Ipratropium (Duoneb) 3 ml RTQID 02/19/18 08:00 02/23/18 08:01 3 ML Artificial Tears (Artificial Tears) 1 drop PRN Q8HRS PRN 02/18/18 22:45 Atropine Sulfate (Isopto Atropine) 2 drop PRN Q4HRS PRN 02/18/18 22:45 Benztropine Mesylate (Cogentin) 1 mg QHS 02/19/18 21:00 02/22/18 22:01 1 MG Budesonide (Pulmicort) 0.5 mg RTBID 02/19/18 08:00 02/23/18 08:01 0.5 MG Cefepime HCl (Maxipime) 1 gm Q8HRS 02/21/18 14:00 02/23/18 06:15 1 GM Cefepime HCl 1 gm/ Dextrose 50 ml @ 100 mls/hr Q8HRS 02/21/18 14:00 UNV Citalopram Hydrobromide (CeleXA) 20 mg QODAY 02/20/18 09:00 02/22/18 09:03 20 MG Cyanocobalamin (Vitamin B-12) 1,000 mcg QMONTH 03/20/18 09:00 Dextrose 1,000 ml @ 80 mls/hr [id number] 02/22/18 16:30 02/23/18 06:15 80 MLS/HR Dextrose (Dextrose 50%-Water Syringe) 12.5 gm PRN Q15MIN PRN 02/18/18 22:45 Divalproex Sodium (Depakote Sprinkles) 500 mg BID 02/19/18 09:00 02/23/18 09:12 500 MG Enoxaparin Sodium (Lovenox 40mg Syringe) 40 mg Q24H 02/18/18 23:00 02/22/18 22:02 40 MG Insulin Human Lispro (HumaLOG) 0-9 UNITS Q6HRS 02/19/18 00:00 Piperacillin Sod/ Tazobactam Sod (Zosyn Per Pharmacy) 1 each PRN DAILY PRN 02/18/18 23:00 02/21/18 09:41 DC Piperacillin Sod/ Tazobactam Sod 3.375 gm/Sodium Chloride 50 ml @ 100 mls/hr Q6HRS 02/19/18 00:00 02/21/18 08:12 DC 02/21/18 05:49 100 MLS/HR Piperacillin Sod/ Tazobactam Sod 4.5 gm/Sodium Chloride 100 ml @ 200 mls/hr 1X ONCE 02/18/18 18:30 02/18/18 19:01 DC 02/18/18 18:52 200 MLS/HR Potassium Chloride/Water 50 ml @ 50 mls/hr Q1H 02/20/18 11:00 02/20/18 12:59 DC 02/20/18 14:01 50 MLS/HR Scopolamine (Transderm-Scop) 1 patch Q3DAYS 02/21/18 09:00 02/21/18 11:17 1 PATCH Sodium Chloride 1,000 ml @ 0 mls/hr 1X ONCE 02/18/18 19:00 02/18/18 19:01 DC 02/18/18 19:00 500 MLS/HR Vancomycin HCl (Vanco Per Pharmacy) 1 each PRN DAILY PRN 02/18/18 21:30 02/21/18 08:13 DC 02/21/18 01:01 1 EACH Vancomycin HCl (Vancomycin Trough Level) 1 each 1X ONCE 02/23/18 02:30 02/23/18 02:31 Cancel Vancomycin HCl 1.5 gm/Sodium Chloride 500 ml @ 250 mls/hr Q18H 02/21/18 15:00 02/21/18 15:00 DC Vancomycin HCl 2 gm/Sodium Chloride 500 ml @ 250 mls/hr 1X ONCE 02/18/18 18:30 02/18/18 20:29 DC 02/18/18 20:59 250 MLS/HR Labs: Lab Laboratory Tests Test 02/22/18 11:14 02/22/18 18:39 02/23/18 01:15 02/23/18 04:15 Glucose (Fingerstick) 109 mg/dL (70-99) 98 mg/dL (70-99) 126 mg/dL (70-99) White Blood Count 3.8 x10^3/uL (4.0-11.0) Red Blood Count 4.09 x10^6/uL (4.30-5.70) Hemoglobin 13.9 g/dL (13.0-17.5) Hematocrit 40.9 % (39.0-53.0) Mean Corpuscular Volume 100 fL (79-100) Mean Corpuscular Hemoglobin 34 pg (25-35) Mean Corpuscular Hemoglobin Concent 34 g/dL (31-37) Red Cell Distribution Width 14.4 % (11.5-14.5) Platelet Count 72 x10^3/uL (140-400) Neutrophils (%) (Auto) 52 % (31-73) Lymphocytes (%) (Auto) 33 % (24-48) Monocytes (%) (Auto) 6 % (0-9) Eosinophils (%) (Auto) 9 % (0-3) Basophils (%) (Auto) 0 % (0-3) Neutrophils # (Auto) 2.0 x10^3uL (1.8-7.7) Lymphocytes # (Auto) 1.2 x10^3/uL (1.0-4.8) Monocytes # (Auto) 0.2 x10^3/uL (0.0-1.1) Eosinophils # (Auto) 0.3 x10^3/uL (0.0-0.7) Basophils # (Auto) 0.0 x10^3/uL (0.0-0.2) Platelet Estimate Decreased (ADEQUATE) Giant Platelets Occ Sodium Level 147 mmol/L (136-145) Potassium Level 3.9 mmol/L (3.5-5.1) Chloride Level 110 mmol/L (98-107) Carbon Dioxide Level 35 mmol/L (21-32) Anion Gap 2 (6-14) Blood Urea Nitrogen 18 mg/dL (8-26) Creatinine 0.6 mg/dL (0.7-1.3) Estimated GFR (Cockcroft-Gault) 133.6 Glucose Level 135 mg/dL (70-99) Calcium Level 7.9 mg/dL (8.5-10.1) Test 02/23/18 06:14 Glucose (Fingerstick) 104 mg/dL (70-99) Linh Mendez M.D., Auto Technician PATIENT: MALICK JORGENSEN ACCT: [id number] LOC: 1 [facility] U : [id number] AGE/SX: 67/M ROOM: 113 REG : 02/18/[address]: KIRK KHOURY MD : 1950 BED: 1 DIS : STATUS: ADM IN TLOC: SPEC #: [id number] PIA: 02/20/18 STATUS: RES REQ #: [id number] RECD: 02/20/[address] [facility] [address]: NOAH SAHU APRN SOURCE: SPUTUM ENTR: 02/20/18 [facility] [address]: ELIZA MCGRATH MD [facility]: XAVIER SALEEM MD, SABATO MD TERMULO, CHERRIE Y MD ORDERED: SPUTUM CULTURE Procedure Result GRAM STAIN WHITE BLOOD CELLS Final Many GRAM STAIN EPITHELIAL CELLS Final Few GRAM STAIN RESULT 1 Final Comment Many gram negative rods. GRAM STAIN RESULT 2 Final Comment Moderate number of gram positive rods. GRAM STAIN EVALUATION Final Comment This specimen is of good quality and is acceptable for routine bacterial culture. Performed at: [facility] Lab[address], [place], [place] [id number] Space Buyer: JANET Chris MD, Phone: [phone] SPUTUM CULTURE-LC PENDING Objective: Assessment: Fever. 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
--- NOTE | 2018-02-23 10:29 | PDOC ---
Objective: Objective: Per RN - received two cans of food yesterday but supposed to have four each day. Tube seems to run a little slow - had 40cc residual this morning. Reviewed chart - seems no update from family, etc. Vital Signs: Vital Signs Date Time Temp Pulse Resp B/P (MAP) Pulse Ox O2 Delivery O2 Flow Rate FiO2 02/23/18 08:02 96 Tracheal Collar 8.0 02/23/18 07:00 96.8 71 28 131/89 (103) 96.8 Labs: Laboratory Tests Test 02/22/18 11:14 02/22/18 18:39 02/23/18 01:15 02/23/18 04:15 Glucose (Fingerstick) 109 mg/dL 98 mg/dL 126 mg/dL White Blood Count 3.8 x10^3/uL Red Blood Count 4.09 x10^6/uL Hemoglobin 13.9 g/dL Hematocrit 40.9 % Mean Corpuscular Volume 100 fL Mean Corpuscular Hemoglobin 34 pg Mean Corpuscular Hemoglobin Concent 34 g/dL Red Cell Distribution Width 14.4 % Platelet Count 72 x10^3/uL Neutrophils (%) (Auto) 52 % Lymphocytes (%) (Auto) 33 % Monocytes (%) (Auto) 6 % Eosinophils (%) (Auto) 9 % Basophils (%) (Auto) 0 % Neutrophils # (Auto) 2.0 x10^3uL Lymphocytes # (Auto) 1.2 x10^3/uL Monocytes # (Auto) 0.2 x10^3/uL Eosinophils # (Auto) 0.3 x10^3/uL Basophils # (Auto) 0.0 x10^3/uL Platelet Estimate Decreased Giant Platelets Occ Sodium Level 147 mmol/L Potassium Level 3.9 mmol/L Chloride Level 110 mmol/L Carbon Dioxide Level 35 mmol/L Anion Gap 2 Blood Urea Nitrogen 18 mg/dL Creatinine 0.6 mg/dL Estimated GFR (Cockcroft-Gault) 133.6 Glucose Level 135 mg/dL Calcium Level 7.9 mg/dL Test 02/23/18 06:14 Glucose (Fingerstick) 104 mg/dL BLOOD CULTURE Preliminary NO GROWTH AFTER 4 DAYS PE: GEN: NAD HEENT: tracheostomy HEART: RRR ABD: BS+, soft, PEG in place - removed gauze from under bumper NEURO/PSYCH: keeps eyes closed, non-verbal A/P: PEG in place -- ?running slow but functioning Await family decisions. DILSHAD JOEL Feb 23, 2018 10:29
[2018-02-23 11:00] VITALS: BP 149/92
--- NOTE | 2018-02-23 13:14 | PDOC ---
PROGRESS NOTES Chief Complaint Chief Complaint Fever, procalcitonin <0.10 IMPRESSION Diarrhea Hypernatremia Hypokalemia Chronic tracheostomy Parkinson disease Dementia h/o PSA, GBS, Stenotrophomonas, Proteus flu screen neg sputum gnr, acute metabolic encephalopathy Diarrhea C diff neg Hypernatremia thrombocytopenia chronic Chronic tracheostomy on trach shield Parkinson disease Dementia CONT SUPPORTIVE MEASURES Palliative consult FAMILY OK WITH HOSPICE ON D/C History of Present Illness History of Present Illness Pt seen and examined. Pt was being fed through PEG tube Laying in bed, eyes open, chronic trach Discussed with RN Vitals Vitals Vital Signs Date Time Temp Pulse Resp B/P (MAP) Pulse Ox O2 Delivery O2 Flow Rate FiO2 02/23/18 11:23 96 Tracheal Collar 8.0 02/23/18 11:00 96.6 73 16 149/92 (111) 96.6 Physical Exam Physical Exam GENERAL: Propped up in bed, resting quietly, NAD NECK: Trach shield LUNGS: Congested, nonlabored CV: S1 S2 regular ABD: Soft, no grimace or guarding to palpation. G-tube. : Perales EXT: Trace edema BLE. No cyanosis SKIN: warm Right subclavian (02/09) clean General: Alert, Cooperative, No acute distress Heart: Regular rate, Normal S1, Normal S2 Lungs: Crackles Abdomen: Normal bowel sounds, Soft Extremities: No clubbing, No cyanosis, Other (trace edema BLE) Skin: No rashes, No breakdown Labs LABS Laboratory Tests Test 02/22/18 18:39 02/23/18 01:15 02/23/18 04:15 02/23/18 06:14 Glucose (Fingerstick) 98 mg/dL (70-99) 126 mg/dL (70-99) 104 mg/dL (70-99) White Blood Count 3.8 x10^3/uL (4.0-11.0) Red Blood Count 4.09 x10^6/uL (4.30-5.70) Hemoglobin 13.9 g/dL (13.0-17.5) Hematocrit 40.9 % (39.0-53.0) Mean Corpuscular Volume 100 fL (79-100) Mean Corpuscular Hemoglobin 34 pg (25-35) Mean Corpuscular Hemoglobin Concent 34 g/dL (31-37) Red Cell Distribution Width 14.4 % (11.5-14.5) Platelet Count 72 x10^3/uL (140-400) Neutrophils (%) (Auto) 52 % (31-73) Lymphocytes (%) (Auto) 33 % (24-48) Monocytes (%) (Auto) 6 % (0-9) Eosinophils (%) (Auto) 9 % (0-3) Basophils (%) (Auto) 0 % (0-3) Neutrophils # (Auto) 2.0 x10^3uL (1.8-7.7) Lymphocytes # (Auto) 1.2 x10^3/uL (1.0-4.8) Monocytes # (Auto) 0.2 x10^3/uL (0.0-1.1) Eosinophils # (Auto) 0.3 x10^3/uL (0.0-0.7) Basophils # (Auto) 0.0 x10^3/uL (0.0-0.2) Platelet Estimate Decreased (ADEQUATE) Giant Platelets Occ Sodium Level 147 mmol/L (136-145) Potassium Level 3.9 mmol/L (3.5-5.1) Chloride Level 110 mmol/L (98-107) Carbon Dioxide Level 35 mmol/L (21-32) Anion Gap 2 (6-14) Blood Urea Nitrogen 18 mg/dL (8-26) Creatinine 0.6 mg/dL (0.7-1.3) Estimated GFR (Cockcroft-Gault) 133.6 Glucose Level 135 mg/dL (70-99) Calcium Level 7.9 mg/dL (8.5-10.1) Assessment and Plan Assessmemt and Plan Problems Medical Problems: (1) Altered mental state Status: Acute (2) Fever Status: Acute (3) Hypernatremia Status: Acute Comment Review of Relevant I have reviewed the following items maulik (where applicable) has been applied. Labs Laboratory Tests Test 02/21/18 13:50 02/21/18 16:56 02/21/18 22:35 02/22/18 04:20 Glucose (Fingerstick) 80 mg/dL (70-99) 94 mg/dL (70-99) 90 mg/dL (70-99) White Blood Count 4.1 x10^3/uL (4.0-11.0) Red Blood Count 4.81 x10^6/uL (4.30-5.70) Hemoglobin 16.2 g/dL (13.0-17.5) Hematocrit 48.3 % (39.0-53.0) Mean Corpuscular Volume 100 fL (79-100) Mean Corpuscular Hemoglobin 34 pg (25-35) Mean Corpuscular Hemoglobin Concent 34 g/dL (31-37) Red Cell Distribution Width 14.4 % (11.5-14.5) Platelet Count 65 x10^3/uL (140-400) Neutrophils (%) (Auto) 54 % (31-73) Lymphocytes (%) (Auto) 31 % (24-48) Monocytes (%) (Auto) 6 % (0-9) Eosinophils (%) (Auto) 10 % (0-3) Basophils (%) (Auto) 0 % (0-3) Neutrophils # (Auto) 2.2 x10^3uL (1.8-7.7) Lymphocytes # (Auto) 1.3 x10^3/uL (1.0-4.8) Monocytes # (Auto) 0.2 x10^3/uL (0.0-1.1) Eosinophils # (Auto) 0.4 x10^3/uL (0.0-0.7) Basophils # (Auto) 0.0 x10^3/uL (0.0-0.2) Sodium Level 148 mmol/L (136-145) Potassium Level 3.7 mmol/L (3.5-5.1) Chloride Level 110 mmol/L (98-107) Carbon Dioxide Level 31 mmol/L (21-32) Anion Gap 7 (6-14) Blood Urea Nitrogen 25 mg/dL (8-26) Creatinine 0.7 mg/dL (0.7-1.3) Estimated GFR (Cockcroft-Gault) 111.8 Glucose Level 79 mg/dL (70-99) Calcium Level 8.5 mg/dL (8.5-10.1) Test 02/22/18 05:37 02/22/18 11:14 02/22/18 18:39 02/23/18 01:15 Glucose (Fingerstick) 91 mg/dL (70-99) 109 mg/dL (70-99) 98 mg/dL (70-99) 126 mg/dL (70-99) Test 02/23/18 04:15 02/23/18 06:14 White Blood Count 3.8 x10^3/uL (4.0-11.0) Red Blood Count 4.09 x10^6/uL (4.30-5.70) Hemoglobin 13.9 g/dL (13.0-17.5) Hematocrit 40.9 % (39.0-53.0) Mean Corpuscular Volume 100 fL (79-100) Mean Corpuscular Hemoglobin 34 pg (25-35) Mean Corpuscular Hemoglobin Concent 34 g/dL (31-37) Red Cell Distribution Width 14.4 % (11.5-14.5) Platelet Count 72 x10^3/uL (140-400) Neutrophils (%) (Auto) 52 % (31-73) Lymphocytes (%) (Auto) 33 % (24-48) Monocytes (%) (Auto) 6 % (0-9) Eosinophils (%) (Auto) 9 % (0-3) Basophils (%) (Auto) 0 % (0-3) Neutrophils # (Auto) 2.0 x10^3uL (1.8-7.7) Lymphocytes # (Auto) 1.2 x10^3/uL (1.0-4.8) Monocytes # (Auto) 0.2 x10^3/uL (0.0-1.1) Eosinophils # (Auto) 0.3 x10^3/uL (0.0-0.7) Basophils # (Auto) 0.0 x10^3/uL (0.0-0.2) Platelet Estimate Decreased (ADEQUATE) Giant Platelets Occ Sodium Level 147 mmol/L (136-145) Potassium Level 3.9 mmol/L (3.5-5.1) Chloride Level 110 mmol/L (98-107) Carbon Dioxide Level 35 mmol/L (21-32) Anion Gap 2 (6-14) Blood Urea Nitrogen 18 mg/dL (8-26) Creatinine 0.6 mg/dL (0.7-1.3) Estimated GFR (Cockcroft-Gault) 133.6 Glucose Level 135 mg/dL (70-99) Calcium Level 7.9 mg/dL (8.5-10.1) Glucose (Fingerstick) 104 mg/dL (70-99) Laboratory Tests Test 02/22/18 18:39 02/23/18 01:15 02/23/18 04:15 02/23/18 06:14 Glucose (Fingerstick) 98 mg/dL (70-99) 126 mg/dL (70-99) 104 mg/dL (70-99) White Blood Count 3.8 x10^3/uL (4.0-11.0) Red Blood Count 4.09 x10^6/uL (4.30-5.70) Hemoglobin 13.9 g/dL (13.0-17.5) Hematocrit 40.9 % (39.0-53.0) Mean Corpuscular Volume 100 fL (79-100) Mean Corpuscular Hemoglobin 34 pg (25-35) Mean Corpuscular Hemoglobin Concent 34 g/dL (31-37) Red Cell Distribution Width 14.4 % (11.5-14.5) Platelet Count 72 x10^3/uL (140-400) Neutrophils (%) (Auto) 52 % (31-73) Lymphocytes (%) (Auto) 33 % (24-48) Monocytes (%) (Auto) 6 % (0-9) Eosinophils (%) (Auto) 9 % (0-3) Basophils (%) (Auto) 0 % (0-3) Neutrophils # (Auto) 2.0 x10^3uL (1.8-7.7) Lymphocytes # (Auto) 1.2 x10^3/uL (1.0-4.8) Monocytes # (Auto) 0.2 x10^3/uL (0.0-1.1) Eosinophils # (Auto) 0.3 x10^3/uL (0.0-0.7) Basophils # (Auto) 0.0 x10^3/uL (0.0-0.2) Platelet Estimate Decreased (ADEQUATE) Giant Platelets Occ Sodium Level 147 mmol/L (136-145) Potassium Level 3.9 mmol/L (3.5-5.1) Chloride Level 110 mmol/L (98-107) Carbon Dioxide Level 35 mmol/L (21-32) Anion Gap 2 (6-14) Blood Urea Nitrogen 18 mg/dL (8-26) Creatinine 0.6 mg/dL (0.7-1.3) Estimated GFR (Cockcroft-Gault) 133.6 Glucose Level 135 mg/dL (70-99) Calcium Level 7.9 mg/dL (8.5-10.1) Microbiology 02/18/18 Blood Culture - Preliminary, Resulted NO GROWTH AFTER 4 DAYS 02/20/18 - Final, Resulted 02/20/18 - Final, Resulted 02/20/18 - Final, Resulted 02/20/18 - Final, Resulted 02/20/18 Gram Stain Evaluation - Final, Resulted 02/20/18 Sputum Culture - Preliminary, Resulted 02/20/18 Sputum Result 1 - Final, Resulted 02/20/18 Sputum Result 2 - Final, Resulted 02/20/18 - Final, Resulted 02/20/18 Antimicrobic Susceptibility - Final, Resulted Medications Current Medications Piperacillin Sod/ Tazobactam Sod 4.5 gm/Sodium Chloride 100 ml @ 200 mls/hr 1X ONCE IV Last administered on 02/18/18at 18:52; Start 02/18/18 at 18:30; Stop 02/18/18 at 19:01; Status DC Vancomycin HCl (Vanco Per Pharmacy) 1 each 1X ONCE MC ; Start 02/18/18 at 18: 15; Stop 02/18/18 at 18:30; Status DC Vancomycin HCl 2 gm/Sodium Chloride 500 ml @ 250 mls/hr 1X ONCE IV Last administered on 02/18/18at 20:59; Start 02/18/18 at 18:30; Stop 02/18/18 at 20 :29; Status DC Sodium Chloride 1,000 ml @ 0 mls/hr 1X ONCE IV Last administered on at 19:00; Start 02/18/18 at 19:00; Stop 02/18/18 at 19:01; Status DC Acetaminophen (Tylenol Supp) 650 mg 1X ONCE LA ; Start 02/18/18 at 21:30; Stop 02/18/18 at 21:31; Status DC Vancomycin HCl (Vanco Per Pharmacy) 1 each PRN DAILY PRN MC SEE COMMENTS Last administered on 02/21/18at 01:01; Start 02/18/18 at 21:30; Stop 02/21/18 at 08 :13; Status DC Enoxaparin Sodium (Lovenox 40mg Syringe) 40 mg Q24H SQ Last administered on at 22:02; Start 02/18/18 at 23:00 Acetaminophen (Tylenol) 650 mg PRN Q6HRS PRN PEG MILD PAIN / TEMP; Start 02/18 at 22:30 Budesonide (Pulmicort) 0.5 mg RTBID NEB Last administered on 02/23/18at 08:01; Start 02/19/18 at 08:00 Citalopram Hydrobromide (CeleXA) 20 mg QODAY PEG Last administered on at 09:03; Start 02/20/18 at 09:00 Cyanocobalamin (Vitamin B-12) 1,000 mcg QMONTH PO ; Start 03/20/18 at 09:00 Divalproex Sodium (Depakote Sprinkles) 500 mg BID PO Last administered on 02/23at 09:12; Start 02/19/18 at 09:00 Albuterol/ Ipratropium (Duoneb) 3 ml RTQID NEB Last administered on 02/23/18at 11:22; Start 02/19/18 at 08:00 Artificial Tears (Artificial Tears) 1 drop PRN Q8HRS PRN OU DRY EYE; Start at 22:45 Atropine Sulfate (Isopto Atropine) 2 drop PRN Q4HRS PRN SL SECRETIONS; Start 02/18/18 at 22:45 Benztropine Mesylate (Cogentin) 1 mg QHS PEG Last administered on 02/22/18at 22 :01; Start 02/19/18 at 21:00 Scopolamine (Transderm-Scop) 1 patch Q3DAYS TD Last administered on 02/21/18at 11:17; Start 02/21/18 at 09:00 Dextrose 1,000 ml @ 75 mls/hr 1X ONCE IV Last administered on 02/19/18at 01: 01; Start 02/18/18 at 23:00; Stop 02/19/18 at 12:19; Status DC Insulin Human Lispro (HumaLOG) 0-9 UNITS Q6HRS SQ ; Start 02/19/18 at 00:00 Dextrose (Dextrose 50%-Water Syringe) 12.5 gm PRN Q15MIN PRN IV SEE COMMENTS; Start 02/18/18 at 22:45 Piperacillin Sod/ Tazobactam Sod (Zosyn Per Pharmacy) 1 each PRN DAILY PRN MC SEE COMMENTS; Start 02/18/18 at 23:00; Stop 02/21/18 at 09:41; Status DC Piperacillin Sod/ Tazobactam Sod 3.375 gm/Sodium Chloride 50 ml @ 100 mls/hr Q6HRS IV Last administered on 02/21/18at 05:49; Start 02/19/18 at 00:00; Stop 02/21/18 at 08:12; Status DC Vancomycin HCl 1.5 gm/Sodium Chloride 500 ml @ 250 mls/hr Q24H IV Last administered on 02/20/18at 21:39; Start 02/19/18 at 21:00; Stop 02/21/18 at 00 :55; Status DC Vancomycin HCl (Vancomycin Trough Level) 1 each 1X ONCE MC Last administered on 02/20/18at 21:25; Start 02/20/18 at 20:30; Stop 02/20/18 at 20:31; Status DC Potassium Chloride/Water 50 ml @ 50 mls/hr Q1H IV Last administered on at 14:01; Start 02/20/18 at 11:00; Stop 02/20/18 at 12:59; Status DC Vancomycin HCl 1.5 gm/Sodium Chloride 500 ml @ 250 mls/hr Q18H IV ; Start at 15:00; Stop 02/21/18 at 15:00; Status DC Vancomycin HCl (Vancomycin Trough Level) 1 each 1X ONCE MC ; Start 02/23/18 at 02:30; Stop 02/23/18 at 02:31; Status Cancel Cefepime HCl 1 gm/ Dextrose 50 ml @ 100 mls/hr Q8HRS IV ; Start 02/21/18 at 14 :00; Status UNV Cefepime HCl (Maxipime) 1 gm Q8HRS IVP Last administered on 02/23/18at 06:15; Start 02/21/18 at 14:00 Dextrose 1,000 ml @ 80 mls/hr [id number] IV Last administered on 02/23/18at 06:15 ; Start 02/22/18 at 16:30 Active Scripts Active Transderm-Scop (Scopolamine) 1 Each Patch.td72 1 Patch TP Q3DAYS Enoxaparin Sodium 40 Mg/0.4 Ml Disp.syrin 40 Mg SQ Q24H 30 Days Reported Depakote Sprinkle (Divalproex Sodium) 125 Mg Cap.sprink 500 Mg PO BID B-12 (Cyanocobalamin (Vitamin B-12)) 1,000 Mcg Tablet 1,000 Mcg PO QMONTH Atropine Sulfate 2 Ml Drops 2 Ml SL PRN Q4HRS PRN Duoneb 0.5-3(2.5) Mg/3 Ml (Albuterol/Ipratropium) 3 Ml Ampul.neb 3 Ml NEB QID Celexa (Citalopram Hydrobromide) 20 Mg Tablet 1 Tab PEG QODAY Budesonide 0.5 Mg/2 Ml Ampul.neb 1 Vial NEB BID Benztropine Mesylate 1 Mg Tablet 1 Mg PEG HS Polyvinyl Alcohol 15 Ml Drops 15 Ml OP PRN Q8HRS Instill 1 drop in both eyes every 8 hours as needed for dryness Acetaminophen 500 Mg Tablet 650 Mg PEG PRN Q6HRS Vitals/I & O Vital Sign - Last 24 Hours 02/22/18 02/22/18 02/22/18 02/22/18 15:36 15:37 19:05 19:08 Temp 98.5 98.5 Pulse 76 Resp 22 B/P (MAP) 140/85 (103) Pulse Ox 97 96 96 O2 Delivery Tracheal Collar Tracheal Collar Tracheal Collar Tracheal Collar O2 Flow Rate 10.0 8.0 8.0 8.0 02/22/18 02/22/18 02/22/18 02/23/18 19:45 20:00 23:31 03:43 Temp 97.9 98.6 97.7 97.9 98.6 97.7 Pulse 82 90 66 Resp 20 20 20 B/P (MAP) 148/94 (112) 121/67 (85) 120/70 (87) Pulse Ox 96 97 98 O2 Delivery Tracheal Collar Trach Collar Tracheal Collar Tracheal Collar O2 Flow Rate 10.0 10.0 10.0 10.0 02/23/18 02/23/18 02/23/18 02/23/18 07:00 08:02 11:00 11:23 Temp 96.8 96.6 96.8 96.6 Pulse 71 73 Resp 28 16 B/P (MAP) 131/89 (103) 149/92 (111) Pulse Ox 92 96 96 96 O2 Delivery Tracheal Collar Tracheal Collar Tracheal Collar Tracheal Collar O2 Flow Rate 10.0 8.0 10.0 8.0 Intake and Output 02/22/18 02/22/18 02/23/18 15:00 23:00 07:00 Intake Total 0 ml 0 ml Output Total 250 ml Balance 0 ml -250 ml Nutrition Consultation Dietary Evaluation: Comments: Continue w/TF per following: Jevity 1.5 bolus 5x/day w/237 ml per bolus and 300 ml water after each feeding Expected Outcomes/Goals: TF infusion to provide >75% est needs Malnutrition Findings: Body Fat Depletion (Non Severe: Mild Depletion Weight Status: Appropriate NATALY ALEXANDER MD Feb 23, 2018 13:14
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
[2018-02-23 15:00] VITALS: BP 130/83
[2018-02-23 19:34] VITALS: BP 154/90
[2018-02-23] MEDS: BENZTROPINE MESYLATE 1 MG TABLET. PEG SCH (21:53)
[2018-02-23] MEDS: ENOXAPARIN 40 MG/0.4 ML SYRINGE. SQ SCH (22:31)
[2018-02-23 23:00] VITALS: BP 141/93
[2018-02-24 03:55] VITALS: BP 140/78
[2018-02-24] MEDS: IV DEXTROSE 5% 1,000 ML IV SCH (05:49)
[2018-02-24] MEDS: CEFEPIME HCL IV Push 1 GM VIAL. IVP SCH ×2 (05:49→16:56)
[2018-02-24] MEDS: INSULIN LISPRO 300 UNITS/3 ML INSULN.PEN. SQ SCH ×3 (06:00→12:00)
[2018-02-24 06:30] LABS: BASO % 1 % (0-3); CREATININE 0.5 mg/dL (0.7-1.3); EOS # 0.3 x10^3/uL (0.0-0.7); EOS % 9 % (0-3); GFR 164.9; HEMOGLOBIN 14.5 g/dL (13.0-17.5); LYMPH # 1.4 x10^3/uL (1.0-4.8); LYMPH % 37 % (24-48); MEAN CORPUSCULAR HEMOGLOBIN 34 pg (25-35); MEAN CORPUSCULAR HGB CONC 34 g/dL (31-37); MEAN CORPUSCULAR VOLUME 100 fL (79-100); MONO # 0.3 x10^3/uL (0.0-1.1); MONO % 8 % (0-9); NEUT # 1.7 x10^3uL (1.8-7.7); NEUT % 45 % (31-73); PLATELET COUNT 86 x10^3/uL (140-400); POTASSIUM 3.8 mmol/L (3.5-5.1); RED BLOOD COUNT 4.32 x10^6/uL (4.30-5.70); RED CELL DISTRIBUTION WIDTH 14.3 % (11.5-14.5); WHITE BLOOD COUNT 3.8 x10^3/uL (4.0-11.0)
[2018-02-24 06:55] VITALS: BP 117/71
[2018-02-24] MEDS ORDERED: IV RINGERS,LACTATED 1000ML 1,000 ML IV SCH ×2 (07:00→11:21)
[2018-02-24] MEDS: IPRATRPIUM/ALBUTEROL 0.5/2.5MG 3 ML NEBU. NEB SCH ×3 (07:22→16:06)
[2018-02-24] MEDS: BUDESONIDE 0.5 MG/2 ML NEBU. NEB SCH (07:22)
--- NOTE | 2018-02-24 10:32 | PDOC ---
PROGRESS NOTES Chief Complaint Chief Complaint Fever, procalcitonin <0.10 IMPRESSION Diarrhea Hypernatremia Hypokalemia Chronic tracheostomy Parkinson disease Dementia h/o PSA, GBS, Stenotrophomonas, Proteus flu screen neg sputum gnr, acute metabolic encephalopathy Diarrhea C diff neg Hypernatremia thrombocytopenia chronic Chronic tracheostomy on trach shield Parkinson disease Dementia CONT SUPPORTIVE MEASURES Palliative consult [facility] ON D/C peg tube replacement today, then d/c to hospice care History of Present Illness History of Present Illness Pt seen and examined. Pt was being fed through PEG tube Laying in bed, eyes open, chronic trach Discussed with RN Vitals Vitals Vital Signs Date Time Temp Pulse Resp B/P (MAP) Pulse Ox O2 Delivery O2 Flow Rate FiO2 02/24/18 07:24 100 Tracheal Collar 8.0 02/24/18 06:55 97.8 67 17 117/71 (86) 97.8 Physical Exam Physical Exam GENERAL: Propped up in bed, resting quietly, NAD NECK: Trach shield LUNGS: Congested, nonlabored CV: S1 S2 regular ABD: Soft, no grimace or guarding to palpation. G-tube. : Perales EXT: Trace edema BLE. No cyanosis SKIN: warm Right subclavian (02/09) clean General: Alert, Cooperative, No acute distress Heart: Regular rate, Normal S1, Normal S2 Lungs: Crackles Abdomen: Normal bowel sounds, Soft Extremities: No clubbing, No cyanosis, Other (trace edema BLE) Skin: No rashes, No breakdown Labs LABS Laboratory Tests Test 02/23/18 18:34 02/24/18 01:20 02/24/18 06:00 Glucose (Fingerstick) 83 mg/dL (70-99) 116 mg/dL (70-99) White Blood Count 3.8 x10^3/uL (4.0-11.0) Red Blood Count 4.32 x10^6/uL (4.30-5.70) Hemoglobin 14.5 g/dL (13.0-17.5) Hematocrit 43.0 % (39.0-53.0) Mean Corpuscular Volume 100 fL (79-100) Mean Corpuscular Hemoglobin 34 pg (25-35) Mean Corpuscular Hemoglobin Concent 34 g/dL (31-37) Red Cell Distribution Width 14.3 % (11.5-14.5) Platelet Count 86 x10^3/uL (140-400) Neutrophils (%) (Auto) 45 % (31-73) Lymphocytes (%) (Auto) 37 % (24-48) Monocytes (%) (Auto) 8 % (0-9) Eosinophils (%) (Auto) 9 % (0-3) Basophils (%) (Auto) 1 % (0-3) Neutrophils # (Auto) 1.7 x10^3uL (1.8-7.7) Lymphocytes # (Auto) 1.4 x10^3/uL (1.0-4.8) Monocytes # (Auto) 0.3 x10^3/uL (0.0-1.1) Eosinophils # (Auto) 0.3 x10^3/uL (0.0-0.7) Basophils # (Auto) 0.0 x10^3/uL (0.0-0.2) Sodium Level 147 mmol/L (136-145) Potassium Level 3.8 mmol/L (3.5-5.1) Chloride Level 109 mmol/L (98-107) Carbon Dioxide Level 35 mmol/L (21-32) Anion Gap 3 (6-14) Blood Urea Nitrogen 10 mg/dL (8-26) Creatinine 0.5 mg/dL (0.7-1.3) Estimated GFR (Cockcroft-Gault) 164.9 Glucose Level 101 mg/dL (70-99) Calcium Level 8.0 mg/dL (8.5-10.1) Assessment and Plan Assessmemt and Plan Problems Medical Problems: (1) Altered mental state Status: Acute (2) Fever Status: Acute (3) Hypernatremia Status: Acute Comment Review of Relevant I have reviewed the following items maulik (where applicable) has been applied. Labs Laboratory Tests Test 02/22/18 11:14 02/22/18 18:39 02/23/18 01:15 02/23/18 04:15 Glucose (Fingerstick) 109 mg/dL (70-99) 98 mg/dL (70-99) 126 mg/dL (70-99) White Blood Count 3.8 x10^3/uL (4.0-11.0) Red Blood Count 4.09 x10^6/uL (4.30-5.70) Hemoglobin 13.9 g/dL (13.0-17.5) Hematocrit 40.9 % (39.0-53.0) Mean Corpuscular Volume 100 fL (79-100) Mean Corpuscular Hemoglobin 34 pg (25-35) Mean Corpuscular Hemoglobin Concent 34 g/dL (31-37) Red Cell Distribution Width 14.4 % (11.5-14.5) Platelet Count 72 x10^3/uL (140-400) Neutrophils (%) (Auto) 52 % (31-73) Lymphocytes (%) (Auto) 33 % (24-48) Monocytes (%) (Auto) 6 % (0-9) Eosinophils (%) (Auto) 9 % (0-3) Basophils (%) (Auto) 0 % (0-3) Neutrophils # (Auto) 2.0 x10^3uL (1.8-7.7) Lymphocytes # (Auto) 1.2 x10^3/uL (1.0-4.8) Monocytes # (Auto) 0.2 x10^3/uL (0.0-1.1) Eosinophils # (Auto) 0.3 x10^3/uL (0.0-0.7) Basophils # (Auto) 0.0 x10^3/uL (0.0-0.2) Platelet Estimate Decreased (ADEQUATE) Giant Platelets Occ Sodium Level 147 mmol/L (136-145) Potassium Level 3.9 mmol/L (3.5-5.1) Chloride Level 110 mmol/L (98-107) Carbon Dioxide Level 35 mmol/L (21-32) Anion Gap 2 (6-14) Blood Urea Nitrogen 18 mg/dL (8-26) Creatinine 0.6 mg/dL (0.7-1.3) Estimated GFR (Cockcroft-Gault) 133.6 Glucose Level 135 mg/dL (70-99) Calcium Level 7.9 mg/dL (8.5-10.1) Test 02/23/18 06:14 02/23/18 18:34 02/24/18 01:20 02/24/18 06:00 Glucose (Fingerstick) 104 mg/dL (70-99) 83 mg/dL (70-99) 116 mg/dL (70-99) White Blood Count 3.8 x10^3/uL (4.0-11.0) Red Blood Count 4.32 x10^6/uL (4.30-5.70) Hemoglobin 14.5 g/dL (13.0-17.5) Hematocrit 43.0 % (39.0-53.0) Mean Corpuscular Volume 100 fL (79-100) Mean Corpuscular Hemoglobin 34 pg (25-35) Mean Corpuscular Hemoglobin Concent 34 g/dL (31-37) Red Cell Distribution Width 14.3 % (11.5-14.5) Platelet Count 86 x10^3/uL (140-400) Neutrophils (%) (Auto) 45 % (31-73) Lymphocytes (%) (Auto) 37 % (24-48) Monocytes (%) (Auto) 8 % (0-9) Eosinophils (%) (Auto) 9 % (0-3) Basophils (%) (Auto) 1 % (0-3) Neutrophils # (Auto) 1.7 x10^3uL (1.8-7.7) Lymphocytes # (Auto) 1.4 x10^3/uL (1.0-4.8) Monocytes # (Auto) 0.3 x10^3/uL (0.0-1.1) Eosinophils # (Auto) 0.3 x10^3/uL (0.0-0.7) Basophils # (Auto) 0.0 x10^3/uL (0.0-0.2) Sodium Level 147 mmol/L (136-145) Potassium Level 3.8 mmol/L (3.5-5.1) Chloride Level 109 mmol/L (98-107) Carbon Dioxide Level 35 mmol/L (21-32) Anion Gap 3 (6-14) Blood Urea Nitrogen 10 mg/dL (8-26) Creatinine 0.5 mg/dL (0.7-1.3) Estimated GFR (Cockcroft-Gault) 164.9 Glucose Level 101 mg/dL (70-99) Calcium Level 8.0 mg/dL (8.5-10.1) Laboratory Tests Test 02/23/18 18:34 02/24/18 01:20 02/24/18 06:00 Glucose (Fingerstick) 83 mg/dL (70-99) 116 mg/dL (70-99) White Blood Count 3.8 x10^3/uL (4.0-11.0) Red Blood Count 4.32 x10^6/uL (4.30-5.70) Hemoglobin 14.5 g/dL (13.0-17.5) Hematocrit 43.0 % (39.0-53.0) Mean Corpuscular Volume 100 fL (79-100) Mean Corpuscular Hemoglobin 34 pg (25-35) Mean Corpuscular Hemoglobin Concent 34 g/dL (31-37) Red Cell Distribution Width 14.3 % (11.5-14.5) Platelet Count 86 x10^3/uL (140-400) Neutrophils (%) (Auto) 45 % (31-73) Lymphocytes (%) (Auto) 37 % (24-48) Monocytes (%) (Auto) 8 % (0-9) Eosinophils (%) (Auto) 9 % (0-3) Basophils (%) (Auto) 1 % (0-3) Neutrophils # (Auto) 1.7 x10^3uL (1.8-7.7) Lymphocytes # (Auto) 1.4 x10^3/uL (1.0-4.8) Monocytes # (Auto) 0.3 x10^3/uL (0.0-1.1) Eosinophils # (Auto) 0.3 x10^3/uL (0.0-0.7) Basophils # (Auto) 0.0 x10^3/uL (0.0-0.2) Sodium Level 147 mmol/L (136-145) Potassium Level 3.8 mmol/L (3.5-5.1) Chloride Level 109 mmol/L (98-107) Carbon Dioxide Level 35 mmol/L (21-32) Anion Gap 3 (6-14) Blood Urea Nitrogen 10 mg/dL (8-26) Creatinine 0.5 mg/dL (0.7-1.3) Estimated GFR (Cockcroft-Gault) 164.9 Glucose Level 101 mg/dL (70-99) Calcium Level 8.0 mg/dL (8.5-10.1) Microbiology 02/18/18 Blood Culture - Final, Complete NO GROWTH AFTER 5 DAYS 02/20/18 - Final, Resulted 02/20/18 - Final, Resulted 02/20/18 - Final, Resulted 02/20/18 - Final, Resulted 02/20/18 Gram Stain Evaluation - Final, Resulted 02/20/18 Sputum Culture - Preliminary, Resulted 02/20/18 Sputum Result 1 - Final, Resulted 02/20/18 Sputum Result 2 - Final, Resulted 02/20/18 - Final, Resulted 02/20/18 Antimicrobic Susceptibility - Final, Resulted Medications Current Medications Piperacillin Sod/ Tazobactam Sod 4.5 gm/Sodium Chloride 100 ml @ 200 mls/hr 1X ONCE IV Last administered on 02/18/18at 18:52; Start 02/18/18 at 18:30; Stop 02/18/18 at 19:01; Status DC Vancomycin HCl (Vanco Per Pharmacy) 1 each 1X ONCE MC ; Start 02/18/18 at 18: 15; Stop 02/18/18 at 18:30; Status DC Vancomycin HCl 2 gm/Sodium Chloride 500 ml @ 250 mls/hr 1X ONCE IV Last administered on 02/18/18at 20:59; Start 02/18/18 at 18:30; Stop 02/18/18 at 20 :29; Status DC Sodium Chloride 1,000 ml @ 0 mls/hr 1X ONCE IV Last administered on at 19:00; Start 02/18/18 at 19:00; Stop 02/18/18 at 19:01; Status DC Acetaminophen (Tylenol Supp) 650 mg 1X ONCE MD ; Start 02/18/18 at 21:30; Stop 02/18/18 at 21:31; Status DC Vancomycin HCl (Vanco Per Pharmacy) 1 each PRN DAILY PRN MC SEE COMMENTS Last administered on 02/21/18at 01:01; Start 02/18/18 at 21:30; Stop 02/21/18 at 08 :13; Status DC Enoxaparin Sodium (Lovenox 40mg Syringe) 40 mg Q24H SQ Last administered on at 22:31; Start 02/18/18 at 23:00 Acetaminophen (Tylenol) 650 mg PRN Q6HRS PRN PEG MILD PAIN / TEMP; Start 02/18 at 22:30 Budesonide (Pulmicort) 0.5 mg RTBID NEB Last administered on 02/24/18at 07:22; Start 02/19/18 at 08:00 Citalopram Hydrobromide (CeleXA) 20 mg QODAY PEG Last administered on at 09:03; Start 02/20/18 at 09:00 Cyanocobalamin (Vitamin B-12) 1,000 mcg QMONTH PO ; Start 03/20/18 at 09:00 Divalproex Sodium (Depakote Sprinkles) 500 mg BID PO Last administered on 02/23at 21:53; Start 02/19/18 at 09:00 Albuterol/ Ipratropium (Duoneb) 3 ml RTQID NEB Last administered on 02/24/18at 07:22; Start 02/19/18 at 08:00 Artificial Tears (Artificial Tears) 1 drop PRN Q8HRS PRN OU DRY EYE; Start at 22:45 Atropine Sulfate (Isopto Atropine) 2 drop PRN Q4HRS PRN SL SECRETIONS; Start 02/18/18 at 22:45 Benztropine Mesylate (Cogentin) 1 mg QHS PEG Last administered on 02/23/18at 21 :53; Start 02/19/18 at 21:00 Scopolamine (Transderm-Scop) 1 patch Q3DAYS TD Last administered on 02/21/18at 11:17; Start 02/21/18 at 09:00 Dextrose 1,000 ml @ 75 mls/hr 1X ONCE IV Last administered on 02/19/18at 01: 01; Start 02/18/18 at 23:00; Stop 02/19/18 at 12:19; Status DC Insulin Human Lispro (HumaLOG) 0-9 UNITS Q6HRS SQ ; Start 02/19/18 at 00:00 Dextrose (Dextrose 50%-Water Syringe) 12.5 gm PRN Q15MIN PRN IV SEE COMMENTS; Start 02/18/18 at 22:45 Piperacillin Sod/ Tazobactam Sod (Zosyn Per Pharmacy) 1 each PRN DAILY PRN MC SEE COMMENTS; Start 02/18/18 at 23:00; Stop 02/21/18 at 09:41; Status DC Piperacillin Sod/ Tazobactam Sod 3.375 gm/Sodium Chloride 50 ml @ 100 mls/hr Q6HRS IV Last administered on 02/21/18at 05:49; Start 02/19/18 at 00:00; Stop 02/21/18 at 08:12; Status DC Vancomycin HCl 1.5 gm/Sodium Chloride 500 ml @ 250 mls/hr Q24H IV Last administered on 02/20/18at 21:39; Start 02/19/18 at 21:00; Stop 02/21/18 at 00 :55; Status DC Vancomycin HCl (Vancomycin Trough Level) 1 each 1X ONCE MC Last administered on 02/20/18at 21:25; Start 02/20/18 at 20:30; Stop 02/20/18 at 20:31; Status DC Potassium Chloride/Water 50 ml @ 50 mls/hr Q1H IV Last administered on at 14:01; Start 02/20/18 at 11:00; Stop 02/20/18 at 12:59; Status DC Vancomycin HCl 1.5 gm/Sodium Chloride 500 ml @ 250 mls/hr Q18H IV ; Start at 15:00; Stop 02/21/18 at 15:00; Status DC Vancomycin HCl (Vancomycin Trough Level) 1 each 1X ONCE MC ; Start 02/23/18 at 02:30; Stop 02/23/18 at 02:31; Status Cancel Cefepime HCl 1 gm/ Dextrose 50 ml @ 100 mls/hr Q8HRS IV ; Start 02/21/18 at 14 :00; Status UNV Cefepime HCl (Maxipime) 1 gm Q8HRS IVP Last administered on 02/24/18at 05:49; Start 02/21/18 at 14:00 Dextrose 1,000 ml @ 80 mls/hr Q19H75I IV Last administered on 02/24/18at 05:49 ; Start 02/22/18 at 16:30 Ringer's Solution 1,000 ml @ 50 mls/hr Q20H IV ; Start 02/24/18 at 07:00; Stop 02/24/18 at 18:59 Active Scripts Active Transderm-Scop (Scopolamine) 1 Each Patch.td72 1 Patch TP Q3DAYS Enoxaparin Sodium 40 Mg/0.4 Ml Disp.syrin 40 Mg SQ Q24H 30 Days Reported Depakote Sprinkle (Divalproex Sodium) 125 Mg Cap.sprink 500 Mg PO BID B-12 (Cyanocobalamin (Vitamin B-12)) 1,000 Mcg Tablet 1,000 Mcg PO QMONTH Atropine Sulfate 2 Ml Drops 2 Ml SL PRN Q4HRS PRN Duoneb 0.5-3(2.5) Mg/3 Ml (Albuterol/Ipratropium) 3 Ml Ampul.neb 3 Ml NEB QID Celexa (Citalopram Hydrobromide) 20 Mg Tablet 1 Tab PEG QODAY Budesonide 0.5 Mg/2 Ml Ampul.neb 1 Vial NEB BID Benztropine Mesylate 1 Mg Tablet 1 Mg PEG HS Polyvinyl Alcohol 15 Ml Drops 15 Ml OP PRN Q8HRS Instill 1 drop in both eyes every 8 hours as needed for dryness Acetaminophen 500 Mg Tablet 650 Mg PEG PRN Q6HRS Vitals/I & O Vital Sign - Last 24 Hours 02/23/18 02/23/18 02/23/18 02/23/18 11:00 11:23 15:00 15:56 Temp 96.6 97.5 96.6 97.5 Pulse 73 74 Resp 16 16 B/P (MAP) 149/92 (111) 130/83 (99) Pulse Ox 96 96 99 96 O2 Delivery Tracheal Collar Tracheal Collar Tracheal Collar Tracheal Collar O2 Flow Rate 10.0 8.0 10.0 8.0 02/23/18 02/23/18 02/23/18 02/23/18 19:18 19:19 19:34 20:00 Temp 97.5 97.5 Pulse 71 Resp 18 B/P (MAP) 154/90 (111) Pulse Ox 97 97 90 O2 Delivery Tracheal Collar Tracheal Collar Tracheal Collar Trach Collar O2 Flow Rate 8.0 8.0 8.0 02/23/18 02/24/18 02/24/18 02/24/18 23:00 03:55 06:55 07:24 Temp 98.0 98.8 97.8 98.0 98.8 97.8 Pulse 69 74 67 Resp 18 18 17 B/P (MAP) 141/93 (109) 140/78 (98) 117/71 (86) Pulse Ox 98 99 98 100 O2 Delivery Tracheal Collar Room Air Room Air Tracheal Collar O2 Flow Rate 8.0 Intake and Output 02/23/18 02/23/18 02/24/18 15:00 23:00 07:00 Intake Total 0 ml 0 ml Output Total 750 ml 0 ml Balance -750 ml 0 ml Nutrition Consultation Dietary Evaluation: Comments: Continue w/TF per following: Jevity 1.5 bolus 5x/day w/237 ml per bolus and 300 ml water after each feeding Expected Outcomes/Goals: TF infusion to provide >75% est needs Malnutrition Findings: Body Fat Depletion (Non Severe: Mild Depletion Weight Status: Appropriate NATALY ALEXANDER MD Feb 24, 2018 10:32
[2018-02-24 11:07] VITALS: BP 152/76
[2018-02-24] MEDS ORDERED: LIDOCAINE 1% PF 2 ML VIAL. ID PRN (11:30)
[2018-02-24] MEDS ORDERED: MIDAZOLAM HCL/PF 2 MG/2 ML VIAL. IV PRN (11:30)
[2018-02-24] MEDS ORDERED: fentaNYL PF VIAL 100 MCG/2 ML VIAL IV PRN ×2 (11:30)
[2018-02-24] MEDS ORDERED: PROPOFOL 20 ML IV ONE (13:48)
--- NOTE | 2018-02-24 14:02 | PDOC3 ---
Discharge Summary Date of Admission: Feb 18, 2018 Date of Discharge: Feb 24, 2018 Follow-Up: 3-5 days Admitting Diagnosis comment: discharge dx Chief Complaint Fever, procalcitonin <0.10 IMPRESSION Diarrhea Hypernatremia Hypokalemia Chronic tracheostomy Parkinson disease Dementia h/o PSA, GBS, Stenotrophomonas, Proteus flu screen neg sputum gnr, acute metabolic encephalopathy Diarrhea C diff neg Hypernatremia thrombocytopenia chronic Chronic tracheostomy on trach shield Parkinson disease Dementia CONT SUPPORTIVE MEASURES Palliative consult [facility] ON D/C peg tube replacement today, then d/c to hospice care History of Present Illness History of Present Illness Pt seen and examined. Pt was being fed through PEG tube Laying in bed, eyes open, chronic trach Discussed with RN Vitals Vitals Vital Signs Date Time Temp Pulse Resp B/P (MAP) Pulse Ox O2 Delivery O2 Flow Rate FiO2 02/24/18 07:24 100 Tracheal Collar 8.0 02/24/18 06:55 97.8 67 17 117/71 (86) 97.8 Physical Exam Physical Exam GENERAL: Propped up in bed, resting quietly, NAD NECK: Trach shield LUNGS: Congested, nonlabored CV: S1 S2 regular ABD: Soft, no grimace or guarding to palpation.. : P[place]es EXT: Trace edema BLE. No cyanosis SKIN: warm Right subclavian (02/09) clean General: Alert, Cooperative, No acute distress Heart: Regular rate, Normal S1, Normal S2 Lungs: Crackles Abdomen: Normal bowel sounds, Soft Extremities: No clubbing, No cyanosis, Other (trace edema BLE) Skin: No rashes, No breakdown FINAL DIAGNOSIS Problems Medical Problems: (1) Altered mental state Status: Acute (2) Fever Status: Acute (3) Hypernatremia Status: Acute Brief Hospital Course Mr. Larios is a 67 old [sex] who presented with [ ] CONDITION AT DISCHARGE: Comment (guarded prognosis) Discharge Medications Current Medications Piperacillin Sod/ Tazobactam Sod 4.5 gm/Sodium Chloride 100 ml @ 200 mls/hr 1X ONCE IV Last administered on 02/18/18at 18:52; Start 02/18/18 at 18:30; Stop 02/18/18 at 19:01; Status DC Vancomycin HCl (Vanco Per Pharmacy) 1 each 1X ONCE MC ; Start 02/18/18 at 18: 15; Stop 02/18/18 at 18:30; Status DC Vancomycin HCl 2 gm/Sodium Chloride 500 ml @ 250 mls/hr 1X ONCE IV Last administered on 02/18/18at 20:59; Start 02/18/18 at 18:30; Stop 02/18/18 at 20 :29; Status DC Sodium Chloride 1,000 ml @ 0 mls/hr 1X ONCE IV Last administered on at 19:00; Start 02/18/18 at 19:00; Stop 02/18/18 at 19:01; Status DC Acetaminophen (Tylenol Supp) 650 mg 1X ONCE IA ; Start 02/18/18 at 21:30; Stop 02/18/18 at 21:31; Status DC Vancomycin HCl (Vanco Per Pharmacy) 1 each PRN DAILY PRN MC SEE COMMENTS Last administered on 02/21/18at 01:01; Start 02/18/18 at 21:30; Stop 02/21/18 at 08 :13; Status DC Enoxaparin Sodium (Lovenox 40mg Syringe) 40 mg Q24H SQ Last administered on at 22:31; Start 02/18/18 at 23:00 Acetaminophen (Tylenol) 650 mg PRN Q6HRS PRN PEG MILD PAIN / TEMP; Start 02/18 at 22:30 Budesonide (Pulmicort) 0.5 mg RTBID NEB Last administered on 02/24/18at 07:22; Start 02/19/18 at 08:00 Citalopram Hydrobromide (CeleXA) 20 mg QODAY PEG Last administered on at 09:03; Start 02/20/18 at 09:00 Cyanocobalamin (Vitamin B-12) 1,000 mcg QMONTH PO ; Start 03/20/18 at 09:00 Divalproex Sodium (Depakote Sprinkles) 500 mg BID PO Last administered on 02/23at 21:53; Start 02/19/18 at 09:00 Albuterol/ Ipratropium (Duoneb) 3 ml RTQID NEB Last administered on 02/24/18at 11:27; Start 02/19/18 at 08:00 Artificial Tears (Artificial Tears) 1 drop PRN Q8HRS PRN OU DRY EYE; Start at 22:45 Atropine Sulfate (Isopto Atropine) 2 drop PRN Q4HRS PRN SL SECRETIONS; Start 02/18/18 at 22:45 Benztropine Mesylate (Cogentin) 1 mg QHS PEG Last administered on 02/23/18at 21 :53; Start 02/19/18 at 21:00 Scopolamine (Transderm-Scop) 1 patch Q3DAYS TD Last administered on 02/21/18at 11:17; Start 02/21/18 at 09:00 Dextrose 1,000 ml @ 75 mls/hr 1X ONCE IV Last administered on 02/19/18at 01: 01; Start 02/18/18 at 23:00; Stop 02/19/18 at 12:19; Status DC Insulin Human Lispro (HumaLOG) 0-9 UNITS Q6HRS SQ ; Start 02/19/18 at 00:00 Dextrose (Dextrose 50%-Water Syringe) 12.5 gm PRN Q15MIN PRN IV SEE COMMENTS; Start 02/18/18 at 22:45 Piperacillin Sod/ Tazobactam Sod (Zosyn Per Pharmacy) 1 each PRN DAILY PRN MC SEE COMMENTS; Start 02/18/18 at 23:00; Stop 02/21/18 at 09:41; Status DC Piperacillin Sod/ Tazobactam Sod 3.375 gm/Sodium Chloride 50 ml @ 100 mls/hr Q6HRS IV Last administered on 02/21/18at 05:49; Start 02/19/18 at 00:00; Stop 02/21/18 at 08:12; Status DC Vancomycin HCl 1.5 gm/Sodium Chloride 500 ml @ 250 mls/hr Q24H IV Last administered on 02/20/18at 21:39; Start 02/19/18 at 21:00; Stop 02/21/18 at 00 :55; Status DC Vancomycin HCl (Vancomycin Trough Level) 1 each 1X ONCE MC Last administered on 02/20/18at 21:25; Start 02/20/18 at 20:30; Stop 02/20/18 at 20:31; Status DC Potassium Chloride/Water 50 ml @ 50 mls/hr Q1H IV Last administered on at 14:01; Start 02/20/18 at 11:00; Stop 02/20/18 at 12:59; Status DC Vancomycin HCl 1.5 gm/Sodium Chloride 500 ml @ 250 mls/hr Q18H IV ; Start at 15:00; Stop 02/21/18 at 15:00; Status DC Vancomycin HCl (Vancomycin Trough Level) 1 each 1X ONCE MC ; Start 02/23/18 at 02:30; Stop 02/23/18 at 02:31; Status Cancel Cefepime HCl 1 gm/ Dextrose 50 ml @ 100 mls/hr Q8HRS IV ; Start 02/21/18 at 14 :00; Status UNV Cefepime HCl (Maxipime) 1 gm Q8HRS IVP Last administered on 02/24/18at 05:49; Start 02/21/18 at 14:00 Dextrose 1,000 ml @ 80 mls/hr [id number] IV Last administered on 02/24/18at 05:49 ; Start 02/22/18 at 16:30 Ringer's Solution 1,000 ml @ 50 mls/hr Q20H IV ; Start 02/24/18 at 07:00; Stop 02/24/18 at 18:59 Midazolam HCl (Versed) 2 mg PRN 1X PRN IV PRIOR TO PROCEDURE; Start 02/24/18 at 11:30; Stop 02/25/18 at 11:29 Fentanyl Citrate (Fentanyl 2ml Vial) 25 mcg PRN Q5MIN PRN IV X 2 DOSES FOR PAIN ; Start 02/24/18 at 11:30; Stop 02/25/18 at 11:29; Status Cancel Fentanyl Citrate (Fentanyl 2ml Vial) 50 mcg PRN Q5MIN PRN IV X 2 DOSES FOR PAIN ; Start 02/24/18 at 11:30; Stop 02/25/18 at 11:29; Status Cancel Ringer's Solution 1,000 ml @ 125 mls/hr Q8H IV ; Start 02/24/18 at 11:21; Stop 02/24/18 at 23:20 Lidocaine HCl (Xylocaine-Mpf 1% 2ml Vial) 2 ml 1X PRN PRN ID IV START; Start 02/24/18 at 11:30; Stop 02/25/18 at 11:29 Propofol 20 ml @ As Directed STK-MED ONCE IV ; Start 02/24/18 at 13:48; Stop at 13:49; Status DC Active Scripts Active Transderm-Scop (Scopolamine) 1 Each Patch.td72 1 Patch TP Q3DAYS Enoxaparin Sodium 40 Mg/0.4 Ml Disp.syrin 40 Mg SQ Q24H 30 Days Reported Depakote Sprinkle (Divalproex Sodium) 125 Mg Cap.sprink 500 Mg PO BID B-12 (Cyanocobalamin (Vitamin B-12)) 1,000 Mcg Tablet 1,000 Mcg PO QMONTH Atropine Sulfate 2 Ml Drops 2 Ml SL PRN Q4HRS PRN Duoneb 0.5-3(2.5) Mg/3 Ml (Albuterol/Ipratropium) 3 Ml Ampul.neb 3 Ml NEB QID Celexa (Citalopram Hydrobromide) 20 Mg Tablet 1 Tab PEG QODAY Budesonide 0.5 Mg/2 Ml Ampul.neb 1 Vial NEB BID Benztropine Mesylate 1 Mg Tablet 1 Mg PEG HS Polyvinyl Alcohol 15 Ml Drops 15 Ml OP PRN Q8HRS Instill 1 drop in both eyes every 8 hours as needed for dryness Acetaminophen 500 Mg Tablet 650 Mg PEG PRN Q6HRS Vital Signs Vital Signs Date Time Temp Pulse Resp B/P (MAP) Pulse Ox O2 Delivery O2 Flow Rate FiO2 02/24/18 13:50 97.0 82 18 92 97.0 02/24/18 13:39 Trach Collar 8.0 02/24/18 11:07 152/76 (101) Labs Laboratory Tests Test 02/22/18 18:39 02/23/18 01:15 02/23/18 04:15 02/23/18 06:14 Glucose (Fingerstick) 98 mg/dL (70-99) 126 mg/dL (70-99) 104 mg/dL (70-99) White Blood Count 3.8 x10^3/uL (4.0-11.0) Red Blood Count 4.09 x10^6/uL (4.30-5.70) Hemoglobin 13.9 g/dL (13.0-17.5) Hematocrit 40.9 % (39.0-53.0) Mean Corpuscular Volume 100 fL (79-100) Mean Corpuscular Hemoglobin 34 pg (25-35) Mean Corpuscular Hemoglobin Concent 34 g/dL (31-37) Red Cell Distribution Width 14.4 % (11.5-14.5) Platelet Count 72 x10^3/uL (140-400) Neutrophils (%) (Auto) 52 % (31-73) Lymphocytes (%) (Auto) 33 % (24-48) Monocytes (%) (Auto) 6 % (0-9) Eosinophils (%) (Auto) 9 % (0-3) Basophils (%) (Auto) 0 % (0-3) Neutrophils # (Auto) 2.0 x10^3uL (1.8-7.7) Lymphocytes # (Auto) 1.2 x10^3/uL (1.0-4.8) Monocytes # (Auto) 0.2 x10^3/uL (0.0-1.1) Eosinophils # (Auto) 0.3 x10^3/uL (0.0-0.7) Basophils # (Auto) 0.0 x10^3/uL (0.0-0.2) Platelet Estimate Decreased (ADEQUATE) Giant Platelets Occ Sodium Level 147 mmol/L (136-145) Potassium Level 3.9 mmol/L (3.5-5.1) Chloride Level 110 mmol/L (98-107) Carbon Dioxide Level 35 mmol/L (21-32) Anion Gap 2 (6-14) Blood Urea Nitrogen 18 mg/dL (8-26) Creatinine 0.6 mg/dL (0.7-1.3) Estimated GFR (Cockcroft-Gault) 133.6 Glucose Level 135 mg/dL (70-99) Calcium Level 7.9 mg/dL (8.5-10.1) Test 02/23/18 18:34 02/24/18 01:20 02/24/18 06:00 02/24/18 12:05 Glucose (Fingerstick) 83 mg/dL (70-99) 116 mg/dL (70-99) 95 mg/dL (70-99) White Blood Count 3.8 x10^3/uL (4.0-11.0) Red Blood Count 4.32 x10^6/uL (4.30-5.70) Hemoglobin 14.5 g/dL (13.0-17.5) Hematocrit 43.0 % (39.0-53.0) Mean Corpuscular Volume 100 fL (79-100) Mean Corpuscular Hemoglobin 34 pg (25-35) Mean Corpuscular Hemoglobin Concent 34 g/dL (31-37) Red Cell Distribution Width 14.3 % (11.5-14.5) Platelet Count 86 x10^3/uL (140-400) Neutrophils (%) (Auto) 45 % (31-73) Lymphocytes (%) (Auto) 37 % (24-48) Monocytes (%) (Auto) 8 % (0-9) Eosinophils (%) (Auto) 9 % (0-3) Basophils (%) (Auto) 1 % (0-3) Neutrophils # (Auto) 1.7 x10^3uL (1.8-7.7) Lymphocytes # (Auto) 1.4 x10^3/uL (1.0-4.8) Monocytes # (Auto) 0.3 x10^3/uL (0.0-1.1) Eosinophils # (Auto) 0.3 x10^3/uL (0.0-0.7) Basophils # (Auto) 0.0 x10^3/uL (0.0-0.2) Sodium Level 147 mmol/L (136-145) Potassium Level 3.8 mmol/L (3.5-5.1) Chloride Level 109 mmol/L (98-107) Carbon Dioxide Level 35 mmol/L (21-32) Anion Gap 3 (6-14) Blood Urea Nitrogen 10 mg/dL (8-26) Creatinine 0.5 mg/dL (0.7-1.3) Estimated GFR (Cockcroft-Gault) 164.9 Glucose Level 101 mg/dL (70-99) Calcium Level 8.0 mg/dL (8.5-10.1) Laboratory Tests Test 02/23/18 18:34 02/24/18 01:20 02/24/18 06:00 02/24/18 12:05 Glucose (Fingerstick) 83 mg/dL (70-99) 116 mg/dL (70-99) 95 mg/dL (70-99) White Blood Count 3.8 x10^3/uL (4.0-11.0) Red Blood Count 4.32 x10^6/uL (4.30-5.70) Hemoglobin 14.5 g/dL (13.0-17.5) Hematocrit 43.0 % (39.0-53.0) Mean Corpuscular Volume 100 fL (79-100) Mean Corpuscular Hemoglobin 34 pg (25-35) Mean Corpuscular Hemoglobin Concent 34 g/dL (31-37) Red Cell Distribution Width 14.3 % (11.5-14.5) Platelet Count 86 x10^3/uL (140-400) Neutrophils (%) (Auto) 45 % (31-73) Lymphocytes (%) (Auto) 37 % (24-48) Monocytes (%) (Auto) 8 % (0-9) Eosinophils (%) (Auto) 9 % (0-3) Basophils (%) (Auto) 1 % (0-3) Neutrophils # (Auto) 1.7 x10^3uL (1.8-7.7) Lymphocytes # (Auto) 1.4 x10^3/uL (1.0-4.8) Monocytes # (Auto) 0.3 x10^3/uL (0.0-1.1) Eosinophils # (Auto) 0.3 x10^3/uL (0.0-0.7) Basophils # (Auto) 0.0 x10^3/uL (0.0-0.2) Sodium Level 147 mmol/L (136-145) Potassium Level 3.8 mmol/L (3.5-5.1) Chloride Level 109 mmol/L (98-107) Carbon Dioxide Level 35 mmol/L (21-32) Anion Gap 3 (6-14) Blood Urea Nitrogen 10 mg/dL (8-26) Creatinine 0.5 mg/dL (0.7-1.3) Estimated GFR (Cockcroft-Gault) 164.9 Glucose Level 101 mg/dL (70-99) Calcium Level 8.0 mg/dL (8.5-10.1) Allergies Allergies Coded Allergies Type Severity Reaction Last Updated Verified fentanyl Allergy Intermediate 02/24/18 Yes morphine Allergy Intermediate 02/24/18 Yes Disposition/Orders: Other (to snf with hospice) Patient Instructions d/c planning 31 min NATALY ALEXANDER MD Feb 24, 2018 14:02
--- NOTE | 2018-02-24 14:03 | DISCH ---
DISCHARGE DISCHARGE INFORMATION: FINAL DIAGNOSIS Problems Medical Problems: (1) Altered mental state Status: Acute (2) Fever Status: Acute (3) Hypernatremia Status: Acute CONDITION ON DISCHARGE: Guarded CODE STATUS: Code Status: DNR/DNI MCC: SNF STAY <30 DAYS: No HOSPICE: HOSPICE: Yes HOSPICE EVAL & TREAT: Yes POST DISCHARGE ORDERS: ACTIVITY ORDERS: Activity as tolerated WEIGHT BEARING STATUS: As tolerated DIET AFTER DISCHARGE: tube feeds WOUND/INCISION CARE: No wound care needed TREATMENT/EQUIPMENT ORDERS: ADAPTIVE EQUIPMENT NEEDED: None Physical Therapy For: Evalulation/Treatment Occupational Therapy For: Evaluation/Treatment Speech Language Pathology For: Evaluation/Treatment DISCHARGE MEDICATIONS: Home Meds Active Scripts Scopolamine (TRANSDERM-SCOP) 1 Each Patch.td72, 1 PATCH TP Q3DAYS, #4 PATCH Prov:KIRK KHOURY MD 12/08/17 Enoxaparin Sodium (ENOXAPARIN SODIUM) 40 Mg/0.4 Ml Disp.syrin, 40 MG SQ Q24H for 30 Days, DIS.SYR Prov:KIRK KHOURY MD 12/08/17 Reported Medications Divalproex Sodium (DEPAKOTE SPRINKLE) 125 Mg Cap.sprink, 500 MG PO BID, EACH 12/02/17 Cyanocobalamin (Vitamin B-12) (B-12) 1,000 Mcg Tablet, 1000 MCG PO QMONTH, TAB 12/02/17 Atropine Sulfate (Atropine Sulfate) 2 Ml Drops, 2 ML SL PRN Q4HRS PRN for SECRETIONS, DROP 11/30/17 Ipratropium/Albuterol Sulfate (DUONEB 0.5-3(2.5) MG/3 ML) 3 Ml Ampul.neb, 3 ML NEB QID, EACH 09/21/16 Citalopram Hydrobromide (CELEXA) 20 Mg Tablet, 1 TAB PEG QODAY, #90 TAB 3 Refills 09/21/16 Budesonide (BUDESONIDE) 0.5 Mg/2 Ml Ampul.neb, 1 VIAL NEB BID, #120 ML 3 Refills 09/21/16 Benztropine Mesylate (BENZTROPINE MESYLATE) 1 Mg Tablet, 1 MG PEG HS, TAB 09/21/16 Polyvinyl Alcohol (POLYVINYL ALCOHOL) 15 Ml Drops, 15 ML OP PRN Q8HRS, DROP Instill 1 drop in both eyes every 8 hours as needed for dryness 09/21/16 Acetaminophen (ACETAMINOPHEN) 500 Mg Tablet, 650 MG PEG PRN Q6HRS for FEVER, TAB 09/21/16 NATALY ALEXANDER MD Feb 24, 2018 14:03
--- NOTE | 2018-02-24 14:23 | PDOC4 ---
PROCEDURE Procedure EGD/replace PEG Indication: malfunctioning g-tube Meds: per anesthesia Findings: E--Normal G--Old g-tube in body, otherwise normal. D--Normal to second portion. --Old tube removed orally. Scope reinserted and string grasped--out mouth. New tube placed in standard fashion in old stoma. --scope reinserted, confirming good placement. J Carlos. well. IMP: successful PEG replacement. REC: OK to use tube immediately. TARI VASQUEZ MD Feb 24, 2018 14:23
[2018-02-24 14:55] VITALS: BP 125/80
[2018-02-24] MEDS: DIVALPROEX SPRINKLES 125 MG CAPSULE. PO SCH (16:58)
[2018-02-24] MEDS: CITALOPRAM 20 MG TABLET. PEG SCH (16:58)
[2018-02-24] MEDS: SCOPOLAMINE 1.5MG PATCH. TD SCH (16:59)
[2018-03-20] MEDS ORDERED: CYANOCOBALAMIN (VITAMIN B-12) 1,000 MCG TABLET. PO SCH (09:00)
== END 2018-02-24 18:45 | disposition hospice, inpatient (51) | DRG 871 ==
LOC: ER 17:25 → 1 WEST ICU 22:30 → 6 SOUTH 02-21 09:32
PROVIDERS: ADMIT Internal Medicine; ATTEND Internal Medicine
PROC: 0D20XUZ Change Feeding Device in Upper Intestinal Tract, External Approach (ICD-10-PCS; principal; 2018-02-18)
PROC: 0DJ08ZZ Inspection of Upper Intestinal Tract, Via Natural or Artificial Opening Endoscopic (ICD-10-PCS; 2018-02-18)
DX: A41.9 Sepsis, unspecified organism (principal); G92 Toxic encephalopathy; J96.20 Acute and chronic respiratory failure, unspecified whether with hypoxia or hypercapnia; E87.0 Hyperosmolality and hypernatremia; K94.23 Gastrostomy malfunction; B34.9 Viral infection, unspecified; D69.6 Thrombocytopenia, unspecified; E87.6 Hypokalemia; F03.90 Unspecified dementia, unspecified severity, without behavioral disturbance, psychotic disturbance, mood disturbance, and anxiety; F32.9 Major depressive disorder, single episode, unspecified; G20 Parkinson's disease; G40.909 Epilepsy, unspecified, not intractable, without status epilepticus; I12.9 Hypertensive chronic kidney disease with stage 1 through stage 4 chronic kidney disease, or unspecified chronic kidney disease; I48.91 Unspecified atrial fibrillation; B96.5 Pseudomonas (aeruginosa) (mallei) (pseudomallei) as the cause of diseases classified elsewhere; J44.9 Chronic obstructive pulmonary disease, unspecified; K21.9 Gastro-esophageal reflux disease without esophagitis; M79.7 Fibromyalgia; N18.9 Chronic kidney disease, unspecified; Z96.659 Presence of unspecified artificial knee joint; R13.10 Dysphagia, unspecified; Z51.5 Encounter for palliative care; Z83.3 Family history of diabetes mellitus; Z87.891 Personal history of nicotine dependence; Z93.0 Tracheostomy status; Z79.899 Other long term (current) drug therapy; Z88.8 Allergy status to other drugs, medicaments and biological substances
CPT/HCPCS: 36415; 36556; 36600; 43246; 51702; 70450; 71045; 80048; 80053; 80202; 81001; 82140; 82805; 82962; 83605; 84145; 85025; 85610; 87040; 87070; 87205; 87493; 87641; 87804; 93005; 94640; 94760; 96365; 96367; J0692; J1650; J1815; J2543; J2704; J3370; J3480; J7040; J7120; J7620; J7626; 99291-25